=== PATIENT | female | born 1980 | race Caucasian/White ===

== ENCOUNTER → 2017-10-03 15:06 | Outpatient (CLI) | payer MEDICAID, SELFPAY ==
[2017-10-03 15:45] LABS: Urine Pregnancy, HCG Qual. Negative (Negative)
[2017-10-03 17:01] LABS: Alanine Aminotransferase 21 U/L (12-78); Albumin Level 4.1 gm/dL (3.4-5.0); Albumin/Globulin Ratio 1.3 (1.1-1.8); Alkaline Phosphatase 59 U/L (46-116); Aspartate Amino Transferase 15 U/L (15-37); Bilirubin,Total 0.7 mg/dL (0.2-1.0); Blood Urea Nitrogen 16 mg/dL (7-18); Calcium 9.1 mg/dL (8.5-10.1); Carbon Dioxide 28 mmol/L (21.0-32.0); Chloride 105 mmol/L (98-107); Creatinine,Serum 0.77 mg/dL (0.55-1.02); Estimated Glomerular Filt Rate 84 ml/min (>60); GFR (African American) 102 ML/MIN (>60); Globulin 3.2 gm/dl (1.3-3.2); Glucose 98 mg/dL (74-106); Sodium 141 mmol/L (136-145); Total Protein,Serum 7.3 gm/dL (6.4-8.2)
== END ==
PROVIDERS: Visit Provider Surgery
DX: Z01.818 Encounter for other preprocedural examination (principal); K80.10 Calculus of gallbladder with chronic cholecystitis without obstruction
CPT/HCPCS: 36415; 80053; 81025

== ENCOUNTER → 2018-01-24 10:39 | Outpatient (CLI) | payer MEDICAID, SELFPAY ==
[2018-01-24 12:53] LABS: HCG,Quantitative 6240 mIU/mL
== END ==
PROVIDERS: PCP Family Medicine; Visit Provider Physician Assistant
DX: N92.6 Irregular menstruation, unspecified (principal)
CPT/HCPCS: 36415; 84702

== ENCOUNTER → 2018-01-26 11:18 | Outpatient (CLI) | payer MEDICAID, SELFPAY ==
[2018-01-26 12:14] LABS: HCG,Quantitative 9681 mIU/mL
== END ==
PROVIDERS: PCP Family Medicine; Visit Provider Physician Assistant
DX: N92.6 Irregular menstruation, unspecified (principal)
CPT/HCPCS: 36415; 84702

== ENCOUNTER 2020-12-01 13:09 | Emergency (ER) | payer OTHER, SELFPAY ==
[2020-12-01 13:10] VITALS: BP 151/94; PULSE 86; RESP 20; TEMP 37; O2SAT 98; BMI 30.9
--- NOTE | 2020-12-01 13:47 | HMH.EDUTC ---
[facility] Clinical Impression: Viral syndrome Right otitis media Qualifiers: Otitis media type: suppurative Chronicity: acute Recurrence: non-recurrent Spontaneous tympanic membrane rupture: without spontaneous rupture Qualified Code(s): H66.001 - Acute suppurative otitis media without spontaneous rupture of ear drum, right ear Disposition: Home, Self-Care Condition on Discharge: Good Instructions: Middle Ear Infection, DI for Viral Syndrome Additional Instructions: Drink plenty of fluids. Take tylenol or ibuprofen for pain or fever. Take the medications as directed. Follow up with your regular doctor. GO TO THE ER FOR ANY WORSENING SYMPTOMS Prescriptions: Amoxicillin [Amoxicillin 500mg Tab] 500 mg PO TID 10 Days #30 tab Transmission Status: Received by [facility] #[id number] Benzonatate [Tessalon Perle 100mg Cap] 100 mg PO TIDP PRN #30 cap PRN Reason: Cough Transmission Status: Received by [facility] #[id number] Referrals: Yas Soares MD [Primary Care Provider] - Time of Disposition: 13:52 Medical Decision Making - Medical Records Medical records reviewed: No: I reviewed the patient's medical records. - Cj Inquiry Pt receiving controlled substance: No Vital Signs: 12/01/20 13:10 12/01/20 13:55 Temperature 98.6 F 98.6 F Temperature Source Oral Pulse Rate 86 Pulse Rate [Left Radial] 86 Respiratory Rate 20 20 Blood Pressure 151/94 H Blood Pressure [Right Arm] 151/94 H Blood Pressure Mean [Right Arm] 113 Blood Pressure Source [Right Arm] Automatic Cuff Blood Pressure Position [Right Arm] Sitting 02 Sat by Pulse Oximetry 98 Oxygen Delivery Method Room Air Room Air [facility] [place] - General Stated complaint: cough,runny nose,headache Time Seen by Provider: 12/01/20 13:47 Mode of Arrival: Ambulatory Source of Information: Patient Limitations: No Limitations Description of Symptoms (Recalled from Triage Doc. by RN): c/o sore throat, ear ache, mild fever, coughing and no taste since Sunday HEENT Symptoms (Recalled from RN notes): Yes Resp Symptoms (Recalled from RN notes): Yes (cough) Skin Symptoms (Recalled from RN notes): No MS Symptoms (Recalled from RN notes): No Functional Status (Recalled from RN notes): wnl - History of Present Illness Provider Complaint: She c/o runny nose, right ear pain, low grade fever, very poor appetite, and loss of her sense of smell and taste for the past 3 days. - Related Data Home Medications Medication Instructions Recorded Confirmed Melatonin/Pyridoxine HCl (B6) 1 each PO HS 09/28/17 10/12/17 [Melatonin 5 mg Tablet] Pantoprazole Sodium [Protonix 40mg 40 mg PO DAILY 10/11/17 10/12/17 tablet] Calcium Carbonate/Vitamin D3 1 each PO DAILY 10/12/17 10/12/17 [Calcium 500+D Tablet Chew] Previous Rx's Medication Instructions Recorded Amoxicillin [Amoxicillin 500mg Tab] 500 mg PO TID 10 Days #30 tab 12/01/20 Benzonatate [Tessalon Perle 100mg 100 mg PO TIDP PRN #30 cap 12/01/20 Cap] Allergies Allergy/AdvReac Type Severity Reaction Status Date / Time VANILLA ICE CREAM Allergy Unknown S-DIFF. Uncoded 10/23/17 10:13 BREATHING - Worker's Comp Is this a Worker's Comp case?: No [facility] History - Hepatitis A Screen Drug use history?: No High risk sexual behaviors?: No History of sexually transmitted infection?: No Currently employed?: No Childcare worker?: No Do you have indoor plumbing?: Yes Do you have electricity?: Yes Attestation statement:: This patient has been screened for Hepatitis A risk factors. I have reviewed the patient's past medical history: Yes Medical History: Reports:: Gastroesophageal Reflux Disease(GERD), Hypertension Denies:: Cancer, Diabetes Mellitus Type 1, Diabetes Mellitus Type 2, Internal Pacemaker, MRSA, Seizures Other Medical History: Denies: Blood Transfusion Reaction Laterality Cases: Bilateral: Other Other Surgeries: Yes: Colonoscopy, EGD, Tub
[2020-12-01 13:55] VITALS: BP 151/94; PULSE 86; RESP 20; TEMP 37; O2SAT 98
== END 2020-12-01 13:56 | disposition home or self-care (01) ==
PROVIDERS: Emergency Provider Nurse Practitioner Family; PCP Family Medicine
DX: H66.001 Acute suppurative otitis media without spontaneous rupture of ear drum, right ear (principal); B34.9 Viral infection, unspecified; I10 Essential (primary) hypertension; K21.9 Gastro-esophageal reflux disease without esophagitis
CPT/HCPCS: 99202; G0463; U0003

== ENCOUNTER → 2020-12-02 13:16 | Outpatient (CLI) | payer OTHER, SELFPAY ==
[2020-12-02 13:35] LABS: Adenovirus,PCR Not Detected (NotDetected); Bordetella Pertussis Not Detected (NotDetected); Chlamydophila Pneumoniae, PCR Not Detected (NotDetected); Coronavirus 19, PCR Not Detected (NotDetected); Coronavirus 229E Not Detected (NotDetected); Coronavirus NL63 Not Detected (NotDetected); Coronavirus OC43 Not Detected (NotDetected); Coronovirus HKU1,PCR Not Detected (NotDetected); Human Metapneumovirus Not Detected (NotDetected); Influenza A, PCR Not Detected (NotDetected); Influenza AH1, 2009 Not Detected (NotDetected); Influenza AH1, PCR Not Detected (NotDetected); Influenza AH3,PCR Not Detected (NotDetected); Influenza B, PCR Not Detected (NotDetected); Mycoplasma Pneumoniae, PCR Not Detected (NotDetected); Parainfluenza 1, PCR Not Detected (NotDetected); Parainfluenza 2, PCR Not Detected (NotDetected); Parainfluenza 3, PCR Not Detected (NotDetected); Parainfluenza 4, PCR Not Detected (NotDetected); Rhinovirus/Enterovirus Not Detected (NotDetected)
[2020-12-02 13:41] LABS: Basophils # 0.1 K/mm3 (0-0.2); Eosinophils # 0.1 K/mm3 (0.0-0.4); Eosinophils % 1.1 % (0.1-12.0); Hematocrit 41.6 % (37.0-47.0); Hemoglobin 14.5 g/dL (12.2-16.2); Lymphocytes # 2.1 K/mm3 (0.7-4.5); Lymphocytes % 23.3 % (10-50); Mean Corpuscular HGB Conc 34.8 g/dL (31.8-35.4); Mean Corpuscular Hemoglobin 29.1 pg (27.0-31.2); Mean Corpuscular Volume 83.7 fl (81-99); Mean Platelet Volume 9.1 fl (7.4-10.4); Monocytes # 0.4 K/mm3 (0.1-1.0); Monocytes % 4.5 % (1.7-9.3); Neutrophils # 6.2 K/mm3 (1.8-7.8); Platelet Count 195 K/mm3 (142-424); Red Blood Count 4.96 M/mm3 (4.20-5.40); Red Cell Distribution Width 13.3 % (11.5-17.5); White Blood Count 8.9 K/mm3 (4.8-10.8)
[2020-12-02 15:22] LABS: Respiratory Syncytial Virus Detected (NotDetected)
== END ==
PROVIDERS: PCP Family Medicine; Visit Provider Physician Assistant
DX: Z20.822 Contact with and (suspected) exposure to COVID-19 (principal); B97.4 Respiratory syncytial virus as the cause of diseases classified elsewhere
CPT/HCPCS: 36415; 85025; 87486; 87581; 87633; 87798; U0003

== ENCOUNTER 2021-08-05 13:44 | Emergency (ER) | payer OTHER, SELFPAY ==
[2021-08-05 14:36] VITALS: BP 141/94; PULSE 69; RESP 19; TEMP 36.7; O2SAT 97; BMI 31.8
--- NOTE | 2021-08-05 14:40 | HMH.EDUTC ---
[facility] – [place] Disposition Clinical Impression: Ear problem Qualifiers: Laterality: right Qualified Code(s): H93.91 - Unspecified disorder of right ear Disposition: Home, Self-Care Condition on Discharge: Good Instructions: DI for Ear Pain-Adult Additional Instructions: Follow up with Family Doctor if no improvement or any worsening of symptoms Return if needed Straight to ER if any life threatening symptoms Referrals: Yas Soares MD [Primary Care Provider] - As needed Time of Disposition: 14:45 Medical Decision Making - Cj Inquiry Pt receiving controlled substance: No Cj was queried for this patient: No Vital Signs: 08/05/21 14:36 Temperature 98.1 F Temperature Source Oral Pulse Rate [Left] 69 Respiratory Rate 19 Blood Pressure [Right Arm] 141/94 H Blood Pressure Mean [Right Arm] 109 02 Sat by Pulse Oximetry 97 [facility] [place] HPI - General Stated complaint: cotton stuck inside ear Time Seen by Provider: 08/05/21 14:40 Mode of Arrival: Ambulatory Source of Information: Patient Limitations: No Limitations Description of Symptoms (Recalled from Triage Doc. by RN): pt states the end of a q-tip has been stuck inside her R ear since last night. HEENT Symptoms (Recalled from RN notes): Yes Resp Symptoms (Recalled from RN notes): No Skin Symptoms (Recalled from RN notes): No MS Symptoms (Recalled from RN notes): No Functional Status (Recalled from RN notes): wnl - History of Present Illness Provider Complaint: Patient states that she was cleaning her ear last night with a qtip and the tip of the qtip came off in her right ear State that she tried to flush her ear and get family to help clean it out State that she feels like it may still be in there so she came in to see if she could get it out - Related Data Home Medications Medication Instructions Recorded Confirmed atenolol 50 mg tablet 50 mg PO tab 12/16/20 02/03/21 fluticasone propionate 50 ml INTRANASAL 12/16/20 02/03/21 mcg/actuation nasal spray,suspension solifenacin 5 mg tablet ea PO 02/03/21 02/03/21 Previous Rx's Medication Instructions Recorded fexofenadine-pseudoephedrine ER 1 tab PO DAILY #30 tab 12/16/20 180 mg-240 mg tablet,ext.release 24 hr Allergies Allergy/AdvReac Type Severity Reaction Status Date / Time VANILLA ICE CREAM Allergy Unknown S-DIFF. Uncoded 10/23/17 10:13 BREATHING - Worker's Comp Is this a Worker's Comp case?: No [facility] History - Hepatitis A Screen Drug use history?: No High risk sexual behaviors?: No History of sexually transmitted infection?: No Currently employed?: No Childcare worker?: No Do you have indoor plumbing?: Yes Do you have electricity?: Yes Attestation statement:: This patient has been screened for Hepatitis A risk factors. I have reviewed the patient's past medical history: Yes Medical History: Reports:: Gastroesophageal Reflux Disease(GERD), Hypertension Denies:: Cancer, Diabetes Mellitus Type 1, Diabetes Mellitus Type 2, Internal Pacemaker, MRSA, Seizures Other Medical History: Denies: Blood Transfusion Reaction Laterality Cases: Bilateral: Other Other Surgeries: Yes: Colonoscopy, EGD, Tubal Ligation, Other. No: Pacemaker Amputation: No - Social History Smoking Status: Never smoker Alcohol Intake: never Occupational Status: employed Household Members: spouse Family Hx:: No significant family history ROS Obtained: Yes All systems reviewed & no additional complaints, Yes Systems reviewed as appropriate & no additional complaints - Constitutional Constitutional: Reports system reviewed and no additional complaints, except as docu, Denies body ache, Denies chills, Denies fever(s) - ENT Ears, Nose, Mouth, and Throat: Reports system reviewed and no additional complaints, except as docu, Reports other (cotton tip on qtip came off in ear feels like piece is still in there) Physical Exam - General General appearance: alert, in no apparent distress -
[2021-08-05 14:54] VITALS: BP 141/94; PULSE 69; RESP 19; TEMP 36.7
== END 2021-08-05 14:55 | disposition home or self-care (01) ==
PROVIDERS: Emergency Provider Nurse Practitioner; PCP Family Medicine
DX: H93.91 Unspecified disorder of right ear (principal); K21.9 Gastro-esophageal reflux disease without esophagitis; I10 Essential (primary) hypertension
CPT/HCPCS: 99211; G0463

== ENCOUNTER → 2021-08-30 10:06 | Outpatient (CLI) | payer OTHER, SELFPAY ==
--- NOTE | 2021-08-30 10:09 | MM_ITS ---
PROCEDURE INFORMATION: Exam: MG Bilateral Screening 3D Mammography Exam date and time: 08/30/2021 10:13 AM Age: 41 years old Clinical indication: Baseline. No family history of breast cancer TECHNIQUE: Imaging protocol: Bilateral Screening tomosynthesis and 2D mammography including computer-aided detection (CAD) when performed. COMPARISON: No relevant prior studies available. FINDINGS: MAMMOGRAPHY: Breast composition: There are scattered areas of fibroglandular density. Mass: In the left breast, outer lower quadrant, middle 3rd, possibly 2 adjacent masses, larger measures 0.3 cm, image 1373, frame 24 and image 1720 frame 30; and in the outer breast, middle 3rd, oval slightly lobulated 1.0 cm mass which may be a lymph node, best seen in the CC view, image 1373, frame 61. Architectural distortion: None. Calcifications: No suspicious calcifications. Asymmetric density: None. Skin thickening: None. Axillary adenopathy: None. IMPRESSION: Patient to be recalled for left diagnostic spot compression in the CC and MLO projections for further evaluation in the lower outer quadrant as well as spot compression in the CC for further evaluation in the outer breast with full field true lateral, as well as left breast ultrasound for further evaluation of possible left breast masses. ASSESSMENT: BI-RADS Category 0: Incomplete- Need Additional Imaging Evaluation and/or Prior Mammograms for Comparison
== END ==
PROVIDERS: PCP Family Medicine; Visit Provider Physician Assistant
DX: Z12.31 Encounter for screening mammogram for malignant neoplasm of breast (principal)
CPT/HCPCS: 77063; 77067

== ENCOUNTER → 2021-09-12 13:57 | Outpatient (CLI) | payer OTHER, SELFPAY ==
--- NOTE | 2021-09-12 14:04 | MM_ITS ---
PROCEDURE INFORMATION: Exam: US Left Breast, Complete MG Left Diagnostic Breast Tomosynthesis Exam date and time: 09/12/2021 3:08 PM Age: 41 years old Clinical indication: Patient recalled for further evaluation of 2 questionable left breast masses TECHNIQUE: Imaging protocol: Complete ultrasound of all four quadrants of the Left breast and the retroareolar regions, including ultrasound of the axilla when performed. Left Diagnostic tomosynthesis and 2D mammography including computer-aided detection (CAD) when performed. Unilateral or bilateral exam. COMPARISON: MG MM DIG MAMM BI DX W/CAD 09/12/2021 2:19 PM FINDINGS: MAMMOGRAPHY: Digital diagnostic spot compression views of the middle third of the left lateral breast only seen in the craniocaudal projection in the a persistent ovoid approximately 0.7 cm mass. This is not confirmed in the second projection. Additional spot compression views of the left inferior breast and 90 degree lateral view of the left breast demonstrates a questionable persistent 0.3 cm mass only appreciated in the MLO projection. ULTRASOUND: Sonographic images of the left breast including the retroareolar region, all 4 quadrants and the axilla do not demonstrate any solid or cystic masses. No architectural distortion or acoustical shadowing. No skin thickening or axillary adenopathy. IMPRESSION: Probably benign nonspecific subcentimeter nodularity in the middle third of the left lateral breast on the craniocaudal view as well as in the posterior third of the left inferior breast on the MLO view. A six-month follow-up diagnostic left mammogram is recommended to ensure stability of the pattern identified unless otherwise clinically indicated. ASSESSMENT: BI-RADS Category 3: Probably benign
== END ==
PROVIDERS: PCP Family Medicine; Visit Provider Physician Assistant
DX: R92.8 Other abnormal and inconclusive findings on diagnostic imaging of breast (principal)
CPT/HCPCS: 76641; 77061; 77065; G0279

== ENCOUNTER → 2021-11-09 16:45 | Outpatient (CLI) | payer OTHER, SELFPAY ==
--- NOTE | 2021-11-09 | XR_ITS ---
PROCEDURE INFORMATION: Exam: XR Chest Exam date and time: 11/09/2021 4:53 PM Age: 41 years old Clinical indication: Pain; Angina pectoris and chest pressure; Patient HX: SOA and chest tightness for 2 months TECHNIQUE: Imaging protocol: Radiologic exam of the chest. Views: 2 views. COMPARISON: ABDPELWO CT abdomen pelvis wo con 09/28/2017 1:40 AM FINDINGS: Lungs: Unremarkable. No consolidation. Pleural spaces: Unremarkable. No pleural effusion. No pneumothorax. Heart/Mediastinum: Unremarkable. No cardiomegaly. Bones/joints: Unremarkable. IMPRESSION: No acute findings.
== END ==
PROVIDERS: PCP Family Medicine; Visit Provider Family Medicine
DX: R06.02 Shortness of breath (principal)
CPT/HCPCS: 71046

== ENCOUNTER → 2021-11-14 14:30 | Outpatient (CLI) | payer OTHER, SELFPAY | PROVIDERS: PCP Family Medicine; Visit Provider Family Medicine | DX: R06.02 Shortness of breath (principal) | CPT/HCPCS: 93225; 93226 ==

== ENCOUNTER → 2021-11-16 14:13 | Outpatient (CLI) | payer OTHER, SELFPAY ==
--- NOTE | 2021-11-16 14:16 | US_ITS ---
FINAL REPORT CLINICAL HISTORY: THYROMEGALY FINDINGS: Sonographic images of the thyroid were obtained. The right lobe of the thyroid measures 4.5 x1.0 x 1.0 cm. The left lobe of the thyroid measures 4.4 x 0.54 x 1.1 cm . The isthmus measures 0.34 cm. In the right lobe of the thyroid is a 6 x 5 x 3 mm solid, hypoechoic nodule consistent with TI-RADS category 4. In the left upper lobe of the thyroid is a solid, hypoechoic nodule measuring 3 mm in transverse dimension consistent with TI-RADS category 4. There is a 2nd nodule in the mid left thyroid lobe measuring 3 x 2 x 2 mm which is solid and isoechoic consistent with TI-RADS category 3. There is a 3rd nodule in the left lobe of the thyroid measuring 5 x 4 x 3 mm which is solid and hypoechoic consistent with TI-RADS category 4. IMPRESSION: Bilateral thyroid nodules as detailed above. No follow-up is required. Reviewed, Interpreted and Dictated by Kilo Ward III, MD Transcribed by Mckayla Contreras Authenticated and [facility]
== END ==
PROVIDERS: PCP Family Medicine; Visit Provider Family Medicine
DX: E01.0 Iodine-deficiency related diffuse (endemic) goiter (principal)
CPT/HCPCS: 76536

== ENCOUNTER → 2022-01-11 15:29 | Outpatient (CLI) | payer OTHER, SELFPAY ==
[2022-01-19 13:10] LABS: D001-IgE D pteronyssinus 0.62 kU/L (Class II); E001-IgE Cat Dander <0.10 kU/L (Class 0); E005-IgE Dog Dander <0.10 kU/L (Class 0); E072-IgE Mouse Urine <0.10 kU/L (Class 0); G002-IgE Bermuda Grass <0.10 kU/L (Class 0); G006-IgE Timothy Grass <0.10 kU/L (Class 0); I006-IgE Cockroach, German <0.10 kU/L (Class 0); Immunoglobulin E, Total 34 IU/mL (6-495); M001-IgE Penicillium chrysogen 0.38 kU/L (Class I); M002-IgE Cladosporium herbarum <0.10 kU/L (Class 0); M003-IgE Aspergillus fumigatus <0.10 kU/L (Class 0); M006-IgE Alternaria alternata <0.10 kU/L (Class 0); T001-IgE Maple/Box Elder <0.10 kU/L (Class 0); T003-IgE Common Silver Birch <0.10 kU/L (Class 0); T006-IgE Cedar, Mountain <0.10 kU/L (Class 0); T007-IgE Oak, White <0.10 kU/L (Class 0); T008-IgE Elm, American <0.10 kU/L (Class 0); T010-IgE Walnut <0.10 kU/L (Class 0); T011-IgE Maple Leaf Sycamore <0.10 kU/L (Class 0); T014-IgE Cottonwood <0.10 kU/L (Class 0); T015-IgE Ash, White <0.10 kU/L (Class 0); T022-IgE Pecan, Hickory <0.10 kU/L (Class 0); T070-IgE White Mulberry <0.10 kU/L (Class 0); W001-IgE Ragweed, Short <0.10 kU/L (Class 0); W011-IgE Thistle, Russian <0.10 kU/L (Class 0); W014-IgE Pigweed, Common <0.10 kU/L (Class 0); W018-IgE Sheep Sorrel <0.10 kU/L (Class 0)
== END ==
PROVIDERS: PCP Family Medicine; Visit Provider Otolaryngology
DX: J32.9 Chronic sinusitis, unspecified (principal); J34.2 Deviated nasal septum; K21.9 Gastro-esophageal reflux disease without esophagitis
CPT/HCPCS: 36415; 82785; 86003

== ENCOUNTER → 2022-01-30 13:20 | Outpatient (CLI) | payer OTHER, SELFPAY ==
--- NOTE | 2022-01-30 13:21 | CT_ITS ---
FINAL REPORT TECHNIQUE: Thin section axial CT images of the facial bones and sinuses were obtained without contrast. Coronal reformatted images were also obtained. This study was performed with techniques to keep radiation doses as low as reasonably achievable, (ALARA). Individualized dose reduction techniques using automated exposure control or adjustment of mA and/or kV according to the patient's size were employed. CLINICAL HISTORY: sinusitis FINDINGS: CT SINUSES There is no evidence of mucosal thickening. No fluid levels are identified. The ostiomeatal units have an unremarkable appearance. There is mild rightward nasal septal deviation. No fracture or acute bony abnormality is identified. There is chronic irregularity of the articular surface of the right mandibular condyle. IMPRESSION: No focal abnormality identified of the sinuses. Reviewed, Interpreted and Dictated by Kilo Ward III, MD Transcribed by Dariana Meraz Authenticated and [facility]
== END ==
PROVIDERS: PCP Family Medicine; Visit Provider Otolaryngology
DX: J32.9 Chronic sinusitis, unspecified (principal); J34.2 Deviated nasal septum; K21.9 Gastro-esophageal reflux disease without esophagitis
CPT/HCPCS: 70486

== ENCOUNTER → 2022-03-16 12:45 | Outpatient (CLI) | payer OTHER, SELFPAY ==
--- NOTE | 2022-03-16 12:52 | MM_ITS ---
PROCEDURE INFORMATION: Exam: US Left Breast, Complete MG Bilateral Diagnostic Breast Tomosynthesis Exam date and time: 03/16/2022 12:57 PM Age: 42 years old Clinical indication: Short-term radiographic followup; Left breast; masses. continued pain in right TECHNIQUE: Imaging protocol: Complete ultrasound of all four quadrants of the Left breast and the retroareolar regions, including ultrasound of the axilla when performed. Bilateral Diagnostic tomosynthesis and 2D mammography including computer-aided detection (CAD) when performed. Unilateral or bilateral exam. COMPARISON: 1. MG MM DIG MAMM BI DX W/CAD 09/12/2021 2:19 PM 2. MG MM DIG SCREENING MAMM BI W/CAD 08/30/2021 10:13 AM FINDINGS: MAMMOGRAPHY: The breast tissue is composed of scattered areas of fibroglandular density. There is no stellate mass, architectural distortion or suspicious microcalcifications in either breast to suggest malignancy. Previously noted left breast masses are not well seen on the current examination No skin thickening or axillary adenopathy. ULTRASOUND: Sonographic images of the left breast including the retroareolar region, all 4 quadrants and the axilla do not demonstrate any solid or cystic masses. No architectural distortion or acoustical shadowing. No skin thickening or axillary adenopathy. IMPRESSION: 1. No mammographic or sonographic evidence of malignancy. Annual bilateral mammographic screening is recommended unless otherwise clinically indicated. 2. Clinical correlation is needed for the patient's complaint of right breast pain. If the pain is focal, patient should return for right breast ultrasound. ASSESSMENT: BI-RADS Category 1: Negative
== END ==
PROVIDERS: PCP Family Medicine; Visit Provider Obstetrics & Gynecology
DX: R92.8 Other abnormal and inconclusive findings on diagnostic imaging of breast (principal)
CPT/HCPCS: 76641; 77062; 77066; G0279

== ENCOUNTER 2022-06-13 16:13 | Emergency (ER) | payer OTHER, SELFPAY ==
[2022-06-13 16:14] VITALS: BP 157/88; PULSE 63; RESP 18; TEMP 36.5; O2SAT 99; BMI 33.3
[2022-06-13 16:21] VITALS: BP 157/88; PULSE 58; O2SAT 99
--- NOTE | 2022-06-13 16:26 | HMH.EDGENADL ---
Discharge Plan Disposition Patient Disposition: Home, Self-Care Condition: Good Prescriptions Prescriptions: No Action atenolol 50 mg tablet 50 mg PO Label Comments: TAKE 1 TABLET BY MOUTH EVERY DAY fexofenadine [Yarelis Allergy] 180 mg tablet 180 mg PO DAILY Qty: 30 6RF montelukast [Singulair] 10 mg tablet 10 mg PO DAILY Qty: 30 6RF fluticasone propionate 50 mcg/actuation spray,suspension 2 spray INTRANASAL DAILY Qty: 16 6RF solifenacin 5 mg tablet PO Label Comments: TAKE 1 TABLET BY MOUTH EVERY DAY ergocalciferol (vitamin D2) 1,250 mcg (50,000 unit) capsule 1,250 mcg PO WEEKLY Label Comments: TAKE 1 CAPSULE BY MOUTH EVERY WEEK ON SAME DAY EACH WEEK albuterol sulfate [ProAir HFA] 90 mcg/actuation HFA aerosol inhaler 2 puff inhalation QID PRN Label Comments: INHALE 2 PUFFS BY MOUTH FOUR TIMES DAILY NEEDED norethindrone-e.estradiol-iron [Blisovi Fe 05/19 (28)] 1 mg-20 mcg (21)/75 mg (7) tablet 1 tab PO DAILY omeprazole 40 mg capsule,delayed release(DR/EC) 40 mg PO DAILY Qty: 60 4RF azelastine 137 mcg (0.1 %) aerosol,spray 2 spray intranasal BID Qty: 30 3RF Rx Instructions: administer into each nostril azelastine 205.5 mcg (0.15 %) spray,non-aerosol 1 spray intranasal HS Qty: 30 2RF Rx Instructions: administer into each nostril at bedtime Referrals Follow up/Referrals: Yas Soares MD [Primary Care Provider] - See instructions Activity Restrictions/Add. Instructions Additional Instructions/Restrictions: Follow-up with your urologist as scheduled in the meantime keep the Baum catheter in place. Clinical Impressions Clinical Impression: Acute urinary retention Discharge ED Provider: Kenn Turner General Adult HPI General Chief complaint: PAIN Stated complaint: unable to pee,procedure 06-12-22 Time Seen by Provider: 06/13/22 16:24 History of Present Illness HPI narrative: Patient presents with urinary retention. She underwent bladder sling surgery yesterday and states she has been unable to void since her catheter was removed earlier this morning. She denies fever or vomiting. She does note some lower abdominal discomfort apparently from the retention. Symptoms are described as severe. Related Data Home Medications Medication Instructions Recorded Confirmed atenolol 50 mg tablet 50 mg PO 12/16/20 05/10/22 solifenacin 5 mg tablet ea PO 02/03/21 05/10/22 albuterol sulfate 90 mcg/actuation 2 puff inhalation QID PRN 01/11/22 05/10/22 aerosol inhaler (ProAir HFA) ergocalciferol (vitamin D2) 1,250 1,250 mcg PO WEEKLY 01/11/22 05/10/22 mcg (50,000 unit) capsule norethindrone 1 mg-ethinyl 1 tab PO DAILY 01/11/22 05/10/22 estradiol 20 mcg (21)-iron 75 mg (7) tablet (Blisovi Fe 05/19 (28)) Previous Rx's Medication Instructions Recorded omeprazole 40 mg capsule,delayed 40 mg PO DAILY #60 caps 01/11/22 release fexofenadine 180 mg tablet 180 mg PO DAILY #30 tabs 02/22/22 (Yarelis Allergy) fluticasone propionate 50 2 spray intranasal DAILY #16 grams 02/22/22 mcg/actuation nasal spray,suspension montelukast 10 mg tablet 10 mg PO DAILY #30 tabs 02/22/22 (Singulair) azelastine 137 mcg (0.1 %) nasal 2 spray intranasal BID #30 mL 05/31/22 spray aerosol azelastine 205.5 mcg (0.15 %) 1 spray intranasal HS #30 mL 06/06/22 nasal spray Allergies Allergy/AdvReac Type Severity Reaction Status Date / Time VANILLA ICE CREAM Allergy Unknown S-DIFF. Uncoded 05/10/22 15:21 [facility] Disclaimer: The information contained in this section may have been updated after the patient was seen, as this information can be updated by other users. Medical History Chronic sinusitis Deviated nasal septum GERD (gastroesophageal reflux disease) HTN (hypertension), benign Social History (Reviewed 06/13/22 @ 16:27 by Ele
--- NOTE | 2022-06-13 16:35 | PC.NURSE ---
Bladder scanner scanned 749. chaudhry catheter inserted and 750 of urine collected, pt states that she feels better after insertion of catheter.
[2022-06-13 16:52] LABS: Microscopic, Urine URINE MICROSCOPIC (MICROSCOPIC)
[2022-06-13 17:22] LABS: Appearance,Urine CLEAR (Clear); Bilirubin,Urine Negative (Negative); Blood, Urine 3+ (Negative); Color,Urine YELLOW (Yellow); Glucose,Urine (UA) Negative (Negative); Ketones,Urine Negative (Negative); Leukocyte Esterase,Urine Negative (Negative); Nitrate,Urine Negative (Negative); Protein,Urine Negative (Negative); Specific Gravity, Urine 1.015 (1.005-1.030); Urobilinogen,Urine 0.2 EU/dl (0.2)
[2022-06-13 17:27] VITALS: BP 146/82; PULSE 49; O2SAT 100
[2022-06-13 17:40] LABS: Squamous Epithelial Cell,Urine Occasional #/hpf (0-5); WBC,Urine Occasional #/hpf (0-3)
--- NOTE | 2022-06-13 17:45 | PC.NURSE ---
PT IS RESTING NO COMPLAINTS AT THIS TIME,DAUGHTER AT BEDSIDE
[2022-06-13 18:00] VITALS: BP 128/77; PULSE 52; RESP 13; TEMP 36.5; O2SAT 99
== END 2022-06-13 18:04 | disposition home or self-care (01) ==
PROVIDERS: Emergency Provider Emergency Medicine; PCP Family Medicine
DX: R33.9 Retention of urine, unspecified (principal); K21.9 Gastro-esophageal reflux disease without esophagitis; I10 Essential (primary) hypertension
CPT/HCPCS: 51702; 81001; 99283; 99284

== ENCOUNTER 2022-06-16 23:56 | Emergency (ER) | payer OTHER, SELFPAY ==
[2022-06-16 23:57] VITALS: BP 152/101; PULSE 83; RESP 18; TEMP 36.8; O2SAT 98; BMI 35.4
[2022-06-17 00:22] LABS: Microscopic, Urine URINE MICROSCOPIC (MICROSCOPIC)
[2022-06-17 00:25] LABS: Appearance,Urine CLEAR (Clear); Bilirubin,Urine Negative (Negative); Blood, Urine TRACE-L (Negative); Color,Urine ORANGE (Yellow); Glucose,Urine (UA) TRACE (Negative); Ketones,Urine Negative (Negative); Leukocyte Esterase,Urine Negative (Negative); Nitrate,Urine POSITIVE (Negative); Protein,Urine 1+ (Negative)
--- NOTE | 2022-06-17 00:29 | HMH.EDUROGF ---
Discharge Plan Disposition Patient Disposition: Home, Self-Care Chief Complaint: Urogenital-Female Prescriptions Prescriptions: No Action atenolol 50 mg tablet 50 mg PO Label Comments: TAKE 1 TABLET BY MOUTH EVERY DAY fexofenadine [Yarelis Allergy] 180 mg tablet 180 mg PO DAILY Qty: 30 6RF montelukast [Singulair] 10 mg tablet 10 mg PO DAILY Qty: 30 6RF fluticasone propionate 50 mcg/actuation spray,suspension 2 spray INTRANASAL DAILY Qty: 16 6RF solifenacin 5 mg tablet PO Label Comments: TAKE 1 TABLET BY MOUTH EVERY DAY ergocalciferol (vitamin D2) 1,250 mcg (50,000 unit) capsule 1,250 mcg PO WEEKLY Label Comments: TAKE 1 CAPSULE BY MOUTH EVERY WEEK ON SAME DAY EACH WEEK albuterol sulfate [ProAir HFA] 90 mcg/actuation HFA aerosol inhaler 2 puff inhalation QID PRN Label Comments: INHALE 2 PUFFS BY MOUTH FOUR TIMES DAILY NEEDED norethindrone-e.estradiol-iron [Blisovi Fe / (28)] 1 mg-20 mcg (21)/75 mg (7) tablet 1 tab PO DAILY omeprazole 40 mg capsule,delayed release(DR/EC) 40 mg PO DAILY Qty: 60 4RF azelastine 137 mcg (0.1 %) aerosol,spray 2 spray intranasal BID Qty: 30 3RF Rx Instructions: administer into each nostril azelastine 205.5 mcg (0.15 %) spray,non-aerosol 1 spray intranasal HS Qty: 30 2RF Rx Instructions: administer into each nostril at bedtime Referrals Follow up/Referrals: Yas Soares MD [Primary Care Provider] - See instructions Clinical Impressions Clinical Impression: Acute urinary retention Instructions Patient Instructions: How to Care for Your Chaudhry Catheter -- Female Discharge ED Provider: Chap[facility] (ED)[facility] Female Urogenital HPI General Chief complaint: Urogenital-Female Stated complaint: unable to urinate Time Seen by Provider: 06/17/22 00:29 Mode of Arrival: Ambulatory Source of Information: Patient and Medical Record Limitations: No Limitations Description of Symptoms (Recalled from ER Triage Doc. by RN): Patient arrives private vehicle. States that she had a bladder sling on Sunday and had a chaudhry catheter overnight that was removed Sunday. Pt was unable to urinate so she came to [facility] ED and received a chaudhry catheter. Followed up with with [facility] Sunday at 10:00 and her catheter was removed. States that she sat at the office for 3 hours trying to void but was unable to. She was in and out cathed and then discharged home with instructions to return to the ED if she was unable to voice. Pt states that other than dribbles she has not been able to void since this the chaudhry removal. History of Present Illness HPI Narrative: after surg has dec ability to urinate - requiring chaudhry Complaint: other (retention) Onset (ago): hour(s) Severity: moderate Related Data Home Medications Medication Instructions Recorded Confirmed atenolol 50 mg tablet 50 mg PO 12/16/20 05/10/22 solifenacin 5 mg tablet ea PO 02/03/21 05/10/22 albuterol sulfate 90 mcg/actuation 2 puff inhalation QID PRN 01/11/22 05/10/22 aerosol inhaler (ProAir HFA) ergocalciferol (vitamin D2) 1,250 1,250 mcg PO WEEKLY 01/11/22 05/10/22 mcg (50,000 unit) capsule norethindrone 1 mg-ethinyl 1 tab PO DAILY 01/11/22 05/10/22 estradiol 20 mcg (21)-iron 75 mg (7) tablet (Blisovi Fe 05/19 (28)) Previous Rx's Medication Instructions Recorded omeprazole 40 mg capsule,delayed 40 mg PO DAILY #60 caps 01/11/22 release fexofenadine 180 mg tablet 180 mg PO DAILY #30 tabs 02/22/22 (Yarelis Allergy) fluticasone propionate 50 2 spray intranasal DAILY #16 grams 02/22/22 mcg/actuation nasal spray,suspension montelukast 10 mg tablet 10 mg PO DAILY #30 tabs 02/22/22 (Singulair) azelastine 137 mcg (0.1 %) nasal 2 spray intranasal BID #30 mL 05/31/22 spray aerosol azelastine 205.5 mcg (0.15 %) 1 spray intranasal HS #30 mL 06/06/22 nasal spray Allergies Allergy/AdvReac
[2022-06-17 00:34] LABS: Bacteria,Urine Trace /lpf; WBC,Urine Occasional #/hpf (0-3)
[2022-06-17 00:39] VITALS: BP 141/67; PULSE 79; RESP 18; TEMP 36.8; O2SAT 98
[2022-06-17 00:43] VITALS: BP 137/75; PULSE 62; RESP 18; TEMP 36.6; O2SAT 95
== END 2022-06-17 00:47 | disposition home or self-care (01) ==
PROVIDERS: Emergency Provider Emergency Medicine; PCP Family Medicine
DX: R33.9 Retention of urine, unspecified (principal); K21.9 Gastro-esophageal reflux disease without esophagitis; I10 Essential (primary) hypertension; F17.210 Nicotine dependence, cigarettes, uncomplicated
CPT/HCPCS: 51702; 81001; 99283

== ENCOUNTER → 2022-09-19 15:59 | Outpatient (CLI) | payer OTHER, SELFPAY | PROVIDERS: PCP Family Medicine; Visit Provider Physician Assistant | DX: Z12.31 Encounter for screening mammogram for malignant neoplasm of breast (principal) ==

== ENCOUNTER → 2022-11-06 16:48 | Outpatient (CLI) | payer OTHER, SELFPAY | PROVIDERS: PCP Family Medicine; Visit Provider Family Medicine | DX: R00.2 Palpitations (principal) | CPT/HCPCS: 93225; 93226 ==

== ENCOUNTER → 2023-01-16 16:18 | Outpatient (CLI) | payer OTHER, SELFPAY | PROVIDERS: PCP Family Medicine; Visit Provider Nurse Practitioner | DX: R06.83 Snoring (principal) | CPT/HCPCS: G0399 ==

== ENCOUNTER → 2023-03-15 20:30 | Outpatient (CLI) | payer OTHER, SELFPAY | LOC: SL 20:31 | PROVIDERS: PCP Family Medicine; Visit Provider Nurse Practitioner Family | DX: R06.83 Snoring (principal); R53.83 Other fatigue; G47.00 Insomnia, unspecified; G47.8 Other sleep disorders; R51.9 Headache, unspecified; R00.2 Palpitations; R63.5 Abnormal weight gain; Z68.27 Body mass index [BMI] 27.0-27.9, adult; G47.30 Sleep apnea, unspecified | CPT/HCPCS: 95810 ==

== ENCOUNTER 2023-07-04 18:11 | Emergency (ER) | payer OTHER, SELFPAY ==
[2023-07-04 18:50] VITALS: BP 160/73; PULSE 88; RESP 20; TEMP 36.8; O2SAT 98; BMI 29.9
--- NOTE | 2023-07-04 19:30 | EXP.UTC ---
Discharge Plan Disposition Patient Disposition: Home, Self-Care Condition: Good Prescriptions Prescriptions: No Action atenolol 50 mg tablet 50 mg PO DAILY Patient Comments: TAKE 1 TABLET BY MOUTH EVERY DAY fexofenadine [Yarelis Allergy] 180 mg tablet 180 mg PO DAILY Qty: 30 6RF montelukast [Singulair] 10 mg tablet 10 mg PO DAILY Qty: 30 6RF fluticasone propionate 50 mcg/actuation spray,suspension 2 spray INTRANASAL DAILY Qty: 16 6RF albuterol sulfate [ProAir HFA] 90 mcg/actuation HFA aerosol inhaler 2 puff inhalation QID PRN Patient Comments: INHALE 2 PUFFS BY MOUTH FOUR TIMES DAILY NEEDED omeprazole 40 mg capsule,delayed release(DR/EC) 40 mg PO DAILY Qty: 60 4RF Orilissa 150 mg tablet 150 mg PO DAILY Patient Comments: TAKE 1 TABLET BY MOUTH EVERY DAY ibuprofen 800 mg tablet 800 mg PO TID PRN Patient Comments: TAKE 1 TABLET BY MOUTH THREE TIMES DAILY FOR 10 DAYS NEEDED Referrals Follow up/Referrals: Yas Soares MD [Primary Care Provider] - See instructions Activity Restrictions/Add. Instructions Additional Instructions/Restrictions: Suture instructions: ?You have required stitches today. Please read the following instructions so you know how to care for them: ?1. Keep wound area dry for the first 24 hours. 2?? May clean gently with mild soap and water, after 48 hours to prevent crusting over suture knots. 3. You may shower if your provider gives permission but do not take a bath until the skin is healed.. 4. Never leave a wet dressing or Band-Aid on your stitches as this allows bacteria to reach the area and may cause infection. Band-aids can cause the wound to sweat and not recommended to wear for long periods of time Watch for signs of infection: ? Increasing redness, tenderness or warmth around the suture site ? Unusual swelling around the site ? Appearance of pus around each suture or any red streaks ? Fever If you develop any of the above signs or symptoms of infection, Follow up with Family Physician immediately 5. Suture removal in _12-14___days 6. Return to [facility] or follow up with family doctor for removal. This can be done by any medical provider dur?ing regular hours on Sunday through Sunday, by appointment. Clinical Impressions Clinical Impression: Laceration Instructions Patient Instructions: DI for Laceration Repair, DI for Laceration Repair -- Finger Discharge ED Provider[place] Y[place] [facility] [place] General Stated complaint: [id number] lac to LT hand Mode of Arrival: Ambulatory Source of Information: Patient Limitations: No Limitations Time Seen by Provider: 07/04/23 19:00 Description of Symptoms (Recalled from Triage Doc. by RN): PATIENT C/O LACERATION TO LEFT HAND BETWEEN FINGERS AFTER CUTTING IT WITH A BUTTER KNIFE TODAY HEENT Symptoms (Recalled from RN notes): No Resp Symptoms (Recalled from RN notes): No Skin Symptoms (Recalled from RN notes): Yes MS Symptoms (Recalled from RN notes): No Functional Status (Recalled from RN notes): WNL History of Present Illness Provider Complaint: Patient states that she was using a butter knife earlier when it slipped and cut her between her index and middle finger and she was unable to get it to stop bleeding and when she looked at it she noticed it needed stitches Related Data Home Medications Medication Instructions Recorded Confirmed albuterol sulfate 90 mcg/actuation 2 puff inhalation QID PRN 01/11/22 03/28/23 aerosol inhaler (ProAir HFA) atenolol 50 mg tablet 50 mg PO DAILY 01/31/23 03/28/23 elagolix 150 mg tablet (Orilissa) 150 mg PO DAILY 03/28/23 03/28/23 ibuprofen 800 mg tablet 800 mg PO TID PRN 03/28/23 03/28/23 Previous Rx's Medication Instructions Recorded omeprazole 40 mg capsule,delayed 40 mg PO DAILY #60 caps 01/11/22 release fexofenadine 180 mg tablet 180 mg PO DAILY #30 tabs 02/22/22 (Yarelis Allergy) montelukast 10 mg tablet 10 mg PO DAILY #30 tabs 02/22/22 (Singulair) fluticasone propionate 50 2 spray intranasal DAILY #16 grams 12/19/22 mcg/actuation nasal spray,suspension Allergies Allergy/AdvReac Type Severity Reaction Status Date / Time VANILLA ICE CREAM Allergy Unknown S-DIFF. Uncoded 12/19/22 09:51 BREATHING Worker's Comp Is this a Worker's Comp case?: No [facility] Disclaimer: The information contained in this section may have been updated after the patient was seen, as this information can be updated by other users. Medical History Chronic sinusitis Deviated nasal septum GERD (gastroesophageal reflux disease) HTN (hypertension), benign Snoring Family History Other Cancer Coronary artery disease Diabetes Hypertension Social History (Updated 03/28/23 @ 08:28 by Rena Leroy) Smoking Status: Former smoker second hand exposure: No alcohol intake: never substance use type: denies use current occupational status: unemployed Travel in the last 8 weeks: None household members: spouse housing: house marital status: ROS Obtained: Yes All systems reviewed & no additional complaints except as documented and Yes Systems reviewed as appropriate & no additional complaints except as documented Constitutional Constitutional: Reports system reviewed and no additional complaints, except as documented and Reports as per HPI ENT Ears, Nose, Mouth, and Throat: Reports system reviewed and no additional complaints, except as documented and Reports as per HPI Cardiovascular Cardiovascular: Reports system reviewed and no additional complaints, except as documented and Reports as per HPI Respiratory Respiratory: Reports system reviewed and no additional complaints, except as documented and Reports as per HPI Integumentary/Breasts Skin/Breast: Reports system reviewed and no additional complaints, except as documented and Reports as per HPI Comments: laceration left hand between index and middle finger Physical Exam General General appearance: alert and in no apparent distress Respiratory Respiratory exam: Present normal lung sounds bilaterally; Absent respiratory distress or wheezes Cardiovascular Cardiovascular exam: Present regular rate, normal rhythm and normal heart sounds Expanded Upper Extremity Exam Left: Hand L/R front image: 1. laceration Neurological Exam Neurological exam: Present alert, oriented X3 and normal gait Medical Decision Making Cj Inquiry Pt receiving controlled substance: No Cj was queried for this patient: No Vital Signs: 07/04/23 18:50 Temperature 98.3 F Temperature Source Oral Pulse Rate [Right Brachial] 88 Respiratory Rate 20 Blood Pressure [Right Arm] 160/73 H Blood Pressure Mean [Right Arm] 102 Blood Pressure Source [Right Arm] Automatic Cuff Blood Pressure Position [Right Arm] Sitting 02 Sat by Pulse Oximetry 98 Oxygen Delivery Method Room Air Orders (Tests/Meds): ED MEDICATIONS Generic Name Dose Route Start Last Admin Trade Name Freq PRN Reason Stop Dose Admin Tetanus/Reduced Diphtheria/Acell Pertussis 0.5 ml 07/04/23 19:08 Tet/Diphth/Pert-Adult 0.5ml Syringe IM 07/04/23 19:09 .ONCE ONE Procedures Laceration Laceration 1: Site: finger Side (If applicable): left Size (cm): 2 Description: linear Depth: simple, single layer Local Anesthetic: lidocaine 1% Amount of anesthesia used (mL): 2 Pre-repair: wound explored and irrigated extensively Skin layer closed with: nylon Size (cm): 4-0 Number of sutures: 8 Technique: simple, interrupted and other (wound edges approximated well)
[2023-07-04] MEDS: TET/DIPHTH/PERT-ADULT 0.5ML SYRINGE 0.5 ML IM (19:35)
[2023-07-04 19:45] VITALS: BP 160/73; PULSE 88; RESP 20; TEMP 36.8; O2SAT 98
== END 2023-07-04 19:52 | disposition home or self-care (01) ==
PROVIDERS: Emergency Provider Nurse Practitioner; PCP Family Medicine
DX: S61.412A Laceration without foreign body of left hand, initial encounter (principal); W26.0XXA Contact with knife, initial encounter; Z23 Encounter for immunization
CPT/HCPCS: 12001; 90471; 90715; 99213; 99214; G0463

== ENCOUNTER 2023-07-17 15:21 | Outpatient (CLI) | payer OTHER, SELFPAY ==
--- NOTE | 2023-07-17 15:26 | XR_ITS ---
FINAL REPORT CLINICAL HISTORY: RT SHOULDER PAIN, PATIENT SAID SHE FELT A POP ON SC JOINT AREA WHILE CARRYING HEAVY BUCKET OF FEED SEVERAL WEEKS AGO , NOT GETTING BETTER FINDINGS: Right clavicle Two views were obtained. There is no acute fracture or dislocation. The joint spaces appear normal. There is mild AC joint degenerative change. IMPRESSION: Mild AC joint degenerative change. Reviewed, Interpreted and Dictated by Kilo Ward III, MD Transcribed by Mckayla Contreras Authenticated and [facility]
== END 2023-07-17 23:59 ==
LOC: RAD 15:22
PROVIDERS: PCP Family Medicine; Visit Provider Family Medicine
DX: S43.60XA Sprain of unspecified sternoclavicular joint, initial encounter; M25.511 Pain in right shoulder
CPT/HCPCS: 73000

== ENCOUNTER 2023-10-08 14:16 | Outpatient (CLI) | payer OTHER, SELFPAY ==
--- NOTE | 2023-10-08 | CA_ITS ---
APPROVED REPORT EXAM: Comprehensive 2D, Doppler, and color-flow Echocardiogram Watch Adjuster: Elaine Burgos CRT Ht: 5 ft 9 in Wt: 185lbs BSA: 2.00 BP: 160/73 mmHg Indications: Shortness of Breath Shortness of Breath, Hypertension/HDD 2D Dimensions Left Atrium 2.99 cm F: 2.7 - 3.8 LVEF (Acosta's) 52.10 % F: 54 - 74 LVOT 1.74 cm (M/F) 1.5-2.5 LV Volume 80.20 mL F: 46 - 106 LV Volume Index 40.1 mL/m2 F: 29 - 61 LA Volume 20.30 mL LA Volume Index 10.15 mL/m2 (M/F) 16-34 EF AP4 64.80 % EF AP2 36.5 % EF BP 52.1 % GL Strain -15.8 % M-Mode Dimensions RVDd 2.68 cm (0.9-2.6) LVDd 4.71 cm (3.5-5.7) Ao Diam 3.07 cm (2.0-3.7) LVDs 2.85 cm (3.5-5.7) IVSd 1.05 cm (0.6-1.1) PWd 0.64 cm (0.6-1.1) EF (Teich) 70.00% FS 39.50% EDV (Teich) 102.90 mL TAPSE 1.38 (<1.7) ESV (Teich) 30.90 mL LV Diastology E Decel Time 178 (160-240 msec) E/A Ratio 1.6 MED E' 4.2 (>= 7 cm/sec) MED A' 8.10 cm/s E'/MED E' Ratio 21.38 (<= 14) LAT E' 18.1 (>= 10 cm/sec) LAT A' 8.60 cm/s E/LAT E' Ratio 4.96 (<= 14) Aortic Valve AoV Peak Bucky. 146.0 (50-130 cm/s) AO Peak GR. 8.50 mmHg Mitral Valve MV E Max Bucky. 90.0 (40-130 cm/s) MV A Velocity 55.0 (40-130 cm/s) E/A Ratio 1.63 MV Decel. Time 178 (160-240 ms) Tricuspid Valve TR P. Velocity 220.00 cm/s RAP Estimate 10.00 mmHg RVSP 29.40 mmHg Left Ventricle The left ventricle is normal size. The left ventricular systolic function is normal. The left ventricular ejection fraction is within the normal range. There is normal left ventricular wall thickness at the bases. There is suspected increase in apical LV wall thickness noted (vs. foreshortened LV during image acquisition). There is normal LV segmental wall motion. The left ventricular diastolic function is normal. LVEF is 55%. Right Ventricle The right ventricle is normal size. The right ventricular systolic function is normal. Atria The left atrium size is normal. The right atrium size is normal. There is no Doppler evidence of interatrial shunt. Aortic Valve The aortic valve opens well. There is no aortic valvular stenosis. No aortic regurgitation is present. Mitral Valve The mitral valve is normal in structure. No evidence of mitral valve stenosis. There is no mitral valve regurgitation noted. Tricuspid Valve The tricuspid valve leaflets are thin and pliable. Trace tricuspid regurgitation. There is insufficient TR jet to estimate RVSP. Pulmonic Valve The pulmonary valve is normal in structure. Trace pulmonic regurgitation. Great Vessels The aortic root is normal in size. The ascending aorta is normal in size. IVC is normal in size and collapses >50% with inspiration. Pericardium There is no pericardial effusion. Other Information Study Quality: Fair Conclusion Normal biventricular systolic function. Normal left ventricular wall thickness at the bases. Increased apical LV wall thickness is suspected, as it was noted in multiple views. No significant valvular stenosis or regurgitation. In the setting of reported symptoms of chest and suspected increase in apical LV wall thickness, further evaluation with cardiac MRI (HCM protocol) to rule out apical HCM is recommended. Electronically signed by : Suzanne Keys MD 10/10/2023 11:11:37
== END 2023-10-08 23:59 | disposition home or self-care (01) ==
LOC: RT 14:17
PROVIDERS: PCP Family Medicine; Visit Provider Family Medicine
DX: R06.02 Shortness of breath (principal)
CPT/HCPCS: 93306

== ENCOUNTER 2023-11-12 15:44 | Outpatient (CLI) | payer OTHER, SELFPAY ==
[2023-11-12 17:52] LABS: Anion Gap 8.8 mEq/L (5-15); Blood Urea Nitrogen 12 mg/dl (7-17); Calcium 9.1 mg/dl (8.4-10.2); Carbon Dioxide 29 mmol/L (22.0-30.0); Chloride 105 mmol/L (98-107); Estimated Glomerular Filt Rate 91 ml/min (>60); GFR (African American) 111 ML/MIN (>60); Glucose 87 mg/dl (74-100); Potassium 3.8 mmoL/L (3.5-5.1); Sodium 139 mmol/L (136-145)
[2023-11-13] MEDS: IOPAMIDOL-370 (76%);100ML BOTTLE 85 ML IV (10:05)
[2023-11-13] MEDS: SODIUM CHLORIDE 0.9% 10ML SYR (RAD ONLY) 10 ML IV (10:05)
[2023-11-13] MEDS: 0.9 % SODIUM CHLORIDE 50 ML VIAL IV (10:05)
== END 2023-11-12 23:59 | disposition home or self-care (01) ==
PROVIDERS: PCP Family Medicine; Visit Provider Nurse Practitioner Family
DX: R06.09 Other forms of dyspnea (principal); R93.1 Abnormal findings on diagnostic imaging of heart and coronary circulation; R07.89 Other chest pain; E66.09 Other obesity due to excess calories; Z68.31 Body mass index [BMI] 31.0-31.9, adult; R06.00 Dyspnea, unspecified
CPT/HCPCS: 36415; 75574; 80048; Q9967

== ENCOUNTER 2023-11-13 09:03 | Outpatient (CLI) | payer OTHER, SELFPAY ==
[2023-11-13 07:36] VITALS: BMI 31.4
[2023-11-13 09:38] VITALS: BP 138/75; PULSE 50; RESP 18; TEMP 36.7; O2SAT 100
[2023-11-13 09:38] LABS: Urine Pregnancy, HCG Qual. Negative (Negative)
[2023-11-13 09:56] VITALS: BP 187/104; PULSE 54; O2SAT 98
[2023-11-13] MEDS: NITROGLYCERIN 0.4MG SL TABLET SL (09:56)
--- NOTE | 2023-11-13 09:56 | PC.NURSE ---
187/104, Nitor 0.8mg SL given per CTA protocol.
[2023-11-13 10:10] VITALS: BP 154/76; PULSE 61; O2SAT 98
--- NOTE | 2023-11-13 10:10 | PC.NURSE ---
Pt to post op, vss. No c/o at this time, drinking oj.
[2023-11-13 10:14] VITALS: BP 131/77; PULSE 61
== END 2023-11-13 10:19 | disposition home or self-care (01) ==
PROVIDERS: PCP Family Medicine; Visit Provider Nurse Practitioner Family
DX: R07.9 Chest pain, unspecified (principal); R06.02 Shortness of breath; R93.1 Abnormal findings on diagnostic imaging of heart and coronary circulation; Z79.899 Other long term (current) drug therapy
CPT/HCPCS: 81025

== ENCOUNTER 2023-11-13 10:18 | Emergency (ER) | payer OTHER, SELFPAY ==
[2023-11-13 10:40] VITALS: BP 152/77; PULSE 54; RESP 20; TEMP 36.3; O2SAT 100; BMI 32.3
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
[2023-11-13] MEDS: METHYLPREDNISOLONE SOD SUCC 125MG VIAL 125 MG IM (11:17)
[2023-11-13] MEDS: KETOROLAC 60MG/2ML VIAL 60 MG IM (11:17)
[2023-11-13 11:18] VITALS: BP 152/77; PULSE 54; RESP 20; TEMP 36.3; O2SAT 100
== END 2023-11-13 11:41 | disposition home or self-care (01) ==
PROVIDERS: Emergency Provider Nurse Practitioner; PCP Family Medicine
DX: M54.59 Other low back pain (principal); M62.830 Muscle spasm of back; X50.1XXA Overexertion from prolonged static or awkward postures, initial encounter
CPT/HCPCS: 96372; 99212; 99214; G0463; J1885; J2919

== ENCOUNTER 2023-11-16 09:59 | Outpatient (CLI) | payer OTHER, SELFPAY ==
--- NOTE | 2023-11-16 10:00 | MR_ITS ---
APPROVED REPORT Online Advertising Manager: CLINICAL INDICATION Suspected increase in apical LV wall thickness on TTE, evaluate for apical HCM. TECHNIQUE Image Acquisition: Cardiac magnetic resonance (CMR) was performed on Siemens Espree MRI 1.5T scanner. Software platform sequences were performed using the Siemens Language Cloudo MR B19 platform. A set of three-plane, low-resolution, large [id number] localizers were initially acquired. Then axial, coronal, sagittal TrueFISP, as well as axial HASTE images, were obtained. These were followed by gated TrueFISP breathold cinematic sequences obtained in the short axis with 8 mm slices and 2 mm gaps, 2-chamber (vertical long axis), 3-chamber, 4-chamber (horizontal long axis). A bolus of contrast was injected intravenously with first-pass sequences obtained in the short axis and four-chamber planes. After approximately 10 minutes, a TI front office spec sequence was performed to determine the optimal TI time. Using the optimized TI time, delayed contrast enhancement segmented inversion???recovery TurboFLASH sequences were obtained in the short axis, 2-chamber, 3-chamber, and 4-chamber projections. 2D-velocity phase mapping was performed. Functional parameters were calculated by offline analysis on an independent workstation ([employer] Platform, CVICortex). Contrast: ProHance??? (Gadoteridol) FINDINGS MORPHOLOGY AND FUNCTION Left ventricle: The left ventricle is normal in size. The indexed left ventricular end-diastolic volume (LVEDVi) is 69 ml/m2 (reference range 57-105 ml/m2 in males, 56-96 ml/m2 in females). Normal left ventricular systolic function is present. There is normal left ventricular wall thickness. There is no evidence of increased apical LV wall thickness. There are no regional wall motion abnormalities noted. LVEF is calculated at 62.5% (reference range 57-77%). Right ventricle: The right ventricle is normal in size. The indexed right ventricular end-diastolic volume (RVEDVi) is 64 ml/m2 (reference range 61-121 ml/m2 in males, 48-112 ml/m2 in females). Normal right ventricular systolic function is present. RVEF is calculated at 53.0% (reference range 52-72% in males, 51-71% in females). Atria: The left atrium is normal in size. The maximum indexed left atrial volume is 39 ml/m2 (reference range 26-52 ml/m2 in males, 27-53 ml/m2 in females). The right atrium is normal in size. The maximum indexed right atrial volume is 25 ml/m2 (reference range 18-90 ml/m2). Aorta: The diameter of the aortic annulus is normal, measuring 24 mm (coronal view reference range 21-30 mm in males, 19-27 mm in females). The diameter of the aortic sinus is normal, measuring 29 mm (coronal view reference range 25-42 mm in males, 24-36 mm in females). The diameter of the sinotubular junction is normal, measuring 24 mm (coronal view reference range 18-32 mm in males, 18-28 mm in females). The diameters of the ascending and descending thoracic aorta are normal. Main pulmonary artery: The main pulmonary artery diameter is normal. Pericardium: The pericardial thickness is normal. The pericardial thickness measures 1.8 mm (normal < 4.0 mm). There is no pericardial effusion. VALVES The valvular morphologies in the visualized sequences appear normal. There is no significant valvular stenosis or regurgitation of the mitral, aortic, tricuspid, or pulmonic valve noted visually. Systolic anterior motion of the mitral valve is not visualized. Ratio of pulmonary to systemic flow, Qp:Qs ratio = 1.1 (normal < or = 1.2, hemodynamically significant shunt > 1.5), demonstrating no evidence of hemodynamically significant shunt. TISSUE CHARACTERIZATION Resting Perfusion: Normal myocardial blood flow at rest. No evidence of resting hypoperfusion. Myocardial Fibrosis and/or edema: Normal gadolinium kinetics are present. No evidence of late gadolinium enhancement is noted, consistent with absence of myocardial scarring, infarction, or necrosis. T2-weighted imaging demonstrates no evidence of myocardial edema or inflammation. OTHER No other significant findings are noted. However, this exam is focused on the cardiac structure and function. IMPRESSION Normal LV size with normal LV systolic function. LVEDVi= 69 ml/m2 and LVEF= 62.5%. Normal LV wall thickness. No evidence of increased apical LV wall thickness. Normal RV size with normal RV systolic function. RVEDVi= 64 ml/m2 and RVEF= 53.0%. No atrial enlargement. No CMR evidence of myocardial scarring, infarction, or necrosis. No evidence of myocardial edema or inflammation. Perfusion analysis demonstrates normal blood flow at rest with no evidence of resting hypoperfusion. Ratio of pulmonary to systemic flow, Qp:Qs ratio = 1.1 (normal < or = 1.2, hemodynamically significant shunt > 1.5), demonstrating no evidence of hemodynamically significant shunt. Overall, this CMR demonstrates normal biventricular size and systolic function. No evidence of apical HCM. COMPARISON None CRITICAL RESULT None COMMUNICATION Per this written report The findings of this cardiac MR were reviewed, reported, and signed by Damian Keys MD (Client Leader). Conclusion Electronically signed by : Suzanne Keys MD 11/26/2023 00:52:10
[2023-11-16] MEDS: SODIUM CHLORIDE 0.9% 10ML SYR (RAD ONLY) 10 ML IV (11:11)
[2023-11-16] MEDS: GADOTERIDOL INJ 20ML SYRINGE 19 ML IV (11:11)
[2023-11-16] MEDS: 0.9 % SODIUM CHLORIDE 50 ML VIAL 25 ML IV (11:11)
== END 2023-11-16 23:59 | disposition home or self-care (01) ==
LOC: RAD 10:00
PROVIDERS: PCP Family Medicine; Visit Provider Nurse Practitioner Family
DX: R07.89 Other chest pain (principal); R93.1 Abnormal findings on diagnostic imaging of heart and coronary circulation; R06.00 Dyspnea, unspecified
CPT/HCPCS: 75561; A9576

== ENCOUNTER 2023-12-27 16:27 | Outpatient (CLI) | payer OTHER, SELFPAY | END 2023-12-27 23:59 | disposition home or self-care (01) | LOC: RT 16:28 | PROVIDERS: PCP Family Medicine; Visit Provider Family Medicine | DX: R00.2 Palpitations (principal) | CPT/HCPCS: 93225; 93226; 93227 ==

== ENCOUNTER 2024-01-04 10:20 | Emergency (ER) | payer OTHER, SELFPAY ==
[2024-01-04 10:48] VITALS: BP 156/87; PULSE 55; RESP 16; TEMP 37; O2SAT 97; BMI 31.3
[2024-01-04 10:52] LABS: UTC Strep Screen (Rapid) Negative (Negative)
--- NOTE | 2024-01-04 11:26 | ED_ITS ---
Discharge Plan Disposition Patient Disposition: Home, Self-Care Condition: Good Prescriptions Prescriptions: New azithromycin [Zithromax] 250 mg tablet 250 mg PO UD DOSE PK Qty: 6 0RF Rx Instructions: Take two (2) tablets today, then one (1) tablet days #2 thru #5 benzonatate 100 mg capsule 100 mg PO TIDP PRN (Reason: Cough) Qty: 30 0RF methylprednisolone 4 mg Tablets,Dose Pack 4 mg PO DIRECTED 6 Days Qty: 21 0RF Rx Instructions: Take 1 pack as directed for 6 days No Action atenolol 50 mg tablet 50 mg PO DAILY Patient Comments: TAKE 1 TABLET BY MOUTH EVERY DAY fexofenadine [Yarelis Allergy] 180 mg tablet 180 mg PO DAILY Qty: 30 6RF montelukast [Singulair] 10 mg tablet 10 mg PO DAILY Qty: 30 6RF omeprazole 40 mg capsule,delayed release(DR/EC) 40 mg PO DAILY Qty: 60 4RF hydrochlorothiazide 12.5 mg tablet 12.5 mg PO DAILY Patient Comments: TAKE 1 TABLET BY MOUTH DAILY IN THE MORNING fluticasone propionate 50 mcg/actuation spray,suspension See Rx Instructions .ROUTE .COMPLEX Qty: 16 3RF Dose Instruction: SHAKE LIQUID AND USE 2 SPRAYS IN EACH NOSTRIL DAILY Rx Instructions: SHAKE LIQUID AND USE 2 SPRAYS IN EACH NOSTRIL DAILY albuterol sulfate 90 mcg/actuation Hfa Aerosol Inhaler 2 puff INHALATION BID ergocalciferol (vitamin D2) 1,250 mcg (50,000 unit) capsule 1,250 mcg PO WEEKLY Patient Comments: TAKE 1 CAPSULE BY MOUTH ONCE WEEKLY ON SAME DAY EACH WEEK methocarbamol 500 mg tablet 500 mg PO TID PRN (Reason: muscle spasm) Qty: 20 0RF Referrals Follow up/Referrals: Yas Soares MD [Primary Care Provider] - See instructions Activity Restrictions/Add. Instructions Additional Instructions/Restrictions: Drink plenty of fluids. Take tylenol or ibuprofen for pain or fever. Take the medications as directed. Follow up with your regular doctor. GO TO THE ER FOR ANY WORSENING SYMPTOMS Clinical Impressions Clinical Impression: Pharyngitis, Acute viral syndrome Instructions Patient Instructions: DI for Pharyngitis/Tonsillopharyngitis -- Adult, DI for Viral Syndrome Print Language Print Language: Citizen [place] Discharge ED Provider: Filipe Mata [facility] [place], [place] HPI General Stated complaint: sore throat, cough, headache, fever Mode of Arrival: Ambulatory Source of Information: Patient Limitations: No Limitations Time Seen by Provider: 01/04/24 11:26 Description of Symptoms (Recalled from Triage Doc. by RN): Reports sore throat, cough and loss of voice. HEENT Symptoms (Recalled from RN notes): Yes Resp Symptoms (Recalled from RN notes): No Skin Symptoms (Recalled from RN notes): No MS Symptoms (Recalled from RN notes): No Functional Status (Recalled from RN notes): wnl Related Data Home Medications ?Medication ?Instructions ?Recorded ?Confirmed atenolol 50 mg tablet 50 mg PO DAILY 01/31/23 11/27/23 hydrochlorothiazide 12.5 mg tablet 12.5 mg PO DAILY 10/30/23 11/27/23 albuterol sulfate 90 mcg/actuation 2 puff inhalation BID 11/13/23 11/27/23 aerosol inhaler ergocalciferol (vitamin D2) 1,250 1,250 mcg PO WEEKLY 11/13/23 11/27/23 mcg (50,000 unit) capsule Previous Rx's ?Medication ?Instructions ?Recorded omeprazole 40 mg capsule,delayed 40 mg PO DAILY #60 caps 01/11/22 release fexofenadine 180 mg tablet 180 mg PO DAILY #30 tabs 02/22/22 (Yarelis Allergy) montelukast 10 mg tablet 10 mg PO DAILY #30 tabs 02/22/22 (Singulair) methocarbamol 500 mg tablet 500 mg PO TID PRN muscle spasm #20 11/13/23 tabs fluticasone propionate 50 See Rx Instructions .Route 11/15/23 mcg/actuation nasal .COMPLEX #16 grams spray,suspension azithromycin 250 mg tablet 250 mg PO UD DOSE PK #6 tabs 01/04/24 (Zithromax) benzonatate 100 mg capsule 100 mg PO TIDP PRN Cough #30 caps 01/04/24 methylprednisolone 4 mg tablets in 4 mg PO DIRECTED 6 days #21 tabs 01/04/24 a dose pack Allergies Allergy/AdvReac Type Severity Reaction Status Date / Time VANILLA ICE CREAM Allergy Unknown S-DIFF. Uncoded 11/27/23 14:21 BREATHING Worker's Comp Is this a Worker's Comp case?: No [facility] Disclaimer: The information contained in this section may have been updated after the patient was seen, as this information can be updated by other users. Medical History (Updated 01/04/24 @ 11:47 by Filipe Mata APRN) History of gastroesophageal reflux (GERD) Migraine Asthma Snoring Deviated nasal septum Chronic sinusitis HTN (hypertension), benign GERD (gastroesophageal reflux disease) Surgical History History of cholecystectomy History of endoscopy History of bladder surgery History of tubal ligation History of colonoscopy Family History Other Cancer Coronary artery disease Diabetes Hypertension Social History Smoking Status: Former smoker second hand exposure: No alcohol intake: never substance use type: denies use current occupational status: unemployed Travel in the last 8 weeks: None household members: spouse housing: house marital status: ROS Obtained: Yes All systems reviewed & no additional complaints except as documented Constitutional Constitutional: Reports chills and Reports fever(s) Eyes Eyes: Denies eye discharge ENT Ears, Nose, Mouth, and Throat: Reports as per HPI Cardiovascular Cardiovascular: Denies chest pain Respiratory Respiratory: Denies chest congestion and Reports cough Gastrointestinal Gastrointestingal: Reports nausea; Denies abdominal pain, constipation, cramping, diarrhea or vomiting Musculoskeletal Musculoskeletal: Denies arthralgias Integumentary/Breasts Skin/Breast: Denies rash Neurologic Neurologic: Denies paresthesias Physical Exam General General appearance: alert and in no apparent distress Head Head exam: atraumatic, normocephalic and normal inspection Eye Eye exam: Present normal appearance, PERRL and EOMI ENT ENT exam: Present mucous membranes moist and normal external ear exam Expanded ENT Exam TM/Canal exam: Bilateral TM: erythema and bulging Nose exam: Absent sinus tenderness Mouth exam: Present normal external inspection; Absent drooling Teeth exam: Present normal inspection Throat exam: Present tonsillar erythema, tonsillomegaly and tonsillar exudate Neck Neck exam: Present normal inspection, full ROM and trachea midline; Absent tenderness, meningismus or lymphadenopathy Chest Chest inspection: Present normal inspection and symmetric chest wall rise; Absent tenderness Respiratory Respiratory exam: Present normal lung sounds bilaterally; Absent respiratory distress, wheezes, stridor or accessory muscle use Cardiovascular Cardiovascular exam: Present regular rate and normal rhythm; Absent systolic murmur or diastolic murmur Abdominal Exam Abdominal exam: Present soft and normal bowel sounds; Absent distention, tenderness, guarding, rebound or rigidity Extremities Exam Extremities exam: Present normal inspection and normal capillary refill; Absent calf tenderness Back Exam Back exam: Present normal inspection and full ROM; Absent tenderness, CVA tenderness (R) or CVA tenderness (L) Neurological Exam Neurological exam: Present alert, oriented X3 and CN II-XII intact Psychiatric Psychiatric exam: Present normal affect and normal mood Skin Skin exam: Present warm, dry, intact and normal color Medical Decision Making Medical Records Medical records reviewed: No I reviewed the patient's medical records. Cj Inquiry Pt receiving controlled substance: No Vital Signs: 01/04/24 10:48 Temperature 98.6 F Temperature Source Oral Pulse Rate [Radial] 55 L Respiratory Rate 16 Blood Pressure [Right Arm] 156/87 H Blood Pressure Mean [Right Arm] 110 Blood Pressure Source [Right Arm] Automatic Cuff Blood Pressure Position [Right Arm] Sitting 02 Sat by Pulse Oximetry 97 Oxygen Delivery Method Room Air Lab Data Lab results reviewed: Yes I reviewed the patient's lab results. Lab Results 01/04/24 10:45: Strep Scn Rapid Clinic Negative Orders (Tests/Meds): ORDERS Category Date Time Status Strep Screen Confirmation Stat Micro 01/04/24 10:45 Received
[2024-01-04 12:07] VITALS: BP 156/87; PULSE 55; RESP 16; TEMP 37; O2SAT 97
== END 2024-01-04 12:08 | disposition home or self-care (01) ==
PROVIDERS: Emergency Provider Nurse Practitioner Family; PCP Family Medicine
DX: J02.9 Acute pharyngitis, unspecified (principal); R05.9 Cough, unspecified; R51.9 Headache, unspecified
CPT/HCPCS: 87635; 87880; 99212; 99214; G0463

== ENCOUNTER 2024-03-19 11:04 | Outpatient (CLI) | payer OTHER, SELFPAY ==
[2024-03-19 12:02] LABS: Basophils # 0.1 K/mm3 (0-0.2); Basophils % 0.7 % (0.1-2.0); Eosinophils # 0.1 K/mm3 (0.0-0.4); Eosinophils % 1.2 % (0.1-12.0); Hematocrit 41.4 % (37.0-47.0); Hemoglobin 14.5 g/dL (12.2-16.2); Lymphocytes # 1.6 K/mm3 (0.7-4.5); Lymphocytes % 23.4 % (10-50); Mean Corpuscular HGB Conc 35.1 g/dL (31.8-35.4); Mean Corpuscular Hemoglobin 30.3 pg (27.0-31.2); Mean Corpuscular Volume 86.5 fl (81-99); Mean Platelet Volume 9.9 fl (7.4-10.4); Monocytes # 0.4 K/mm3 (0.1-1.0); Monocytes % 5.3 % (1.7-9.3); Neutrophils # 4.8 K/mm3 (1.8-7.8); Neutrophils % 69.5 % (37.0-80.0); Platelet Count 182 K/mm3 (142-424); Red Blood Count 4.78 M/mm3 (4.20-5.40); Red Cell Distribution Width 13.3 % (11.5-17.5); White Blood Count 6.9 K/mm3 (4.8-10.8)
[2024-03-20 05:11] LABS: Alpha-1-Antitrypsin 146 mg/dL (101-187)
[2024-03-23 13:15] LABS: Alpha-1-Antitrypsin 144 mg/dL (101-187)
[2024-03-26 16:19] LABS: D001-IgE D pteronyssinus 0.36 kU/L (Class I); D002-IgE D farinae 0.28 kU/L (Class 0/I); E001-IgE Cat Dander <0.10 kU/L (Class 0); E005-IgE Dog Dander <0.10 kU/L (Class 0); E072-IgE Mouse Urine <0.10 kU/L (Class 0); G002-IgE Bermuda Grass 0.62 kU/L (Class II); G006-IgE Timothy Grass 0.41 kU/L (Class I); I006-IgE Cockroach, German 0.34 kU/L (Class I); Immunoglobulin E, Total 29 IU/mL (6-495); M002-IgE Cladosporium herbarum <0.10 kU/L (Class 0); M003-IgE Aspergillus fumigatus <0.10 kU/L (Class 0); M006-IgE Alternaria alternata <0.10 kU/L (Class 0); T001-IgE Maple/Box Elder 0.32 kU/L (Class I); T003-IgE Common Silver Birch 0.27 kU/L (Class 0/I); T006-IgE Cedar, Mountain 0.31 kU/L (Class 0/I); T007-IgE Oak, White 0.32 kU/L (Class I); T008-IgE Elm, American 0.35 kU/L (Class I); T010-IgE Walnut 0.35 kU/L (Class I); T011-IgE Maple Leaf Sycamore 0.35 kU/L (Class I); T014-IgE Cottonwood 0.29 kU/L (Class 0/I); T015-IgE Ash, White 0.38 kU/L (Class I); T022-IgE Pecan, Hickory 0.31 kU/L (Class 0/I); T070-IgE White Mulberry 0.26 kU/L (Class 0/I); W001-IgE Ragweed, Short 0.44 kU/L (Class I); W011-IgE Thistle, Russian 0.52 kU/L (Class I); W014-IgE Pigweed, Common 0.31 kU/L (Class 0/I); W018-IgE Sheep Sorrel 0.57 kU/L (Class II)
== END 2024-03-19 23:59 | disposition home or self-care (01) ==
LOC: LAB 11:05
PROVIDERS: PCP Family Medicine; Visit Provider Internal Medicine Pulmonary Disease
DX: J43.9 Emphysema, unspecified (principal); J30.9 Allergic rhinitis, unspecified; J44.9 Chronic obstructive pulmonary disease, unspecified
CPT/HCPCS: 36415; 82103; 82104; 82785; 85025; 86003

== ENCOUNTER 2024-03-25 15:42 | Outpatient (CLI) | payer OTHER, SELFPAY ==
--- NOTE | 2024-03-25 15:46 | MM_ITS ---
PROCEDURE INFORMATION: Exam: MG Bilateral Screening 3D Mammography Exam date and time: 03/25/2024 3:34 PM Age: 44 years old Clinical indication: Screening examination TECHNIQUE: Imaging protocol: Bilateral Screening tomosynthesis and 2D mammography including computer-aided detection (CAD) when performed. COMPARISON: 1. MG MM DIG MAMM BI DX W/CAD 03/16/2022 12:57 PM 2. MG MM DIG MAMM BI DX W/CAD 09/12/2021 2:19 PM FINDINGS: MAMMOGRAPHY: Breast composition: There are scattered areas of fibroglandular density. Mass: Rounded 0.8 cm mass in the left upper outer quadrant, 6-7 cm from the nipple. Architectural distortion: None. Calcifications: No suspicious calcifications. Asymmetric density: None. Skin thickening: None. Axillary adenopathy: None. IMPRESSION: Patient to be recalled for spot compression views of the left breast in the CC and MLO projections, a full 90 degree lateral view, and left breast ultrasound for further evaluation of a left breast mass. ASSESSMENT: BI-RADS Category 0: Incomplete- Need Additional Imaging Evaluation.
== END 2024-03-25 23:59 | disposition home or self-care (01) ==
LOC: RAD 15:43
PROVIDERS: PCP Family Medicine; Visit Provider Physician Assistant
DX: Z12.31 Encounter for screening mammogram for malignant neoplasm of breast (principal)
CPT/HCPCS: 77063; 77067

== ENCOUNTER 2024-04-29 10:20 | Outpatient (CLI) | payer OTHER, SELFPAY ==
--- NOTE | 2024-04-29 10:25 | MM_ITS ---
PROCEDURE INFORMATION: Exam: US Left Breast, Complete MG Left Diagnostic Breast Tomosynthesis Exam date and time: 04/29/2024 10:48 AM Age: 44 years old Clinical indication: Patient recalled on the basis of a screening mammogram for further evaluation; Left breast; mass TECHNIQUE: Imaging protocol: Complete ultrasound of all four quadrants of the left breast and the retroareolar regions, including ultrasound of the axilla when performed. Left Diagnostic tomosynthesis and 2D mammography including computer-aided detection (CAD) when performed. Unilateral or bilateral exam. COMPARISON: US BREAST LT COMPLETE 03/16/2022 2:16 PM FINDINGS: MAMMOGRAPHY: Breast composition: There are scattered areas of fibroglandular density (based on the most recent screening mammogram report). Breast mammogram findings: Digital diagnostic spot compression views of the left breast and 90 degree lateral view of the left breast demonstrate a persistent 0.8 cm mass in the upper-outer quadrant ULTRASOUND: Breast ultrasound findings: Sonographic images of the left 2 o'clock axis 6 cm from the nipple demonstrates a well-circumscribed ovoid hypoechoic solid mass corresponding to the mass on mammography. It measures 0.8 x 0.5 x 0.7 cm in dimension and is probably benign in etiology, representing a benign fibroadenoma. No other solid or cystic masses are noted in the remainder of the left breast. No architectural distortion or acoustic shadowing. No skin thickening or axillary adenopathy. IMPRESSION: Probably benign subcentimeter mass in the left upper outer quadrant. A six-month follow-up diagnostic left mammogram and targeted left breast ultrasound are recommended to ensure stability over time. ASSESSMENT: BI-RADS Category 3: Probably benign.
== END 2024-04-29 23:59 | disposition home or self-care (01) ==
LOC: RAD 10:21
PROVIDERS: PCP Family Medicine; Visit Provider Physician Assistant
DX: R92.8 Other abnormal and inconclusive findings on diagnostic imaging of breast (principal)
CPT/HCPCS: 76641; 77061; 77065; G0279

== ENCOUNTER 2024-05-28 12:50 | Outpatient (CLI) | payer OTHER, SELFPAY ==
[2024-05-28 13:45] VITALS: PULSE 65; PULSE 68
[2024-05-28] MEDS: ALBUTEROL 0.083% 2.5 MG/3 ML NEB IH (13:45)
== END 2024-05-28 23:59 | disposition home or self-care (01) ==
LOC: RT 12:51
PROVIDERS: PCP Family Medicine; Visit Provider Internal Medicine Pulmonary Disease
DX: R06.09 Other forms of dyspnea (principal)
CPT/HCPCS: 94060; 94618; 94640; 94726; 94729; J7613

== ENCOUNTER 2024-10-20 09:56 | Outpatient (CLI) | payer OTHER, SELFPAY ==
--- OUTSIDE RECORDS SUMMARY | 2024-03-17 06:30 | XMS_ITS ---
Author Organization [facility] Address [address] [facility] [address] [place] [phone] Care Team Providers Care Infant Room Teacher Name Role Phone Coleman Soares Primary Care Provider [phone] Allergies No Known Allergies Results Component Value Reference Range Notes Urinalysis - Inhouse Reviewed date:03/17/2024 12:05:19 PM Interpretation: Performing Lab: Notes/Report: Color/Clarity yellow/clearnEG Leuk Neg Nitrite Neg Urobili 3.2 Protein Neg pH 7.0 Blood Trace-Intact Sp. Gr. 1.020 Ketone Neg Bili Neg Gluc Neg P-Culture, Urine Reviewed date:03/20/2024 12:47:46 PM Interpretation:No Significant Growth Performing Lab: Notes/Report: Test performed by [employer] [employer] [address] [place] [address] , [address], [place] [address] Gerardo Deal MD, Composition Weatherboard Installer CLIA: [id number] Specimen Source Urine - Void Culture, Urine See Below Final Report : No Significant Growth REASON FOR VISIT 6 week F/U Medications Medication SIG (Take, Route, Frequency, Duration) Notes Start Date End Date Status Montelukast Sodium 10 MG 1 tablet Orally Once a day for 30 day(s) Active Omeprazole 40 MG 1 capsule 30 minutes before morning meal Orally Once a day for 30 day(s) Active Lac-Hydrin Five 5 % 1 application Externally Twice a day 03/17/2024 Active Atenolol 50 MG TAKE 1 TABLET BY JEANETTE TH DAILY for 90 Active hydroCHLOROthiazide 12.5 MG TAKE 1 TABLE T BY MOUTH DAILY IN THE MORNING for 30 Active Ventolin HFA 108 (90 Base) MCG/ACT 1 puff as needed Inhalation every 4 hrs Active Flonase Allergy Relief 50 MCG/ACT 1 spray(s) in each nostril once a day for 30 day(s) 12/10/2020 Active Fexofenadine HCl 180 MG 1 tablet Swallow whole with water; do not take with fruit juices. Orally Once a day for 30 day(s) Active Temazepam 15 MG 1 capsule at bedtime as needed Orally Once a day 12/27/2023 Active Vital Signs Blood pressure systolic 152 mm Hg 03/17/20 24 Blood pressure diastolic 90 mm Hg 024 Heart Rate 54 /min 03/17/2024 Height 64.50 in 03/17/2024 Weight 188.8 lbs 03/17/2024 BMI 31.90 kg/m2 03/17/2024 Encounters Encounter Location Date Provider Diagnosis [facility] [address] [facility] 36 [facility] [address] [place], [place] [id number] 03/17/2024 Coleman Soares Mild intermittent asthmatic bronchitis [...] 3 Months, Reason: Provider Name:[place] er, 03/09/2025 09:45:00 AM, [address] [facility], [address], [place], [phone], Progress Notes * Niranjan MALDONADO: [birth year]80 (44 yo F)Acc No.[id number]:03/17/2024 Progress Notes Patient: Shyla DONAHUE Provider: Coleman Soares M.D. :1980 A ge:44 Y S ex:Female Date:03/17/2024 Address:[address] [place] [address], [id number] Subjective: * Chief Complaints: * 1 . [...] Juarez 2018. * Hospitalization/Major Diagno stic Procedure: [facility] bed [facility]- child Jul- August 2009, [facility] ear pain 12/01/2020. * Family History: F [...] G eneral Examination: General Appearance: N AD. HEENT: u nremarkable. Oral cavity: n o lesions, mucosa moist and WNL, no erythema. Neck: s upple, no lymphadenopathy. Chest: n ormal shape and expansion. Heart: s inus bradycardia. Lungs: c lear to auscultation, no wheezes or rales. Abdomen: obese, soft and nontender. Neurologic Exam: I ntact, gait normal. Skin: n ormal, no rash. Peripheral pulses: n ormal . Extremities: n o leg edema. Hyperkeratosis of the [...] * Procedure Codes: 9 [address] [place], [address] Urinalysis, no micro * Follow Up: 3 Months * Billing Information: * Visit Code: 42620 Office Visit, Est Pt., Level 3. * Procedure Codes: [address] [place]. [address] Urinalysis, no micro. * Electronic signature of Coleman Soares MD on 10/20/2024 at 10:24 AM EDT Sign off status: Pending * Provider: Coleman Soares M.D. Date: 05/17/2023 Generated for Printi ng/Faxing/eTransmitting on: 0 10/20/2024 10:24 AM EDT History and Physical Notes * HPI (History [...]
--- OUTSIDE RECORDS SUMMARY | 2024-06-16 12:15 | XMS_ITS ---
Author Organization [facility] Address [address] [facility] [address] [place] [phone] Care Team Providers Care Messenger Office Name Role Phone Coleman Soares Primary Care Provider [phone] Allergies No Known Allergies Results Component Value Reference Range Notes P-Comprehensive Metabolic Pa nate (CMP) Reviewed date:06/18/2024 03:13:01 PM Interpretation:gluc 57 Performing Lab: Notes/Report: Test performed by [facility] [address] [place] [address] , [address], [place] [address] Gerardo Deal MD, Call Center Operations Manager CLIA: [id number] Sodium 142 135-145 mmol/L Potassium 4.7 3.5-5.3 [...] DAILY IN THE MORNING for 30 Active Temazepam 15 MG 1 capsule at bedtime as needed Orally Once a day 12/27/2023 Active Atenolol 50 MG TAKE 1 TABLET BY JEANETTE TH DAILY for 90 days Active Ventolin HFA 108 (90 Base) MCG/ACT INHALE 1 PUFF BY MOUTH EVERY 4 HOURS NEEDED for 33 Active Flonase Allergy Relief 50 MCG/ACT 1 spray(s) in each nostril once a day for 30 day(s) 12/10/2020 Active Fexofenadine HCl 180 MG 1 tablet Swallow whole with water; do not take with fruit juices. Orally Once a day for 30 day(s) Active Montelukast Sodium 10 MG 1 tablet Orally Once a day for 30 day(s) Active Omeprazole 40 MG 1 capsule 30 minutes before morning meal Orally Once a day for 30 day(s) Active Symbicort 160-4.5 MCG/ACT as directed Inhalation Active Meloxicam 15 MG 1 tablet Orally Once a day for 30 day(s) 06/16/2024 Active Airsupra 90-80 MCG/ACT 2 puffs as needed Inhalation Six times a day Active Lac-Hydrin Five 5 % 1 application Externally Twice a day 06/16/2024 Active Problems Problem Type SNOMED Code ICD Code Onset Dates Problem Status W/U Status Risk Notes Problem 079722071 Moderate persistent asthma without complication (J45.40) Active confirmed Problem 352859144 Keratosis of plantar aspect of foot (Q82.8) Active confirmed Vital Signs Blood pressure systolic 124 mm Hg 06/16/19 25 Blood pressure diastolic 86 mm Hg 025 Heart Rate 54 /min 06/16/2024 Height 64.50 in 06/16/2024 Weight 186.8 lbs 06/16/2024 BMI 31.57 kg/m2 06/16/2024 Encounters Encounter Location Date Provider Diagnosis [facility] [address], [place] [phone] 06/16/2024 Coleman Soares Moderate persistent asthma without [...] 15 MG 1 tablet Orally Once a day for 30 day(s) 06/16/2024 Lac-Hydrin Five 5 % 1 application Externally Twice a day 0 06/16/2024 Next Appt Details Follow Up: 4 Months, Reason: Provider Name:Coleman Park , 03/09/2025 09:45:00 AM, [address] [facility] 36 [facility], [address] , [place], [place], [phone], Progress Notes * Shyla MALDONADODOB: [birth year] (44 yo F)Acc No.[id number]:06/16/2024 Progress Notes Patient: Judy MCKEON Shyla Provider: Coleman Soares M.D. :1980 A ge:44 Y S ex:Female Date:06/16/2024 Address:[address] [place] [address] [id number] Subjective: * Chief Complaints: * 1 . [...] Juarez 2018. * Hospitalization/Major Diagno stic Procedure: [facility] bed rest- child Jul- August 2009, [facility] ear pain 12/01/2020. * Family History: F [...] Chest: n ormal shape and expansion. Heart: R SR. Lungs: c lear to auscultation, no wheezes or rales. Abdomen: obese, soft and nontender. Neurologic Exam: I ntact, gait normal. Skin: n ormal, no rash. Peripheral pulses: n ormal . Extremities: n o leg edema. Assessment: * Assessment: [...] * Procedure Codes: 9 4760 [place], [address] VENIPUNCT, ROUTINE*, 37498 SPECIMEN HANDLING, 3074F SYST BP LT 130 MM HG, 3079F DIAST BP 80-89 MM HG * Follow Up: 4 Months * Billing Information: * Visit Code: 86808 Office Visit, Est Pt., Level 3. * Procedure Codes: [address] [place]. [address] VENIPUNCT, ROUTINE*. 38713 SPECIMEN HANDLING. 3074F SYST BP LT 130 MM HG. 3079F DIAST BP 80-89 MM HG. * Electronic signature of Coleman Soares MD on 10/20/2024 at 10:24 AM EDT Sign off status: Pending * Provider: Coleman Soares M.D. Date: 0 06/16/2024 Generated for Roseanne chisholm/Cindy/eTransmitting on: 0 10/20/2024 10:24 AM EDT History [...]
--- OUTSIDE RECORDS SUMMARY | 2024-10-10 06:15 | XMS_ITS ---
Author [facility] Address [address] [facility] [address] [place] [phone] Care Team Providers Care Lap Cutter Name Role Phone Coleman Soares Primary Care Provider [phone] Allergies No Known Allergies Results Component Value Reference Range Notes P-Basic Metabolic Panel (BMP ) (Not yet reviewed by provider) Interpretation: Performing Lab: Notes/Report: Test performed by [facility] [address] , [address], [place] [address] Gerardo Deal MD, Performance Specialist CLIA: [id number] Sodium 141 135-145 mmol/L Potassium 3.8 3.5-5.3 [...] in the morning Orally Once a day for 30 days Active Meloxicam 15 MG 1 tablet Orally Once a day for 30 day(s) 06/16/2024 Active Lac-Hydrin Five 5 % 1 application Externally Twice a day 06/16/2024 Active Atenolol 50 MG TAKE 1 TABLET BY DAILY for 90 Active Fexofenadine HCl 180 MG 1 tablet Swallow whole with water; do not take with fruit juices. Orally Once a day for 30 day(s) Active Ventolin HFA 108 (90 Base) MCG/ACT INHALE 1 PUFF BY MOUTH EVERY 4 HOURS NEEDED for 33 Active Lac-Hydrin Five 5 % 1 application Externally Twice a day 03/17/2024 Active Temazepam 15 MG 1 capsule at bedtime as needed Orally Once a day 12/27/2023 Active Flonase Allergy Relief 50 MCG/ACT 1 spray(s) in each nostril once a day for 30 day(s) 12/10/2020 Active Montelukast Sodium 10 [...] 10/10/2024 Encounters Encounter Location Date Provider Diagnosis [facility] [facility] [address] [facility] [address] [facility] [address] [place] [phone] 10/10/2024 Coleman Soares Paroxysmal tachycard ia I47.9 [...] as needed Inhalation Six times a day Pending Test Test Name Order Date P-Basic Metabolic Panel (BMP) 10/10/2024 Next Appt Details Follow Up: 4 Months, Reason: Provider Name:Coleman Park er, 03/09/2025 09:45:00 AM, [address], [address], [place], [phone], Progress Notes * Niranjan MALDONADO: [birth year] (44 yo F)Acc No.[id number]:10/10/2024 Progress Notes Patient: Shyla DONAHUE Provider: Coleman Soares M.D. :1980 A ge:44 Y S ex:Female Date:10/10/2024 Address:[address] [place] [address] [id number] Subjective: * Chief Complaints: * 1 . 4 month ckup. * HPI: C ardiology: The pt is here for a check up on Hypertension and Hyperlipidemia. Pt states she went to the [facility] for strep in June and the night [...] Juarez 2018. * Hospitalization/Major Diagno stic Procedure: [facility] bed rest- child Jul- August 2009, [facility] ear pain 12/01/2020. * Family History: F [...] n ormal shape and expansion. Heart: R SR, no ectopics. Lungs: c lear to auscultation, no wheezes [...] GFR by Creatinine 87 >59 - mL/min/1.73m2 2.?Moderate persistent asthma without complication? Stop Airsupra Aerosol, 90-80 MCG/ACT, 2 puffs as needed, Inhalation, Six times a day.?? * Procedure Codes: 1 036F TOBACCO NON-USER, G8783 BP SCR PRFRM RCMDD DEFIND SCR INTVL, G8752 MOST RECENT SYSTOLIC BP < 140MM HG, G8754 MOST RECENT DIASTOLIC BP < 90MM HG * Follow Up: 4 Months * Billing Information: * Visit Code: 84825 Office Visit, Est Pt., Level 3. * Procedure Codes: 1036F TOBACCO NON-USER. G8783 BP SCR PRFRM RCMDD DEFIND SCR INTVL. G8752 MOST RECENT SYSTOLIC BP < 140MM HG. G8754 MOST RECENT DIASTOLIC BP < 90MM HG. * Electronic signature of Coleman Soares MD on 10/20/2024 at 10:23 AM EDT Sign off status: Pending * Provider: Coleman Soares M.D. Date: 10/10/2024 Generated for Roseanne chisholm/Cindy/eTransmitting on: 10/20/2024 10:23 AM EDT History and Physical Notes * [...]
--- NOTE | 2024-10-20 10:01 | MM_ITS ---
PROCEDURE INFORMATION: Exam: US Left Breast, Complete MG Left Diagnostic Breast Tomosynthesis MG Left Diagnostic Mammography Exam date and time: 10/20/2024 10:55 AM Age: 44 years old Clinical indication: Follow-up for a finding in the left breast. TECHNIQUE: Imaging protocol: Complete ultrasound of all four quadrants of the left breast and the retroareolar regions, including ultrasound of the axilla when performed. Left Diagnostic tomosynthesis and 2D mammography including computer-aided detection (CAD) when performed. Unilateral or bilateral exam. Left Diagnostic mammography including computer-aided detection (CAD) when performed. Unilateral exam. COMPARISON: US BREAST LT COMPLETE 04/29/2024 10:48 AM FINDINGS: MAMMOGRAPHY: Breast composition: There are scattered areas of fibroglandular density. Breast mammogram findings: There is a stable circumscribed rounded mass measuring 0.7 cm in the left upper outer quadrant. No distortion or suspicious calcifications. ULTRASOUND: Breast ultrasound findings: Ultrasound of the left breast demonstrates a stable hypoechoic circumscribed mass measuring 0.9 x 0.6 x 0.7 cm at 2 o'clock, 6 cm from the nipple. This is unchanged since ultrasound dated 04/29/2024. No new or suspicious mass. No shadowing or distortion. IMPRESSION: Mass in the left breast 2 o'clock axis, 6 cm from the nipple is stable since 04/29/2024. Six-month follow-up mammogram and ultrasound are recommended for continued close surveillance. A bilateral mammogram will be due at that time. ASSESSMENT: BI-RADS Category 3: Probably benign.
--- OUTSIDE RECORDS SUMMARY | 2024-10-20 10:24 | XMS_ITS | Encounter Summary ---
Author Organization [facility] [facility] Address [address] [place] [address] Care Team Providers Care Patient Ambassador Name Role Phone Victor Hugo Soares MD Primary Care Provider [phone] Encounter Details Date Type Department Care Team (Late st Contact Info) Description 09/14/2018 Transcribed Document [facility] [address] [place] [address] ProviderPolly MD [address], [place] [phone] Social History Tobacco Use Types Packs/Day Years Used Date Smoking Tobacco: Never Assessed Comments Unknown Sex and Gender Information Value Date Recorded Sex Assigned at Not on file Legal Sex Female 6:24 PM CDT Gender Identity Not on file Sexual Orientation Not on file documented as of this encounter Miscellaneous Notes * Cerner Conversion Note - Polly Cavazos MD - 09/14/2018 3:42 PM CDT UM Authorization Entered On: 09/14/2018 15:43 EDT Performed On: 09/14/2018 15:42 EDT by JI PETERSON Rn-Utilization Review Primary Insurance Authorization Authorization and Policy Numbers : Insurance 1 Health Plan: [employer] Policy Number: [id number] Authorization Number: AUTO 2 Insurance Primary Name : Passport Authorization Status-Primary : Awaiting callback Authorization Number-Primary : auto 2 Number of Days Authorized-Primary : 2 Authorized Service Begin Date-Primary : 09/09/2018 EDT Authorized Service End Date-Primary : 09/10/2018 EDT Authorization Comments-Primary : Clinicals for continued stay faxed to [facility] Historical Authorization Comments-Primary : No Authorization Comments Found PETERSON, JI, Rn-Utilization Review - 09/14/2018 15:42 EDT Electronically signed by Deana, [facility] Conversion Wholesale Manager Cerner at 08/20/2022 4:46 PM CDT documented in this encounter Plan of Treatment Not on file documented as of this encounter Visit Diagnoses Not on filedocumented in this encounter Care Teams Patient Ambassador Relationship Specialty Start Date End Date Victor Hugo Soares MD [address] [place] [address] PCP - General Family Medicine 06/09/22 documented as of this encounter
--- OUTSIDE RECORDS SUMMARY | 2024-10-20 10:24 | XMS_ITS | Encounter Summary ---
Author Organization [employer] Address [address] [place] [address] Care Team Providers Care Print Washer Name Role Phone Jodi Jones MD Primary Care Provider [phone] Encounter Details Date Type Department Care Team (Late st Contact Info) Description 09/14/2018 Transcribed Document [facility] Family Medicine [facility] [place] [address] ProviderPolly MD [address] [place] [address] [id number] Social History Tobacco Use Types Packs/Day Years Used Date Smoking Tobacco: Never Assessed Comments Unknown Sex and Gender Information Value Date Recorded Sex Assigned at Not on file Legal Sex Female 6:24 PM CDT Gender Identity Not on file Sexual Orientation Not on file documented as of this encounter Miscellaneous Notes * Cerner Conversion Note - Polly Cavazos MD - 09/14/2018 11:32 [place] [address] HARSH AMLDONADO :1980 Visit Time:09/09/2018 Your Visit Summary Your Care Team Admitting Physician - TERRY MITCHELL DO-OBG Attending Physician - TERRY MITCHELL DO-OBG Primary Care Physician - JODI JONES MD-[facility] Referring Physician - TERRY MITCHELL DO-OBG Your Diagnosis Cervical laceration Delivery normal Encounter for supervision of normal first , unspecified trimester, Encounter for supervision of normal first , unspecified trimester Severe pre-eclampsia with complication Discharge Vitals Heart Rate 75 Blood Pressure 158/70 What to do next Instructions From Your Care Team Diet after Discharge: Resume usual diet as tolerated Drink at least 8-10 glasses of water a day Do not drink any alcoholic beverages Add 500 extra calories daily if Eat a 1-2 carbohydrate snack before or during Fluid Restriction after Discharge:_ Activity After Discharge:As tolerated,Rest and relax today,No strenuous activities,Nothing in the vagina for 6 weeks Lifting Restrictions:No lifting over 10 pounds for 2 weeks Weight Bearing Restrictions:Full weight bearing Minimize Stair Climbing Discuss Exercise with your physician Driving after Discharge:No driving for 2 weeks May Return to Work: After 6 week follow up Showering Bathing:May Shower,No tub bathing, soaking or swimming,_ Breast Care: Wear supportive bras as much as possible Place ice packs on breasts to help decrease swelling Avoid applying heat to breasts If nipple soreness occurs, rub colostrum (breastmilk) or a pea-sized amount of lanolin on nipples after feeding Practice self-breast exam monthly , Notify Provider of: Foul smelling vaginal discharge Temperature over 101 degrees Fahrenheit Signs of depression or anxiety that makes it hard for you to care for yourself or your baby Weight up more than 2 pounds a day or more than 5 pounds in a week Pass blood clots larger than a golf ball Sharp pain or redness in your legs Painful urination or feeling like you have to go to the bathroom all the time Have breast pain with fever and chills Excessive vomiting or diarrhea Vaginal bleeding greater than 1 pad per hour Pain is worsening and current pain medication is not adequate When to go to the Emergency Room or call 911: Shortness of breath or chest pain Unable to reach provider Discharge Follow Up Instructions: Activity: Discharge Activity: Activity as tolerated Diet: Discharge Diet: Heart healthy diet Follow-Up Appointments Follow Up with TERRY MITCHELL When Within 2 to 4 days Comments Call for follow up appointment Where: [address] [address]- [facility] (1) Medications What How Much When Instructions Next Dose aspirin 100 Milligram(s) Oral calcium-vitamin D (Calcium 600+D oral tablet) 1 Tablet(s) Oral Every Day ferrous sulfate (ferrous sulfate 325 mg (65 mg elemental iron) oral delayed release tablet) Oral Every Day labetalol (labetalol 200 mg oral tablet) 1 Tablet(s) Oral Three Times A Day multivitamin, ( 1 oral capsule) 1 Capsule(s) Oral Every Day Take your medications faithfully. Do NOT skip medication. Do NOT stop taking medications without the direction of a physician. Carry a list of your medications with you at all times, and take this medication list with you to your first follow up visit. Report any side effects. Avoid herbal remedies unless discussed with your physician. As part of your treatment plan, your physician may have prescribed a limited course of a controlled substance. This medication may be given to help people with moderate or severe pain or for other medical conditions, but there are risks involved with treatment. Common side effects may include nausea, constipation, drowsiness, sweating, itching, dry mouth, and rash. More serious side effects may include cognitive and motor impairment, like problems with thinking, concentrating, alertness, and movement (e.g. slowed reflexes), and driving and operating heavy machinery can be dangerous. It is important for you to talk to your physician if you have these side effects or questions. These controlled substances can produce physical dependence and be habit-forming if taken for an extended period of time, which means that the body has gotten used to them and may experience withdrawal symptoms if they are abruptly stopped. Withdrawal symptoms can include runny nose, sweating, goose bumps, diarrhea, abdominal cramping, rapid heartbeat, difficulty sleeping, and nervousness. Please dispose of unused and medications per your retail pharmacy guidance. Education Materials Care After Vaginal Delivery The period of time right after you deliver your is called the period. What kind of medical care will I receive? You may continue to receive fluids and medicines through an IV tube inserted into one of your veins. ??? If an incision was made near your vagina (episiotomy) or if you had some vaginal tearing during delivery, cold compresses may be placed on your episiotomy or your tear. This helps to reduce pain and swelling. ??? You may be given a squirt bottle to use when you go to the bathroom. You may use this until you are comfortable wiping as usual. To use the squirt bottle, follow these steps: ? Before you urinate, fill the squirt bottle with warm water. Do not use hot water. ? After you urinate, while you are sitting on the toilet, use the squirt bottle to rinse the area around your urethra and vaginal opening. This rinses away any urine and blood. ? You may do this instead of wiping. As you start healing, you may use the squirt bottle before wiping yourself. Make sure to wipe gently. ? Fill the squirt bottle with clean water every time you use the bathroom. ??? You will be given sanitary pads to wear. How can I expect to feel? You may not feel the need to urinate for several hours after delivery. ??? You will have some soreness and pain in your abdomen and vagina. ??? If you are , you may have uterine contractions every time you breastfeed for up to several weeks . Uterine contractions help your uterus return to its normal size. ??? It is normal to have vaginal bleeding (lochia) after delivery. The amount and appearance of lochia is often similar to a menstrual period in the first week after delivery. It will gradually decrease over the next few weeks to a dry, yellow-brown discharge. For most women, lochia stops completely by 6???8 weeks after delivery. Vaginal bleeding can vary from woman to woman. ??? Within the first few days after delivery, you may have breast engorgement. This is when your breasts feel heavy, full, and uncomfortable. Your breasts may also throb and feel hard, tightly stretched, warm, and tender. After this occurs, you may have milk leaking from your breasts. Your health care provider can help you relieve discomfort due to breast engorgement. Breast engorgement should go away within a few days. ??? You may feel more sad or worried than normal due to hormonal changes after delivery. These feelings should not last more than a few days. If these feelings do not go away after several days, speak with your health care provider. How should I care for myself? Tell your health care provider if you have pain or discomfort. ??? Drink enough water to keep your urine clear or pale yellow. ??? Wash your hands thoroughly with soap and water for at least 20 seconds after changing your sanitary pads, after using the toilet, and before holding or feeding your baby. ??? If you are not , avoid touching your breasts a lot. Doing this can make your breasts produce more milk. ??? If you become weak or lightheaded, or you feel like you might faint, ask for help before: ? Getting out of bed. ? Showering. ??? Change your sanitary pads frequently. Watch for any changes in your flow, such as a sudden increase in volume, a change in color, the passing of large blood clots. If you pass a blood clot from your vagina, save it to show to your health care provider. Do not flush blood clots down the toilet without having your health care provider look at them. ??? Make sure that all your vaccinations are up to date. This can help protect you and your baby from getting certain diseases. You may need to have immunizations done before you leave the hospital. ??? If desired, talk with your health care provider about methods of family planning or control (contraception). How can I start bonding with my baby? Spending as much time as possible with your baby is very important. During this time, you and your baby can get to know each other and develop a webber. Having your baby stay with you in your room (rooming in) can give you time to get to know your baby. Rooming in can also help you become comfortable caring for your baby. can also help you webber with your baby. How can I plan for returning home with my baby? Make sure that you have a car seat installed in your vehicle. ? Your car seat should be checked by a certified car machine heel seat laster to make sure that it is installed safely. ? Make sure that your baby fits into the car seat safely. ??? Ask your health care provider any questions you have about caring for yourself or your baby. Make sure that you are able to contact your health care provider with any questions after leaving the hospital. This information is not intended to replace advice given to you by your health care provider. Make sure you discuss any questions you have with your health care provider. Document Released: 02/11/2008 Document Revised: 09/18/2016 Document Reviewed: 03/20/2016 Elsevier Interactive Patient Education ?? 2018 [employer] Choosing to breastfeed is one of the best decisions you can make for yourself and your baby. A change in hormones during causes your breasts to make breast milk in your milk-producing glands. Hormones prevent breast milk from being released before your baby is born. They also prompt milk flow after . Once has begun, thoughts of your baby, as well as his or her sucking or crying, can stimulate the release of milk from your milk-producing glands. Benefits of Research shows that offers many health benefits for infants and mothers. It also offers a cost-free and convenient way to feed your baby. For your baby ??? Your first milk (colostrum) helps your baby's digestive system to function better. ??? Special cells in your milk (antibodies) help your baby to fight off infections. ??? Breastfed babies are less likely to develop asthma, allergies, obesity, or type 2 diabetes. They are also at lower risk for sudden infant syndrome (SIDS). ??? Nutrients in breast milk are better able to meet your baby???s needs compared to infant formula. ??? Breast milk improves your baby's brain development. For you ??? helps to create a very special webber between you and your baby. ??? is convenient. Breast milk costs nothing and is always available at the correct temperature. ??? helps to burn calories. It helps you to lose the weight that you gained during . ??? makes your uterus return faster to its size before . It also slows bleeding (lochia) after you give . ??? helps to lower your risk of developing type 2 diabetes, osteoporosis, rheumatoid arthritis, cardiovascular disease, and breast, ovarian, uterine, and endometrial cancer later in life. basics Starting ??? Find a comfortable place to sit or lie down, with your neck and back well-supported. ??? Place a pillow or a rolled-up blanket under your baby to bring him or her to the level of your breast (if you are seated). Nursing pillows are specially designed to help support your arms and your baby while you breastfeed. ??? Make sure that your baby's tummy (abdomen) is facing your abdomen. ??? Gently massage your breast. With your fingertips, massage from the outer edges of your breast inward toward the nipple. This encourages milk flow. If your milk flows slowly, you may need to continue this action during the feeding. ??? Support your breast with 4 fingers underneath and your thumb above your nipple (make the letter C with your hand). Make sure your fingers are well away from your nipple and your baby???s mouth. ??? Stroke your baby's lips gently with your finger or nipple. ??? When your baby's mouth is open wide enough, quickly bring your baby to your breast, placing your entire nipple and as much of the areola as possible into your baby's mouth. The areola is the colored area around your nipple. ? More areola should be visible above your baby's upper lip than below the lower lip. ? Your baby's lips should be opened and extended outward (flanged) to ensure an adequate, comfortable latch. ? Your baby's tongue should be between his or her lower gum and your breast. ??? Make sure that your baby's mouth is correctly positioned around your nipple (latched). Your baby's lips should create a seal on your breast and be turned out (everted). ??? It is common for your baby to suck about 2???3 minutes in order to start the flow of breast milk. Latching Teaching your baby how to latch onto your breast properly is very important. An improper latch can cause nipple pain, decreased milk supply, and poor weight gain in your baby. Also, if your baby is not latched onto your nipple properly, he or she may swallow some air during feeding. This can make your baby fussy. Burping your baby when you switch breasts during the feeding can help to get rid of the air. However, teaching your baby to latch on properly is still the best way to prevent fussiness from swallowing air while . Signs that your baby has successfully latched onto your nipple ??? Silent tugging or silent sucking, without causing you pain. Infant's lips should be extended outward (flanged). ??? Swallowing heard between every 3???4 sucks once your milk has started to flow (after your let-down milk reflex occurs). ??? Muscle movement above and in front of his or her ears while sucking. Signs that your baby has not successfully latched onto your nipple ??? Sucking sounds or smacking sounds from your baby while . ??? Nipple pain. If you think your baby has not latched on correctly, slip your finger into the corner of your baby???s mouth to break the suction and place it between your baby's gums. Attempt to start again. Signs of successful Signs from your baby ??? Your baby will gradually decrease the number of sucks or will completely stop sucking. ??? Your baby will fall asleep. ??? Your baby's body will relax. ??? Your baby will retain a small amount of milk in his or her mouth. ??? Your baby will let go of your breast by himself or herself. Signs from you ??? Breasts that have increased in firmness, weight, and size 1???3 hours after feeding. ??? Breasts that are softer immediately after . ??? Increased milk volume, as well as a change in milk consistency and color by the fifth day of . ??? Nipples that are not sore, cracked, or bleeding. Signs that your baby is getting enough milk ??? Wetting at least 1???2 diapers during the first 24 hours after . ??? Wetting at least 5???6 diapers every 24 hours for the first week after . The urine should be clear or pale yellow by the age of 5 days. ??? Wetting 6???8 diapers every 24 hours as your baby continues to grow and develop. ??? At least 3 stools in a 24-hour period by the age of 5 days. The stool should be soft and yellow. ??? At least 3 stools in a 24-hour period by the age of 7 days. The stool should be seedy and yellow. ??? No loss of weight greater than 10% of weight during the first 3 days of life. ??? Average weight gain of 4???7 oz (113???198 g) per week after the age of 4 days. ??? Consistent daily weight gain by the age of 5 days, without weight loss after the age of 2 weeks. After a feeding, your baby may spit up a small amount of milk. This is normal. frequency and duration Frequent feeding will help you make more milk and can prevent sore nipples and extremely full breasts (breast engorgement). Breastfeed when you feel the need to reduce the fullness of your breasts or when your baby shows signs of hunger. This is called on demand. Signs that your baby is hungry include: ??? Increased alertness, activity, or restlessness. ??? Movement of the head from side to side. ??? Opening of the mouth when the corner of the mouth or cheek is stroked (rooting). ??? Increased sucking sounds, smacking lips, cooing, sighing, or squeaking. ??? Uhrj-pe-kagzs movements and sucking on fingers or hands. ??? Fussing or crying. Avoid introducing a pacifier to your baby in the first 4-6 weeks after your baby is born. After this time, you may choose to use a pacifier. Research has shown that pacifier use during the first year of a baby's life decreases the risk of sudden syndrome (SIDS). Allow your baby to feed on each breast as long as he or she wants. When your baby unlatches or falls asleep while feeding from the first breast, offer the second breast. Because newborns are often sleepy in the first few weeks of life, you may need to awaken your baby to get him or her to feed. times will vary from baby to baby. However, the following rules can serve as a guide to help you make sure that your baby is properly fed: ??? Newborns (babies 4 weeks of age or younger) may breastfeed every 1???3 hours. ??? Newborns should not go without for longer than 3 hours during the day or 5 hours during the night. ??? You should breastfeed your baby a minimum of 8 times in a 24-hour period. Breast milk pumping Pumping and storing breast milk allows you to make sure that your baby is exclusively fed your breast milk, even at times when you are unable to breastfeed. This is especially important if you go back to work while you are still , or if you are not able to be present during feedings. Your hospice care consultant can help you find a method of pumping that works best for you and give you guidelines about how long it is safe to store breast milk. Caring for your breasts while you breastfeed Nipples can become dry, cracked, and sore while . The following recommendations can help keep your breasts moisturized and healthy: ??? Avoid using soap on your nipples. ??? Wear a supportive bra designed especially for nursing. Avoid wearing underwire-style bras or extremely tight bras (sports bras). ??? Air-dry your nipples for 3???4 minutes after each feeding. ??? Use only cotton bra pads to absorb leaked breast milk. Leaking of breast milk between feedings is normal. ??? Use lanolin on your nipples after . Lanolin helps to maintain your skin's normal moisture barrier. Pure lanolin is not harmful (not toxic) to your baby. You may also hand express a few drops of breast milk and gently massage that milk into your nipples and allow the milk to air-dry. In the first few weeks after giving , some women experience breast engorgement. Engorgement can make your breasts feel heavy, warm, and tender to the touch. Engorgement peaks within 3???5 days after you give . The following recommendations can help to ease engorgement: ??? Completely empty your breasts while or pumping. You may want to start by applying warm, moist heat (in the shower or with warm, water-soaked hand towels) just before feeding or pumping. This increases circulation and helps the milk flow. If your baby does not completely empty your breasts while , pump any extra milk after he or she is finished. ??? Apply ice packs to your breasts immediately after or pumping, unless this is too uncomfortable for you. To do this: ? Put ice in a plastic bag. ? Place a towel between your skin and the bag. ? Leave the ice on for 20 minutes, 2???3 times a day. ??? Make sure that your baby is latched on and positioned properly while . If engorgement persists after 48 hours of following these recommendations, contact your health care provider or a hospice care consultant. Overall health care recommendations while ??? Eat 3 healthy meals and 3 snacks every day. Well-nourished mothers who are need an additional 450???500 calories a day. You can meet this requirement by increasing the amount of a balanced diet that you eat. ??? Drink enough water to keep your urine pale yellow or clear. ??? Rest often, relax, and continue to take your vitamins to prevent fatigue, stress, and low vitamin and mineral levels in your body (nutrient deficiencies). ??? Do not use any products that contain nicotine or tobacco, such as cigarettes and e-cigarettes. Your baby may be harmed by chemicals from cigarettes that pass into breast milk and exposure to secondhand smoke. If you need help quitting, ask your health care provider. ??? Avoid alcohol. ??? Do not use illegal drugs or marijuana. ??? Talk with your health care provider before taking any medicines. These include [id number]-[id number] and prescription medicines as well as vitamins and herbal supplements. Some medicines that may be harmful to your baby can pass through breast milk. ??? It is possible to become while . If control is desired, ask your health care provider about options that will be safe while your baby. Where to find more information: [employer]: www.llli.org Contact a health care provider if: ??? You feel like you want to stop or have become frustrated with . ??? Your nipples are cracked or bleeding. ??? Your breasts are red, tender, or warm. ??? You have: ? Painful breasts or nipples. ? A swollen area on either breast. ? A fever or chills. ? Nausea or vomiting. ? Drainage other than breast milk from your nipples. ??? Your breasts do not become full before feedings by the fifth day after you give . ??? You feel sad and depressed. ??? Your baby is: ? Too sleepy to eat well. ? Having trouble sleeping. ? More than 1 week old and wetting fewer than 6 diapers in a 24-hour period. ? Not gaining weight by 5 days of age. ??? Your baby has fewer than 3 stools in a 24-hour period. ??? Your baby's skin or the white parts of his or her eyes become yellow. Get help right away if: ??? Your baby is overly tired (lethargic) and does not want to wake up and feed. ??? Your baby develops an unexplained fever. Summary ??? offers many health benefits for infant and mothers. ??? Try to breastfeed your when he or she shows early signs of hunger. ??? Gently tickle or stroke your baby's lips with your finger or nipple to allow the baby to open his or her mouth. Bring the baby to your breast. Make sure that much of the areola is in your baby's mouth. Offer one side and burp the baby before you offer the other side. ??? Talk with your health care provider or hospice care consultant if you have questions or you face problems as you breastfeed. This information is not intended to replace advice given to you by your health care provider. Make sure you discuss any questions you have with your health care provider. Document Released: 04/16/2006 Document Revised: 05/18/2017 Document Reviewed: 05/18/2017 [employer] Interactive Patient Education ?? 2019 [employer]. Emergency Awareness and Preventative Care STROKE is an EMERGENCY Every Minute Counts Act FAST and Check for these signs: FACE Does the face look uneven? ARM Does one arm drift down? SPEECH Does their speech sound strange? TIME Call at any sign of stroke Stroke Risk Factors Atrial Fibrillation (irregular heartbeat) Diabetes Family history of stroke Heart Disease Heavy alcohol use High Blood Pressure High Cholesterol Physical inactivity and obesity Smoking Cigarette Smoking The facts are clear, cigarette smoking will shorten your life. Smoking can cause many illnesses along the way. As a healthcare provider, we recommend that you stop smoking. Assistance with quitting is available by contacting 1-144-OWKW-NOW. This is a free resource providing counseling, support, and referral. Or you may contact your personal physician. National Suicide Prevention Lifeline: The National Suicide Prevention Lifeline is a national network of local crisis centers that provides free and confidential emotional support to people in suicidal crisis or emotional distress 24 hours a day, 7 days a week. Don't Wait! Stop a Heart Attack Before it Starts What is a heart attack? A heart attack is damage or to a part of the heart from severely decreased or lack of blood flow to the heart. Over time, arteries can become narrow from the buildup of fat and cholesterol, which is called plaque. The plaque can rupture causing a blood clot to form. When the blood clot forms, the artery can become severely narrowed or completely blocked, causing a heart attack. Heart attack is the leading cause of in the [place]. 85% of muscle damage occurs within the first 2 hours. Delay in the recognition of heart attack symptoms increases the chances of . Know the early symptoms of a heart attack: Nausea Feeling of fullness in chest Jaw Pain Pain that travels down one or both arms Fatigue/being tired Anxiety Back Pain Chest pressure, squeezing, or discomfort Shortness of breath Sweating, or a cold sweat Feeling of impending doom There are unusual signs of a heart attack, too! Women, the elderly, and diabetics may present with atypical symptoms: Fainting/dizziness Weakness Confusion Risk Factors for a Heart Attack Some heart disease risk factors, such as age and family history, cannot be changed. Others, like smoking and lack of exercise, can be changed. Smoking High Cholesterol High Blood Pressure Family History Obesity Age Gender (Males are at higher risk) Lack of Exercise Diabetes Diet Stress Excessive Alcohol Intake If you or someone you know is experiencing the signs and symptoms of a heart attack, DON???T DELAY. Call immediately and seek help. If someone collapses, perform CPR! Do not attempt to drive if you are having symptoms of heart attack. Hands-Only CPR Why Hands-Only CPR? Hands-Only CPR has been shown to be as effective as conventional CPR for cardiac arrests that occur outside of a hospital. Survival depends on immediately receiving CPR from someone nearby. How do you perform Hands-Only CPR? There are two easy steps: Call if you see a teen or adult collapse Push hard and fast in the center of the chest at a beat of 100 beats per minute. Save a life! 4 WAYS TO GET AHEAD OF SEPSIS SEPSIS is a MEDICAL EMERGENCY. Time matters! Infections put you and your family at risk for a life-threatening condition called sepsis. Sepsis is the body's extreme response to an infection. It is life-threatening, and without timely treatment, sepsis can rapidly lead to tissue damage, organ failure, and . Sepsis happens when an infection you already have-in your skin, lungs, urinary tract or somewhere else-triggers a chain reaction throughout your body. 1 PREVENT INFECTIONS Take good care of chronic conditions. Talk to your doctor about getting the recommended vaccines. 2 PRACTICE GOOD HYGIENE Wash your hands frequently. Keep cuts or open sores clean and covered until they are healed. 3 KNOW THE SYMPTOMS Confusion or disorientation Shortness of breath High heart rate Fever, shivering, or feeling very cold Extreme pain or discomfort Clammy or sweaty skin 4 ACT FAST Get medical care IMMEDIATELY if you suspect sepsis or if you have an infection that is not getting better or is getting worse. To learn more about sepsis and how to prevent infections, visit www.cdc.gov/sepsis. Patient Portal Reminder: Be sure to sign up for the My [facility] [place] patient portal, which gives you 20/11 access to your medical information ??? including these discharge instructions ??? using your computer, smartphone, or tablet. Just go to [employer] to get started. Questions? Call . Test Results Laboratory or Other Results This Visit (last charted value for your 09/09/2018 visit) Blood Gases 09/09/18 15:34:00 BE Art Umb: -1 mmol/L HCO3 Art Umb: 26 mmol/L pCO2 Art Umb: 48 mmHg sO2 Art Umb: 37 % pO2 Art Umb: 18 mmHg pH Art Umb: 7.33 Hematology 09/14/18 04:00:00 WBC: 7.9 K/uL -- Normal range between ( 3.9 and 10.0 ) RBC: 2.75 Million/uL -- Normal range between ( 3.93 and 5.22 ) Hct: 25.3 % -- Normal range between ( 34.1 and 44.9 ) Hgb: 8.3 Gram/dL -- Normal range between ( 11.2 and 15.7 ) Platelet Count: 106 K/uL -- Normal range between ( 163 and 369 ) MCH: 30.2 pg -- Normal range between ( 25.6 and 32.2 ) MCHC: 32.8 Gram/dL -- Normal range between ( 32.3 and 36.5 ) MCV: 92.0 fL -- Normal range between ( 79.0 and 94.8 ) Slide Review: No Eos %: 4.4 % -- Normal range between ( 1.0 and 7.0 ) Will #: 0.75 K/uL -- Normal range between ( 0.24 and 0.82 ) Eos #: 0.35 K/uL -- Normal range between ( 0.04 and 0.54 ) Will %: 9.5 % -- Normal range between ( 4.7 and 12.5 ) Baso %: 0.4 % -- Normal range between ( 0.0 and 1.0 ) Baso #: 0.03 K/uL -- Normal range between ( 0.01 and 0.08 ) RDW: 16.3 % -- Normal range between ( 11.6 and 14.4 ) Neut %: 54.9 % -- Normal range between ( 34.0 and 71.0 ) Neut #: 4.36 K/uL -- Normal range between ( 1.56 and 6.13 ) Lymph %: 27.4 % -- Normal range between ( 19.3 and 53.0 ) Lymph #: 2.17 K/uL -- Normal range between ( 1.18 and 3.74 ) MPV: 12.8 fL -- Normal range between ( 9.4 and 12.4 ) IG#: 0 x10(3)/uL IG%: 3 % -- Normal range between ( 0 and 1 ) 09/13/18 04:28:00 nRBC: 0 -- Normal range between ( 1 and 5 ) 09/12/18 05:11:00 Immature Plt Fraction: 13.3 % -- Normal range between ( 1.0 and 7.0 ) Blood Bank 09/09/18 22:19:36 TRANSFUSED: TRANSFUSED 09/09/18 20:53:00 RBC Product Ready: RBC Ready # of Units: 2 09/09/18 05:26:00 ABO/Rh Repeat: O POS 09/09/18 01:06:00 ABO/Rh: O POS Antibody Screen (Tube): Negative ABSC Crossmatch: Computer XM OK General Chemistry 09/14/18 04:00:00 Creatinine Level: 0.77 mg/dL -- Normal range between ( 0.55 and 1.02 ) ALT: 80 Units/Liter -- Normal range between ( 12 and 78 ) AST: 86 Units/Liter -- Normal range between ( 5 and 37 ) Amylase Level: 62 Units/Liter -- Normal range between ( 25 and 115 ) eGFR : >60 mL/min/1.73m2 eGFR NonAfrican: >60 mL/min/1.73m2 GGT: 8 Units/Liter -- Normal range between ( 5 and 85 ) Blood Urea Nitrogen: 10 mg/dL -- Normal range between ( 7 and 22 ) Lactate Dehydrogenase: 295 Units/Liter -- Normal range between ( 84 and 246 ) Uric Acid: 6.4 mg/dL -- Normal range between ( 2.6 and 6.0 ) Lipase Level: 165 Units/Liter -- Normal range between ( 73 and 393 ) 09/10/18 10:19:00 Sodium Level: 141 mmol/L -- Normal range between ( 136 and 146 ) Potassium Level: 4.4 mmol/L -- Normal range between ( 3.5 and 5.1 ) Chloride Level: 110 mmol/L -- Normal range between ( 102 and 112 ) Carbon Dioxide Level: 26 mmol/L -- Normal range between ( 21 and 32 ) Anion Gap: 9 -- Normal range between ( 9 and 20 ) Bun/Creatinine: 18.1 -- Normal range between ( 8.0 and 20.0 ) Calcium Level: 7.4 mg/dL -- Normal range between ( 8.5 and 10.1 ) Glucose Level: 114 mg/dL -- Normal range between ( 74 and 106 ) Cardiac Specific Markers 09/12/18 05:11:00 ProBNP: 42 pg/mL -- Normal range between ( 0 and 125 ) Toxicology 09/09/18 01:04:00 UDS Amp: Negative UDS Yuki: Negative UDS Benzo: Negative UDS Isaias: Negative UDS Meth: Negative UDS Opi: Negative UDS Oxy: Negative UDS PCP: Negative UDS TCA: Negative UDS THC: Negative Buprenorphine Screen, Urine: Negative Heroin Metab (6AM) by LC-MS/MS, Urine: Negative SpGravity, Urine: 1.020 Propoxyphene, Urine: Negative UDS pH: 6.5 UDS Creatinine, Toxicology: 133.4 mg/dL Patient Name:HARSH MALDONADO I have received and understand this information and was given the opportunity to ask questions. Patient/Security Installation Technician Name: Patient/Security Installation Technician Signature: Relationship to Patient: Clinician/Hospital Security Installation Technician Signature: Date: Electronically signed by Deana, [facility] Conversion Systems Auditor Cerner at 08/20/2022 4:54 PM CDT documented in this encounter Plan of Treatment Not on file documented as of this encounter Visit Diagnoses Not on filedocumented in this encounter Care Teams Print Washer Relationship Specialty Start Date End Date Jodi Jones MD [address] [place] [address] PCP - General Family Medicine 06/09/22 documented as of this encounter
--- OUTSIDE RECORDS SUMMARY | 2024-10-20 10:24 | XMS_ITS | Encounter Summary ---
Author Organization [employer] Address [address] [place] [address] Care Team Providers Care Precision Lens Generator Name Role Phone Victor Hugo Soares MD Primary Care Provider [phone] Encounter Details Date Type Department Care Team (Late st Contact Info) Description 09/14/2018 Transcribed Document [facility] [place] [facility] [place] [address] ProviderPolly MD [facility] [place], [place] [id number] Social History Tobacco Use Types Packs/Day Years Used Date Smoking Tobacco: Never Assessed Comments Unknown Sex and Gender Information Value Date Recorded Sex Assigned at Not on file Legal Sex Female 6:24 PM CDT Gender Identity Not on file Sexual Orientation Not on file documented as of this encounter Miscellaneous Notes * Cerner Conversion Note - Polly Cavazos MD - 09/14/2018 3:34 PM CDT product support specialist Form Entered On: 09/14/2018 15:35 EDT Performed On: 09/14/2018 15:34 EDT by JI PETERSON Rn-Utilization Review UM Additional Information UM Additional Comment : PT STAYED PAST ALLOTTED 2 DAYS BECAUSE OF HEMORRHAGE. DISCHARGE ORDERS TODAY. JI PETERSON Rn-Utilization Review - 09/14/2018 15:34 EDT documented in this encounter Plan of Treatment Not on file documented as of this encounter Visit Diagnoses Not on filedocumented in this encounter Care Teams Precision Lens Generator Relationship Specialty Start Date End Date Victor Hugo Soares MD [address] [place] [address] PCP - General Family Medicine 06/09/22 documented as of this encounter
--- OUTSIDE RECORDS SUMMARY | 2024-10-20 10:24 | XMS_ITS | Encounter Summary ---
Author Organization [employer] Address [address] [place] [address] Care Team Providers Care Career Services Manager Name Role Phone Jodi Jones MD Primary Care Provider [phone] Encounter Details Date Type Department Care Team (Late st Contact Info) Description 09/14/2018 Transcribed Document [facility] Family Medicine [facility] [place] [address] ProviderPolly [place] [facility] [place] [address] Social History Tobacco Use Types Packs/Day Years Used Date Smoking Tobacco: Never Assessed Comments Unknown Sex and Gender Information Value Date Recorded Sex Assigned at Not on file Legal Sex Female 6:24 PM CDT Gender Identity Not on file Sexual Orientation Not on file documented as of this encounter Miscellaneous Notes * Cerner Conversion Note - Polly Cavazos MD - 09/14/2018 9:22 AM CDT Patient: HARSH MALDONADO Age: 38 Years Sex: Female : 1980 Admit Date 09/09/2018 00:01 Discharge Date No Discharge Date on Record Primary Care Provider JODI JONES MD-[facility] Discharge Diagnosis No Diagnosis on Record s/p vag delivery cervical laceration post hellp syndrome Procedures vag del repair cerv laceration circumcision Studies Uric acid improved Reason for Hospitalization delivery Hospital Course required 2 units brbc Vital Signs HR: 63 Oxygen Settings (Last) No qualifying data available. Discharge Disposition No Disposition on Record Discharge Follow Up No Follow Up Appointments on Record Discharge Medications (5) Active aspirin 100 mg, Oral Calcium 600+D oral tablet 1 Tab, Oral, Daily ferrous sulfate 325 mg (65 mg elemental iron) oral delayed release tablet , Oral, Daily labetalol 200 mg oral tablet 200 mg = 1 Tab, Oral, TID 1 oral capsule 1 Cap, Oral, Daily Code Status Start: 09/09/18 15:58:00 EDT, Full Code, Continuous Order Condition on Discharge Stable Consulting Physicians No Consulting Physician on Record. Current Diet Order Diet, Adult - Ordered -- Start: 09/09/18 15:58:00 EDT, Regular Diet, Isolation: Standard Precautions Follow Up Labs/Studies 1 week f/u labs Pending Labs No Labs on Record Time Spent on Discharge 25 min Electronically signed by Deana, [facility] Conversion Stave Block Splitter Cerner at 08/20/2022 4:39 PM CDT documented in this encounter Plan of Treatment Not on file documented as of this encounter Visit Diagnoses Not on filedocumented in this encounter Care Teams Career Services Manager Relationship Specialty Start Date End Date Jodi Jones MD [address] [place] [address] PCP - General Family Medicine 06/09/22 documented as of this encounter
--- OUTSIDE RECORDS SUMMARY | 2024-10-20 10:24 | XMS_ITS | Encounter Summary ---
Author Organization [employer] Address [address] [place] [address] Care Team Providers Care Medical Insurance Verifier Name Role Phone Victor Hugo Soares MD Primary Care Provider [phone] Encounter Details Date Type Department Care Team (Late st Contact Info) Description 09/14/2018 Transcribed Document [facility] [place] [facility] [place] [address] ProviderPolly MD [address] [place] [id number] Social History Tobacco Use Types Packs/Day Years Used Date Smoking Tobacco: Never Assessed Comments Unknown Sex and Gender Information Value Date Recorded Sex Assigned at Not on file Legal Sex Female 6:24 PM CDT Gender Identity Not on file Sexual Orientation Not on file documented as of this encounter Miscellaneous Notes * Cerner Conversion Note - Polly Cavazos MD - 09/14/2018 9:28 AM CDT DATE OF ADMISSION: 09/09/2018 DATE OF DISCHARGE: 09/14/2018 HOSPITAL COURSE: She underwent induction of labor and delivered a rosales viable . On her postoperative course, she did have delayed hemorrhage. She did require blood transfusion x2. She was taken to the back and had an evaluation of her cervix, evaluation under anesthesia later that evening and had a cervical laceration repair and had a vaginal packing placed. It was removed and her bleeding had subsided. However, her blood pressure continued to go up. She gained edema. Blood pressure was elevated. Blood work showed that her uric acid was elevated. We put her on magnesium. She diuresed. Her uric acid did rise to over 8. After the magnesium and bed rest, it went down to the 6 level. She diuresed. Her weight went down. Her blood pressure remained in the 130s/140s. She felt tremendously better on 09/14, requesting to go home, very anxious, did not want to stay any longer, so we discharged her home. Continue her blood pressure medicine, see and repeat her blood work in a couple of days. She will be on iron, pain medication. If she has any problems, she is to call. We are available for care 24 hours a day. Liver function tests have been elevated the day before and they have improved on the repeat blood work. DISCHARGE DIAGNOSES: 1. Status post vaginal delivery, rosales viable infant. 2. Cervical laceration with repair. 3. Status post blood transfusion. 4. hemolysis, elevated liver enzymes, and low platelets syndrome. Gerald Juarez D.O. Dict: 09/14/2018 09:28:39 Trans: 09/14/2018 10:04:40 Processed: 09/16/2018 14:31:51 [employer] CC1: Gerald Juarez D.O. documented in this encounter Plan of Treatment Not on file documented as of this encounter Visit Diagnoses Not on filedocumented in this encounter Care Teams Medical Insurance Verifier Relationship Specialty Start Date End Date Victor Hugo Soares MD [address] [place] [address] PCP - General Family Medicine 06/09/22 documented as of this encounter
--- OUTSIDE RECORDS SUMMARY | 2024-10-20 10:24 | XMS_ITS | Encounter Summary ---
Author Organization [employer] Address [address] [place] [address] Care Team Providers Care Captain/Airline Pilot Name Role Phone Victor Hugo Soares MD Primary Care Provider [phone] Encounter Details Date Type Department Care Team (Late st Contact Info) Description 09/13/2018 Transcribed Document [facility] [place] [address] [place] [address] ProviderPolly MD [facility] [place], [place] [id number] Social History Tobacco Use Types Packs/Day Years Used Date Smoking Tobacco: Never Assessed Comments Unknown Sex and Gender Information Value Date Recorded Sex Assigned at Not on file Legal Sex Female 6:24 PM CDT Gender Identity Not on file Sexual Orientation Not on file documented as of this encounter Miscellaneous Notes * Cerner Conversion Note - Polly ProviderMD - 09/13/2018 5:00 AM CDT Chart Check - Review Order Profile Entered On: 09/13/2018 3:45 EDT Performed On: 09/13/2018 5:00 EDT by HARSH MAHAN, RN Chart Check Powerplans Initiated/Discontinued as Appropriate : Yes All Active Orders Reviewed : Yes HARSH MAHAN, RN - 09/13/2018 3:45 EDT documented in this encounter Plan of Treatment Not on file documented as of this encounter Visit Diagnoses Not on filedocumented in this encounter Care Teams Captain/Airline Pilot Relationship Specialty Start Date End Date Victor Hugo Soares MD [address] [place] [address] PCP - General Family Medicine 06/09/22 documented as of this encounter
--- OUTSIDE RECORDS SUMMARY | 2024-10-20 10:24 | XMS_ITS | Encounter Summary ---
Author Organization [employer] Address [address] [place] [address] Care Team Providers Care Silk Examiner Name Role Phone Victor Hugo Soares MD Primary Care Provider [phone] Encounter Details Date Type Department Care Team (Late st Contact Info) Description 09/14/2018 Transcribed Document [facility] [place] [facility] [place] [address] ProviderPolly MD [facility] [place], [place] [address] Social History Tobacco Use Types Packs/Day Years Used Date Smoking Tobacco: Never Assessed Comments Unknown Sex and Gender Information Value Date Recorded Sex Assigned at Not on file Legal Sex Female 6:24 PM CDT Gender Identity Not on file Sexual Orientation Not on file documented as of this encounter Miscellaneous Notes * Cerner Conversion Note - Polly Cavazos MD - 09/14/2018 10:52 AM CDT Nursing Discharge Summary Entered On: 09/14/2018 10:54 EDT Performed On: 09/14/2018 10:52 EDT by SESAR ARREGUIN RN Discharge Documentation Patient Disposition, General : Discharge Discharge To : Home with ambulatory/outpatient follow-up Mode Of Departure, General Discharge : Private vehicle Accompanied By, Discharge : Spouse IV Discontinued : Yes Medications Given to Patient : No Personal Belongings With Patient : Yes Pt's Own Supply of Medications Returned : No Prescriptions Given to Patient : Yes Discharge Instructions Reviewed With, Opportunity For Questions Given : Patient Patient Education Completed : Yes Number of Prescriptions Given : 3 Teaching Method : Explanation Teaching Evaluation : Verbalizes understanding SESAR ARREGUIN RN - 09/14/2018 10:52 EDT documented in this encounter Plan of Treatment Not on file documented as of this encounter Visit Diagnoses Not on filedocumented in this encounter Care Teams Silk Examiner Relationship Specialty Start Date End Date Victor Hugo Soares MD [address] [place] [address] PCP - General Family Medicine 06/09/22 documented as of this encounter
--- OUTSIDE RECORDS SUMMARY | 2024-10-20 10:24 | XMS_ITS | Encounter Summary ---
Author Organization [employer] Address [address] [place] [address] Care Team Providers Care National Secretary Name Role Phone Victor Hugo Soares MD Primary Care Provider [phone] Encounter Details Date Type Department Care Team (Late st Contact Info) Description 09/14/2018 Transcribed Document [facility] [place] Family [place] [address] [place] [address] ProviderPolly MD [address] [place], [place] [address] Social History Tobacco Use Types Packs/Day Years [...] Cavazos MD - 09/14/2018 10:52 AM CDT Stroke/Warfarin Instructions Entered On: 09/14/2018 10:52 EDT Performed On: 09/14/2018 10:52 EDT by SESAR ARREGUIN RN Stroke/Warfarin Instructions Stroke/TIA Discharge Ins : N/A Warfarin Discharge Ins : N/A SESAR ARREGUIN RN - 09/14/2018 10:52 EDT documented in this encounter Plan of Treatment Not on file documented as of this encounter Visit Diagnoses Not on filedocumented in this encounter Care Teams National Secretary Relationship Specialty Start Date End Date Victor Hugo Soares MD [address] [place] [address] PCP - General Family Medicine 06/09/22 documented as of this encounter
--- OUTSIDE RECORDS SUMMARY | 2024-10-20 10:24 | XMS_ITS | Encounter Summary ---
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 Name Role Phone Victor Hugo Soares MD Primary Care Provider [phone] Encounter Details Date Type Department Care Team (Late st Contact Info) Description 09/14/2018 Transcribed Document [facility] [place] Family Medicine Counts include 234 beds at the [facility] [place] [address] ProviderPolly MD [address] [place] [address] [phone] Social History Tobacco Use Types Packs/Day Years Used Date Smoking Tobacco: Never Assessed Comments Unknown Sex and Gender Information Value Date Recorded Sex Assigned at Not on file Legal Sex Female 6:24 PM CDT Gender Identity Not on file Sexual Orientation Not on file documented as of this encounter Miscellaneous Notes * Cerner Conversion Note - Polly Cavazos MD - 09/14/2018 10:50 AM CDT Patient Education Materials Follows:and Gynecology Care After Vaginal Delivery The period of [...] For most women, lochia stops completely by 6?8 weeks after delivery. Vaginal bleeding can vary from woman to woman. ??? Within the first few days after delivery, you may have breast engorgement. This is when your breasts feel heavy, full, and uncomfortable. Your breasts may also throb and feel hard, tightly stretched, warm, and tender. After this occurs, you may have milk leaking from your breasts.?Your health care provider can help you relieve [...] should be checked by a certified car slip seat coverer to make sure that it is installed [...] 02/11/2008 Document Revised: 09/18/2016 Document Reviewed: 03/20/2016 [employer] Interactive Patient Education ? 2018 [employer] Choosing to breastfeed is one of [...] are also at lower risk for sudden syndrome (SIDS). ??? Nutrients in breast milk are better able to meet your baby?s needs compared to infant formula. ??? Breast [...] well away from your nipple and your baby?s mouth. ??? Stroke your baby's lips gently [...] common for your baby to suck about 2?3 minutes in order to start the flow [...] outward (flanged). ??? Swallowing heard between every 3?4 sucks once your milk has started to [...] your finger into the corner of your baby?s mouth to break the suction and place [...] have increased in firmness, weight, and size 1?3 hours after feeding. ??? Breasts that are softer immediately after . ??? Increased milk volume, as well as a change in milk consistency and color by the fifth day of . ??? Nipples that are not sore, cracked, or bleeding. Signs that your baby is getting enough milk ??? Wetting at least 1?2 diapers during the first 24 hours after . ??? Wetting at least 5?6 diapers every 24 hours for the first week after . The urine should be clear or pale yellow by the age of 5 days. ??? Wetting 6?8 diapers every 24 hours as your baby [...] of life. ??? Average weight gain of 4?7 oz (113?198 g) per week after the age of [...] smacking lips, cooing, sighing, or squeaking. ??? Efob-ow-caxik movements and sucking on fingers or hands. ??? Fussing or crying. Avoid introducing a pacifier to your baby in the first 4-6 weeks after your baby is born. After this time, you may choose to use a pacifier. Research has shown that pacifier use during the first year of a baby's life decreases the risk of sudden infant syndrome (SIDS). Allow your baby to feed [...] of age or younger) may breastfeed every 1?3 hours. ??? Newborns should not go without [...] able to be present during feedings. Your insurance consultant can help you find a method [...] (sports bras). ??? Air-dry your nipples for 3?4 minutes after each feeding. ??? Use only [...] tender to the touch. Engorgement peaks within 3?5 days after you give . The following [...] Leave the ice on for 20 minutes, 2?3 times a day. ??? Make sure that your baby is latched on and positioned properly while . If engorgement persists after 48 hours of following these recommendations, contact your health care provider or a insurance consultant. Overall health care recommendations while ??? Eat 3 healthy meals and 3 snacks every day. Well-nourished mothers who are need an additional 450?500 calories a day. You can meet this [...] provider before taking any medicines. These include maqd-sgw-lortexi and prescription medicines as well as vitamins and herbal supplements. Some medicines that may be harmful to your baby can pass through breast milk. ??? It is possible to become while . If control is desired, ask your health care provider about options that will be safe while your baby. Where to find more information: [employer]: www.llli.org Contact a health care [...] Summary ??? offers many health benefits for and mothers. ??? Try to breastfeed your [...] Talk with your health care provider or insurance consultant if you have questions or you face problems as you breastfeed. This information is not intended to replace advice given to you by your health care provider. Make sure you discuss any questions you have with your health care provider. Document Released: 04/16/2006 Document Revised: 05/18/2017 Document Reviewed: 05/18/2017 [employer] Interactive Patient Education ? 2019 [employer] documented in this encounter Plan of Treatment Not on file documented as of this encounter Visit Diagnoses Not on filedocumented in this encounter Care Teams Short Filler Bunch Machine Operator Relationship Specialty Start Date End Date Victor Hugo Soares MD [address] [place] [address] PCP - General Family Medicine 06/09/22 documented as of this encounter
--- OUTSIDE RECORDS SUMMARY | 2024-10-20 10:25 | XMS_ITS | Continuity of Care Document ---
Author Organization [facility],, Main Office Address [address] [place] [address] Assessment No assessment recorded. Plan of Treatment Reminders Order Date Submit Date Provider Last Modified By Organization Details Last Modified Time Details Appointments TELEHEALT H 2024 09:30A LINDSEY Butcher Not available Not available Not available Ultrasoun d AREA MECHANIC 2024 09:00A Omayra Juarez, Not available Not available Not available Lab urinalysi s, dipstick 2024 025 [email or web address] Main Office, [address], [place], [address], 08/31/2024 16:03:58 Referral None recorded. Procedures None recorded. Surgeries None recorded. Imaging None recorded. Medication Orders None recorded. Patient TargetsNo targets recorded. Patient Instructions Encounter Date Encounter Id Patient Instructions Last Modified By Organization Details Last Modified Time 08/28/2024 [id number] Discussed result s from ultrasound, questions answered and addressed. All areas reviewed. [email or web address] Not available 08/31/2024 16:02:41 Reason for Referral None Reported. Results Created Date Observation Date Name Description Value Unit Range Abnormal Flag Note LastModifiedBy Organization Detail LastModifiedTime 08/29/1908/28/2024 urina lysis , dipst ick Leukocytes - Not Available Main Of fice [address], [place], [address], 08/28/2024 09:31:52 08/29/1908/28/2024 urina lysis , dipst ick Nitrite negati ve Not Available Main Office [address], [place], [address], 08/28/2024 09:31:52 08/29/19 25 08/28/2024 urina lysis , dipst ick Urobilinogen - Not Available Main Office [address], [place], [address], 08/28/2024 09:31:52 08/29/19 25 08/28/2024 urina lysis , dipst ick Protein - Not Available Main Offic e [address], [place], [address], 08/28/2024 09:31:52 08/29/19 25 08/28/2024 urina lysis , dipst ick pH 6.0 Not Available Main Offic e [address], [place], [address], 08/28/2024 09:31:52 08/29/19 25 08/28/2024 urina lysis , dipst ick Specific [place] 1.010 Not Available Main O ffice [address], [place], [address], 08/28/2024 09:31:52 08/29/1908/28/2024 urina lysis , dipst ick Ketone - Not Available Main Offic e [address], [place], [address], 08/28/2024 09:31:52 08/29/19 25 08/28/2024 urina lysis , dipst ick Bilirubin - Not Available Main Off ice [address], [place], [address], 08/28/2024 09:31:52 08/29/19 25 08/28/2024 imagi ng/di agnos tic resul t No observ ation record ed. [id number], [place], [address], 08/28/2024 10:21:38 08/29/1908/28/2024 US, pelvi s, compl ete No observ ation record ed. [email or web address] [address], [place], [address], 08/31/2024 16:00:28 Result Notes None recorded. Problems Name Problem SNOMED Code Status Onset Date Resolution Date Notes Provider Name and Address Organization Details Recorded Time 96900352 Completed 201710/03/2018 Olamide Cortez [facility], 9 09:27:40 Abnormal finding on screening of mother 227440929 Completed 201701/13/[address], [place], [address] , [facility], 2 09:33:15 Abnormal finding on screening of mother 867555374 Completed 2017 Olamide Cortez [facility], 9 09:27:37 Iron deficiency anemia of 789902097 Completed 2018 Olamide Cortez [facility], 9 09:27:37 Iron deficiency anemia of 059654949 Completed 201801/13/[address], [place], [address], [facility], 2 09:33:07 Uterine leiomyoma 05330852 Active [address], [place], [address], [facility], 2 09:33:29 Menorrhagia 727600938 Active [address], [place], [address], [facility], 09:33:25 Problem Notes None recorded. Procedures Surgical History Date Name Laterality Status Provider Name and Address Organization Details Recorded Time 10/21/19 25 Date of Last Mammogram completed [facility], 10/02/2024 10:49:37 10/03/19 25 Date of Last Pap Smear completed [facility], 10/02/2024 09:38:28 03/25/20 24 Most Recent Mammogram completed [address], [place], [address], [facility], 06/02/2024 15:40:19 12/19/19 23 Pelvic Transvaginal Non-OB completed DO [address], [place], [address], [facility], 01/29/2023 21:09:38 06/19/19 23 Bladder Ultrasound completed DO [address], [place], [address], [facility], 06/20/2022 21:13:18 06/16/19 23 In and Out Catheterization completed DO [address], [place], [address], [facility], 06/17/2022 21:18:13 06/12/19 23 robotic assisted surgery completed [address], [place], [address], [facility], 06/28/2022 09:36:57 01/06/20 22 Colposcopy completed DO [address], [place], [address], [facility], 01/07/2022 15:15:47 09/07/19 22 Pelvic Transvaginal Non-OB completed DO Silvia [address], [place], [address], [facility], 10/29/2021 16:31:34 04/04/20 19 laparoscopic laser destruction of endometriosis completed LINDSEY Perez [address], [place], [address], [facility], 04/19/2019 08:06:17 07/17/19 19 microscopic urinalysis pos rbc completed Gerald Juarez DO [address], [place], [address], [facility], 07/19/2018 13:59:02 11/13/19 18 Laparoscopy completed [facility], 11/23/2017 10:05:17 02/27/20 17 Colonoscopy completed [facility], 09/26/2017 11:03:51 10/28/19 10 Tubal Ligation completed [facility], 09/26/2017 11:02:57 LEEP completed [facility], 09/26/2017 11:05:14 Imaging Results None recorded. Procedure Notes None recorded. Medical Equipment None Reported. Allergies Allergen ID Allergen Name Allergen Category Reaction Reaction Severity Criticality Documentation Date Start Date Code Code System Note Provider Name and Address Organization Details Recorded Time 1357 adhesive tape environme nt,medica tion rash Not available Not available 11/23/2017 [address] UNK naeem ing, [place] [facility], 8 10:02:52 Medications Name Sig Start Date Stop Date Status Note LastModified by Organization Details LastModified Time tolterodine ER 2 mg capsule,ext ended release 24 hr Take 1 capsule every day by oral route. 08/23 completed Not Available Not Available Not Available amoxicillin 500 mg capsule TAKE 1 CAPSULE BY MOUTH TWICE DAILY FOR 10 DAYS 10/02 completed Not Available Not Available Not Available methocarbam ol 500 mg tablet TAKE 1 TABLET BY MOUTH THREE TIMES DAILY NEEDED FOR MUSCLE SPASM active Not Available Not Available No t Available doxycycline hyclate 100 mg capsule TAKE 1 CAPSULE BY MOUTH TWICE DAILY FOR 7 DAYS 08/17 completed Not Available Not Available Not Available labetalol 200 mg tablet Take 1 tablet 3 times a day by oral route for 30 days. 01/30 completed Not Available Not Available Not Available cetirizine 10 mg tablet Take 1 tablet every day by oral route. 01/22 completed Not Available Not Available Not Available azithromyci n 250 mg tablet TAKE 2 TABLETS (500 MG) BY ORAL ROUTE ONCE DAILY FOR 1 DAY THEN 1 TABLET (250 MG) BY ORAL ROUTE ONCE DAILY FOR 4 DAYS 10/02 completed Not Available Not Available Not Available ibuprofen 800 mg tablet TAKE 1 TABLET BY MOUTH THREE TIMES DAILY FOR 10 DAYS NEEDED 09/23 completed Not Available Not Available Not Available benzonatate 200 mg capsule 10/19 completed Not Available Not Available Not Available hydrocodone 5 mg-acetamin ophen 325 mg tablet TAKE 1 TABLET BY MOUTH EVERY 4 TO 6 HOURS FOR 3 DAYS 08/17 completed Not Available Not Available Not Available ondansetron HCl 8 mg tablet TAKE 1 TABLET BY MOUTH TWICE DAILY FOR 3 DAYS NEEDED 08/17 completed Not Available Not Available Not Available meloxicam 15 mg tablet TAKE 1 TABLET BY MOUTH DAILY active Not Available Not Available No t Available metronidazo le 0.75 % (37.5 mg/5 gram) vaginal gel Insert 1 applicato rful every day by vaginal route for 5 days. 03/12 completed Not Available Not Available Not Available clobetasol 0.05 % topical cream APPLY A THIN LAYER TO THE AFFECTED AREA(S) BY TOPICAL ROUTE 2 TIMES PER DAY 10/03 completed Not Available Not Available Not Available metronidazo le 500 mg tablet Take 1 tablet every 12 hours by oral route for 7 days. 05/22 completed Not Available Not Available Not Available acetaminoph en 300 mg-codeine 30 mg tablet 01/30 completed Not Available Not Available Not Available ciprofloxac in 500 mg tablet TAKE 1 TABLET BY MOUTH EVERY 12 HOURS FOR 7 DAYS 08/17 completed Not Available Not Available Not Available omeprazole 40 mg capsule,del ayed release TAKE 1 CAPSULE BY MOUTH DAILY active Not Available Not Available No t Available Reglan 10 mg tablet Take 1 tablet 4 times a day by oral route. 10/03 completed Not Available Not Available Not Available amoxicillin 500 mg tablet TAKE 1 TABLET BY MOUTH THREE TIMES DAILY FOR 10 DAYS 08/23 completed Not Available Not Available Not Available prednisone 10 mg tablets in a dose pack Take 1 dose pk as needed by oral route. 12/07 completed Not Available Not Available Not Available Macrobid 100 mg capsule Take 1 capsule every 12 hours by oral route for 7 days. 01/22 completed Not Available Not Available Not Available ceftriaxone 1 gram solution for injection Take 1 g every day by injection route for 1 day. 05/22 completed Not Available Not Available Not Available temazepam 15 mg capsule TAKE 1 CAPSULE BY MOUTH DAILY AT BEDTIME NEEDED active Not Available Not Available No t Available tamsulosin 0.4 mg capsule Take 1 capsule every day by oral route. 08/17 completed Not Available Not Available Not Available phenazopyri dine 100 mg tablet TAKE 2 TABLETS BY MOUTH THREE TIMES DAILY FOR 7 DAYS 08/17 completed Not Available Not Available Not Available benzonatate 100 mg capsule TAKE ONE CAPSULE BY MOUTH THREE TIMES DAILY NEEDED FOR COUGH 10/02 completed Not Available Not Available Not Available doxycycline monohydrate 100 mg capsule 11/23 completed Not Available Not Available Not Available ferrous sulfate 325 mg (65 mg iron) tablet Take 1 tablet every day by oral route. 01/30 completed Not Available Not Available Not Available progesteron e micronized 200 mg capsule Take 1 capsule every day by oral route for 30 days. 03/12 completed Not Available Not Available Not Available nystatin-tr iamcinolone 100,000 unit/g-0.1 % topical cream APPLY TO THE AFFECTED AREA(S) BY TOPICAL ROUTE 2 TIMES PER DAY IN THEMORNIN G AND EVENING 09/17 completed Not Available Not Available Not Available docusate sodium 100 mg capsule TAKE 1 CAPSULE BY MOUTH TWICE DAILY FOR 20 DAYS 09/23 completed Not Available Not Available Not Available oxybutynin chloride ER 5 mg tablet,exte nded release 24 hr TAKE 1 TABLET BY MOUTH EVERY DAY 08/23 completed Not Available Not Available Not Available hydrocortis one 2.5 % topical cream APPLY A THIN LAYER TO THE AFFECTED AREA(S) BY TOPICAL ROUTE 2 TIMES PER DAY 01/22 completed Not Available Not Available Not Available montelukast 10 mg tablet TAKE 1 TABLET BY MOUTH DAILY active Not Available Not Available No t Available ergocalcife rol (vitamin D2) 1,250 mcg (50,000 unit) capsule TAKE 1 CAPSULE BY MOUTH ONCE WEEKLY ON SAME DAY EACH WEEK 09/23 completed Not Available Not Available Not Available azelastine 137 mcg (0.1 %) nasal spray USE 2 SPRAYS IN EACH NOSTRIL TWICE DAILY 09/17 completed Not Available Not Available Not Available ibuprofen 600 mg tablet 01/30 completed Not Available Not Available Not Available estradiol 0.01% (0.1 mg/gram) vaginal cream INSERT 1 GRAM VAGINALLY 2 TIMES A WEEK 09/23 completed Not Available Not Available Not Available methylpredn isolone 4 mg tablets in a dose pack FOLLOW PACKAGE DIRECTION S 10/02 completed Not Available Not Available Not Available fluticasone propionate 50 mcg/actuati on nasal spray,suspe nsion SHAKE LIQUID AND USE 2 SPRAYS IN EACH NOSTRIL DAILY active Not Available Not Available No t Available atenolol 50 mg tablet TAKE 1 TABLET BY MOUTH DAILY active Not Available Not Available No t Available progesteron e micronized 100 mg capsule Take 1 capsule every day by oral route for 30 days. 03/12 completed Not Available Not Available Not Available Ventolin HFA 90 mcg/actuati on aerosol inhaler INHALE 1 PUFF BY MOUTH EVERY 4 HOURS NEEDED active Not Available Not Available No t Available neomycin-po lymyxin-hyd rocort 3.5 mg-10,000 unit/mL-1 % ear drops,susp USE 2 DROPS INTO THE AFFECTED EAR FOUR TIMES DAILY FOR 7 DAYS 08/23 completed Not Available Not Available Not Available Premarin 0.625 mg/gram vaginal cream INSERT 1/2 APPLICATO RFUL VAGINALLY EVERY OTHER DAY active Not Available Not Available No t Available solifenacin 5 mg tablet TAKE 1 TABLET BY MOUTH EVERY DAY 08/23 completed Not Available Not Available Not Available melatonin 01/22 completed Not Available Not Available Not Available aspirin 100 mg 1.5tablet s qd 10/03 completed Not Available Not Available Not Available 10/03 completed Not Available Not Available Not Available hydrochloro thiazide 12.5 mg tablet TAKE 1 TABLET BY MOUTH DAILY IN THE MORNING active Not Available Not Available No t Available Symbicort 160 mcg-4.5 mcg/actuati on HFA aerosol inhaler INHALE 2 PUFFS BY MOUTH TWICE DAILY active Not Available Not Available No t Available Tri-Lo-Spri ntec 0.18 mg/0.215 mg/0.25 mg-0.025 mg tablet Take 1 tablet every day by oral route for 28 days. 03/24 completed Not Available Not Available Not Available estradiol 10 mcg vaginal tablet Insert 1 tablet every day by vaginal route for 14 days. 2024 active Not Available Not Available Not Avai lable Wal-Fex Allergy 180 mg tablet TAKE 1 TABLET BY MOUTH DAILY active Not Available Not Available No t Available Myrbetriq 25 mg tablet,exte nded release Take 1 tablet every day by oral route for 30 days. 08/23 completed Not Available Not Available Not Available Blisovi Fe 1/20 (28) 1 mg-20 mcg (21)/75 mg (7) tablet TAKE 1 TABLET BY MOUTH EVERY DAY 09/11 completed Not Available Not Available Not Available Blisovi Fe 1.5/30 (28) 1.5 mg-30 mcg (21)/75 mg (7) tablet Take 1 tablet every day by oral route. 10/19 completed Not Available Not Available Not Available Intrarosa 6.5 mg vaginal insert Insert 1 vaginal insert every day by vaginal route for 28 days. 09/17 completed Not Available Not Available Not Available Orilissa 150 mg tablet TAKE 1 TABLET BY MOUTH EVERY DAY 09/23 completed Not Available Not Available Not Available BinaxNOW COVID-19 Ag Self Test kit TEST DIRECTED TODAY 09/17 completed Not Available Not Available Not Available Airsupra 90 mcg-80 mcg/actuati on HFA aerosol inhaler INHALE 2 PUFFS BY MOUTH EVERY 6 HOURS NEEDED FOR SHORTNESS OF BREATH OR WHEEZING active Not Available Not Available No t Available Vitals Date Recorded Body height Body mass index (BMI) Body weight Heart rate Body temperature Systolic blood pressure Diastolic blood pressure Provider Name and Address Organization Details Last Updated DateTime 5 161.29 cm 32.8 kg/m2 59708.3 7 g 52 /min 96.9 [degF] 125 mm[Hg] 75 mm[Hg] Radha Gordon [facility], 5 09:31:16 Social History Question Answer Notes LastModified by Organizat ion Details LastModified Time Tobacco Smoking Status [facility]oker [facility]/24/2020 03:20:42 Able To Swim? Yes Information not available 04/13/2022 Accident Related Injury No Information not available 04/13/2022 Do You Have An Advance Directive? No [id number] Information not available 02/24/2020 How Many Years Have You Consumed Alcohol? 16 [id number] Information not available 02/24/2020 Animal Exposure? Yes Informat ion not available 04/13/2022 Are You Currently Sexually Active With Anyone Who Has Traveled (within The Last 12 Weeks) To A Zika-affected Area? No [id number] Information not available 02/24/2020 Do You Wear A Helmet When Biking? No [id number] Information not available 02/24/2020 Are You Blind Or Do You Have Difficulty Seeing? No [id number] Information not available 02/24/2020 What Is Your Level Of Caffeine Consumption? Occasional [id number] Information not available 02/24/2020 How Much Tobacco Do You Chew? None [id number] Information not available 02/24/2020 Concerns About Meeting Basic Needs (food, Housing, Heat, Etc)? No Information not available 04/13/2022 Are You Deaf Or Do You Have Serious Difficulty Hearing? No [id number] Information not available 02/24/2020 What Type Of Diet Are You Following? REGULAR [id number] Information not available 02/24/2020 Which Illicit Or Recreational Drugs Have You Used? None [id number] Information not available 02/24/2020 Education 12 Information no t available 04/13/2022 What Is The Highest Grade Or Level Of School You Have Completed Or The Highest Degree You Have Received? UI53777-2 [id number] Information not available 02/24/2020 How Many Days Of Moderate To Strenuous Exercise, Like A Brisk Walk, Did You Do In The Last 7 Days? 7 [id number] Information not available 02/24/2020 On Those Days That You Engage In Moderate To Strenuous Exercise, How Many Minutes, On Average, Do You Exercise? 2 [id number] Information not available 02/24/2020 Family History Of Heart Disease? No Information not available 04/13/2022 Have There Been Any Changes To Your Family Or Social Situation? No [id number] Information no t available 02/24/2020 How Hard Is It For You To Pay For The Very Basics Like Food, Housing, Medical Care, And Heating? [id number] Information not available 04/13/2022 When Did You Quit Smoking? 16+yearssincel alejandrocichilango [id number] Information not available 02/24/2020 Are There Any Guns Present In Your Home? Yes [id number] Information not available 02/24/2020 Hard Of Hearing Or Deaf In One Or Both Ears? No Information not available 04/13/2022 Legally Blind In One Or Both Eyes? No Information no t available 04/13/2022 Live Alone Or With Others? With Others Information not available 04/13/2022 Do You Have A Medical Power Of Rolling [employer] Plugger? No [id number] Information not available 02/24/2020 What Was The Date Of Your Most Recent Tobacco Screening? 10/30/2018 Information not available 04/13/2022 How Many Children Do You Have? 3 [id number] Information not available 02/24/2020 What Is Your Current Pack Years? 10packyears [id number] Information not available 02/24/2020 Performs Monthly Self-breast Exam? Yes Information no t available 04/13/2022 Do You Have Any Pets? Yes [id number] Information not available 02/24/2020 Difficulty Reading? No Information not available 04/13/2022 Seat Belts Used Routinely Yes Information not available 04/13/2022 Smoke Alarm In Home Yes Information not available 04/13/2022 Do You Have Smoke And Carbon Monoxide Detectors In Your Home? Yes [id number] Information not available 02/24/2020 At What Age Did You Start Smoking Tobacco? 12 [id number] Information not available 02/24/2020 Are You Passively Exposed To Smoke? No Information no t available 09/26/2017 Are There Any Smokers In Your House? No Information not available 09/26/2017 How Much Tobacco Do You Smoke? No [id number] Information not available 02/24/2020 General Stress Level Low Information not available 04/13/2022 Sun Exposure Frequent Information not available 04/13/2022 Do You Use Sunscreen Routinely? Yes [id number] Information not available 02/24/2020 TB Risk Low Information no t available 04/13/2022 Has Tobacco Cessation Counseling Been Provided? No [id number] Information not available 02/24/2020 How Many Years Have You Smoked Tobacco? 5 [id number] Information not available 02/24/2020 Difficulty Watching TV? No Information not available 04/13/2022 Do You Have Difficulty Walking Or Climbing Stairs? No [id number] Information not available 02/24/2020 Sex: Female Functional Status Question Answer Note LastModified by Organizat ion Details LastModified Time What is your level of alcohol consumption? None [id number] Information not available 02/24/2020 Are you currently employed? Yes [id number] Information not available 02/24/2020 Do you have transportation difficulties? No [id number] Information not available 02/24/2020 Are you able to walk? YESWOREST [id number] Information not available 02/24/2020 Do you have difficulty doing errands alone? No [id number] Information not available 02/24/2020 Are you able to care for yourself? 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 No [id number] Information not available 02/24/2020 What is your exercise level? Heavy [id number] Information not available 02/24/2020 Mental Status Question Answer Note LastModified by Organizat ion Details LastModified Time Do you feel stressed (tense, restless, nervous, or anxious, or unable to sleep at night)? [id number] Information not available 02/24/2020 Do you have difficulty concentrating, remembering or making decisions? No [id number] Information no t available 02/24/2020 Family History Relationship Description Onset Age of this Age Resolved Age Notes LastModified by Organization Details LastModified Time Maternal Grandmother Family history of malignant neoplasm lung,s pine,b rain [email or web address] Not available 04/13/2022 09:11:59 Maternal Grandmother Diabetes mellitus [email or web address] Not available 09/26 10:56:27 Paternal Grandmother Family history of malignant neoplasm uterus ,cervi x [email or web address] Not available 04/13/2022 09:11:59 Paternal Grandmother Arthritis d[place] Not available 0 09/26/2017 10:57:08 Paternal Grandmother Cerebrovascu lar accident d[place] Not available 10:57:38 Paternal Grandfather Family history of malignant neoplasm prosta te, kidney [email or web address] Not available 04/13/2022 09:11:59 Paternal Grandfather Cerebrovascu lar accident d[place] Not available 10:57:38 Maternal Grandfather Diabetes mellitus [email or web address] Not available 09/26 10:56:27 Maternal Grandfather Alcoholism [email or web address] Not available 09:11:59 Father Arthritis [email or web address] Not availa ble 09/26/2017 10:57:08 Medical History Condition Response Coronary Artery Disease N Other Y Gout N Blood Diseases N Kidney Stones N Hyperthyroidism N Enlarged Prostate N Blood Transfusion N Dermatologic Disorders N Depression N COPD N Gestational Diabetes N Anxiety Disorder N Autoimmune disease N Muscle, Joint, or Bone Problems N Obesity N Vision or Eye Problems N Arthritis N Infertility N Polyps N Mental Disorder N Cancer N Varicosities N Stroke N Neurologic/Epilepsy N Headaches N Fibromyalgia N Kidney Disease N Heart Problems N Ear or Hearing Problems N Hospitalizations N Acne N Eating Disorder N Skin Problems N MRSA exposure N Constipation N Heartburn N Art (IVF or FET) N Bladder Problems N Bleeding Disorder N Tuberculosis N AIDS/HIV N G.E.R.D N Asthma N Trauma/Violence N Hepatitis N Pulmonary Embolism N Chronic Ear Infections N Chicken Pox N Autism Spectrum Disorder (ASD) N Thrombophilias N Allergies (Food, seasonal, environmental ) N Colon Cancer N Drug/Latex Allergies/Reactions N Breast Cancer N Lung Disease N Hypothyroidism N Defects or Inherited Disease N Developmental or Behavioral Disorders N Breast Problem N Difficulty Swallowing N Hematologic disorders N Anesthesia Complications N History of STI N Deep Vein Thrombosis N Polycystic ovary syndrome N Meniere's disease N History of abnormal pap Y Endometriosis N High Cholesterol N Liver Disease N Allergies/Hayfever N Kidney Problems N Thyroid Problems N GI Problems Y ADD/ADHD N Anemia N Mental Illness N Psychiatric Illness N Diabetes N Ovarian Cancer N Pulmonary (TB, Asthma) N Seizures/Epilepsy N Congestive Heart Failure (CHF) N Hyperlipidemia N Eczema N Diverticulitis N Abuse/Domestic Violence N Depression/ depression N Heart Disease N Hypertension N Pre-Eclampsia N Osteoporosis N Gynecological History Statement/Question Response Abnormal Pap Y Date of Last Mammogram 10/20/2024 Date of LMP 09/23/2024 On BCP's at Conception? N STIs/STDs N HPV Vaccine N Age at Menarche 9 Current Control Method Tubal Ligat ion Most Recent Mammogram 03/25/2024 Age at First Child 17 Date of Last Colonoscopy Sexually Active? Y Menses Monthly N Date of Last Pap Smear 10/02/2024 Sexual Problems? N LMP Obstetrics History GPAL:G 5 P 3 1 1 4 Type Value Full Term 3 Spontaneous 1 Premature 1 Living 4 Total 5 Past Encounters Encounter ID Performer Location Encounter Start Date Encounter Closed Date Diagnosis/Indication Diagnosis SNOMED-CT Code Diagnosis ICD10 Code Diagnosis Note [id number] Gerald Juarez DO Main Office [address] [place] [address] 08/13/2024 12:52:51 08/13/2024 13:20:08 Abnormal uterine bleeding [id number] 9100 N93.9 has spotting each month after ablation, but irregular heavy bleeding today. will order TV U/S, monitor her lining and ov. cysts if present. Pain in pelvis 74009397 R10.2 left sided pelvic pain this morning, now cramping generalize d. TV U/S ordered [id number] Gerald Juarez DO Main Office [address] [place] [address] 08/28/2024 09:26:41 08/28/2024 10:23:01 Pain in pelvis 34086007 R10.2 Large ovary 00504181 N83 .8 Uterine adenomyosis 7843 78850 N80.03 Health Concerns Section Related Observation LastModified by Organization Detai ls LastModified Time None Recorded Concern Status LastModified by Organization Details LastModified Time None Recorded Payers Encounter Date Sequence Insurance Name Policy Number Policy Lira Covered Member ID Lira Member ID Guarantor Name 08/28/[address] [facility] (MEDICAID HMO) Shyla Maldonado [id number] Shyla Maldonado OBGyn Episode No OBEpisode recorded.
--- OUTSIDE RECORDS SUMMARY | 2024-10-20 10:25 | XMS_ITS | Referral Summary ---
Author Organization [employer] Address [address] [place] [address] Care Team Providers Care Youth Accommodation Support Worker Name Role Phone Victor Hugo Soares MD Primary Care Provider [phone] [phone] Allergies Active Allergy Reactions Criticality Noted Date Comments Vanilla Extract Flavor 06/09/2022 VANILLA ICE CREAM.. weakness, near syncope after a diabetic ice cream Medications atenoloL (TENORMIN) 50 MG tablet Take 50 mg by mouth daily. 05/17/2022 Active omeprazole (PriLOSEC) 40 MG capsule Take 40 mg by mouth daily. 05/17/2022 Active montelukast (SINGULAIR) 10 mg tablet Take 10 mg by mouth daily. 06/02/2022 Active fluticasone propionate (FLONASE) 50 mcg/actuation nasal spray 2 sprays daily. 03/24/2022 Active Wal-Fex Allergy 180 mg tablet Take 180 mg by mouth daily. 06/07/2022 Active azelastine (ASTELIN) 137 mcg (0.1 %) nasal spray 2 sprays 2 (two) times daily. 05/31/2022 Active albuterol HFA (ProAir HFA) 90 mcg/actuation inhaler ProAir HFA 90 mcg/actuatio n aerosol inhaler INHALE 2 PUFFS BY MOUTH FOUR TIMES DAILY NEEDED Active Active Problems Problem Noted Date Diagnosed Date Snores 06/12/2022 GERD (gastroesophageal reflux disease) 3 Uterine leiomyoma 04/19/2019 Asthma Hypertension Kidney stone Elevated LFTs Social History Tobacco Use Types Packs/Day Years Used Date Smoking Tobacco: Never Smokeless Tobacco: Never Alcohol Use Standard Drinks/Week Comments Never 0 (1 standard drink = 0.6 oz pur e alcohol) Interpersonal Safety Answer Date Record ed Family or friends hurt you Not on file 05/13 Family or friends insult you Not on file Family or friends threaten you Not on file 0 05/13/2023 Family or friends scream or curse at you Not on file 05/13/2023 Housing Stability Answer Date Recorded Living situation today Not on file Living situation problems Not on file 2023 Food Insecurity Answer Date Recorded Food run out past 12 months Not on file 04/30 Food did not last past 12 months Not on file 05/13/2023 Employment Answer Date Recorded Help finding and keeping a job Not on file 0 05/13/2023 Family and Community Support Answer César e Recorded Help with Day to Day Activities Not on file 05/13/2023 Feeling Lonely or Isolated Not on file 05/13 Educational Attainment Answer Date Hao rded Speak language other than Tunisian at home Not on file 05/13/2023 Want help with school or training Not on file 05/13/2023 Depression Answer Date Recorded PHQ-2 Risk Not on file 05/13/2023 Disabilities Answer Date Recorded Difficulty concentrating Not on file 024 Difficulty doing errands alone Not on file 0 05/13/2023 Substance Use Answer Date Recorded Used prescription meds for non-medical reasons N ot on file 05/13/2023 Used illegal drugs past 12 months Not on file 05/13/2023 Comments No Sex and Gender Information Value Date Recorded Sex Assigned at Not on file Legal Sex Female 6:24 PM CDT Gender Identity Not on file Sexual Orientation Not on file Last Filed Vital Signs Vital Sign Reading Time Taken Comments Blood Pressure 99/57 06/12/2022 2:58 PM EST Pulse 61 06/12/2022 2:58 PM EST Temperature 36.1 C (97 F) 06/12/2022 2:43 PM EST Respiratory Rate 14 06/12/2022 2:58 PM EST Oxygen Saturation 98% 06/12/2022 2:58 PM EST Inhaled Oxygen Concentration - - Weight 85.3 kg (188 lb) 06/12/2022 9:46 AM EST Height 162.6 cm (5' 4 ) 06/09/2022 11:27 AM EST Body Mass Index 32.27 06/09/2022 11:27 AM EST Plan of Treatment Not on file Medical Devices Implanted Type Area Wind Turbine Service Technician Device Identifier Shelf Expiration Date Model / Serial / Lot Sling Laurie Meier [id number] - [id number] [17]2023-09-08 Implanted:Qty: 1 on 06/12/2022 by Gerald Juarez MD at [facility] IMPLANTS N/A: Vagina KEVIN MED 09/08/2023 [id number] / [id number] [17]09-07 / [id number] Insurance [facility] Care Teams Youth Accommodation Support Worker Relationship Specialty Start Date End Date Victor Hugo Soares MD [address] [place] [address] PCP - General Family Medicine 06/09/22
--- OUTSIDE RECORDS SUMMARY | 2024-10-20 10:25 | XMS_ITS | Clinical Summary ---
Author Organization [facility] Address [address] [place] [address] Care Team Providers Care Factory Representative Name Role Phone Pcp, No Primary Care Provider Unavailabl e Social History Tobacco Use Types Packs/Day Years Used Date Smoking Tobacco: Never Assessed Comments Unknown Sex and Gender Information Value Date Recorded Sex Assigned at Not on file Legal Sex Female 11:24 AM EDT Gender Identity Not on file Sexual Orientation Not on file Plan of Treatment Health Maintenance Due Date Last Done Comments [facility]-Depression Screening 1980 [facility]-HIV Screening 1980 [facility]-Hepatitis C Screening 1980 [facility]-Infant/Child/Adol SDOH Screenings 1980 [facility]-Varicella Vaccines (1 of 2 - 13+ 2-dose series) 02/03/1993 HPV Vaccines (1 - 3-dose series) 02/03/1995 [facility]- SDOH Screenings 02/03/1998 [facility]-Adult SDOH Screenings 02/03/1998 [facility]-Hepatitis B Vaccines (1 of 3 - 19+ 3-dose series) 02/03/1999 [facility]-Pap Smear 02/03/2001 [facility]-Cervical Cancer Screening 02/03/2010 [facility]-HPV/Cotest 02/03/2010 [id number] Vaccine (1 - 2023-25 season) 2023 [facility]-Influenza Vaccine (Season Ended) 2024 [facility]-Zoster Vaccines (1 of 2) 02/03/2030 [facility]-DTaP,Tdap,and Td Vaccines (5 - Td or Tdap) 07/03/2033 07/04/2023, 09/13/2018, 02/05/2007, Additional history exists [facility]-HIB Vaccines Aged Out No longer e ligible based on patient's age to complete this topic [facility]-Hepatitis A Vaccines Aged Out No longer eligible based on patient's age to complete this topic [facility]-IPV Vaccines Aged Out No longer e ligible based on patient's age to complete this topic [facility]Y-Pneumococcal Vaccine: Pediatrics (0 to 5 Years) and At-Risk Patients (6 to 49 Years) Aged Out No longer eligible based on patient's age to complete this topic [facility]-Rotavirus Vaccines Aged Out No lo nger eligible based on patient's age to complete this topic Insurance [employer]ICA[employer] Care Teams Factory Representative Relationship Specialty Start Date End Date Pcp, Angela [address] [place] [address] PCP - General Family Medicine 11/12/23
--- OUTSIDE RECORDS SUMMARY | 2024-10-20 10:25 | XMS_ITS | Encounter Summary ---
Author Organization [employer] Address [address] [place] [address] Care Team Providers Care Restaurant Management Internship Name Role Phone Victor Hugo Soares MD Primary Care Provider [phone] Encounter Details Date Type Department Care Team (Late st Contact Info) Description 09/10/2018 Transcribed Document [facility] [place] [address] [place] [address] ProviderPolly MD [address] [place], [place] [address] Social History Tobacco Use Types Packs/Day Years Used Date Smoking Tobacco: Never Assessed Comments Unknown Sex and Gender Information Value Date Recorded Sex Assigned at Not on file Legal Sex Female 6:24 PM CDT Gender Identity Not on file Sexual Orientation Not on file documented as of this encounter Miscellaneous Notes * Cerner Conversion Note - Polly Cavazos MD - 09/10/2018 4:07 PM CDT UM Authorization Entered On: 09/10/2018 16:08 EDT Performed On: 09/10/2018 16:07 EDT by JI PETERSON Rn-Utilization Review Primary Insurance Authorization Authorization and Policy Numbers : Insurance 1 Health Plan: [employer] Policy Number: [id number] Authorization Number: Insurance Primary Name : Passport Authorized Service Begin Date-Primary : 09/09/2018 EDT Authorized Service End Date-Primary : 09/10/2018 EDT Historical Authorization Comments-Primary : No Authorization Comments Found JI PETERSON Rn-Utilization Review - 09/10/2018 16:07 EDT documented in this encounter Plan of Treatment Not on file documented as of this encounter Visit Diagnoses Not on filedocumented in this encounter Care Teams Restaurant Management Internship Relationship Specialty Start Date End Date Victor Hugo Soares MD [address] [place] [address] PCP - General Family Medicine 06/09/22 documented as of this encounter
--- OUTSIDE RECORDS SUMMARY | 2024-10-20 10:25 | XMS_ITS | Patient Health Record ---
Author Organization [facility] Address [address] [place] [phone] Care Team Providers Care Stars Analytical Lead Name Role Phone Coleman Soares Primary Care [...] Growth Performing Lab: Notes/Report: Test performed by [facility] [address] [place], [place] [address] [place] , [address], [place] [address] Gerardo Deal MD, Waste Machine Offbearer CLIA: [id number] Specimen Source Urine - Void Culture, Urine See Below Final Report : No Significant Growth P-Basic Metabolic Panel (BMP ) (Not yet reviewed by provider) Interpretation: Performing Lab: Notes/Report: Test performed by [facility] [address] [place], [place] [address] [place] , [facility] [place] [address] Gerardo Deal MD, Waste Machine Offbearer CLIA: [id number] Sodium 141 135-145 mmol/L Potassium 3.8 3.5-5.3 mmol/L Chloride 106 97-108 mmol/L CO2 24 22-32 mmol/L Glucose 101 65-99 mg/dL BUN 13 6-20 mg/dL Creatinine 0.84 0.50-1.00 mg/dL Calcium 9.2 8.6-10.4 mg/dL eGFR by Creatinine 87 >59 mL/min/1.73m2 Holter Monitor- 48 hour Reviewed date:01/09/2024 02:09:40 PM Interpretation:Normal Performing Lab: Notes/Report: Normal P-Comprehensive Metabolic Pa nate (CMP) Reviewed date:06/18/2024 03:13:01 PM Interpretation:gluc 57 Performing Lab: Notes/Report: Test performed by [facility] [address] [place] [address] , [address], [place] [address] Gerardo Dael MD, Waste Machine Offbearer CLIA: [id number] Sodium 142 135-145 mmol/L Potassium 4.7 3.5-5.3 [...] 0.4 <0.2-1.2 mg/dL A/G Ratio 2.0 1.1-2.5 Reason For Referral Reason episodic SOA, asthma tic bronchitis, tachycardia Diagnosis 1 Mild intermittent as thmatic bronchitis without complication (J45.20) Referral Organization [facility] Referring Provider First Name Coleman Asif Referring Provider Last Name Rodger Referring Provider Speciality [facility] Referred Provider Nicholas Vásquez Referred Provider Specialty Pulmonary Di seases General Notes Katiuska Wilder 02/05/20 24 9:10:13 AM > faxed office notes and referral to [facility] Pulmonology Referral Priority Routine Medications Medication SIG (Take, Route, Frequency, Duration) Notes Start Date End Date Status Fexofenadine HCl 180 MG 1 tablet Swallow whole with water; do not take with fruit juices. Orally Once a day for 30 day(s) Active Montelukast Sodium 10 MG 1 tablet Orally Once a day for 30 day(s) Active Omeprazole 40 MG 1 capsule 30 minutes before morning meal Orally Once a day for 30 day(s) Active Symbicort 160-4.5 MCG/ACT as directed Inhalation Active hydroCHLOROthiazide 12.5 MG 1 tablet in the morning Orally Once a day for 30 days Active Ventolin HFA 108 (90 Base) [...] a day for 30 day(s) 12/10/2020 Active Meloxicam 15 MG 1 tablet Orally Once a day for 30 days Active Lac-Hydrin Five 5 % 1 application Externally Twice a day 06/16/2024 Active Atenolol 50 MG TAKE 1 TABLET BY JEANETTE TH DAILY for 90 Active Immunizations Vaccine Route Administration Date Status Comme nts Tetanus Tdap-Adacel (over 7yrs) Unknown 02/05/2007 Admi nistered Tetanus Tdap-Adacel (over 7yrs) Unknown 09/13/2018 Admi nistered Tetanus Tdap-Adacel (over 7yrs) Unknown 07/04/2023 Admi nistered DT, 7 YEARS OR OLDER Unknown 07/05/1996 Administered Problems Problem Type SNOMED Code ICD Code Onset Dates Problem Status W/U Status Risk Notes Problem Goiter (5151488) Goiter NOS (240.9) Active conf irmed Problem Insomnia (780.52) Active confirmed Problem Mixed anxiety and depressive disorder (149256735) Depression with anxiety (300.4) Active confirmed Problem 17028868 Left foot pain (M79.672) Active confirmed Problem 5181240 Primary insomnia (F51.01) Active confirmed Problem 91624838 Other chronic pa in (G89.29) Active confirmed Problem 539781459 Lumbago with sciatica, left side (M54.42) Active confirmed Problem 293357605819615 Lateral epicondylitis of left elbow (M77.12) Active confirmed Problem 006549337 Moderate persist ent asthma without complication (J45.40) Active confirmed Problem 54054588 Hyperlipidemia, unspecified hyperlipidemia type (E78.5) Active confirmed Problem 21252864 Pharyngoesophage al dysphagia (R13.14) Active confirmed Problem 8610581 Thyromegaly (E01.0) Active confirmed Problem 677768991 Mild intermitten t asthmatic bronchitis without complication (J45.20) Active confirmed Problem 12561004 Hypertension, unspecified type (I10) Active confirmed Problem 54585508 Paroxysmal tachycardia (I47.9) Active confirmed Problem 485671182 Keratosis of primo ntar aspect of foot (Q82.8) Active confirmed Vital Signs Heart Rate 50 /min 10/10/2024 Blood pressure diastolic 80 mm Hg 10/10/2024 Height 64.50 in 10/10/2024 Blood pressure systolic 112 mm Hg 10/10/2024 Weight 185.2 lbs 10/10/2024 BMI 31.3 kg/m2 10/10/2024 Encounters Encounter Location Date Provider Diagnosis [facility] [address] [facility] [address] [place], [place] [id number] 10/25/2023 Coleman Soares Hypertension, unspecified type I10 and Abnormal echocardiogram R93.1 [facility] [address] [facility] [address] [place], [place] [id number]24 Coleman Soares Mild intermittent asthmatic bronchitis without complication J45.20 and Paroxysmal tachycardia I47.9 [facility] [address] [place], [place] [id number] 03/17/2024 Coleman Soares Mild intermittent asthmatic bronchitis without complication J45.20 ; Pinworm infection B80 ; Contact dermatitis of foot L25.9 and Urinary pain R30.9 [facility] [address] [place], [place] [id number] 06/16/2024 Coleman Soares Moderate persistent asthma without complication J45.40 ; Right lateral epicondylitis M77.11 ; Keratosis of plantar aspect of foot Q82.8 and Hypertension, unspecified type I10 [facility] [address] [place], [place] [id number] 10/10/2024 Coleman Soares Paroxysmal tachycard ia I47.9 and Moderate persistent asthma without complication J45.40 [facility] [address] [facility] 36 [facility] [address] [place] [id number] 12/27/2023 Coleman Soares Intermittent palpitations R00.2 ; Mild intermittent asthmatic bronchitis without complication J45.20 and Primary insomnia F51.01 [place] [address] [facility] [address] [place] [id number] 06/18/2024 Coleman Soares Assessments Encounter Date Diagnosis (ICD Code) Assessment Notes Treatment Notes Treatment Clinical Notes Section Notes 10/25/2023 Hypertension, unspecified type (ICD-10 - I10) 10/25/2023 Abnormal echocardiogram (ICD-10 - R93.1) 12/27/2023 Intermittent palpitations (ICD-10 - R00.2) 12/27/2023 Mild intermittent asthmatic bronchitis without complication (ICD-10 - J45.20) 2024 Mild intermittent asthmatic bronchitis without complication (ICD-10 - J45.20) 2024 Paroxysmal tachycardia (ICD-10 - I47.9) 03/17/2024 Pinworm infection (ICD-10 - B80) I recommended retreatment at this point. 03/17/2024 Mild intermittent asthmatic bronchitis without complication (ICD-10 - J45.20) 06/16/2024 Moderate persistent asthma without complication (ICD-10 - J45.40) 06/16/2024 Right lateral epicondylitis (ICD-10 - M77.11) 10/10/2024 Paroxysmal tachycardia (ICD-10 - I47.9) 06/16/2024 Keratosis of plantar aspect of foot (ICD-10 - Q82.8) 10/10/2024 Moderate persistent asthma without complication (ICD-10 - J45.40) 03/17/2024 Contact dermatitis of foot (ICD-10 - L25.9) 12/27/2023 Primary insomnia (ICD-10 - F51.01) 03/17/2024 Urinary pain (ICD-10 - R30.9) 06/16/2024 Hypertension, unspecified type (ICD-10 - I10) Plan Of Treatment Pending Test Test Name Order Date Cardiac Stress Test Exercise Routine P-Basic Metabolic Panel (BMP) 10/10/2024 Next Appt Details Provider Name:Coleman Park er, 03/09/2025 09:45:00 AM, [address], [place], [id number], Insurance Providers Payer Name Payer Address Payer Phone Subscriber Number Group Number Insured Name Patient Relationship to Insured Coverage Start Date Coverage End Date AETNA [facility] [address] [place], [place] [id number] Shyla Maldonado Self - patient is the insured Medical (General) History Surgical History Surgery Date(Month/Year) Laproscopic 2005 Tubal Ligation 2009 Leep Procedure - cancerous cells in cerv ix 2007 Cholecystectomy 09/2017 Tubal Plasty 2018 Ablastion, Tubal Ligation 2019 Tubal w/ Dr Juarez 2018 Hospitalization History Reason Date(Month/Year) [facility] [place] ear pain 12/01/2020 - [facility] bed rest- child Jul- August 2009
--- OUTSIDE RECORDS SUMMARY | 2024-10-20 10:25 | XMS_ITS | Clinical Summary ---
Author Organization [employer] Address [address] [place] [address] Care Team Providers Care Service Attendant Name Role Phone Victor Hugo Soares MD Primary Care Provider [phone] [phone] Allergies Active Allergy Reactions Criticality Noted Date [...] Date Hao rded Speak language other than Citizen [place] at home Not on file 05/13/2023 Want [...] 06/09/2022 11:27 AM EST Plan of Treatment Health Maintenance Due Date Last Done Comments Depression Screening (12+) 1992 HIV Screening 02/03/1995 Hepatitis C Screening 02/03/1998 Pneumococcal Vaccine: 0-49 Y ears (1 of 2 - PCV) 02/03/1999 Lipid Panel 2000 Pap Smear 02/03/2001 Breast Cancer Screening 2020 Tobacco Cessation Counseling and Screening (12+) 06/12/2023 06/12/2022 COVID-19 VACCINE ( - season) 2023 Influenza Vaccine (Season Ended) 2024 DTAP/TDAP/TD VACCINES (4 - T d or Tdap) 09/13/2028 09/13/2018, 02/05/2007, 07/05/1996 Medical Devices Implanted Type Area Floor Supervisor Device Identifier Shelf Expiration Date Model / Serial / Lot Sling Desara One [id number] - [id number] [17]2023-09-08 Implanted:Qty: 1 on 06/12/2022 by Gerald Juarez MD at [facility] IMPLANTS N/A: Vagina KEVIN MED 09/08/2023 [id number] / [id number] [17]09-07 / [id number] Insurance [facility] Care Teams Service Attendant Relationship Specialty Start Date End Date Victor Hugo Soares MD [address] [place] [address] PCP - General Family Medicine 06/09/22
--- OUTSIDE RECORDS SUMMARY | 2024-10-20 10:25 | XMS_ITS | Encounter Summary ---
Author Organization [employer] Address [address] [place] [address] Care Team Providers Care Test Lead Application Testing Name Role Phone Victor Hugo Soares MD Primary Care Provider +1 [phone] Encounter Details Date Type Department Care Team (Late st Contact Info) Description 09/16/2018 Transcribed Document [facility] [place] [address] [place] [address] ProviderPolly MD [address], [place] [address] Social History Tobacco Use Types Packs/Day Years Used Date Smoking Tobacco: Never Assessed Comments Unknown Sex and Gender Information Value Date Recorded Sex Assigned at Not on file Legal Sex Female 6:24 PM CDT Gender Identity Not on file Sexual Orientation Not on file documented as of this encounter Miscellaneous Notes * Cerner Conversion Note - Polly Cavazos MD - 09/16/2018 12:52 PM CDT UM Authorization Entered On: 09/16/2018 12:53 EDT Performed On: 09/16/2018 12:52 EDT by RACH VILLANUEVA RN-Utilization Review Primary Insurance Authorization Authorization and Policy Numbers : Insurance 1 Health Plan: [employer] Policy Number: [id number] Authorization Number: AUTO 2 Insurance Primary Name : [facility] Authorization Status-Primary : Admit approved Authorization Number-Primary : [id number] Number of Days Authorized-Primary : 5 Authorized Service Begin Date-Primary : 09/09/2018 EDT Authorized Service End Date-Primary : 09/13/2018 EDT Historical Authorization Comments-Primary : Comment 1: Clinicals for continued stay faxed to [facility] (JI PETERSON Rn-Utilization Review 09/14/2018 15:42) RACH VILLANUEVA RN-Utilization Review - 09/16/2018 12:52 EDT Electronically signed by Deana [facility] Conversion Optical Designer Cerner at 08/20/2022 4:42 PM CDT documented in this encounter Plan of Treatment Not on file documented as of this encounter Visit Diagnoses Not on filedocumented in this encounter Care Teams Test Lead Application Testing Relationship Specialty Start Date End Date Victor Hugo Soares MD [address] [place] [address] PCP - General Family Medicine 06/09/22 documented as of this encounter
--- OUTSIDE RECORDS SUMMARY | 2024-10-20 10:25 | XMS_ITS | Encounter Summary ---
Author Organization [employer] Address [address] [place] [address] Care Team Providers Care Problem Manager Name Role Phone Victor Hugo Soares MD Primary Care Provider [phone] Encounter Details Date Type Department Care Team (Late st Contact Info) Description 09/20/2018 Transcribed Document [facility] [place] [facility] [place] [address] ProviderPolly MD [facility] [place], [place] [address] Social History Tobacco Use Types Packs/Day Years Used Date Smoking Tobacco: Never Assessed Comments Unknown Sex and Gender Information Value Date Recorded Sex Assigned at Not on file Legal Sex Female 6:24 PM CDT Gender Identity Not on file Sexual Orientation Not on file documented as of this encounter Miscellaneous Notes * Cerner Conversion Note - Polly ProviderMD - 09/20/2018 2:14 PM CDT HISTORY AND PHYSICAL UPDATE Update Required: The appropriate section below MUST be completed prior to authentication. UPDATE: The History and Physical performed by on has been reviewed, patient was examined, and no change has occurred since the History and Physical was completed. OR UPDATE: The History and Physical performed by on has been reviewed and patient examined. The only significant change(s) in the patient's history or condition since the History and Physical was completed are indicated below: Significant Changes: documented in this encounter Plan of Treatment Not on file documented as of this encounter Visit Diagnoses Not on filedocumented in this encounter Care Teams Problem Manager Relationship Specialty Start Date End Date Victor Hugo Soares MD [address] [place] [address] PCP - General Family Medicine 06/09/22 documented as of this encounter
--- OUTSIDE RECORDS SUMMARY | 2024-10-20 10:26 | XMS_ITS | Encounter Summary ---
Author Organization [employer] Address [address] [place] [id number] Care Team Providers Care Indian Trader Name Role Phone Victor Hugo Soares MD Primary Care Provider [phone] Encounter Details Date Type Department Care Team (Late st Contact Info) Description 09/12/2018 Transcribed Document [facility] [place] [address] [place] [address] ProviderPolly MD [facility] [place] [id number] Social History Tobacco Use Types Packs/Day Years Used Date Smoking Tobacco: Never Assessed Comments Unknown Sex and Gender Information Value Date Recorded Sex Assigned at Not on file Legal Sex Female 6:24 PM CDT Gender Identity Not on file Sexual Orientation Not on file documented as of this encounter Miscellaneous Notes * Cerner Conversion Note - Polly ProviderMD - 09/12/2018 12:00 AM CDT Pain Assessment Entered On: 09/12/2018 0:47 EDT Performed On: 09/12/2018 1:00 EDT by JARRETT OBRIEN RN Intervention Information: ibuprofen Performed by JARRETT OBRIEN, RN on 09/12/2018 00:00:00 EDT ibuprofen,600mg Oral Pain Assessment Pain Assessment : Follow-up assessment Pain Scale Goal : 0 Pain Scale Used : 0-10 Scale JARRETT OBRIEN RN - 09/12/2018 0:47 EDT Pain Scale Intensity : 0 JARRETT OBRIEN RN - 09/12/2018 0:47 EDT Image 4 - Images currently included in the form version of this document have not been included in the text rendition version of the form. documented in this encounter Plan of Treatment Not on file documented as of this encounter Visit Diagnoses Not on filedocumented in this encounter Care Teams Indian Trader Relationship Specialty Start Date End Date Victor Hugo Soares MD [address] [place] [address] PCP - General Family Medicine 06/09/22 documented as of this encounter
--- OUTSIDE RECORDS SUMMARY | 2024-10-20 10:26 | XMS_ITS | Encounter Summary ---
Author Organization [employer] Address [address] [place] [address] Care Team Providers Care Forestry Aide Name Role Phone Victor Hugo Soares MD Primary Care Provider [phone] Encounter Details Date Type Department Care Team (Late st Contact Info) Description 09/11/2018 Transcribed Document [facility] [place] [address] [place] [address] ProviderPolly MD [address] [place] [address] Social History Tobacco Use Types Packs/Day Years Used Date Smoking Tobacco: Never Assessed Comments Unknown Sex and Gender Information Value Date Recorded Sex Assigned at Not on file Legal Sex Female 6:24 PM CDT Gender Identity Not on file Sexual Orientation Not on file documented as of this encounter Miscellaneous Notes * Cerner Conversion Note - Polly Cavazos MD - 09/11/2018 9:47 AM CDT UM Authorization Entered On: 09/11/2018 9:48 EDT Performed On: 09/11/2018 9:47 EDT by RACH VILLANUEVA RN-Utilization Review Primary Insurance Authorization Authorization and Policy Numbers : Insurance 1 Health Plan: [employer] Policy Number: [id number] Authorization Number: Insurance Primary Name : Passport Authorization Status-Primary : No precert required Authorization Number-Primary : 2 Authorized Service Begin Date-Primary : 09/09/2018 EDT Authorized Service End Date-Primary : 09/10/2018 EDT Historical Authorization Comments-Primary : No Authorization Comments Found RACH VILLANUEVA RN-Utilization Review - 09/11/2018 9:47 EDT documented in this encounter Plan of Treatment Not on file documented as of this encounter Visit Diagnoses Not on filedocumented in this encounter Care Teams Forestry Aide Relationship Specialty Start Date End Date Victor Hugo Soares MD [address] [place] [address] PCP - General Family Medicine 06/09/22 documented as of this encounter
--- OUTSIDE RECORDS SUMMARY | 2024-10-20 10:26 | XMS_ITS | Data Portability ---
Author Organization [facility],, Main Office Address [address] [place] [address] Assessment Encounter Date Assessment Date Assessment LastModified by Organization Details LastModified Time 10/02/2024 10/02/2024 Annual gynecological exam performed. Patient will come back in a year unless there are new symptoms. 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 Procedures None recorded. Surgeries None recorded. Imaging None recorded. Medication Orders estradiol 10 mcg vaginal tablet 2024 025 [id number], [address] [address] [address], [place], [id number], 10/06/2024 20:13:33 Patient TargetsNo targets recorded. Patient Instructions Encounter Date Encounter Id Patient Instructions Last Modified By Organization Details Last Modified Time 08/28/2024 [id number] Discussed result s from ultrasound, questions answered and addressed. All areas reviewed. [email or web address] Not available 08/31/2024 16:02:41 10/02/2024 [id number] Risks of not following up discussed. Questions answered. Potential problems explained with risks [email or web address] Not available 10/19/2024 12:58:26 Reason for Referral None Reported. Results Created Date Observation Date Name Description Value Unit Range Abnormal Flag Note LastModifiedBy Organization Detail LastModifiedTime 05/27/1905/27/2024 urina lysis , dipst ick Leukocytes - Not Available Main Of fice [address], [place], [address], 05/27/2024 09:36:20 05/27/1905/27/2024 urina lysis , dipst ick Nitrite negati ve Not Available Main Office [address], [place], [address], 05/27/2024 09:36:20 05/27/1905/27/2024 urina lysis , dipst ick Urobilinogen - Not Available Main Office [address], [place], [address], 05/27/2024 09:36:20 05/27/1905/27/2024 urina lysis , dipst ick Protein - Not Available Main Offic e [address], [place], [address], 05/27/2024 09:36:20 05/27/19 25 05/27/2024 urina lysis , dipst ick pH 6.0 Not Available Main Offic e [address], [place], [address], 05/27/2024 09:36:20 05/27/19 25 05/27/2024 urina lysis , dipst ick Blood uric acid- 100 Not Available Main Office [address], [place], [address], 05/27/2024 09:36:20 05/27/19 25 05/27/2024 urina lysis , dipst ick Specific [place] 1.010 Not Available Main O ffice [address], [place], [address], 05/27/2024 09:36:20 05/27/19 25 05/27/2024 urina lysis , dipst ick Ketone - Not Available Main Offic e [address], [place], [address], 05/27/2024 09:36:20 05/27/19 25 05/27/2024 urina lysis , dipst ick Bilirubin - Not Available Main Off ice [address], [place], [address], 05/27/2024 09:36:20 08/29/19 25 08/28/2024 urina lysis , dipst ick Leukocytes - Not Available Main Of fice [address], [place], [address], 08/28/2024 09:31:52 08/29/19 25 08/28/2024 urina lysis , dipst ick Nitrite negati ve Not Available Main Office [address], [place], [address], 08/28/2024 09:31:52 08/29/1908/28/2024 urina lysis , dipst ick Urobilinogen - Not Available Main Office [address], [place], [address], 08/28/2024 09:31:52 08/29/1908/28/2024 urina lysis , dipst ick Protein - Not Available Main Offic e [address], [place], [address], 08/28/2024 09:31:52 08/29/1908/28/2024 urina lysis , dipst ick pH 6.0 Not Available Main Offic e [address], [place], [address], 08/28/2024 09:31:52 08/29/1908/28/2024 urina lysis , dipst ick Specific [place] 1.010 Not Available Main O ffice [address], [place], [address], 08/28/2024 09:31:52 08/29/1908/28/2024 urina lysis , dipst ick Ketone - Not Available Main Offic e [address], [place], [address], 08/28/2024 09:31:52 08/29/1908/28/2024 urina lysis , dipst ick Bilirubin - Not Available Main Off ice [address], [place], [address], 08/28/2024 09:31:52 10/03/19 25 10/07/2024 PAP TEST THIN PREP Pap test thin prep Negati ve for Intrae pithel ial Lesion or Malign j carlos normal ACCES PAULINE #: 25-PS [id number] Sourc e: Cervi alexander/E ndoce rvica l LMP: [id number] Date Taken : 10/02 Speci men Type: ThinP rep Vial Date Repor leo: 2024 Clini alexander Data: Last Pap: WNL (520 2023) Cytot ech: Karrie Davis, [place]( CP) Date Repor leo: 2024 Speci men Adequ acy: Satis facto ry for evalu ation Endoc ervic al/tr ansfo rmati on zone compo nent prese nt Gener al Categ oriza tion: NEGAT ARIADNE FOR INTRA EPITH ELIAL LESIO N OR MALIG KARRIE This speci men has been tom zed by the ThinP rep Imagi ng Syste m, an inter activ e compu ter syste m which radha ts the lab in the scree dayami of ThinP rep Pap Test slide s. Follo wing imagi ng, the slide was revie wed by a Cytot echno logis t and/o r Patho logis t. Cervi alexander cytol ogy is a scree dayami test prima rily for squam ous cance rs and precu rsors and has assoc iated false -nega tive and false -posi tive resul ts. New techn ologi es such as liqui d-bas ed prepa ratio ns may decre ase but will not elimi raffy all false -nega tive resul ts. Regul ar sampl ing and follo w-up of unexp dax d clini alexander signs and sympt oms are recom jeannette d to minim ize false negat ariadne resul ts. End of Repor t Techn ical servi alok provi ded by [facility], [facility], [facility], [address] [place] [address] Ruby azevedo MD, Labor atory Dire tor. Case revie wed and diagn osis rende red at [facility], [facility], [facility], [address] [place] [address] Ruby azevedo MD, Labor atory Dire tor. CONFI DENTI AL Not Available [facility] ([facility]) [address], [place], [address], 10/07/2024 13:38:08 10/03/19 25 10/02/2024 pregn j carlos test, urine HCG negati ve Not Available Main Office [address], [place], [address], 10/02/2024 09:38:48 10/03/19 25 10/02/2024 urina lysis , dipst ick Leukocytes - Not Available Main Of fice [address], [place], [address], 10/02/2024 09:38:45 10/03/19 25 10/02/2024 urina lysis , dipst ick Nitrite negati ve Not Available Main Office [address], [place], [address], 10/02/2024 09:38:45 10/03/19 25 10/02/2024 urina lysis , dipst ick Urobilinogen - Not Available Main Office [address], [place], [address], 10/02/2024 09:38:45 10/03/19 25 10/02/2024 urina lysis , dipst ick Protein - Not Available Main Offic e [address], [place], [address], 10/02/2024 09:38:45 10/03/19 25 10/02/2024 urina lysis , dipst ick pH 6.0 Not Available Main Offic e [address], [place], [address], 10/02/2024 09:38:45 10/03/19 25 10/02/2024 urina lysis , dipst ick Specific [place] 1.030 Not Available Main O ffice [address], [place], [address], 10/02/2024 09:38:45 10/03/19 25 10/02/2024 urina lysis , dipst ick Ketone - Not Available Main Offic e [address], [place], [address], 10/02/2024 09:38:45 10/03/19 25 10/02/2024 urina lysis , dipst ick Bilirubin - Not Available Main Off ice [address], [place], [address], 10/02/2024 09:38:45 05/05/19 25 04/29/2024 imagi ng/di agnos tic resul t No observ ation record ed. [facility] [address], [place], [address], 06/19/2024 13:53:06 05/05/19 25 04/29/2024 imagi ng/di agnos tic resul t No observ ation record ed. [facility] [address] [facility], [place], [address], 06/19/2024 13:53:57 05/27/19 25 05/27/2024 imagi ng/di agnos tic resul t No observ ation record ed. [id number] [address], [place], [address], 05/27/2024 10:32:27 05/27/19 25 05/27/2024 US, pelvi s, compl ete No observ ation record ed. [email or web address] [address], [place], [address], 08/27/2024 21:31:47 08/29/19 25 08/28/2024 imagi ng/di agnos tic resul t No observ ation record ed. [id number], [place], [address], 08/28/2024 10:21:38 08/29/1908/28/2024 US, pelvi s, compl ete No observ ation record ed. mary Fu[address], [place], [address], 08/31/2024 16:00:28 Result Notes None recorded. Problems Name Problem SNOMED Code Status Onset Date Resolution Date Notes Provider Name and Address Organization Details Recorded Time 66071273 Completed 201710/03/2018 [facility] 9 09:27:40 Abnormal finding on screening of mother 267235710 Completed 201701/13/[address], [place], [address], [facility], 2 09:33:15 Abnormal finding on screening of mother 420818785 Completed 2017 [facility] 9 09:27:37 Iron deficiency anemia of 591087049 Completed 2018 [facility], 9 09:27:37 Iron deficiency anemia of 648120349 Completed 201801/13/[address], [place], [address], [facility], 2 09:33:07 Uterine leiomyoma 20869713 Active [address], [place], [address], [facility], 2 09:33:29 Menorrhagia 095703042 Active [address], [place], [address], [facility], 09:33:25 Problem Notes None recorded. Procedures Surgical History Date Name Laterality Status Provider Name and Address Organization Details Recorded Time 10/21/19 25 Date of Last Mammogram completed [facility], 10/02/2024 10:49:37 10/03/19 25 Date of Last Pap Smear completed [facility], 10/02/2024 09:38:28 03/25/20 24 Most Recent Mammogram completed [address], [place], [address], [facility], 06/02/2024 15:40:19 12/19/19 23 Pelvic Transvaginal Non-OB completed DO [address], [place], [address], [facility], 01/29/2023 21:09:38 06/19/19 23 Bladder Ultrasound completed DO [address], [place], [address], [facility], 06/20/2022 21:13:18 06/16/19 23 In and Out Catheterization completed DO [address], [place], [address], [facility], 06/17/2022 21:18:13 06/12/19 23 robotic assisted surgery completed [address], [place], [address], [facility], 06/28/2022 09:36:57 01/06/20 22 Colposcopy completed DO [address], [place], [address], [facility], 01/07/2022 15:15:47 09/07/19 22 Pelvic Transvaginal Non-OB completed DO [address], [place], [address], [facility], 10/29/2021 16:31:34 04/04/20 19 laparoscopic laser destruction of endometriosis completed LINDSEY Perez [address], [place], [address], [facility], 04/19/2019 08:06:17 07/17/19 19 microscopic urinalysis pos rbc completed Gerald Juarez DO [address], [place], [address], [facility], 07/19/2018 13:59:02 11/13/19 18 Laparoscopy completed [facility], 11/23/2017 10:05:17 02/27/20 17 Colonoscopy completed [facility], 09/26/2017 11:03:51 10/28/19 10 Tubal Ligation completed [facility], 09/26/2017 11:02:57 LEEP completed [facility], 09/26/2017 11:05:14 Imaging Results None recorded. Procedure Notes None recorded. Medical Equipment None Reported. Allergies Allergen ID Allergen Name Allergen Category Reaction Reaction Severity Criticality Documentation Date Start Date Code Code System Note Provider Name and Address Organization Details Recorded Time 1357 adhesive tape environme nt,medica tion rash Not available Not available 11/23/2017 50015 UNK naeem ing, will ss [facility], 8 10:02:52 Medications Name [...] Details Last Updated DateTime 5 161.29 cm 32.7 kg/m2 84340.9 3 g 57 /min 96.7 [degF] 156 mm[Hg] 95 mm[Hg] [facility], 5 09:35:44 Date Recorded Body height Body mass index (BMI) Body weight Heart rate Body temperature Systolic blood pressure Diastolic blood pressure Provider Name and Address Organization Details Last Updated DateTime 5 161.29 cm 32.8 kg/m2 70976.3 7 g 52 /min 96.9 [degF] 125 mm[Hg] 75 mm[Hg] Radha Gordon [facility], 5 09:31:16 Date Recorded Body height Body mass index (BMI) Body weight Heart rate Body temperature Systolic blood pressure Diastolic blood pressure Provider Name and Address Organization Details Last Updated DateTime 5 161.29 cm 32.7 kg/m2 78122.9 3 g 51 /min 97 [degF] 133 mm[Hg] 90 mm[Hg] [facility], 5 09:38:03 Social History Question Answer Notes LastModified by Organizat ion Details LastModified Time Tobacco Smoking Status Former Smoker Not Available [facility] 02/24/2020 03:20:42 Able To Swim? Yes Information not available 04/13/2022 Accident Related Injury No Information not available 04/13/2022 Do You Have An Advance Directive? No [id number] Information not available 02/24/2020 How Many Years Have You Consumed Alcohol? 16 [id number] Information not available 02/24/2020 Animal Exposure? Yes Informat ion not available 04/13/2022 Are You Currently Sexually Active With Anyone Who Has Traveled (within The Last 12 Weeks) To A Zika-affected Area? No [id number] Information not available 02/24/2020 Do You Wear A Helmet When Biking? No [id number] Information not available 02/24/2020 Are You Blind Or Do You Have Difficulty Seeing? No [id number] Information not available 02/24/2020 What Is Your Level Of Caffeine Consumption? Occasional [id number] Information not available 02/24/2020 How Much Tobacco Do You Chew? None [id number] Information not available 02/24/2020 Concerns About Meeting Basic Needs (food, Housing, Heat, Etc)? No Information not available 04/13/2022 Are You Deaf Or Do You Have Serious Difficulty Hearing? No [id number] Information not available 02/24/2020 What Type Of Diet Are You Following? REGULAR [id number] Information not available 02/24/2020 Which Illicit Or Recreational Drugs Have You Used? None [id number] Information not available 02/24/2020 Education 12 Information no t available 04/13/2022 What Is The Highest Grade Or Level Of School You Have Completed Or The Highest Degree You Have Received? [id number] [id number] Information not available 02/24/2020 How Many Days Of Moderate To Strenuous Exercise, Like A Brisk Walk, Did You Do In The Last 7 Days? 7 [id number] Information not available 02/24/2020 On Those Days That You Engage In Moderate To Strenuous Exercise, How Many Minutes, On Average, Do You Exercise? 2 [id number] Information not available 02/24/2020 Family History Of Heart Disease? No Information not available 04/13/2022 Have There Been Any Changes To Your Family Or Social Situation? No [id number] Information no t available 02/24/2020 How Hard Is It For You To Pay For The Very Basics Like Food, Housing, Medical Care, And Heating? SF81686-2 Information not available 04/13/2022 When Did You Quit Smoking? 16+yearssincel astcichilango [id number] Information not available 02/24/2020 Are There Any Guns Present In Your Home? Yes [id number] Information not available 02/24/2020 Hard Of Hearing Or Deaf In One Or Both Ears? No Information not available 04/13/2022 Legally Blind In One Or Both Eyes? No Information no t available 04/13/2022 Live Alone Or With Others? With Others Information not available 04/13/2022 Do You Have A Medical Power Of Beverage Steward? No [id number] Information not available 02/24/2020 What Was The Date Of Your Most Recent Tobacco Screening? 10/30/2018 Information not available 04/13/2022 How Many Children Do You Have? 3 [id number] Information not available 02/24/2020 What Is Your Current Pack Years? 10packyears [id number] Information not available 02/24/2020 Performs Monthly Self-breast Exam? Yes Information no t available 04/13/2022 Do You Have Any Pets? Yes [id number] Information not available 02/24/2020 Difficulty Reading? No Information not available 04/13/2022 Seat Belts Used Routinely Yes Information not available 04/13/2022 Smoke Alarm In Home Yes Information not available 04/13/2022 Do You Have Smoke And Carbon Monoxide Detectors In Your Home? Yes [id number] Information not available 02/24/2020 At What Age Did You Start Smoking Tobacco? 12 [id number] Information not available 02/24/2020 Are You Passively Exposed To Smoke? No Information no t available 09/26/2017 Are There Any Smokers In Your House? No Information not available 09/26/2017 How Much Tobacco Do You Smoke? No [id number] Information not available 02/24/2020 General Stress Level Low Information not available 04/13/2022 Sun Exposure Frequent Information not available 04/13/2022 Do You Use Sunscreen Routinely? Yes [id number] Information not available 02/24/2020 TB Risk Low Information no t available 04/13/2022 Has Tobacco Cessation Counseling Been Provided? No [id number] Information not available 02/24/2020 How Many Years Have You Smoked Tobacco? 5 [id number] Information not available 02/24/2020 Difficulty Watching TV? No Information not available 04/13/2022 Do You Have Difficulty Walking Or Climbing Stairs? No [id number] Information not available 02/24/2020 Sex: Female Functional Status Question Answer Note LastModified by Organizat ion Details LastModified Time What is your level of alcohol consumption? None [id number] Information not available 02/24/2020 Are you currently employed? Yes [id number] Information not available 02/24/2020 Do you have transportation difficulties? No [id number] Information not available 02/24/2020 Are you able to walk? YESWOREST [id number] Information not available 02/24/2020 Do you have difficulty doing errands alone? No [id number] Information not available 02/24/2020 Are you able to care for yourself? 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 No [id number] Information not available 02/24/2020 What is your exercise level? Heavy [id number] Information not available 02/24/2020 Mental Status Question Answer Note LastModified by Organizat ion Details LastModified Time Do you feel stressed (tense, restless, nervous, or anxious, or unable to sleep at night)? [id number] Information not available 02/24/2020 Do you have difficulty concentrating, remembering or making decisions? No [id number] Information no t available 02/24/2020 Family History [...] Not available 09/26 10:56:27 Maternal Grandfather Alcoholism fozia Not available 09:11:59 Father Arthritis dcongleton Not availa ble 09/26/2017 10:57:08 Medical History Condition Response Coronary Artery Disease N Other Y Gout N Kidney Stones N Blood Diseases N Hyperthyroidism N Enlarged Prostate N Blood Transfusion N COPD N Depression N Dermatologic Disorders N Gestational Diabetes N Anxiety Disorder N Muscle, Joint, or Bone Problems N Autoimmune disease N Obesity N Vision or Eye Problems N Arthritis N Polyps N Infertility N Mental Disorder N Cancer N Varicosities N Stroke N Neurologic/Epilepsy N Headaches N Fibromyalgia N Kidney Disease N Heart Problems N Ear or Hearing Problems N Hospitalizations N Acne N Skin Problems N Eating Disorder N MRSA exposure N Heartburn N Constipation N Art (IVF or FET) N Bladder Problems N Bleeding Disorder N Tuberculosis N AIDS/HIV N G.E.R.D N Asthma N Trauma/Violence N Hepatitis N Pulmonary Embolism N Chronic Ear Infections N Chicken Pox N Autism Spectrum Disorder (ASD) N Thrombophilias N Allergies (Food, seasonal, environmental ) N Colon Cancer N Drug/Latex Allergies/Reactions N Breast Cancer N Hypothyroidism N Lung Disease N Developmental or Behavioral Disorders N Defects or Inherited Disease N Breast Problem N Difficulty Swallowing N [...] Failure (CHF) N Hyperlipidemia N Eczema N Abuse/Domestic Violence N Diverticulitis N Depression/ depression N Heart Disease N [...] SNOMED-CT Code Diagnosis ICD10 Code Diagnosis Note [id number] Gerald Juarez DO Main Office [address] [place] [place] [address] 09/26/2017 09:58:05 09/26/2017 12:10:27 Female infertility 1407473 N97.9 7673 Gerald Juarez DO Main Office [address] [place] [place] [address] 10/30/2017 10:07:36 10/30/2017 12:27:36 Pain in pelvis 51124534 R10.2 Dysmenorrhea 758166163 N 94.6 Abnormal v aginal bleeding 558460640 N93.9 7923 Gerald Juarez DO [facility] - [place] [address] [place] [address] 11/12/2017 12:13:17 11/13/2017 08:45:25 Excessive and frequent menstruation 913985519 N92.0 Secondary dysmenorrhea 44418799 N94.5 Pain in pelvis 36403876 R10.2 8190 Gerald Juarez DO Main Office [address] [place] [address] 11/23/2017 09:53:15 11/23/2017 10:40:51 Postoperative visit 088889880 Z09 Allergic r eaction to adhesive 486817630 T65.894A keep area warm and dry 8469 Gerald Juarez DO Main Office [address] [place] [address] 12/07/2017 10:59:57 12/24/2017 08:49:10 Acute urinary tract infection 709818211 N39.0 Postoperative visit 1836 49721 Z09 rash resolved 9302 Gerald Juarez DO Main Office [address] [place] [address] [place] [address] 01/22/2018 14:37:37 01/22/2018 15:38:26 Irregular periods 70310969 N92.6 test positive 358033625 Z32.01 ob labs, pap, cx. also, serial quants due to recent tubal reversal. quant today, and repeat x 2 at [facility] Gynecologi c examination 88181376 Z01.411 Ex-smoker 3057126 Z87.89 1 9441 Gerald Juarez DO Main Office [address] [place] [address] [place] [address] 01/29/2018 15:15:12 01/29/2018 16:31:11 Irregular periods 36538230 N92.6 test positive 640207666 Z32.01 ob labs, pap, cx. also, serial quants due to recent tubal reversal. quant today, and repeat x 2 at [facility] 9828 Gerald Juarez DO Main Office [address] [place] [address] [address] 02/19/2018 09:49:48 02/19/2018 11:18:24 Gestation period, 8 weeks 06734189 Z3A.08 Spotting p er vagina in 555596652 O26.859 check progestero ne levels today. cx/vag panel ran today. vaginal rest. Threatened miscarriage in first trimester 32830021 O20.0 Acute vaginitis 17766581 N76.0 paul, [place] [address] Gerald Juarez DO Main Office [address] [place] [address] [place] [address] 03/12/2018 09:36:21 03/12/2018 10:35:11 Gestation period, 11 weeks 05561055 Z3A.11 Multigravi da of advanced maternal age 566327447 O09.521 screening 2437 09405 Z36.0 counsyl test 21375 Gerald Juarez DO Main Office [address] [place] [address] 04/02/2018 09:00:07 04/02/2018 09:45:25 Gestation period, 14 weeks 58926420 Z3A.14 screening 2437 11796 Z36.0 AFP 76418 Gerald Juarez DO Main Office [address] [place] [place] [address] 04/05/2018 09:42:29 04/05/2018 10:08:33 Gestation period, 15 weeks 2402732 Z3A.15 Alpha-feto protein level - finding 611369042 R77.2 Abnormal f inding on screening of mother 447283449 O28.9 Hypothyroidism 28502512 E03.9 40772 Gerald Juarez DO Main Office [address] [place] [address] 04/09/2018 14:12:57 04/09/2018 15:30:43 Gestation period, 15 weeks 2400691 Z3A.15 abn afp Abnormal f inding on screening of mother 843987833 O28.9 Alpha-feto protein level - finding 562073296 R77.2 77807 Gerald Juarez DO Main Office [address] [place] [address] 04/24/2018 09:09:11 04/24/2018 09:59:22 Gestation period, 17 weeks 01735758 Z3A.17 Abnormal f inding on screening of mother 190038146 O28.9 Alpha-feto protein level - finding 477883796 R77.2 60667 Gerald Juarez DO Main Office [address] [place] [address] 05/21/2018 10:32:25 05/21/2018 11:01:52 Gestation period, 21 weeks 54264946 Z3A.21 Abnormal f inding on screening of mother 451347233 O28.1 Alpha-feto protein level - finding 084407926 R77.2 Ex-cigarette smoker 2810 93683 Z87.891 79307 Gerald Juarez DO Main Office [address] [place] [place] [address] 06/11/2018 09:15:43 06/11/2018 10:03:36 Gestation period, 24 weeks 083901134 Z3A.24 Candidiasis of skin 4988 3006 B37.2 vulvar, perianal Lesion of vulva 94342580 6 N90.69 red top swab; 2 lesions right labia 68248 Gerald Juarez DO Main Office [address] [place] [address] 07/02/2018 08:49:08 07/02/2018 09:35:19 Gestation period, 27 weeks 91240010 Z3A.27 1 hr gtt Diabetes m ellitus screening 353412937 Z13.1 97304 Gerald Juarez DO Main Office [address] [place] [address] 07/16/2018 09:03:43 07/16/2018 09:54:00 Gestation period, 29 weeks 08430927 Z3A.29 Secondary restless legs syndrome 913686644 G25.81 labs today Paresthesi a of lower extremity 669012693 R20.2 labs today, if persists neuro evaluation Vitamin deficiency 34124 002 E56.8 55650 Gerald Juarez DO Main Office [address] [place] [address] 07/30/2018 11:01:06 07/30/2018 11:52:51 Gestation period, 31 weeks 47773866 Z3A.31 Iron defic iency anemia of 053500433 O99.[address] udies abnormal 121848146 R94.39 42770 Gerald Juarez DO Main Office [address] [place] [address] 08/02/2018 10:44:39 08/02/2018 11:37:21 Gestation period, 32 weeks 6352822 Z3A.32 Secondary restless legs syndrome 948751570 G25.81 labs today Vitamin deficiency 26274 002 E56.8 Past pregn j carlos history of pre-eclampsia 3691271021 56609 Z87.59 Iron defic iency anemia of 152150624 O99.019 Abnormal f inding on screening of mother 491291558 O28.1 Gestational edema 321794 000 O12.03 patient was seen by Dr Juarez 70441 Gerald Juarez DO Main Office [address] [place] [address] 08/08/2018 09:03:56 08/08/2018 10:44:37 Gestation period, 33 weeks 72271861 Z3A.33 Iron defic iency anemia of 993333991 O99.019 Abnormal f inding on screening of mother 915939244 O28.9 Threatened premature labor - not delivered 744254511 O47.03 92144 Gerald Juarez DO Main Office [address] [place] [address] 08/15/2018 10:58:07 08/15/2018 12:01:14 Gestation period, 34 weeks 05344773 Z3A.34 Past pregn j carlos history of pre-eclampsia 6713725480 09846 Z87.59 Iron defic iency anemia of 492487636 O99.019 Abnormal f inding on screening of mother 204188690 O28.1 Gestational edema 814483 000 O12.03 patient was seen by Dr Juarez 86887 Gerald Juarez DO Main Office [address] [place] [address] 08/19/2018 11:44:29 08/19/2018 13:00:08 Gestation period, 34 weeks 48535782 Z3A.34 - induced hypertension 27861383 O13.9 bed rest Past pregn j carlos history of pre-eclampsia 4006624926 92931 Z87.59 Iron defic iency anemia of 408957394 O99.013 Gestational edema 097047 000 O12.03 33420 Gerald Juarez DO Main Office [address] [place] [address] 08/23/2018 09:29:20 08/23/2018 10:32:50 Gestation period, 35 weeks 62770304 Z3A.35 Iron defic iency anemia of 436752213 O99.019 Gestational edema 853369 000 O12.03 19805 Gerald Juarez DO Main Office [address] [place] [address] 08/28/2018 11:09:13 08/28/2018 11:45:46 Gestation period, 35 weeks 31466909 Z3A.35 - induced hypertension 48041034 O13.9 bed rest Past pregn j carlos history of pre-eclampsia 8598769518 38823 Z87.59 Iron defic iency anemia of 488811685 O99.013 Gestational edema 823955 000 O12.03 37016 Gerald Juarez DO Main Office [address] [place] [address] 09/04/2018 11:05:46 09/04/2018 11:39:53 Iron deficiency anemia of 301714206 O99.013 - induced hypertension 79828331 O13.3 bed rest Past pregn j carlos history of pre-eclampsia 3495251585 54628 Z87.59 Gestational edema 749588 000 O12.03 Gestation period, 36 weeks 81355605 Z3A.36 29655 Gerald Juarez DO Main Office [address] [place] [address] 09/06/2018 09:50:13 09/06/2018 10:48:58 Gestation period, 37 weeks 03181062 Z3A.37 Iron defic iency anemia of 938548583 O99.013 - induced hypertension 33755262 O13.3 bed rest. nst today Past pregn j carlos history of pre-eclampsia 1868138417 54142 Z87.59 Gestational edema 548089 000 O12.03 80686 Gerald Juarez DO Main Office [address] [place] [address] 09/19/2018 14:07:45 09/19/2018 15:20:25 Iron deficiency anemia of 922553717 O99.013 Hypertensi on complicating , childbirth and the puerperium 116084317 O10.13 25501 Gerald Juarez DO Main Office [address] [place] [address] 10/03/2018 09:15:23 10/03/2018 10:33:11 care 179049130 Z39.2 Iron defic iency anemia of 589698357 O99.013 HELLP syndrome 69082502 O14.25 recheck labs. continue labetalol 200 (once daily) Delayed AN D/OR secondary hemorrhage 61482009 O72.2 labs Contracept ion care management 641000492 Z30.011 90706 Gerald Juarez DO Main Office [address] [place] [address] 10/17/2018 09:43:33 10/17/2018 10:51:22 care 171611606 Z39.2 Iron defic iency anemia of 188633877 O99.013 u/a neg Contracept ion care management 192795556 Z30.011 Hypertensi on complicating , childbirth and the puerperium 600690637 O10.13 stop labetalol, check bp 2-3 times daily, report if high. f/u 2 wk 89764 Gerald Juarez DO Main Office [address] [place] [address] 10/30/2018 10:15:20 10/30/2018 11:21:32 care 700883367 Z39.2 35603 Gerald Juarez DO Main Office [address] [place] [address] 01/30/2019 10:38:17 01/30/2019 11:32:59 Gynecologic examination 96607478 Z01.411 pap Menorrhagia 730398951 N9 2.0 u/s ordered, considerin g ablation or partial hysterecto my Uterine leiomyoma 162570 05 D25.9 Anemia 911010473 D64.9 u/a neg 49855 Gerald Juarez DO Main Office [address] [place] [address] 02/14/2019 10:25:47 02/14/2019 11:13:09 Pain in pelvis 97036073 R10.2 Intramural leiomyoma of uterus 11719335 D25.1 Dyspareunia 97344213 N94 .19 Secondary dysmenorrhea 88936377 N94.5 74873 Gerald Juarez DO Main Office [address] [facility] [place] [address] 03/24/2019 09:46:38 03/24/2019 10:50:51 Iron deficiency anemia of 405597157 O99.013 u/a neg Chronic pe lvic pain of female 870864334 R10.2 Menorrhagia 322974848 N9 2.0 04485 Gerald Juarez DO Main Office [address] [place] [address] 04/18/2019 09:59:32 04/18/2019 11:24:02 Postoperative visit 706145556 Z09 Uterine leiomyoma 191938 05 D25.2 discussed failure of novasure. will f/u next year. if menorrhagi a continues, then consider partial hysterecto my. 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 u/s ordered. Bacterial vaginosis 4197 33537 N76.0 Microscopic hematuria 19 0460101 R31.21 88292 Gerald Juarez DO Main Office [address] [place] [address] 05/22/2019 10:09:01 05/22/2019 11:36:11 Pain in pelvis 82541346 R10.2 Abnormal u terine bleeding 3446366395 9100 N92.0 History of endometriosis 4873975033 3632286 Z87.42 Cyst of left ovary 15408 50787 6848826 N83.292 78377 Gerald Juarez DO Main Office [address] [place] [address] 10/20/2019 09:52:04 10/20/2019 10:34:18 Female stress incontinence 69253499 N39.3 uroflow Chronic constipation 236 457676 K59.09 Essential hypertension 62114905 I10 92082 Gerald Juarez DO Main Office [address] [place] [address] 11/03/2019 10:21:48 11/03/2019 12:14:27 Pain in pelvis 72307064 R10.2 Urinary incontinence 165 059378 N39.3 Essential hypertension 33261876 I10 Microscopic hematuria 19 8440390 R31.21 82436 Gerald Juarez DO Main Office [address] [place] [address] 06/08/2020 10:18:09 06/08/2020 11:46:58 Gynecologic examination 28089407 Z01.411 pap Urge incon tinence of urine 28980520 N39.41 Female str ess incontinence 64923680 N39.3 Increased frequency of urination 323308125 R35.0 Urgent bruno dl to urinate 81313401 R39.15 Screening for mental disorders 418291832 Z13.89 32299 Gerald Juarez DO Main Office [address] [place] [address] 07/06/2020 10:06:51 07/06/2020 12:08:46 Increased frequency of urination 321553449 R35.0 Urgent bruno dl to urinate 35116873 R39.15 27890 eGrald Juarez DO Main Office [address] [place] [address] 08/03/2020 10:12:03 08/03/2020 11:11:27 Renewal of prescription 922799978 Z76.0 has tried oxybutynin and solifenaci n. patient may consider bladder tack in the future. will discuss at next appointmen t Increased frequency of urination 202211100 R35.0 Urgent bruno dl to urinate 16877675 R39.15 Urge incon tinence of urine 19310468 N39.41 52319 Gerald Juarez DO Main Office [address] [place] [address] 08/31/2020 09:13:15 08/31/2020 10:00:01 Renewal of prescription 075896550 Z76.0 has tried oxybutynin and solifenaci n. and myrbetriq patient may consider bladder tack in the future. will discuss at next appointmen t Increased frequency of urination 916837551 R35.0 Urgent bruno dl to urinate 58589816 R39.15 Urge incon tinence of urine 13795803 N39.41 Microscopic hematuria 19 0231371 R31.21 19461 Gerald Juarez DO Main Office [address] [place] [address] 08/23/2021 09:27:08 08/23/2021 11:25:53 Acute urinary tract infection 901927927 N39.0 Difficulty maintaining weight loss 012630670 E66.09 Pain in pelvis 80513023 R10.2 cx/vag panel. u/s ordered. Deep pain on intercourse 986918706 N94.12 Abnormal u terine bleeding 9532292390 9100 N92.4 Fatigue 56060570 R53.83 labs Lesion of vulva 79451813 6 N90.69 red top swab; left upper labia Pain of breast 63004522 N64.4 dx mammogram ordered Gynecologi c examination 00180590 Z01.411 pap Screening for mental disorders 421455681 Z13.89 18093 Gerald Juarez, DO Main Office [address] [place] [address] 09/06/2021 10:26:37 09/06/2021 11:47:10 Pain in pelvis 72371753 R10.[address] ress incontinence 42994605 N39.3 Abnormal u terine bleeding 4516773542 9100 N92.0 Microscopic hematuria 19 8417287 R31.21 97517 Gerald Juarez DO Main Office [address] [place] [address] 11/07/2021 09:58:11 11/07/2021 10:48:40 Lesion of vulva 118444636 N90.69 vulvoscopy scheduled Female str ess incontinence 00487198 N39.3 Pain in pelvis 43551708 R10.2 left-sided , u/s Microscopic hematuria 19 0428770 R31.21 58894 Gerald Juarez DO Main Office [address] [place] [address] 11/15/2021 08:59:36 11/15/2021 09:19:10 Pain in pelvis 18479174 R10.2 Cyst of right ovary 1223 120732 7194107 N83.291 History of endometriosis 1771947789 1937900 Z87.42 Leukocytes in urine 2757 92580 R82.79 44589 Gerald Juarez DO Main Office [address] [place] [address] 01/05/2022 10:47:42 01/05/2022 12:10:04 Genuine stress incontinence 95983092 N39.3 Lesion of vulva 84585372 6 N90.89 65343 Gerald Juarez DO Main Office [address] [place] [address] 01/10/2022 09:07:09 01/10/2022 10:17:00 Cyst of left ovary 0085739724 7883789 N83.292 Pain in pelvis 50456273 R10.2 History of endometriosis 0876611787 4792199 Z87.[address] ress incontinence 84168952 N39.3 78306 Gerald Juarez DO Main Office [address] [place] [address] 01/13/2022 09:06:07 01/13/2022 09:59:58 Lesion of vulva 125777672 N90.69 Pruritus of vagina 62671 003 L29.3 11073 Gerald Juarez DO Main Office [address] [place] [address] 04/13/2022 09:11:51 04/13/2022 09:38:52 Cyst of right ovary 1296543801 1325404 N83.291 Pain in pelvis 62204947 R10.2 Midline cystocele 845360 [address] ress incontinence 32304400 N39.3 59562 Gerald Juarez DO Main Office [address] [place] [address] 06/09/2022 09:13:07 06/09/2022 10:07:29 Cyst of right ovary 7986681180 9638543 N83.291 Pain in pelvis 19399520 R10.2 Midline cystocele 826791 [address] ress incontinence 84422227 N39.3 Relaxation of pelvic floor 023177347 N81.89 08535 Gerald Juarez DO Main Office [address] [place] [address] 06/16/2022 10:29:26 06/16/2022 12:45:48 Retention of urine 333515128 R33.9 Urinary tr act infectious disease 17704035 N30.81 ua with reflex to cx Indwelling catheter removed 343440218 Z46.6 patient was able to urinate a little bit after a time, but not completely . in and out cath removed urine. patient instructed to take flomax and pyridium, return to ED if unable to urinate againn after 4-6 hrs Microscopic hematuria 19 9234672 R31.21 24069 Gerald Juarez DO Main Office [address] [place] [address] 06/19/2022 09:58:09 06/19/2022 10:54:04 Postoperative retention of urine 678627054 R33.8 Taught self-catheterization 913428295 Z76.89 Hormone re placement therapy 731988978 Z79.890 Estrogen vaginal cream started Indwelling catheter removed 836020266 Z46.6 30888 Gerald Juarez DO Main Office [address] [place] [address] 06/19/2022 13:37:03 06/19/2022 14:36:52 Postoperative retention of urine 014807334 R33.8 36338 Gerald Juarez DO Main Office [address] [place] [address] 06/28/2022 09:14:11 06/28/2022 10:08:18 Postoperative visit 184020513 Z09 cont. vag premarin every other day Screening for mental disorders 587122614 Z13.89 Retention of urine 80044 4002 R33.9 resolved. continue flomax and azo for one week. one week bladder u/s, post-void. Microscopic hematuria 19 5134047 R31.21 22392 Gerald Juarez DO Main Office [address] [place] [address] 07/06/2022 10:11:35 07/06/2022 11:32:39 Postoperative retention of urine 415392544 R33.8 85808 Gerald Juarez DO Main Office [address] [place] [address] 07/10/2022 14:46:09 07/10/2022 15:17:05 Postoperative visit 904719991 Z09 cont. vag premarin every other day 87145 Gerald Juarez DO Main Office [address] [place] [address] 08/17/2022 10:15:53 08/17/2022 11:20:37 Disorder of nail 90574578 L60.8 labwork. Postoperat ariadne retention of urine 572266073 R33.8 completely resolved. 91579 Gerald Juarez DO Main Office [address] [place] [address] 09/11/2022 09:30:21 09/11/2022 10:18:09 Dyspareunia 12856067 N94.12 or compounded DHEA Gynecologi c examination 29896707 Z01.411 pap. patient to schedule mammogram Screening for mental disorders 676348477 Z13.89 Atrophic vaginitis 34777 000 N95.2 Microscopic hematuria 19 7978526 R31.21 62669 Gerald Juarez DO Main Office [address] [place] [address] 12/11/2022 09:21:11 12/11/2022 10:12:27 Renewal of prescription 770673446 Z76.0 Vitamin D deficiency 347 45131 E55.9 recheck Thin nails 47512323 L60. 8 labs Atrophic vaginitis 19533 000 N95.2 resolved Superficia l pain on intercourse 574718876 N94.11 resolved Leukocytes in urine 2757 83067 R82.79 46546 Gerald Juarez DO Main Office [address] [place] [address] 12/18/2022 13:46:15 12/18/2022 14:46:26 Cyst of right ovary 4522273187 7126574 N83.291 Large ovary 84652911 N83 .8 Pain in pelvis 76621656 R10.2 65665 Gerald Juarez DO Main Office [address] [place] [address] 02/19/2023 13:47:07 02/19/2023 15:02:13 Pain in pelvis 77022365 R10.2 Large ovary 59092869 N83 .8 Endometrio sis of pelvis 27242937 N80.03 30405 Gerald Juarez DO Main Office [address] [place] [address] 05/29/2023 09:44:21 05/29/2023 10:33:15 Cyst of right ovary 9308147344 7350744 N83.291 Large ovary 82630668 N83 .8 Pain in pelvis 98255950 R10.2 70939 Gerald Juarez DO Main Office [address] [facility] [place] [address] 09/18/2023 09:39:45 09/18/2023 10:45:01 Vaginal pain 84121799 R10.2 try estradiol vag cream Superficia l pain on intercourse 742456568 N94.11 resolved Female str ess incontinence 47072265 N39.3 try kegels, may need to try pelvic floor PT Increased frequency of urination 765307695 R35.0 try kegels, may need to try pelvic floor PT Incontinence of feces 72 290053 R15.9 try kegels, may need to try pelvic floor PT Screening for mental disorders 210173661 Z13.89 Family his tory of malignant neoplasm of pancreas 639197166 Z80.0 brac/my risk testing Family his tory of malignant neoplasm of ovary 104944741 Z80.41 brac/my risk testing Gynecologi c examination 94535211 Z01.411 pap. patient reminded to schedule mammogram Vitamin D deficiency 347 91458 E55.9 recheck 63891 Gerald Juarez DO Main Office [address] [place] [address] 10/10/2023 14:57:34 10/10/2023 16:15:58 Pain in pelvis 70376126 R10.2 Large ovary 59919572 N83 .8 Leukocytes in urine 2757 53531 R82.79 14228 Gerald Juarez DO Main Office [address] [place] [address] 01/17/2024 10:00:41 01/17/2024 10:23:49 Pain in pelvis 53543289 R10.2 repeat TV u/s, possible cyst Uterine adenomyosis 7843 23918 N80.03 Vaginal dryness 76191810 N89.8 resume vaginal estradiol Abnormal u terine bleeding 4892167473 9100 N92.4 66220 Gerald Juarez DO Main Office [address] [place] [address] 02/12/2024 09:42:31 02/12/2024 10:49:28 Pain in pelvis 71155436 R10.2 Large ovary 67287429 N83 .8 History of endometrial ablation 3359893981 26862 N99.85 Increased frequency of urination 965308463 R35.[address] mckeon on intercourse 323608142 N89.8 64332 Gerald Juarez DO Main Office [address] [place] [address] 05/27/2024 09:31:21 05/27/2024 10:33:47 Pain in pelvis 99389002 R10.2 Large ovary 35785377 N83 .8 64312 Gerald Juarez DO Main Office [address] [place] [address] 08/13/2024 12:52:51 08/13/2024 13:20:08 Abnormal uterine bleeding 8673755983 9100 N93.9 has spotting each month after ablation, but irregular heavy bleeding today. will order TV U/S, monitor her lining and ov. cysts if present. Pain in pelvis 46961153 R10.2 left sided pelvic pain this morning, now cramping generalize d. TV U/S ordered 02892 Gerald Juarez DO Main Office [address] [place] [address] 08/28/2024 09:26:41 08/28/2024 10:23:01 Pain in pelvis 31949707 R10.2 Large ovary 18249979 N83 .8 Uterine adenomyosis 7843 92123 N80.03 41046 Gerald Juarez DO Main Office [address] [place] [address] 10/02/2024 09:35:15 10/02/2024 11:05:31 Vaginal dryness 79688401 N89.8 resume vaginal estradiol Gynecologi c examination 37540941 Z01.411 pap. patient reminded to schedule mammogram Menopausal symptom 32341 002 N95.1 Health Concerns Section Related Observation LastModified by Organization Detai ls LastModified Time None Recorded Concern Status LastModified by Organization Details LastModified Time None Recorded Advance Directives Directive N: Payers Insurance Date Sequence Insurance Name Policy Number Policy Lira Covered Member ID Lira Member ID Guarantor Name 05/02/2024 1 [employer] (MEDICAID REPLACEMENT - HMO) [id number] Shyla Maldonado [id number] Shyla Maldonado 10/26/2017 1 *SELF PAY* Santino Maldonado 10/18/2024 1 [employer] [facility] (MEDICAID HMO) Shyla Wrayrj [id number] Shyla Wrayrj Notes Date Note Type Note Provider Name and Address Organization Details Recorded Time 08/13/2024 text/html TELEHEALTH: Patient has vaginal spotting monthly (ablation 2018, ), but this am woke up with severe left-sided pelvic pain that has since subsided. Now having midline cramping, mild. Also having dark pink/orange bleeding now, coming out with urination and wiping. Has had heat/cold intolerance. No vaginal discharge, itching, or irritation. Has not had bleeding like this since before ablation. No fever. Has history of left sided ovarian cyst, which we were monitoring. DO [address], [place], [address], [facility], 08/29/2024 20:19:13 10/02/2024 text/html Annual GYNReport ed bypatient.Menstrua l cycle:Unexplained vaginal bleeding Urinary symptoms:No hematuria; No incontinence Vulva:No genital lesion Vagina:Normal vaginal discharge Breast:No breast pain; No breast lump; No nipple discharge Current Contraception:Tuba l ligation Sexual complaints:No sexual complaints; Normal libido;Pain during intercourse Menopausal Symptoms:Hot flashes;Inadequacy of lubrication of vaginal mucosa;Insomnia due to night sweats Psychological symptoms:No depression; No anxiety; No PMDD Preventive measures:Followed with yearly pap smears; History of abnormal pap smear/cervical dysplasia; Mammogram performed within the past year; Up to date on colonoscopy screening spotting each month (hx of ablation). BM pressure causes pulling sensation/tearing sensation behind cervix then has some bleeding. DO [address], [place], [address], [facility], 10/19/2024 12:59:13 OBGyn Episode Ob Episode Information Episode Created Date Number of Fetuses Patient Bloodtype Patient rh Status Prepregnancy Weight lbs Domestic Partner Domestic Partner Phone Father Name Staff Home Therapy Rn Status 09/27/19 18 1 CLOSED Fetus Data First Name Last Name Admitted to NICU Weight (g) Sex Living Outcome Pediatric Complications Fetus ID Race Codes Race Delivery Type 3259.96 5704 F Full Term 1781 vaginal Ervin Calculation Initial Ervin Date Initial Exam Date Initial Exam Provider Initial Ultrasound Date Last Menstrual Period Date Ultra Sound Weeks Gestation 0 Eighteen To Twenty Week Ervin Update Ultra Sound Date Fundal Height At Umbil Quickening Date Ultra Sound Latest Weeks Gestation Final Ervin Confirmed By Final Ervin Confirmed Date Final Ervin Date Ultra Sound Latest Days Gestation 0 0 Menstrual History Last Menstrual Date Menses Monthly On Bcp Conception Prior Menses Frequency Hcg Plus Date Menarche Onset Age Delivery Information Delivery Date Delivery Type Labor Anesthesia Weeks Gestation Incision Type Labor Labor Length Hrs Delivered By Post Complications Tubal Sterilization Discharge Date Comments 1 None 41 false 13 Discharge Information Feeding Method Contraceptive Method Maternal HG B and HCT Levels Ob Episode Information Episode Created Date Number of Fetuses Patient Bloodtype Patient rh Status Prepregnancy Weight lbs Domestic Partner Domestic Partner Phone Father Name Staff Home Therapy Rn Status 09/27/19 18 1 CLOSED Fetus Data First Name Last Name Admitted to NICU Weight (g) Sex Living Outcome Pediatric Complications Fetus ID Race Codes Race Delivery Type 3146.56 7704 M Full Term 1780 vaginal Ervni Calculation Initial Ervin Date Initial Exam Date Initial Exam Provider Initial Ultrasound Date Last Menstrual Period Date Ultra Sound Weeks Gestation 0 Eighteen To Twenty Week Ervin Update Ultra Sound Date Fundal Height At Umbil Quickening Date Ultra Sound Latest Weeks Gestation Final Ervin Confirmed By Final Ervin Confirmed Date Final Ervin Date Ultra Sound Latest Days Gestation 0 0 Menstrual History Last Menstrual Date Menses Monthly On Bcp Conception Prior Menses Frequency Hcg Plus Date Menarche Onset Age Delivery Information Delivery Date Delivery Type Labor Anesthesia Weeks Gestation Incision Type Labor Labor Length Hrs Delivered By Post Complications Tubal Sterilization Discharge Date Comments 7 Regional-Ep idural 39.3 false 10.5 Discharge Information Feeding Method Contraceptive Method Maternal HG B and HCT Levels Ob Episode Information Episode Created Date Number of Fetuses Patient Bloodtype Patient rh Status Prepregnancy Weight lbs Domestic Partner Domestic Partner Phone Father Name Staff Home Therapy Rn Status 09/27/19 18 1 CLOSED Fetus Data First Name Last Name Admitted to NICU Weight (g) Sex Living Outcome Pediatric Complications Fetus ID Race Codes Race Delivery Type 1502.29 [id number] F Prematur e 1782 vaginal Ervin Calculation Initial Ervin Date Initial Exam Date Initial Exam Provider Initial Ultrasound Date Last Menstrual Period Date Ultra Sound Weeks Gestation 0 Eighteen To Twenty Week Ervin Update Ultra Sound Date Fundal Height At Umbil Quickening Date Ultra Sound Latest Weeks Gestation Final Ervin Confirmed By Final Ervin Confirmed Date Final Ervin Date Ultra Sound Latest Days Gestation 0 0 Menstrual History Last Menstrual Date Menses Monthly On Bcp Conception Prior Menses Frequency Hcg Plus Date Menarche Onset Age Delivery Information Delivery Date Delivery Type Labor Anesthesia Weeks Gestation Incision Type Labor Labor Length Hrs Delivered By Post Complications Tubal Sterilization Discharge Date Comments 0 None 31.6 true 36 HTN/PIH/ s evere pre-eclam psia, induced early. Discharge Information Feeding Method Contraceptive Method Maternal HG B and HCT Levels Ob Episode Information Episode Created Date Number of Fetuses Patient Bloodtype Patient rh Status Prepregnancy Weight lbs Domestic Partner Domestic Partner Phone Father Name Staff Home Therapy Rn Status 01/23/20 18 1 O Positive 157 Mauricio Maldonado Mauricio Maldonado CLOSED Fetus Data First Name Last Name Admitted to NICU Weight (g) Sex Living Outcome Pediatric Complications Fetus ID Race Codes Race Delivery Type Michelle Atkins ns false 3175.14 4 F Full Term 2143 declin ed Patie nt Decli kenny vaginal Problems Problem Notes Problem Name Start Date End Date Resolution Snomed Code Not e Abnormal finding on antenata l screening of mother 04/24/[id number] Iron deficiency anemia of 07/04/20181991225523009 Ervin Calculation Initial Ervin Date Initial Exam Date Initial Exam Provider Initial Ultrasound Date Last Menstrual Period Date Ultra Sound Weeks Gestation 09/26/2018 01/22/2018 aclaxon 01/29/2018 12/20/2017 6 Eighteen To Twenty Week Ervin Update Ultra Sound Date Fundal Height At Umbil Quickening Date Ultra Sound Latest Weeks Gestation Final Ervin Confirmed By Final Ervin Confirmed Date Final Ervin Date Ultra Sound Latest Days Gestation 05/21/19 19 21 [place] 02/19/2018 019 1 Pre-marco antonio Flowsheet Flowsheet Date 01/22/2018 Chow Score Blood Edema Fundus Height Fundus Units Glucose Ketones Leukocytes Nitrite Labor Signs Protein Cervic Dilation Cervic Effacement Cervic Station neg none negative none Negative neg Type Weight in lbs Pre/Post Dialysis Refused Weight 157.149774353182 BP Diastolic BP Location Tested BP Systolic BP Type 71 114 sitting Fetus Heart Rate Present Fetus Movement Comments Flowsheet Date 01/29/2018 Chow Score Blood Edema Fundus Height Fundus Units Glucose Ketones Leukocytes Nitrite Labor Signs Protein Cervic Dilation Cervic Effacement Cervic Station Type Weight in lbs Pre/Post Dialysis Refused Weight 156.142860300754 BP Diastolic BP Location Tested BP Systolic BP Type 70 110 sitting Fetus Heart Rate Present Fetus Movement Comments Flowsheet Date 02/19/2018 Chow Score Blood Edema Fundus Height Fundus Units Glucose Ketones Leukocytes Nitrite Labor Signs Protein Cervic Dilation Cervic Effacement Cervic Station neg none none negative none Negative Bleeding trace Type Weight in lbs Pre/Post Dialysis Refused Weight 157.160978755757 BP Diastolic BP Location Tested BP Systolic BP Type 74 113 sitting Fetus Heart Rate Present A 180 Present Fetus Movement Comments still spotting daily. prog s upp seemed to make it worse. had left sided cramp last night radiating to vagina. no pain today, no spotting yet. FHT heard by doppler. vag exam: no blood present, cx vag panel ran. progesterone levels ran. vaginal rest. Flowsheet Date 03/12/2018 Chow Score Blood Edema Fundus Height Fundus Units Glucose Ketones Leukocytes Nitrite Labor Signs Protein Cervic Dilation Cervic Effacement Cervic Station neg none none negative none Negative none trace Type Weight in lbs Pre/Post Dialysis Refused Weight 158.722051430739 BP Diastolic BP Location Tested BP Systolic BP Type 71 119 sitting Fetus Heart Rate Present A 165 Present Fetus Movement A No Comments counsyl test today. Flowsheet Date 04/02/2018 Chow Score Blood Edema Fundus Height Fundus Units Glucose Ketones Leukocytes Nitrite Labor Signs Protein Cervic Dilation Cervic Effacement Cervic Station neg none none negative none Negative none neg Type Weight in lbs Pre/Post Dialysis Refused Weight 159.804712162540 BP Diastolic BP Location Tested BP Systolic BP Type 74 122 sitting Fetus Heart Rate Present A 150 Present Fetus Movement A Yes Comments AFP today Flowsheet Date 04/05/2018 Chow Score Blood Edema Fundus Height Fundus Units Glucose Ketones Leukocytes Nitrite Labor Signs Protein Cervic Dilation Cervic Effacement Cervic Station neg none negative none Negative neg Type Weight in lbs Pre/Post Dialysis Refused Weight 158.519586270822 BP Diastolic BP Location Tested BP Systolic BP Type 69 113 sitting Fetus Heart Rate Present Fetus Movement Comments Flowsheet Date 04/09/2018 Chow Score Blood Edema Fundus Height Fundus Units Glucose Ketones Leukocytes Nitrite Labor Signs Protein Cervic Dilation Cervic Effacement Cervic Station neg none trace none Negative trace Type Weight in lbs Pre/Post Dialysis Refused Weight 160.899886224083 BP Diastolic BP Location Tested BP Systolic BP Type 70 122 sitting Fetus Heart Rate Present Fetus Movement Comments Flowsheet Date 04/24/2018 Chow Score Blood Edema Fundus Height Fundus Units Glucose Ketones Leukocytes Nitrite Labor Signs Protein Cervic Dilation Cervic Effacement Cervic Station neg none none negative none Negative none neg Type Weight in lbs Pre/Post Dialysis Refused With clothes 161.239563501465 BP Diastolic BP Location Tested BP Systolic BP Type 69 112 sitting Fetus Heart Rate Present A 155 Present Fetus Movement A Yes Comments Flowsheet Date 05/21/2018 Chow Score Blood Edema Fundus Height Fundus Units Glucose Ketones Leukocytes Nitrite Labor Signs Protein Cervic Dilation Cervic Effacement Cervic Station neg none negative none Negative trace Type Weight in lbs Pre/Post Dialysis Refused With clothes 167.013472767474 BP Diastolic BP Location Tested BP Systolic BP Type 68 110 sitting Fetus Heart Rate Present Fetus Movement Comments Flowsheet Date 06/11/2018 Chow Score Blood Edema Fundus Height Fundus Units Glucose Ketones Leukocytes Nitrite Labor Signs Protein Cervic Dilation Cervic Effacement Cervic Station neg none 24 cm none negative none Negative none neg Type Weight in lbs Pre/Post Dialysis Refused Weight 174.56687772224 BP Diastolic BP Location Tested BP Systolic BP Type 71 119 sitting Fetus Heart Rate Present A 150 Present Fetus Movement A Yes Comments vulvar/labial/perinanal itch ing; cx vag panel sent; 2 small red sores right labia, viral culture. clobetasol for external itching/irritation. Flowsheet Date 07/02/2018 Chow Score Blood Edema Fundus Height Fundus Units Glucose Ketones Leukocytes Nitrite Labor Signs Protein Cervic Dilation Cervic Effacement Cervic Station neg none 29 cm none trace none Negative none trace Type Weight in lbs Pre/Post Dialysis Refused Weight 177.862732043828 BP Diastolic BP Location Tested BP Systolic BP Type 71 114 sitting Fetus Heart Rate Present A 145 Present Fetus Movement A Yes Comments 1 hr gtt. reminded of kick [place]. Flowsheet Date 07/16/2018 Chow Score Blood Edema Fundus Height Fundus Units Glucose Ketones Leukocytes Nitrite Labor Signs Protein Cervic Dilation Cervic Effacement Cervic Station trace none 30 cm none negative none Negative none neg Type Weight in lbs Pre/Post Dialysis Refused Weight 182.475910128217 BP Diastolic BP Location Tested BP Systolic BP Type 70 117 sitting Fetus Heart Rate Present A 145 Present Fetus Movement A Yes Comments increased BH, but resolve qu ickly. restless legs at night, with tingling, making it difficult to sleep. labs today to check. Flowsheet Date 07/30/2018 Chow Score Blood Edema Fundus Height Fundus Units Glucose Ketones Leukocytes Nitrite Labor Signs Protein Cervic Dilation Cervic Effacement Cervic Station neg trace negative none Negative neg Type Weight in lbs Pre/Post Dialysis Refused Weight 186.730983090176 BP Diastolic BP Location Tested BP Systolic BP Type 81 125 sitting Fetus Heart Rate Present Fetus Movement Comments Flowsheet Date 08/02/2018 Chow Score Blood Edema Fundus Height Fundus Units Glucose Ketones Leukocytes Nitrite Labor Signs Protein Cervic Dilation Cervic Effacement Cervic Station neg none negative none Negative neg Type Weight in lbs Pre/Post Dialysis Refused Weight 190.316901683072 BP Diastolic BP Location Tested BP Systolic BP Type 73 124 sitting Fetus Heart Rate Present Fetus Movement Comments Flowsheet Date 08/08/2018 Chow Score Blood Edema Fundus Height Fundus Units Glucose Ketones Leukocytes Nitrite Labor Signs Protein Cervic Dilation Cervic Effacement Cervic Station neg 36 cm none negative none Negative Robert Wright neg Type Weight in lbs Pre/Post Dialysis Refused Weight 188.979217956474 BP Diastolic BP Location Tested BP Systolic BP Type 73 123 sitting Fetus Heart Rate Present A 155 Present Fetus Movement A Yes Comments nst reactive Flowsheet Date 08/15/2018 Chow Score Blood Edema Fundus Height Fundus Units Glucose Ketones Leukocytes Nitrite Labor Signs Protein Cervic Dilation Cervic Effacement Cervic Station neg 34 cm none negative none Negative none neg 0cm Type Weight in lbs Pre/Post Dialysis Refused With clothes 192.097435707056 BP Diastolic BP Location Tested BP Systolic BP Type 77 119 sitting Fetus Heart Rate Present A 145 Present Fetus Movement A Yes Comments gestational edema Flowsheet Date 08/19/2018 Chow Score Blood Edema Fundus Height Fundus Units Glucose Ketones Leukocytes Nitrite Labor Signs Protein Cervic Dilation Cervic Effacement Cervic Station neg 34 cm 1+ trace none Negative none 0cm Type Weight in lbs Pre/Post Dialysis Refused With clothes 194.143612403056 BP Diastolic BP Location Tested BP Systolic BP Type 77 143 sitting Fetus Heart Rate Present A 155 Present Fetus Movement A Yes Comments repeat b/p improved Flowsheet Date 08/23/2018 Chow Score Blood Edema Fundus Height Fundus Units Glucose Ketones Leukocytes Nitrite Labor Signs Protein Cervic Dilation Cervic Effacement Cervic Station neg 3+ 35 wks none negative none Negative none neg 0cm Type Weight in lbs Pre/Post Dialysis Refused With clothes 197.361405368077 BP Diastolic BP Location Tested BP Systolic BP Type 73 122 sitting Fetus Heart Rate Present A 155 Present Fetus Movement A Yes Comments pih, hx pre eclampsia, gesta tional edema Flowsheet Date 08/28/2018 Chow Score Blood Edema Fundus Height Fundus Units Glucose Ketones Leukocytes Nitrite Labor Signs Protein Cervic Dilation Cervic Effacement Cervic Station neg 2+ 35 cm none negative none Negative Other (see comments ) trace Type Weight in lbs Pre/Post Dialysis Refused With clothes 197.543910370716 BP Diastolic BP Location Tested BP Systolic BP Type 79 140 sitting Fetus Heart Rate Present A 145 Present Fetus Movement A Yes Comments bpp, sd, 24 hr protein Flowsheet Date 09/04/2018 Chow Score Blood Edema Fundus Height Fundus Units Glucose Ketones Leukocytes Nitrite Labor Signs Protein Cervic Dilation Cervic Effacement Cervic Station trace 2+ 37 cm 1+ negative none Negative none 3+ 0cm Type Weight in lbs Pre/Post Dialysis Refused With clothes 200.641748072588 BP Diastolic BP Location Tested BP Systolic BP Type 82 131 sitting Fetus Heart Rate Present A 155 Present Fetus Movement A Yes Comments pih, gest edema, 24 hr urine , labs drawn today, bed rest, fri nst and b/p evaldiscussed delivery recommendations Flowsheet Date 09/06/2018 Chow Score Blood Edema Fundus Height Fundus Units Glucose Ketones Leukocytes Nitrite Labor Signs Protein Cervic Dilation Cervic Effacement Cervic Station neg 1+ 37 cm none negative none Negative none neg Type Weight in lbs Pre/Post Dialysis Refused Weight 202.393109478153 BP Diastolic BP Location Tested BP Systolic BP Type 71 112 sitting Fetus Heart Rate Present A 135 Present Fetus Movement A Yes Comments nst: reactive, no contractio ns. +1 pitting edema. BP wnl today and at home. rest, increase fluids, continue bed rest. induction sunday night. reminded of kick count. cont. meds. repeat cbc due to low platelet count. Flowsheet Date 09/19/2018 Chow Score Blood Edema Fundus Height Fundus Units Glucose Ketones Leukocytes Nitrite Labor Signs Protein Cervic Dilation Cervic Effacement Cervic Station Type Weight in lbs Pre/Post Dialysis Refused Weight 180.497757647657 BP Diastolic BP Location Tested BP Systolic BP Type 83 135 sitting Fetus Heart Rate Present Fetus Movement Comments Flowsheet Date 10/03/2018 Chow Score Blood Edema Fundus Height Fundus Units Glucose Ketones Leukocytes Nitrite Labor Signs Protein Cervic Dilation Cervic Effacement Cervic Station Type Weight in lbs Pre/Post Dialysis Refused With clothes 179.197844298175 BP Diastolic BP Location Tested BP Systolic BP Type 89 150 sitting 81 L wrist 127 sitting Fetus Heart Rate Present Fetus Movement Comments Menstrual History Last Menstrual Date Menses Monthly On Bcp Conception Prior Menses Frequency Hcg Plus Date Menarche Onset Age 0812/20/2017 true false 12/20/2017 28 01/23/20 1 8 9 Genetic Screening And Infection History Question Response Note Patient's Age Will Be 35 Yea rs Or Older At Estimated Date of Delivery true Thalassemia (Belarusian, Central African, Mediterranean, Or Background): MCV < 80 false Neural Tube Defect (Meningom yelocele, Spina Bifida, Or Anencephaly) false Congenital Heart Defect false Down Syndrome false Kain-Sachs (eg, [place]din, Cajun , Kazakh-Harney) false Geno Disease false Sickle Cell Disease Or Trait () false Hemophilia Or Other Blood Disorders false Muscular Dystrophy false Cystic Fibrosis false [place]'s Chorea false Intellectual Disability/Autism false If Yes, Was Person Tested For Fragile X? false Other Inherited Genetic Or C hromosomal Disorder false Maternal Metabolic Disorder (eg, Type 1 Diabetes, PKU) true maternal grandmother and mat ernal grandfather Patient Or Baby's Father Had A Child With Defects Not Listed Above false Recurrent Loss, Or A Stillbirth false Medications (including Suppl ements, Vitamins, Herbs, OTC Drugs), Illicit/Recreational Drugs, Alcohol true progesterone, pnv If Yes, Agent(s) And Strength/Dosage false Any Other Genetic History false Live With Someone With TB Or Exposed To TB false Patient Or Partner Has Histo ry Of Genital Herpes false Rash Or Viral Illness Since Last Menstrual Period false History Of STD, Gonorrhea, C hlamydia, HPV, Syphilis false Other Infection History false Prior GBS-infected child false History of HIV false History of Hepatitis false Hemoglobinopathy Or Carrier false Other Structural Defect false Recent Travel History Outside of Country false Mental Retardation/Autism false Plans and Education First Trimester Discussed Date Discussion Item Discussion Note Discuss ed By 07/19/2018 Use of any medicatio ns (including supplements, vitamins, herbs, or OTC drugs) [facility] 07/19/2018 [facility]ticipated course of care [facility]2018 Toxoplasmosis precautions (cats/raw meat) [facility] 07/19/2018 [facility]oxoplasmosis [facility] (cats/raw meat) [facility]2018 [facility]/2018 Screening for aneuploidy [facility] 07/19/2018 Weight gain counseling [facility] 07/19/2018 [facility] 07/[facility]/2018 [facility]2018 Childbirth classes/hospital facilities [facility] 07/19/2018 Nutrition counseling ; special diet; dietary precautions (mercury, listeriosis) [facility] 07/19/2018 [facility] Teratogens [facility] 07/19/2018 Travel [facility] 07/19/2018 Indications [facility] 07/[facility]2018 HIV and other routine tests [facility] 07/19/2018 Risk factors identif ied by history [facility] 07/19/2018 Dental care [facility] 07/19/2018 Avoidance of saunas or hot tubs [facility] 07/[facility]/2018 Tobacco/smoking cess ation counseling (ask, advise, assess, assist, and arrange) [facility] 07/19/2018 Alcohol [facility] 07/[facility]/2018 Illicit/recreational drugs [facility] 07/19/2018 [facility] Second Trimester Discussed Date Discussion Item Discussion Note Discuss ed By 07/19/2018 Depression screening (when indicated) [facility] 07/19/2018 Abnormal lab values [facility] 07/19/2018 Selecting a care provider [facility] 07/19/2018 Tobacco/smoking cess ation counseling (ask, advise, assess, assist, and arrange) [facility] 07/19/[address]/tubal sterilization [facility] 07/19/2018 Signs and symptoms of labor [facility] 07/19/2018 Intimate partner violence [facility] Third Trimester Discussed Date Discussion Item Discussion Note Discuss ed By 07/19/2018 Circumcision [facility] 07/19/2018 Intimate partner violence [facility] 07/19/2018 education (n ewborn screening, jaundice, SIDS/safe sleeping position, car seat) [facility] 07/19/2018 [facility]esthesia [facility] 07/[facility]/2018 Trial of labor after (TOLAC) counseling [facility] 07/19/2018 Tobacco/smoking cess ation counseling (ask, advise, assess, assist, and arrange) [facility] 07/19/2018 Family medical leave or disability forms [facility] 07/19/2018 [facility] 07/19/2018 movement monitoring [facility] 07/19/2018 Postterm counseling [facility] 07/19/2018 depression [facility] 07/19/2018 [facility] Signs and symptoms of preeclampsia [facility] Delivery Information Delivery Date Delivery Type Labor Anesthesia Weeks Gestation Incision Type Labor Labor Length Hrs Delivered By Post Complications Tubal Sterilization Discharge Date Comments 9 Induce d [facility]-Ep idural 37.4 false 8.5 Gerald [facility] Hemorrhage false 09/14/2018 Cervical Hemorrhag e Discharge Information Feeding Method Contraceptive Method Maternal HG B and HCT Levels
--- OUTSIDE RECORDS SUMMARY | 2024-10-20 10:26 | XMS_ITS | Encounter Summary ---
Author Organization [employer] Address [address] [place] [id number] Care Team Providers Care Magnetic Prospector Name Role Phone Victor Hugo Soares MD Primary Care Provider [phone] Encounter Details Date Type Department Care Team (Late st Contact Info) Description 09/11/2018 Transcribed Document [facility] [place] Family Medicine [address] [place] [address] ProviderPolly MD [address], [place] [id number] Social History Tobacco Use Types Packs/Day Years Used Date Smoking Tobacco: Never Assessed Comments Unknown Sex and Gender Information Value Date Recorded Sex Assigned at Not on file Legal Sex Female 6:24 PM CDT Gender Identity Not on file Sexual Orientation Not on file documented as of this encounter Miscellaneous Notes * Cerner Conversion Note - Polly Cavazos MD - 09/11/2018 12:00 AM CDT Pain Assessment Entered On: 09/11/2018 6:18 EDT Performed On: 09/11/2018 1:00 EDT by ESTHER GOMEZ RN Intervention Information: ibuprofen Performed by ESTHER GOMEZ RN on 09/11/2018 00:00:00 EDT ibuprofen,600mg Oral Pain Assessment Pain Assessment : Follow-up assessment Pain Scale Goal : 0 ESTHER GOMEZ RN - 09/11/2018 6:17 EDT documented in this encounter Plan of Treatment Not on file documented as of this encounter Visit Diagnoses Not on filedocumented in this encounter Care Teams Magnetic Prospector Relationship Specialty Start Date End Date Victor Hugo Soares MD [address] [place] [address] PCP - General Family Medicine 06/09/22 documented as of this encounter
--- OUTSIDE RECORDS SUMMARY | 2024-10-20 10:26 | XMS_ITS | Encounter Summary ---
Author Organization [employer] Address [address] [place] [address] Care Team Providers Care Vp Of Technology Name Role Phone Victor Hugo Soares MD Primary Care Provider +1 [phone] Encounter Details Date Type Department Care Team (Late st Contact Info) Description 09/09/2018 Transcribed Document [facility] [place] [address] [place] [address] ProviderPolly MD [facility] [place] [address] Social History Tobacco Use Types Packs/Day Years Used Date Smoking Tobacco: Never Assessed Comments Unknown Sex and Gender Information Value Date Recorded Sex Assigned at Not on file Legal Sex Female 6:24 PM CDT Gender Identity Not on file Sexual Orientation Not on file documented as of this encounter Miscellaneous Notes * Cerner Conversion Note - Polly Cavazos MD - 09/09/2018 12:29 AM CDT Admission Data, OB Entered On: 09/09/2018 0:31 EDT Performed On: 09/09/2018 0:29 EDT by Tiera Bright Rn Advance Directive Patient has Advance Directive *Q : No, patient refuses Advance Directive information Tiera Bright Rn - 09/09/2018 0:29 EDT Height and Weight Height Source : Stated Height Entry Format : [place] Height, Feet : 5 ft(Converted to: 152 cm, 60 Inch) Clinical Height : 162.56 cm Height, Inches : 4 Inch(Converted to: 0 ft 4 Inch, 10.16 cm) Weight Source : Standing scale Weight Entry Format : [place] Weight, Pounds : 200 lb Clinical Dosing Weight : 90.91 kg Body Surface Area (BSA) : 1.96 m2 Body Mass Index : 34.4 kg/m2 ([place]) [place] Body Weight (IBW) : 54.3 kg Tiera Bright Rn - 09/09/2018 0:29 EDT Health Histories Smoking Status : Former smoker, quit more than 30 days ago Smokeless Tobacco Status : Never Tiera Bright Rn - 09/09/2018 0:29 EDT Social History (As Of: 09/09/2018 00:31:57 EDT) Tobacco: Smoking Status Former smoker. Use in Last 12 Months: Cigarettes. Last Used: quit 17 years ago. (Last Updated: 11/01/2017 14:39:41 EDT by Eileen Hodgson Rn) Former smoker, quit more than 30 days ago Smoking Status. Never Smokeless Tobacco Status. (Last Updated: 09/09/2018 00:30:30 EDT by Tiera Bright, David) Alcohol: Alcohol Use History No. (Last Updated: 09/09/2018 00:30:30 EDT by Tiera Bright, David) Substance Abuse: Drug Use Hx: No. Use in Last 12 Months: No. (Last Updated: 09/09/2018 00:30:30 EDT by Tiera Bright, Rn) Nutrition/Health: Regular, Caffeine intake amount: 1 serving daily. (Last Updated: 09/09/2018 00:30:30 EDT by Tiera Bright, Rn) Exercise: Exercise duration: 0. (Last Updated: 09/09/2018 00:30:30 EDT by Tiera Bright, Rn) Home/Environment: Lives with Children, Spouse. Living situation: Home/Independent. (Last Updated: 09/09/2018 00:30:30 EDT by Tiera Bright, Rn) Tetanus Immunization Status Previous Tetanus Immunizations : No qualifying data available. Tetanus Immunization : Unknown Tiera Bright Rn - 09/09/2018 0:29 EDT Influenza Vaccine Asmt, Adult Previous Vaccines from Immunization Schedule : No qualifying data available. Influenza Immunization, Current Season : Outside of influenza season Tiera Bright Rn - 09/09/2018 0:29 EDT Pneumococcal Vaccine Previous Vaccines from Immunization Schedule : No qualifying data available. Pneumonia Immunization Received : No Pneumococcal Risk Assessment < Age 65 : None Tiera Bright Rn - 09/09/2018 0:29 EDT Order Details Transport Mode Order Detail : Ambulatory Isolation Precautions Order Detail : Standard Precautions Order Detail : 1 IV Order Detail : 0 Oxygen Order Detail : 0 Nurse Collect Order Detail : 1 Lift/Transfer : Independent Central Line Order Detail : No Room Service : Appropriate Arterial Line : No Tiera Bright Rn - 09/09/2018 0:29 EDT Vital Measurements Temperature Source : Oral Temperature Mode : Fahrenheit Temperature, Fahrenheit : 97.7 Deg F Clinical Temperature, C : 36.5 Deg C Pulse Method : Non-Invasive BP Device Peripheral Pulse Rate : 60 bpm Pulse Rhythm : Regular Respiratory Rate : 14 Breaths/Min Blood Pressure Location : Arm, left upper Blood Pressure Source : Non-Invasive BP Device Blood Pressure Position : Sitting Systolic Blood Pressure : 144 mmHg (HI) Diastolic Blood Pressure : 83 mmHg Tiera Bright Rn - 09/09/2018 0:29 EDT Infectious Disease History Infectious Disease History : Chicken pox/Shingles, Mononucleosis Fever/Chills Last 48 Hours : No Travel To Regions with Travel Advisories : No Travel Outside [place] Within Last 30 Days : No Contact With Traveler to Advisory Region : No Tuberculosis Symptoms : None Tiera Bright Rn - 09/09/2018 0:29 EDT documented in this encounter Plan of Treatment Not on file documented as of this encounter Visit Diagnoses Not on filedocumented in this encounter Care Teams Vp Of Technology Relationship Specialty Start Date End Date Victor Hugo Soares MD [address] [place] [address] PCP - General Family Medicine 06/09/22 documented as of this encounter
--- OUTSIDE RECORDS SUMMARY | 2024-10-20 10:26 | XMS_ITS | Encounter Summary ---
Author Organization [employer] Address [address] [place] [address] Care Team Providers Care Clearing Supervisor Name Role Phone Victor Hugo Soares MD Primary Care Provider [phone] [phone] Encounter Details Date Type Department Care Team (Late st Contact Info) Description 09/11/2018 Transcribed Document [facility] [place] Family Medicine [address] [place] [address] ProviderPolly MD [address] [place], [place] [id number] Social History Tobacco Use Types Packs/Day Years Used Date Smoking Tobacco: Never Assessed Comments Unknown Sex and Gender Information Value Date Recorded Sex Assigned at Not on file Legal Sex Female 6:24 PM CDT Gender Identity Not on file Sexual Orientation Not on file documented as of this encounter Miscellaneous Notes * Cerner Conversion Note - Polly Cavazos MD - 09/11/2018 9:48 AM CDT UM Authorization Entered On: 09/11/2018 9:48 EDT Performed On: 09/11/2018 9:48 EDT by RACH VILLANUEVA RN-Utilization Review Primary Insurance Authorization Authorization and Policy Numbers : Insurance 1 Health Plan: [employer] Policy Number: [id number] Authorization Number: Insurance Primary Name : Passport Authorization Status-Primary : No precert required Authorization Number-Primary : auto 2 Number of Days Authorized-Primary : 2 Authorized Service Begin Date-Primary : 09/09/2018 EDT Authorized Service End Date-Primary : 09/10/2018 EDT Historical Authorization Comments-Primary : No Authorization Comments Found RACH VILLANUEVA RN-Utilization Review - 09/11/2018 9:48 EDT documented in this encounter Plan of Treatment Not on file documented as of this encounter Visit Diagnoses Not on filedocumented in this encounter Care Teams Clearing Supervisor Relationship Specialty Start Date End Date Victor Hugo Soares MD [address] [place] [address] PCP - General Family Medicine 06/09/22 documented as of this encounter
--- OUTSIDE RECORDS SUMMARY | 2024-10-20 10:26 | XMS_ITS | Encounter Summary ---
Author Organization [employer] Address [address] [place] [address] Care Team Providers Care Residential Builder Name Role Phone Victor Hugo Soares MD Primary Care Provider [phone] [phone] Encounter Details Date Type Department Care Team (Late st Contact Info) Description 09/09/2018 Transcribed Document [facility] [place] [facility] [place] [address] ProviderPolly MD [address] [place] [phone] Social History Tobacco Use Types Packs/Day Years Used Date Smoking Tobacco: Never Assessed Comments Unknown Sex and Gender Information Value Date Recorded Sex Assigned at Not on file Legal Sex Female 6:24 PM CDT Gender Identity Not on file Sexual Orientation Not on file documented as of this encounter Miscellaneous Notes * Cerner Conversion Note - Polly Cavazos MD - 09/09/2018 9:56 PM CDT DATE OF PROCEDURE: HISTORY: She is a 38-year-old white female who delivered earlier today by vaginal delivery. She had a previous LEEP on her cervix and it was noted earlier that she had an adhesive dense ring around her cervix. She delivered without any complications. Approximately one hour , she was passing clots and the clots were evacuated, and she was given some Cytotec. Couple of hours later, she had another episode. We observed her for about an hour and then she had another episode of clots. So, she had hemorrhage delayed, so she was taken for evaluation. PREOPERATIVE DIAGNOSIS(ES): hemorrhage, delayed. POSTOPERATIVE DIAGNOSIS(ES): PROCEDURE: Repair of right cervical laceration and vaginal packing. SURGEON: Gerald Juarez DO ANESTHESIA: Spinal . ESTIMATED BLOOD LOSS: Patient had passed clots. Procedure itself did not cause any blood loss; however, we did evacuate another probably 300 mL of blood clots from her vagina that was three episodes for her and she was typed and crossed and we started to give her some blood. DESCRIPTION OF PROCEDURE: Patient was given preoperative antibiotics and DVT prophylaxis, taken to the operative suite, placed in dorsal lithotomy position, sterilely prepped and draped in usual fashion. She had received informed consent preoperatively. We used a weighted speculum and grasped the cervix with ring forceps, pulled it towards the surgeon. The cervix was intact throughout; however on the lateral 9 o'clock position where the adhesive disease was there was some oozing. There was no definitive laceration. However, there was oozing and separation of the two layers of the cervix. We placed some chromic sutures on that side and we also placed some sutures at the 6 o'clock position. Cervical packing and vaginal packing were placed. Patient did receive intraoperative antibiotics. She will stay on Labor and Delivery where we will observe her overnight. She will be given 2 units of blood and we will check her hemoglobin in the morning. She is stable. The bleeding appears to be controlled and we will watch her. Gerald Juarez D.O. Dict: 09/09/2018 21:56:50 Trans: 09/10/2018 00:31:35 CC1: Gerald Juarez D.O. Electronically signed by Deana, [facility] Conversion Portfolio Assistant Cerner at 08/20/2022 4:48 PM CDT documented in this encounter Plan of Treatment Not on file documented as of this encounter Visit Diagnoses Not on filedocumented in this encounter Care Teams Residential Builder Relationship Specialty Start Date End Date Victor Hugo Soares MD [address] [place] [address] PCP - General Family Medicine 06/09/22 documented as of this encounter
== END 2024-10-20 23:59 | disposition home or self-care (01) ==
PROVIDERS: PCP Family Medicine; Visit Provider Physician Assistant
DX: N63.21 Unspecified lump in the left breast, upper outer quadrant (principal); R92.322 Mammographic fibroglandular density, left breast
CPT/HCPCS: 76641; 77061; 77065; G0279

== ENCOUNTER 2024-11-26 14:50 | Outpatient (CLI) | payer OTHER, SELFPAY ==
--- OUTSIDE RECORDS SUMMARY | 2024-06-16 12:15 | XMS_ITS ---
Author Organization [facility] Address [address] [facility] [address] [place] [phone] Care Team Providers Care Service Parts Driver Name Role Phone Coleman Soares Primary Care Provider Allergies No Known Allergies Results Component Value Reference Range Notes P-Comprehensive Metabolic Pa nate (CMP) Reviewed date:06/18/2024 03:13:01 PM Interpretation:gluc 57 Performing Lab: Notes/Report: Test performed by [facility] [address] [place] [address] , [address], [place] [address] Gerardo Deal MD, Park Worker Supervisor CLIA: [id number] Sodium 142 135-145 mmol/L Potassium 4.7 3.5-5.3 [...] Risk Notes Problem Uncomplicated moderate persistent asthma (343650029) Moderate persistent asthma without complication (J45.40) Active confirmed Problem Keratosis of plantar aspect of foot (Q82.8) Active confirmed Vital Signs Blood pressure systolic 124 mm Hg 06/16/19 25 Blood pressure diastolic 86 mm Hg 025 Heart Rate 54 /min 06/16/2024 Height 64.50 in 06/16/2024 Weight 186.8 lbs 06/16/2024 BMI 31.57 kg/m2 06/16/2024 Encounters Encounter Location Date Provider Diagnosis [facility] [address] [facility] [address] [place], [place] [id number] 06/16/2024 Coleman Soares Moderate persistent asthma without [...] 4 Months, Reason: Provider Name:Coleman Park , 03/09/2025 09:45:00 AM, [address] [facility] [address] [facility], [address] , [place], [place], [id number], Progress Notes * Shyla MALDONADODOB: [birth year] (44 yo F)Acc No.[id number]:06/16/2024 Progress Notes Patient: Shyla DONAHUE Provider: Coleman Soares M.D. :1980 A ge:44 Y S ex:Female Date:06/16/2024 Address:[address] [place] [address] [id number] Subjective: * Chief Complaints: * 1 . [...] Juarez 2018. * Hospitalization/Major Diagno stic Procedure: [facility] bed rest- child Jul- August 2009, [facility] ear pain 12/01/2020. * Family [...] * Procedure Codes: 9 4760 [place], [address] VENIPUNCT, ROUTINE*, 83153 SPECIMEN HANDLING, 3074F SYST BP LT 130 MM HG, 3079F DIAST BP 80-89 MM HG * Follow Up: 4 Months * Images: Billing Information: * Visit Code: 39122 Office Visit, Est Pt., Level 3. * Procedure Codes: [address] [place]. [address] VENIPUNCT, ROUTINE*. 01906 SPECIMEN HANDLING. 3074F SYST BP LT 130 MM HG. 3079F DIAST BP 80-89 MM HG. * Electronic signature of Coleman Soares MD on 11/26/2024 at 02:54 PM EDT Sign off status: Pending * Provider: Coleman Soares M.D. Date: 0 06/16/2024 Generated for Ivettei kathrine/Cindy/eTransmitting on: 0 11/26/2024 02:54 PM EDT History and Physical Notes * HPI [...]
--- OUTSIDE RECORDS SUMMARY | 2024-11-26 14:53 | XMS_ITS | Encounter Summary ---
Author Organization [employer] ([place], [place], [place], [place]) Address [address] [place] [address] Care Team Providers Care Marine Transport Professionals Name Role Phone Jodi Jones MD Primary Care Provider [phone] [phone] Encounter Details Date Type Department Care Team (Late st Contact Info) Description 09/14/2018 Transcribed Document [facility] [place] [facility] [place] [address] ProviderPolly MD [address] [place] [id number] Social History Tobacco Use Types Packs/Day Years Used Date Smoking Tobacco: Never Assessed Comments Unknown Sex and Gender Information Value Date Recorded Sex Assigned at Not on file Legal Sex Female 6:24 PM CDT Gender Identity Not on file Sexual Orientation Not on file documented as of this encounter Miscellaneous Notes * Cerner Conversion Note - Polly ProviderMD - 09/14/2018 11:32 AM CDT [place] [id number] HARSH MALDONADO :1980 Visit Time:09/09/2018 Your Visit Summary Your Care Team Admitting Physician - TERRY MITCHELL DO-OBG Attending Physician - TERRY MITCHELL DO-OBG Primary Care Physician - JODI JONES MD-[facility] Referring Physician - TERRY MITCHELL DO-OBG Your [...] Call for follow up appointment Where: [address] [phone]- Business (1) Medications What How Much When Instructions [...] should be checked by a certified car windshield installer to make sure that it is installed [...] 02/11/2008 Document Revised: 09/18/2016 Document Reviewed: 03/20/2016 [employer] Interactive Patient Education ?? 2018 [employer] Choosing to breastfeed is one of [...] smacking lips, cooing, sighing, or squeaking. ??? Iwvy-ve-vnjlq movements and sucking on fingers or hands. [...] able to be present during feedings. Your nursing education consultant can help you find a method [...] contact your health care provider or a nursing education consultant. Overall health care recommendations while ??? [...] provider before taking any medicines. These include sbwb-mws-hnendxy and prescription medicines as well as vitamins and herbal supplements. Some medicines that may be harmful to your baby can pass through breast milk. ??? It is possible to become while . If control is desired, ask your health care provider about options that will be safe while your baby. Where to find more information: [employer]: www.llli.org Contact a health care [...] Talk with your health care provider or nursing education consultant if you have questions or you face problems as you breastfeed. This information is not intended to replace advice given to you by your health care provider. Make sure you discuss any questions you have with your health care provider. Document Released: 04/16/2006 Document Revised: 05/18/2017 Document Reviewed: 05/18/2017 [employer] Interactive Patient Education ?? 2019 [employer]. Emergency Awareness and Preventative Care STROKE is [...] Assistance with quitting is available by contacting 1-234-JQDX-NOW. This is a free resource providing counseling, [...] sure to sign up for the [facility] patient portal, which gives you 20/11 access to your medical information ??? including these discharge instructions ??? using your computer, smartphone, or tablet. Just go to [employer] to get started. Questions? Call . Test [...] range between ( 1.0 and 7.0 ) Mills #: 0.75 K/uL -- Normal range between ( 0.24 and 0.82 ) Eos #: 0.35 K/uL -- Normal range between ( 0.04 and 0.54 ) [place] %: 9.5 % -- Normal range between [...] was given the opportunity to ask questions. Patient/Maintenance Groundman Name: Patient/Maintenance Groundman Signature: Relationship to Patient: Clinician/Hospital Maintenance Groundman Signature: Date: documented in this encounter Plan of Treatment Not on file documented as of this encounter Visit Diagnoses Not on filedocumented in this encounter Care Teams Marine Transport Professionals Relationship Specialty Start Date End Date Jodi Jones MD [address] [place] [address] PCP - General Family Medicine 06/09/22 documented as of this encounter
--- OUTSIDE RECORDS SUMMARY | 2024-11-26 14:53 | XMS_ITS | Encounter Summary ---
Author Organization [employer] ([place], [place], [place], [place]) Address [address] [place] [address] Care Team Providers Care Dumpster Operator Name Role Phone Victor Hugo Soares MD Primary Care Provider [phone] [phone] Encounter Details Date Type Department Care Team (Late st Contact Info) Description 09/14/2018 Transcribed Document [facility] [place] Family [place] [address] [place] [address] ProviderPolly MD [address] [place], [place] [address] Social History Tobacco Use Types Packs/Day Years Used Date Smoking Tobacco: Never Assessed Comments Unknown Sex and Gender Information Value Date Recorded Sex Assigned at Not on file Legal Sex Female 6:24 PM CDT Gender Identity Not on file Sexual Orientation Not on file documented as of this encounter Miscellaneous Notes * Cerner Conversion Note - Polly ProviderMD - 09/14/2018 3:42 PM CDT UM Authorization Entered On: 09/14/2018 15:43 EDT Performed On: 09/14/2018 15:42 EDT by JI PETERSON Rn-Utilization Review Primary Insurance Authorization Authorization and Policy Numbers : Insurance 1 Health Plan: [employer] Policy Number: [id number] Authorization Number: AUTO 2 Insurance Primary Name : Passport Authorization Status-Primary : Awaiting callback Authorization Number-Primary : auto 2 Number of Days Authorized-Primary : 2 Authorized Service Begin Date-Primary : 09/09/2018 EDT Authorized Service End Date-Primary : 09/10/2018 EDT Authorization Comments-Primary : Clinicals for continued stay faxed to [facility] Historical Authorization Comments-Primary : No Authorization Comments Found JI PETERSON Rn-Utilization Review - 09/14/2018 15:42 EDT Electronically signed by Deana, [facility] Conversion Motorized Squad Commanding Officer Cerner at 08/20/2022 4:46 PM CDT documented in this encounter Plan of Treatment Not on file documented as of this encounter Visit Diagnoses Not on filedocumented in this encounter Care Teams Dumpster Operator Relationship Specialty Start Date End Date Victor Hugo Soares MD [address] [place] [address] PCP - General Family Medicine 06/09/22 documented as of this encounter
--- OUTSIDE RECORDS SUMMARY | 2024-11-26 14:53 | XMS_ITS | Encounter Summary ---
Author Organization [employer] ([place], [place], [place], [place]) Address [address] [place] [address] Care Team Providers Care Greens Keeper Name Role Phone Victor Hugo Soares MD Primary Care Provider [phone] [phone] Encounter Details Date Type Department Care Team (Late st Contact Info) Description 09/14/2018 Transcribed Document [facility] [place] [facility] [place] [address] ProviderPolly MD [address] [place], [place] [address]141 Social History Tobacco Use Types Packs/Day Years Used Date Smoking Tobacco: Never Assessed Comments Unknown Sex and Gender Information Value Date Recorded Sex Assigned at Not on file Legal Sex Female 6:24 PM CDT Gender Identity Not on file Sexual Orientation Not on file documented as of this encounter Miscellaneous Notes * Cerner Conversion Note - Historical ProviderMD - 09/14/2018 10:52 AM CDT Stroke/Warfarin Instructions [...] on filedocumented in this encounter Care Teams Greens Keeper Relationship Specialty Start Date End Date Victor Hugo Soares MD [address] [place] [address] PCP - General Family Medicine 06/09/22 documented as of this encounter
--- OUTSIDE RECORDS SUMMARY | 2024-11-26 14:53 | XMS_ITS | Encounter Summary ---
Author Organization [employer] ([place], [place], [place], [place]) Address [address] [place] [address] Care Team Providers Care Wraparound Facilitator Name Role Phone Victor Hugo Soares MD Primary Care Provider [phone] [phone] Encounter Details Date Type Department Care Team (Late st Contact Info) Description 09/14/2018 Transcribed Document [facility] [place] [facility] [place] [address] ProviderPolly MD [address] [place] [id number] Social History Tobacco Use Types Packs/Day Years Used Date Smoking Tobacco: Never Assessed Comments Unknown Sex and Gender Information Value Date Recorded Sex Assigned at Not on file Legal Sex Female 6:24 PM CDT Gender Identity Not on file Sexual Orientation Not on file documented as of this encounter Miscellaneous Notes * Cerner Conversion Note - Historical ProviderMD - 09/14/2018 3:34 PM CDT oil tanker captain Form Entered On: 09/14/2018 15:35 EDT Performed On: 09/14/2018 15:34 EDT by JI PETERSON Rn-Utilization Review UM Additional Information UM Additional Comment : PT STAYED PAST ALLOTTED 2 DAYS BECAUSE OF HEMORRHAGE. DISCHARGE ORDERS TODAY. JI PETERSON Rn-Utilization Review - 09/14/2018 15:34 EDT Electronically signed by Deana [facility] Conversion Industrial Automation Engineer Cerner at 08/20/2022 4:42 PM CDT documented in this encounter Plan of Treatment Not on file documented as of this encounter Visit Diagnoses Not on filedocumented in this encounter Care Teams Wraparound Facilitator Relationship Specialty Start Date End Date Victor Hugo Soares MD [address] [place] [address] PCP - General Family Medicine 06/09/22 documented as of this encounter
--- OUTSIDE RECORDS SUMMARY | 2024-11-26 14:53 | XMS_ITS | Encounter Summary ---
Author Organization [employer] ([place], [place], [place], [place]) Address [address] [place] [address] Care Team Providers Care Skiagrapher Name Role Phone Victor Hugo Soaers MD Primary Care Provider [phone] [phone] Encounter Details Date Type Department Care Team (Late st Contact Info) Description 09/14/2018 Transcribed Document [facility] [place] [facility] [place] [address] ProviderPolly MD [address] [place] [id number] Social History Tobacco Use Types Packs/Day Years Used Date Smoking Tobacco: Never Assessed Comments Unknown Sex and Gender Information Value Date Recorded Sex Assigned at Not on file Legal Sex Female 6:24 PM CDT Gender Identity Not on file Sexual Orientation Not on file documented as of this encounter Miscellaneous Notes * Cerner Conversion Note - Historical ProviderMD - 09/14/2018 10:52 AM CDT Nursing Discharge [...] SESAR ARREGUIN RN - 09/14/2018 10:52 EDT Electronically signed by Deana, [facility] Conversion Moveman Cerner at 08/20/2022 4:37 PM CDT documented in this encounter Plan of Treatment Not on file documented as of this encounter Visit Diagnoses Not on filedocumented in this encounter Care Teams Skiagrapher Relationship Specialty Start Date End Date Victor Hugo Soares MD [address] [place] [address] PCP - General Family Medicine 06/09/22 documented as of this encounter
--- OUTSIDE RECORDS SUMMARY | 2024-11-26 14:53 | XMS_ITS | Encounter Summary ---
Author Organization [employer] ([place], [place], [place], [place]) Address [address] [place] [address] Care Team Providers Care Melt House Drag Operator Name Role Phone Jodi Jones MD Primary Care Provider [phone] [phone] Encounter Details Date Type Department Care Team (Late st Contact Info) Description 09/14/2018 Transcribed Document [facility] [place] [facility] [place] [address] ProviderPolly MD [address] [place] [address] Social History Tobacco Use Types Packs/Day Years [...] on Record Primary Care Provider JODI JONES MD-[facility] Discharge Diagnosis No Diagnosis on Record s/p [...] on Discharge 25 min Electronically signed by Balaji Leblanc Conversion Drug Abuse Resistance Education Officer Cerner at 08/20/2022 4:39 PM CDT documented in this encounter Plan of Treatment Not on file documented as of this encounter Visit Diagnoses Not on filedocumented in this encounter Care Teams Melt House Drag Operator Relationship Specialty Start Date End Date Jodi Jones MD [address] [place] [address] PCP - General Family Medicine 06/09/22 documented as of this encounter
--- OUTSIDE RECORDS SUMMARY | 2024-11-26 14:53 | XMS_ITS | Clinical Summary ---
Author Organization [email or web address] ([place], [place], [place], [place]) Address [address] [place] [address] Care Team Providers Care Riveter Name Role Phone Victor Hugo Soares MD Primary Care Provider +1 -[phone] Allergies Active Allergy Reactions Criticality Noted Date [...] drink = 0.6 oz pur e alcohol) Food Insecurity Answer Date Recorded Food run [...] Date Hao rded Speak language other than Bel[place]an at home Not on file 05/13/2023 Want help with school or training Not on file 05/13/2023 Substance Use Answer Date Recorded Used [...] VACCINE ( - season) 2023 Influenza Vaccine (#1) 2024 DTAP/TDAP/TD VACCINES (4 - T d or Tdap) 09/13/2028 09/13/2018, 02/05/2007, 07/05/1996 Medical Devices Implanted Type Area Plain Clothes Police Officer Device Identifier Shelf Expiration Date Model / Serial / Lot Sling Laurie Meier [id number] - [id number] [17]2023-09-08 Implanted:Qty: 1 on 06/12/2022 by Gerald Juarez MD at [facility] IMPLANTS N/A: Vagina KEVIN MED 09/08/2023 [id number] / [id number] [17]09-07 / [id number] Insurance [facility] Care Teams Riveter Relationship Specialty Start Date End Date Victor Hugo Soares MD [address] [place] [address] PCP - General Family Medicine 06/09/22
--- OUTSIDE RECORDS SUMMARY | 2024-11-26 14:53 | XMS_ITS | Encounter Summary ---
Author Organization [employer] ([place], [place], [place], [place]) Address [address] [place] [address] Care Team Providers Care Stockroom Coordinator Name Role Phone Victor Hugo Soares MD Primary Care Provider +1 -[phone] Encounter Details Date Type Department Care Team (Late st Contact Info) Description 09/14/2018 Transcribed Document [facility] [place] [facility] [address] ProviderPolly MD [address] [place] [address] [id number] Social History Tobacco Use Types Packs/Day Years Used Date Smoking Tobacco: Never Assessed Comments Unknown Sex and Gender Information Value Date Recorded Sex Assigned at Not on file Legal Sex Female 6:24 PM CDT Gender Identity Not on file Sexual Orientation Not on file documented as of this encounter Miscellaneous Notes * Cerner Conversion Note - Historical ProviderMD - 09/14/2018 9:28 AM CDT DATE OF ADMISSION: 09/09/2018 DATE OF DISCHARGE: 09/14/2018 HOSPITAL COURSE: She underwent induction of labor and delivered a rosales viable infant. On her postoperative course, she did have [...] 09:28:39 Trans: 09/14/2018 10:04:40 Processed: 09/16/2018 14:31:51 [place] CC1: Gerald Juarez D.O. documented in this encounter Plan of Treatment Not on file documented as of this encounter Visit Diagnoses Not on filedocumented in this encounter Care Teams Stockroom Coordinator Relationship Specialty Start Date End Date Victor Hugo Soares MD [address] [place] [address] PCP - General Family Medicine 06/09/22 documented as of this encounter
--- OUTSIDE RECORDS SUMMARY | 2024-11-26 14:53 | XMS_ITS | Encounter Summary ---
Author Organization [employer] ([place], [place], [place], [place]) Address [address] [place] [address] Care Team Providers Care Information Systems Analyst Name Role Phone Victor Hugo Soares MD Primary Care Provider +1 -[phone] Encounter Details Date Type Department Care Team (Late st Contact Info) Description 09/13/2018 Transcribed Document [facility] [place] [facility] [place] [address] ProviderPolly MD [address] [place] [address] [id number] Social History Tobacco Use Types Packs/Day Years [...] Performed On: 09/13/2018 5:00 EDT by HARSH MAHAN RN Chart Check Powerplans Initiated/Discontinued as Appropriate : Yes All Active Orders Reviewed : Yes HARSH MAHAN RN - 09/13/2018 3:45 EDT documented in this encounter Plan of Treatment Not on file documented as of this encounter Visit Diagnoses Not on filedocumented in this encounter Care Teams Information Systems Analyst Relationship Specialty Start Date End Date Victor Hugo Soares MD [address] [place] [address] PCP - General Family Medicine 06/09/22 documented as of this encounter
--- OUTSIDE RECORDS SUMMARY | 2024-11-26 14:53 | XMS_ITS | Encounter Summary ---
Author Organization [employer] ([place], [place], [place], [place]) Address [address] [place] [address] Care Team Providers Care Business Services Manager Name Role Phone Victor Hugo Soares MD Primary Care Provider +1 -[phone] Encounter Details Date Type Department Care Team (Late st Contact Info) Description 09/14/2018 Transcribed Document [facility] [place] [address] ProviderPolly MD [address] [place] [address] [id number] Social History Tobacco Use Types Packs/Day Years [...] should be checked by a certified car evaporative cooler installer to make sure that it is [...] 02/11/2008 Document Revised: 09/18/2016 Document Reviewed: 03/20/2016 Else[employer] Trace Interactive Patient Education ? 2018 Elsevier Inc. Choosing to breastfeed is one of [...] to meet your baby?s needs compared to formula. ??? Breast milk improves your baby's [...] or silent sucking, without causing you pain. 's lips should be extended outward (flanged). ??? [...] smacking lips, cooing, sighing, or squeaking. ??? Kdrk-us-axkpw movements and sucking on fingers or hands. [...] able to be present during feedings. Your therapeutic consultant can help you find a method [...] contact your health care provider or a therapeutic consultant. Overall health care recommendations while ??? [...] provider before taking any medicines. These include tjno-zzf-otrxmnt and prescription medicines as well as vitamins [...] Talk with your health care provider or therapeutic consultant if you have questions or you face problems as you breastfeed. This information is not intended to replace advice given to you by your health care provider. Make sure you discuss any questions you have with your health care provider. Document Released: 04/16/2006 Document Revised: 05/18/2017 Document Reviewed: 05/18/2017 [employer] Interactive Patient Education ? 2019 [employer]imki. documented in this encounter Plan of Treatment Not on file documented as of this encounter Visit Diagnoses Not on filedocumented in this encounter Care Teams Business Services Manager Relationship Specialty Start Date End Date Victor Hugo Soares MD [address] [place] [address] PCP - General Family Medicine 06/09/22 documented as of this encounter
--- OUTSIDE RECORDS SUMMARY | 2024-11-26 14:54 | XMS_ITS | Encounter Summary ---
Author Organization [employer] ([place], [place], [place], [place]) Address [address] [place] [address] Care Team Providers Care Flame Annealing Machine Setter Name Role Phone Victor Hugo Soares MD Primary Care Provider [phone] [phone] Encounter Details Date Type Department Care Team (Late st Contact Info) Description 09/20/2018 Transcribed Document [facility] [place] Family [place] [facility] [place] [address] ProviderPolly MD [facility] [place], [place] [id number] Social History Tobacco Use Types Packs/Day Years Used Date Smoking Tobacco: Never Assessed Comments Unknown Sex and Gender Information Value Date Recorded Sex Assigned at Not on file Legal Sex Female 6:24 PM CDT Gender Identity Not on file Sexual Orientation Not on file documented as of this encounter Miscellaneous Notes * Cerner Conversion Note - Historical ProviderMD - 09/20/2018 2:14 PM CDT HISTORY [...] on filedocumented in this encounter Care Teams Flame Annealing Machine Setter Relationship Specialty Start Date End Date Victor Hugo Soares MD [address] [place] [address] PCP - General Family Medicine 06/09/22 documented as of this encounter
--- OUTSIDE RECORDS SUMMARY | 2024-11-26 14:54 | XMS_ITS | Encounter Summary ---
Author Organization [email or web address] ([place], [place], [place], [place]) Address [address] [place] [address] Care Team Providers Care Ceramics Teacher Name Role Phone Victor Hugo Soares MD Primary Care Provider +1 [phone] Encounter Details Date Type Department Care Team (Late st Contact Info) Description 09/16/2018 Transcribed Document [facility] [place] Family Medicine [address] [place] [address] ProviderPolly MD [address] [place], [place] [id number] Social History Tobacco Use Types Packs/Day Years Used Date Smoking Tobacco: Never Assessed Comments Unknown Sex and Gender Information Value Date Recorded Sex Assigned at Not on file Legal Sex Female 6:24 PM CDT Gender Identity Not on file Sexual Orientation Not on file documented as of this encounter Miscellaneous Notes * Cerner Conversion Note - Historical ProviderMD - 09/16/2018 12:52 PM CDT UM Authorization Entered On: 09/16/2018 12:53 EDT Performed On: 09/16/2018 12:52 EDT by RACH VILLANUEVA RN-Utilization Review Primary Insurance Authorization Authorization and Policy Numbers : Insurance 1 Health Plan: [employer] Policy Number: [id number] Authorization Number: AUTO 2 Insurance Primary Name : [facility] Authorization Status-Primary : Admit approved Authorization Number-Primary : [id number] Number of Days Authorized-Primary : 5 Authorized Service Begin Date-Primary : 09/09/2018 EDT Authorized Service End Date-Primary : 09/13/2018 EDT Historical Authorization Comments-Primary : Comment 1: Clinicals for continued stay faxed to [facility] (PETERSON, JI, Rn-Utilization Review 09/14/2018 15:42) RACH VILLANUEVA RN-Utilization Review - 09/16/2018 12:52 EDT documented in this encounter Plan of Treatment Not on file documented as of this encounter Visit Diagnoses Not on filedocumented in this encounter Care Teams Ceramics Teacher Relationship Specialty Start Date End Date Victor Hugo Soares MD [address] [place] [address] PCP - General Family Medicine 06/09/22 documented as of this encounter
--- OUTSIDE RECORDS SUMMARY | 2024-11-26 14:54 | XMS_ITS | Clinical Summary ---
Author Organization [facility] Address [address] [place] [address] Care Team Providers Care Systems Test Technician Name Role Phone Pcp, No Primary Care [...] 02/03/2001 [facility]-Cervical Cancer Screening 02/03/2010 [facility]-HPV/Cotest 02/03/2010 [facility]-XSEWZ-30 Vaccine (1 - 2023-25 season) 2023 [facility]-Influenza Vaccine (#1) 2024 [facility]-Zoster Vaccines (1 of 2) 02/03/2030 [...] Insurance [employer] Care Teams Systems Test Technician Relationship Specialty Start Date End Date Pcp, Angela [address] [place] [address] PCP - General Family Medicine 11/12/23
--- OUTSIDE RECORDS SUMMARY | 2024-11-26 14:54 | XMS_ITS | Encounter Summary ---
Author Organization [employer] ([place], [place], [place], [place]) Address [address] [place] [address] Care Team Providers Care Annual Giving Director Name Role Phone Victor Hugo Soares MD Primary Care Provider [phone] [phone] Encounter Details Date Type Department Care Team (Late st Contact Info) Description 09/10/2018 Transcribed Document [facility] [place] [address] [place] [address] ProviderPolly MD [address] [place], [place] 200591 Social History Tobacco Use Types Packs/Day Years Used Date Smoking Tobacco: Never Assessed Comments Unknown Sex and Gender Information Value Date Recorded Sex Assigned at Not on file Legal Sex Female 6:24 PM CDT Gender Identity Not on file Sexual Orientation Not on file documented as of this encounter Miscellaneous Notes * Cerner Conversion Note - Historical ProviderMD - 09/10/2018 4:07 PM CDT UM Authorization Entered On: 09/10/2018 16:08 EDT Performed On: 09/10/2018 16:07 EDT by JI PETERSON Rn-Utilization Review Primary Insurance Authorization Authorization and Policy Numbers : Insurance 1 Health Plan: [employer] Policy Number: [id number] Authorization Number: Insurance Primary Name : Passport Authorized Service Begin Date-Primary : 09/09/2018 EDT Authorized Service End Date-Primary : 09/10/2018 EDT Historical Authorization Comments-Primary : No Authorization Comments Found JI PETERSON Rn-Utilization Review - 09/10/2018 16:07 EDT documented in this encounter Plan of Treatment Not on file documented as of this encounter Visit Diagnoses Not on filedocumented in this encounter Care Teams Annual Giving Director Relationship Specialty Start Date End Date Victor Hugo Soares MD [address] [place] [address] PCP - General Family Medicine 06/09/22 documented as of this encounter
--- OUTSIDE RECORDS SUMMARY | 2024-11-26 14:55 | XMS_ITS | Encounter Summary ---
Author Organization [employer] ([place], [place], [place], [place]) Address [address] [place] [address] Care Team Providers Care Procurement Coordinator Name Role Phone Victor Hugo Soares MD Primary Care Provider +1 [phone] Encounter Details Date Type Department Care Team (Late st Contact Info) Description 09/11/2018 Transcribed Document [facility] [place] [address] [place] [address] ProviderPolly MD [address] [place], [place] 663021 Social History Tobacco Use Types Packs/Day Years Used Date Smoking Tobacco: Never Assessed Comments Unknown Sex and Gender Information Value Date Recorded Sex Assigned at Not on file Legal Sex Female 6:24 PM CDT Gender Identity Not on file Sexual Orientation Not on file documented as of this encounter Miscellaneous Notes * Cerner Conversion Note - Historical ProviderMD - 09/11/2018 9:47 AM CDT UM Authorization Entered On: 09/11/2018 9:48 EDT Performed On: 09/11/2018 9:47 EDT by RACH VILLANUEVA RN-Utilization Review Primary Insurance Authorization Authorization and Policy Numbers : Insurance 1 Health Plan: [employer] Policy Number: [id number] Authorization Number: Insurance Primary Name : Passport [...] on filedocumented in this encounter Care Teams Procurement Coordinator Relationship Specialty Start Date End Date Victor Hugo Soares MD [address] [place] [address] PCP - General Family Medicine 06/09/22 documented as of this encounter
--- OUTSIDE RECORDS SUMMARY | 2024-11-26 14:55 | XMS_ITS | Encounter Summary ---
Author Organization [email or web address] ([place], [place], [place], [place]) Address [address] [place] [address] Care Team Providers Care Functional Mental Disability Teacher Name Role Phone Victor Hugo Soares MD Primary Care Provider [phone] [phone] Encounter Details Date Type Department Care Team (Late st Contact Info) Description 09/11/2018 Transcribed Document [facility] [place] [address] [place] [address] ProviderPolly MD [address] [place], [place] 9723[address] Social History Tobacco Use Types Packs/Day Years Used Date Smoking Tobacco: Never Assessed Comments Unknown Sex and Gender Information Value Date Recorded Sex Assigned at Not on file Legal Sex Female 6:24 PM CDT Gender Identity Not on file Sexual Orientation Not on file documented as of this encounter Miscellaneous Notes * Cerner Conversion Note - Historical ProviderMD - 09/11/2018 9:48 AM CDT UM Authorization Entered On: 09/11/2018 9:48 EDT Performed On: 09/11/2018 9:48 EDT by RACH VILLANUEVA RN-Utilization Review Primary Insurance Authorization Authorization and Policy Numbers : Insurance 1 Health Plan: [employer] Policy Number: [id number] Authorization Number: Insurance Primary Name : Passport [...] on filedocumented in this encounter Care Teams Functional Mental Disability Teacher Relationship Specialty Start Date End Date Victor Hugo Soares MD [address] [place] [address] PCP - General Family Medicine 06/09/22 documented as of this encounter
--- OUTSIDE RECORDS SUMMARY | 2024-11-26 14:55 | XMS_ITS | Encounter Summary ---
Author Organization [employer] ([place], [place], [place], [place]) Address [address] [place] [address] Care Team Providers Care Draw In Hand Name Role Phone Victor Hugo Soares MD Primary Care Provider +1 -[phone] Encounter Details Date Type Department Care Team (Late st Contact Info) Description 09/09/[address] [facility] [place] Family Medicine [facility] [place] [address] ProviderPolly MD [address] [place] [id number] Social History Tobacco Use Types Packs/Day Years Used Date Smoking Tobacco: Never Assessed Comments Unknown Sex and Gender Information Value Date Recorded Sex Assigned at Not on file Legal Sex Female 6:24 PM CDT Gender Identity Not on file Sexual Orientation Not on file documented as of this encounter Miscellaneous Notes * Cerner Conversion Note - Historical ProviderMD - 09/09/2018 9:56 PM CDT DATE OF [...] CC1: Gerald Juarez D.O. Electronically signed by Deana [facility] Conversion Needle Grader Cerner at 08/20/2022 4:48 PM CDT documented in this encounter Plan of Treatment Not on file documented as of this encounter Visit Diagnoses Not on filedocumented in this encounter Care Teams Draw In Hand Relationship Specialty Start Date End Date Victor Hugo Soares MD [address] [place] [address] PCP - General Family Medicine 06/09/22 documented as of this encounter
--- OUTSIDE RECORDS SUMMARY | 2024-11-26 14:55 | XMS_ITS | Encounter Summary ---
Author Organization [email or web address] ([place], [place], [place], [place]) Address [address] [place] [address] Care Team Providers Care Flooring Salesperson Name Role Phone Victor Hugo Soares MD Primary Care Provider +1 -[phone] Encounter Details Date Type Department Care Team (Late st Contact Info) Description 09/11/2018 Transcribed Document [facility] [place] Family Medicine [address] [place] [address] ProviderPolly MD [address] [place] [id number] Social History Tobacco Use Types Packs/Day Years Used Date Smoking Tobacco: Never Assessed Comments Unknown Sex and Gender Information Value Date Recorded Sex Assigned at Not on file Legal Sex Female 6:24 PM CDT Gender Identity Not on file Sexual Orientation Not on file documented as of this encounter Miscellaneous Notes * Cerner Conversion Note - Polly ProviderMD - 09/11/2018 12:00 AM CDT Pain Assessment [...] on filedocumented in this encounter Care Teams Flooring Salesperson Relationship Specialty Start Date End Date Victor Hugo Soares MD [address] [place] [address] PCP - General Family Medicine 06/09/22 documented as of this encounter
--- OUTSIDE RECORDS SUMMARY | 2024-11-26 14:55 | XMS_ITS | Referral Summary ---
Author Organization [employer] ([place], [place], [place], [place]) Address [address] [place] [address] Care Team Providers Care Second Language Tutor Name Role Phone Victor Hugo Soares MD Primary Care Provider +1 -[phone] Allergies Active Allergy Reactions Criticality Noted Date [...] Date Hao rded Speak language other than [place] at home Not on file 05/13/2023 Want [...] on file Medical Devices Implanted Type Area School Standards Coach Device Identifier Shelf Expiration Date Model / Serial / Lot Sling Laurie Meier [id number] - [id number] [17]2023-09-08 Implanted:Qty: 1 on 06/12/2022 by Gerald Juarez MD at [facility] IMPLANTS N/A: Vagina KEVIN MED 09/08/2023 [id number] / [id number] [17]09-07 / [id number] Insurance [employer] [facility] [place] Care Teams Second Language Tutor Relationship Specialty Start Date End Date Victor Hugo Soares MD [address] [place] [address] PCP - General Family Medicine 06/09/22
--- OUTSIDE RECORDS SUMMARY | 2024-11-26 14:55 | XMS_ITS | Encounter Summary ---
Author Organization [employer] ([place], [place], [place], [place]) Address [address] [place] [address] Care Team Providers Care Newspaper Correspondent Name Role Phone Victor Hugo Soares MD Primary Care Provider +1 -[phone] Encounter Details Date Type Department Care Team (Late st Contact Info) Description 09/12/2018 Transcribed Document [facility] [place] Family Medicine [address] [place] [address] ProviderPolly MD [address] [place], [place] [address] Social History Tobacco Use Types Packs/Day Years Used Date Smoking Tobacco: Never Assessed Comments Unknown Sex and Gender Information Value Date Recorded Sex Assigned at Not on file Legal Sex Female 6:24 PM CDT Gender Identity Not on file Sexual Orientation Not on file documented as of this encounter Miscellaneous Notes * Cerner Conversion Note - Historical ProviderMD - 09/12/2018 12:00 AM CDT Pain Assessment Entered On: 09/12/2018 0:47 EDT Performed On: 09/12/2018 1:00 EDT by JARRETT OBRIEN RN Intervention Information: ibuprofen Performed by JARRETT OBRIEN RN on 09/12/2018 00:00:00 EDT ibuprofen,600mg Oral [...] the text rendition version of the form. Electronically signed by Deana [facility] Conversion Straightener Cerner at 08/20/2022 4:52 PM CDT documented in this encounter Plan of Treatment Not on file documented as of this encounter Visit Diagnoses Not on filedocumented in this encounter Care Teams Newspaper Correspondent Relationship Specialty Start Date End Date Victor Hugo Soares MD [address] [place] [address] PCP - General Family Medicine 06/09/22 documented as of this encounter
--- OUTSIDE RECORDS SUMMARY | 2024-11-26 14:55 | XMS_ITS | Encounter Summary ---
Author Organization [employer] ([place], [place], [place], [place]) Address [address] [place] [address] Care Team Providers Care Navy Airspace Officer Name Role Phone Victor Hugo Soares MD Primary Care Provider +1 -[phone] Encounter Details Date Type Department Care Team (Late st Contact Info) Description 09/09/2018 Transcribed Document [facility] [place] Family Medicine [address] [place] [address] ProviderPolly MD [address] [place] [address] Social History Tobacco Use Types Packs/Day Years Used Date Smoking Tobacco: Never Assessed Comments Unknown Sex and Gender Information Value Date Recorded Sex Assigned at Not on file Legal Sex Female 6:24 PM CDT Gender Identity Not on file Sexual Orientation Not on file documented as of this encounter Miscellaneous Notes * Cerner Conversion Note - Historical ProviderMD - 09/09/2018 12:29 AM CDT Admission Data, OB Entered On: 09/09/2018 0:31 EDT Performed On: 09/09/2018 0:29 EDT by Tiera Bright Rn Advance Directive Patient has Advance Directive *Q : No, patient refuses Advance Directive information Tiera Bright Rn - 09/09/2018 0:29 EDT Height and Weight Height Source : Stated Height Entry Format : [place] Height, Feet : 5 ft(Converted to: 152 cm, 60 Inch) Clinical Height : 162.56 cm Height, Inches : 4 Inch(Converted to: 0 ft 4 Inch, 10.16 cm) Weight Source : Standing scale Weight Entry Format : [place] Weight, Pounds : 200 lb Clinical Dosing Weight : 90.91 kg Body Surface Area (BSA) : 1.96 m2 Body Mass Index : 34.4 kg/m2 ([place]) [place] Body Weight (IBW) : 54.3 kg Tiera [...] (Last Updated: 09/09/2018 00:30:30 EDT by Tiera Bright Rn) Substance Abuse: Drug Use Hx: No. Use in Last 12 Months: No. (Last Updated: 09/09/2018 00:30:30 EDT by Tiera Bright, David) Nutrition/Health: Regular, Caffeine intake amount: 1 serving daily. (Last Updated: 09/09/2018 00:30:30 EDT by Tiera Bright, Rn) Exercise: Exercise duration: 0. (Last Updated: 09/09/2018 00:30:30 EDT by Tiera Bright, Rn) Home/Environment: Lives with Children, Spouse. Living situation: Home/Independent. (Last Updated: 09/09/2018 00:30:30 EDT by Tiera Bright, David) Tetanus Immunization Status Previous Tetanus Immunizations : [...] on filedocumented in this encounter Care Teams Navy Airspace Officer Relationship Specialty Start Date End Date Victor Hugo Soares MD [address] [place] [address] PCP - General Family Medicine 06/09/22 documented as of this encounter
[2024-11-26 15:20] LABS: Hematocrit 42.0 % (37.0-47.0); Hemoglobin 14.0 g/dL (12.2-16.2); Immature Granulocytes % 0.4 %; Mean Corpuscular HGB Conc 33.3 g/dL (31.8-35.4); Mean Corpuscular Hemoglobin 29.2 pg (27.0-31.2); Mean Corpuscular Volume 87.5 fl (81-99); Nucleated Red Blood Cells % 0 %; Platelet Count 195 K/mm3 (142-424); Red Blood Count 4.80 M/mm3 (4.20-5.40); Red Cell Distribution Width-SD 40.1 fL; White Blood Count 8.6 K/mm3 (4.8-10.8)
[2024-11-26 16:02] LABS: Alanine Aminotransferase 33 U/L (12-78); Albumin Level 4.4 g/dl (3.5-5.0); Alkaline Phosphatase 59 U/L (38-126); Anion Gap 10.7 mEq/L (5-15); Aspartate Amino Transferase 36 U/L (14-36); Bilirubin,Direct 0.2 mg/dl (0.0-0.4); Bilirubin,Indirect 0.7 mg/dL (0.0-0.9); Bilirubin,Total 0.9 mg/dl (0.2-1.3); Bilirubin,Unconjugated 0.7 mg/dL (0.0-1.1); Blood Urea Nitrogen 14 mg/dl (7-17); Calcium 9.9 mg/dl (8.4-10.2); Carbon Dioxide 30 mmol/L (22.0-30.0); Chloride 102 mmol/L (98-107); Cholesterol 179 mg/dl (140-200); Creatinine,Serum 0.90 mg/dl (0.52-1.04); Estimated Glomerular Filt Rate 68 ml/min (>60); GFR (African American) 82 ML/MIN (>60); Glucose 100 mg/dl (74-100); HDL Cholesterol 50 mg/dl (40-60); Magnesium 1.9 mg/dl (1.6-2.3); Potassium 4.7 mmoL/L (3.5-5.1); Sodium 138 mmol/L (136-145); Total Protein,Serum 7.0 g/dl (6.3-8.2); Triglycerides 199 mg/dl (30-150)
[2024-11-26 16:18] LABS: Free T4 (Free Thyroxine) 0.97 ng/dl (0.78-2.19)
[2024-11-26 16:31] LABS: Thyroid Stimulating Hormone 1.69 uIU/mL (0.465-4.68)
== END 2024-11-26 23:59 | disposition home or self-care (01) ==
LOC: LAB 14:51
PROVIDERS: PCP Family Medicine; Visit Provider Nurse Practitioner Family
DX: R07.89 Other chest pain (principal); I10 Essential (primary) hypertension; R06.09 Other forms of dyspnea
CPT/HCPCS: 36415; 80048; 80061; 80076; 83735; 84439; 84443; 85025

== ENCOUNTER 2025-03-09 10:48 | Outpatient (CLI) | payer OTHER, SELFPAY ==
--- OUTSIDE RECORDS SUMMARY | 2025-03-09 11:14 | XMS_ITS | Clinical Summary ---
Author Organization [facility] Address [address] [place] [address] Care Team Providers Care Network Controller Name Role Phone Pcp, No Primary Care [...] Date Last Done Comments [facility]-Depression Screening 1980 [facility]-/Child/Adol SDOH Screenings 1980 [facility]-Varicella Vaccines (1 of 2 - 13+ 2-dose series) 02/03/1993 [facility]- SDOH Screenings 02/03/1998 [facility]-Adult SDOH Screenings 02/03/1998 [facility]-Hepatitis B Vaccines (1 of 3 - 19+ 3-dose series) 02/03/1999 [facility]-Pap Smear 02/03/2001 HPV Vaccines (1 - 3-dose SCDM series) 02/03/2007 [facility]-Cervical Cancer Screening 02/03/2010 [facility]-HPV/Cotest 02/03/2010 [id number]-[id number]-11 Vaccine ( - 2023- season) 2024 [facility]-Influenza Vaccine (#1) 2024 CT Colonography 02/03/2025 Colonoscopy 02/03/2025 FIT-DNA 02/03/2025 FIT 02/03/2025 FOBT 02/03/2025 Sigmoidoscopy 02/03/2025 [facility]-Colorectal Cancer Screening 02/03/2025 [facility]-Zoster Vaccines (1 of 2) 02/03/2030 [facility]-DTaP,Tdap,and [...] Insurance [employer] Care Teams Network Controller Relationship Specialty Start Date End Date Pcp, [place] [address] PCP - General Family Medicine 11/12/23
--- OUTSIDE RECORDS SUMMARY | 2025-03-09 11:15 | XMS_ITS | Data Portability ---
Author Organization [facility],, Main Office Address [address] [place] [address] Assessment Encounter Date Assessment Date Assessment LastModified by Organization Details LastModified Time 10/02/2024 10/02/2024 Annual gynecological exam performed. Patient will come back in a year unless there are new symptoms. [email or web address] Not available 10/02/2024 09:37:48 12/11/2024 12/11/2024 poor abdominal visualization due to habitus, transvaginal ultrasound done to visualize structures and doppler evaluation retroperitoneal [email or web address] Not available 02/02/2025 22:30:53 Plan of Treatment Reminders Order Date Submit Date Provider Last Modified By Organization Details Last Modified Time Details Appointments Ultrasoun d PET ADOPTION COUNSELOR 2024 09:00A Omayra Juarez, DO Not available Not available Not available Lab urinalysi s, dipstick 2024 025 mary Main Office, [address], [place], [address], 02/02/2025 22:23:40 urinalysi s, dipstick 2024 025 gregoria Main Office, [address], [place], [address], 10/06/2024 20:13:19 test, urine 2024 025 gregoria Main Office, [address], [place], [address], 10/06/2024 20:13:19 urinalysi s, dipstick 2024 025 [email or web address] Main Office, [address], [place], [address], 08/31/2024 16:03:58 Referral None recorded. Procedures None recorded. Surgeries None recorded. Imaging None recorded. Medication Orders estradiol 10 mcg vaginal tablet 2024 025 [id number], [address] [address] [address], [place], [id number], 10/06/2024 20:13:33 Patient TargetsNo targets recorded. Patient Instructions Encounter Date Encounter Id Patient Instructions Last Modified By Organization Details Last Modified Time 08/28/2024 [id number] Discussed result s from ultrasound, questions answered and addressed. All areas reviewed. [email or web address] Not available 08/31/2024 16:02:41 10/02/2024 [id number] Risks of not following up discussed. Questions answered. Potential problems explained with risks [email or web address] Not available 10/19/2024 12:58:26 12/11/2024 [id number] Discussed result s from ultrasound, questions answered and addressed. All areas reviewed. [email or web address] Not available 02/02/2025 22:22:08 Reason for Referral None Reported. Results Created Date Observation Date Name Description Value Unit Range Abnormal Flag Note LastModifiedBy Organization Detail LastModifiedTime 08/29/1908/28/2024 urina lysis , dipst ick Leukocytes - Not Available Main Of fice [address], [place], [address], 08/28/2024 09:31:52 08/29/1908/28/2024 urina lysis , dipst ick Nitrite negati ve Not Available Main Office [address], [place], [address], 08/28/2024 09:31:52 08/29/1908/28/2024 urina lysis , dipst ick Urobilinogen - Not Available Main Office [address], [place], [address], 08/28/2024 09:31:52 08/29/19 25 08/28/2024 urina lysis , dipst ick Protein - Not Available Main Offic e [address], [place], [address], 08/28/2024 09:31:52 08/29/19 25 08/28/2024 urina lysis , dipst ick pH 6.0 Not Available Main Offic e [address], [place], [address], 08/28/2024 09:31:52 08/29/19 25 08/28/2024 urina lysis , dipst ick Specific [place] 1.010 Not Available Main O ffice [address], [place], [address], 08/28/2024 09:31:52 08/29/19 25 08/28/2024 urina lysis , dipst ick Ketone - Not Available Main Offic e [address], [place], [address], 08/28/2024 09:31:52 08/29/19 25 08/28/2024 urina lysis , dipst ick Bilirubin - Not Available Main Off ice [address], [place], [address], 08/28/2024 09:31:52 10/03/19 25 10/07/2024 PAP TEST THIN PREP Pap test thin prep Negati ve for Intrae pithel ial Lesion or Malign j carlos normal ACCES PAULINE #: 25-PS [id number] [facility] e: Cervi alexander/E ndoce rvica l LMP: [id number] Date Taken : 10/02 Speci men Type: ThinP rep Vial Date Repor leo: 2024 Clini alexander Data: Last Pap: WNL (520 2023) Cytot ech: Karrie LuxDeepa Davis, CT( CP) Date Repor leo: 2024 [...] provi ded by [facility], [employer], d/b/a Eusebio huizar, [address] [place] [address] Ruby azevedo MD, Labor atory Dire tor. Case revie wed and diagn osis rende red at [facility] ts, [employer], [employer] Eusebio huizar, [address] [place] [address] Ruby azevedo MD, Labor atory Dire tor. CONFI DENTI AL Not Available [facility]) [address], [place], [address], 10/07/2024 13:38:08 10/03/19 25 10/02/2024 pregn j carlos test, urine HCG negati ve Not Available Main Office [address], [place], [address], 10/02/2024 09:38:48 10/03/19 25 10/02/2024 urina lysis , dipst ick Leukocytes - Not Available Main Of fice [address], [place], [address], 10/02/2024 09:38:45 10/03/19 25 10/02/2024 urina lysis , dipst ick Nitrite negati ve Not Available Main Office [address], [place], [address], 10/02/2024 09:38:45 10/03/19 25 10/02/2024 urina lysis , dipst ick Urobilinogen - Not Available Main Office [address], [place], [address], 10/02/2024 09:38:45 10/03/19 25 10/02/2024 urina lysis , dipst ick Protein - Not Available Main Offic e [address], [place], [address], 10/02/2024 09:38:45 10/03/19 25 10/02/2024 urina lysis , dipst ick pH 6.0 Not Available Main Offic e [address], [place], [address], 10/02/2024 09:38:45 10/03/19 25 10/02/2024 urina lysis , dipst ick Specific [place] 1.030 Not Available Main O ffice [address], [place], [address], 10/02/2024 09:38:45 10/03/19 25 10/02/2024 urina lysis , dipst ick Ketone - Not Available Main Offic e [address], [place], [address], 10/02/2024 09:38:45 10/03/19 25 10/02/2024 urina lysis , dipst ick Bilirubin - Not Available Main Off ice [address], [place], [address], 10/02/2024 09:38:45 12/12/19 25 12/11/2024 urina lysis , dipst ick Leukocytes trace Not Available Main Of fice [address], [place], [address], 12/11/2024 09:13:38 12/12/19 25 12/11/2024 urina lysis , dipst ick Nitrite negati ve Not Available Main Office [address], [place], [address], 12/11/2024 09:13:38 12/12/19 25 12/11/2024 urina lysis , dipst ick Urobilinogen - Not Available Main Office [address], [place], [address], 12/11/2024 09:13:38 12/12/19 25 12/11/2024 urina lysis , dipst ick Protein - Not Available Main Offic e [address], [place], [address], 12/11/2024 09:13:38 12/12/19 25 12/11/2024 urina lysis , dipst ick pH 6.0 Not Available Main Offic e [address], [place], [address], 12/11/2024 09:13:38 12/12/19 25 12/11/2024 urina lysis , dipst ick Specific [place] 1.010 Not Available Main O ffice [address], [place], [address], 12/11/2024 09:13:38 12/12/19 25 12/11/2024 urina lysis , dipst ick Ketone - Not Available Main Offic e [address], [place], [address], 12/11/2024 09:13:38 12/12/19 25 12/11/2024 urina lysis , dipst ick Bilirubin - Not Available Main Off ice [address], [place], [address], 12/11/2024 09:13:38 08/29/19 25 08/28/2024 imagi ng/di agnos tic resul t No observ ation record ed. [id number], [place], [address], 08/28/2024 10:21:38 08/29/19 25 08/28/2024 US, pelvi s, compl ete No observ ation record ed. [email or web address] [address], [place], [address], 08/31/2024 16:00:28 10/24/19 25 10/20/2024 imagi ng/di agnos tic resul t No observ ation record ed. [address], [place], [address], 11/06/2024 04:06:54 10/24/19 25 10/20/2024 imagi ng/di agnos tic resul t No observ ation record ed. [facility] [address], [place], [address], 11/06/2024 04:06:54 12/12/19 25 12/11/2024 imagi ng/di agnos tic resul t No observ ation record ed. [id number], [place], [address], 12/11/2024 10:12:27 12/12/19 25 12/11/2024 US, pelvi s, compl ete No observ ation record ed. [email or web address] [address], [place], [address], 02/02/2025 22:20:20 Result Notes None recorded. Problems Name Problem SNOMED Code Status Onset Date Resolution Date Notes Provider Name and Address Organization Details Recorded Time 97405539 Completed 201710/03/2018 [facility] 09:27:40 Abnormal finding on screening of mother 683974206 Completed 201701/13/[address], [place], [address], [facility], 2 09:33:15 Abnormal finding on screening of mother 660230923 Completed 2017 [facility] 9 09:27:37 Iron deficiency anemia of 447536312 Completed 2018 [facility], 9 09:27:37 Iron deficiency anemia of 997930603 Completed 201801/13/[address], [place], [address], [facility], 2 09:33:07 Uterine leiomyoma 18582080 Active [address], [place], [address], [facility], 2 09:33:29 Menorrhagia 518820675 Active [address], [place], [address], [facility], 2 09:33:25 Menopausal symptom 25608009 Active [address], [place], [address] , [facility], 16:35:38 Pain in pelvis 97339861 Active [address], [place], [address] , [facility], 22:20:57 Postoperati ve complicatio n 078149303 Active [address], [place], [address] , [facility], 22:21:12 Abnormal vaginal bleeding 397877296 Active [address], [place], [address] , [facility], 22:22:01 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 Procedures Surgical History Date Name Laterality Status Provider Name and Address Organization Details Recorded Time 10/21/19 25 Date of Last Mammogram completed [facility], 10/02/2024 10:49:37 10/03/19 25 Date of Last Pap Smear completed [facility], 10/02/2024 09:38:28 03/25/20 24 Most Recent Mammogram completed [address], [place], [address], [facility], 06/02/2024 15:40:19 12/19/19 23 Pelvic Transvaginal Non-OB completed DO [address], [place], [address], [facility], 01/29/2023 21:09:38 06/19/19 23 Bladder Ultrasound completed DO [address], [place], [address], [facility], 06/20/2022 21:13:18 06/16/19 23 In and Out Catheterization completed DO [address], [place], [address], [facility], 06/17/2022 21:18:13 06/12/19 23 robotic assisted surgery completed [address], [place], [address], [facility], 06/28/2022 09:36:57 01/06/20 22 Colposcopy completed DO [address], [place], [address], [facility], 01/07/2022 15:15:47 09/07/19 22 Pelvic Transvaginal Non-OB completed DO [address], [place], [address], [facility], 10/29/2021 16:31:34 04/04/20 19 laparoscopic laser destruction of endometriosis completed [address], [place], [address], [facility], 04/19/2019 08:06:17 07/17/19 19 microscopic urinalysis pos rbc completed DO [address], [place], [address], [facility], 07/19/2018 13:59:02 11/13/19 18 Laparoscopy completed Twyla Oliva [facility], 11/23/2017 10:05:17 02/27/20 17 Colonoscopy completed Twyla Oliva [facility], 09/26/2017 11:03:51 10/28/19 10 [facility]al [facility], 09/26/2017 11:02:57 [facility], 09/26/2017 11:05:14 Imaging Results None recorded. Procedure Notes None recorded. Medical Equipment None Reported. Allergies Allergen ID Allergen Name Allergen Category Reaction Reaction Severity Criticality Documentation Date Start Date Code Code System Note Provider Name and Address Organization Details Recorded Time 1357 adhesive tape environme nt,medica tion rash Not available Not available 11/23/2017 will sellers ss Twylanoman Oliva [facility], 8 10:02:52 Medications Name [...] 1 capsule every day by oral route. 08/173 completed Not Available Not Available Not Available [...] Not Available Not Available No t Available hydrochloro thiazide 25 mg tablet TAKE 1 TABLET BY MOUTH [...] completed Not Available Not Available Not Available albuterol sulfate HFA 90 mcg/actuati on aerosol inhaler INHALE 1 PUFF BY MOUTH EVERY 4 HOURS NEEDED active Not Available Not Available No t Available fluticasone propionate 50 mcg/actuati on nasal [...] completed Not Available Not Available Not Available neomycin-po lymyxin-hyd rocort 3.5 mg-10,000 unit/mL-1 % ear drops,susp USE 2 DROPS INTO THE AFFECTED EAR FOUR TIMES DAILY FOR 7 DAYS 08/23 completed Not Available Not Available Not Available Premarin 0.625 mg/gram vaginal cream Insert 0.5 applicato rsful every other day by vaginal route for 30 days. 09/17 completed Not Available Not Available Not Available solifenacin 5 mg tablet TAKE 1 [...] Not Available estradiol 10 mcg vaginal tablet INSERT 1 TABLET VAGINALLY EVERY DAY FOR 14 DAYS active Not Available Not Available No t Available [facility] Allergy 180 mg tablet TAKE 1 TABLET BY MOUTH DAILY active Not Available Not Available No t Available Myrbetriq 25 mg tablet,exte nded release Take 1 tablet every day by oral route for 30 days. 08/23 completed Not Available Not Available Not Available Blisovi Fe 120 (28) 1 mg-20 mcg (21)/75 mg (7) [...] Body weight Heart rate Body temperature Systolic And Diastolic Provider Name and Address Organization Details Last Updated DateTime 5 161.29 cm 32.8 kg/m2 30723.3 7 g 52 /min 96.9 [degF] 125/75 mm[Hg] Radha Gordon [facility], 5 09:31:16 Date Recorded Body height Body mass index (BMI) Body weight Heart rate Body temperature Systolic And Diastolic Provider Name and Address Organization Details Last Updated DateTime 5 161.29 cm 32.7 kg/m2 35853.9 3 g 51 /min 97 [degF] 133/90 mm[Hg] Tiera [facility], 5 09:38:03 Date Recorded Body height Body mass index (BMI) Body weight Heart rate Systolic And Diastolic Provider Name and Address Organization Details Last Updated DateTime 12/11/2024 161.29 cm 33 kg/m2 60699.96 g 62 /min 150/85 mm[Hg] Radha Gordon [facility], 5 09:13:10 Social History Question Answer Notes LastModified by Organizat ion Details LastModified Time Tobacco Smoking Status Former [facility]oker [facility]/2020 03:20:42 Able To Swim? Yes Information not available 04/13/2022 Accident Related Injury No Information not available 04/13/2022 Do You Have An Advance Directive? No [id number] Information not available 02/24/2020 How Many Years Have You Consumed Alcohol? 16 [id number] Information not available 02/24/2020 Animal Exposure? Yes Informat ion not available 04/13/2022 Are You Currently Sexually Active With Anyone Who Has Traveled (within The Last 12 Weeks) To A Zika-affected Area? No [id number] Information not available 02/24/2020 Do You Wear A Helmet When Biking? No [id number] Information not available 02/24/2020 Are You Blind Or Do You Have Difficulty Seeing? No [id number] Information not available 02/24/2020 What Is Your Level Of Caffeine Consumption? Occasional [id number] Information not available 02/24/2020 How Much Tobacco Do You Chew? None [id number] Information not available 02/24/2020 Concerns About Meeting Basic Needs (food, Housing, Heat, Etc)? No Information not available 04/13/2022 Are You Deaf Or Do You Have Serious Difficulty Hearing? No [id number] Information not available 02/24/2020 What Type Of Diet Are You Following? REGULAR [id number] Information not available 02/24/2020 Which Illicit Or Recreational Drugs Have You Used? None [id number] Information not available 02/24/2020 Education 12 Information no t available 04/13/2022 What Is The Highest Grade Or Level Of School You Have Completed Or The Highest Degree You Have Received? [id number] [id number] Information not available 02/24/2020 How Many Days Of Moderate To Strenuous Exercise, Like A Brisk Walk, Did You Do In The Last 7 Days? 7 [id number] Information not available 02/24/2020 On Those Days That You Engage In Moderate To Strenuous Exercise, How Many Minutes, On Average, Do You Exercise? 2 [id number] Information not available 02/24/2020 Family History Of Heart Disease? No Information not available 04/13/2022 Have There Been Any Changes To Your Family Or Social Situation? No [id number] Information no t available 02/24/2020 How Hard Is It For You To Pay For The Very Basics Like Food, Housing, Medical Care, And Heating? [id number] Information not available 04/13/2022 When Did You Quit Smoking? 16+yearssinarian maximochilango [id number] Information not available 02/24/2020 Are There Any Guns Present In Your Home? Yes [id number] Information not available 02/24/2020 Hard Of Hearing Or Deaf In One Or Both Ears? No Information not available 04/13/2022 Legally Blind In One Or Both Eyes? No Information no t available 04/13/2022 Live Alone Or With Others? With Others Information not available 04/13/2022 Do You Have A Medical Power Of Registry Rn? No [id number] Information not available 02/24/2020 What Was The Date Of Your Most Recent Tobacco Screening? 10/30/2018 Information not available 04/13/2022 How Many Children Do You Have? 3 [id number] Information not available 02/24/2020 What Is Your Current Pack Years? 10packyears [id number] Information not available 02/24/2020 Performs Monthly Self-breast Exam? Yes Information no t available 04/13/2022 Do You Have Any Pets? Yes [id number] Information not available 02/24/2020 Difficulty Reading? No Information not available 04/13/2022 Seat Belts Used Routinely Yes Information not available 04/13/2022 Smoke Alarm In Home Yes Information not available 04/13/2022 Do You Have Smoke And Carbon Monoxide Detectors In Your Home? Yes [id number] Information not available 02/24/2020 At What Age Did You Start Smoking Tobacco? 12 [id number] Information not available 02/24/2020 Are You Passively Exposed To Smoke? No Information no t available 09/26/2017 Are There Any Smokers In Your House? No Information not available 09/26/2017 How Much Tobacco Do You Smoke? No [id number] Information not available 02/24/2020 General Stress Level Low Information not available 04/13/2022 Sun Exposure Frequent Information not available 04/13/2022 Do You Use Sunscreen Routinely? Yes [id number] Information not available 02/24/2020 TB Risk Low Information no t available 04/13/2022 Has Tobacco Cessation Counseling Been Provided? No [id number] Information not available 02/24/2020 How Many Years Have You Smoked Tobacco? 5 [id number] Information not available 02/24/2020 Difficulty Watching TV? No Information not available 04/13/2022 Do You Have Difficulty Walking Or Climbing Stairs? No [id number] Information not available 02/24/2020 Sex: Female Functional Status Question Answer Note LastModified by Organizat ion Details LastModified Time What is your level of alcohol consumption? None [id number] Information not available 02/24/2020 Are you currently employed? Yes [id number] Information not available 02/24/2020 Do you have transportation difficulties? No [id number] Information not available 02/24/2020 Are you able to walk independently without assistance or assistive devices? YESWOREST [id number] Information not available 02/24/2020 Do you have difficulty doing errands alone? No [id number] Information not available 02/24/2020 Are you able to care for yourself independently? 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 No [id number] Information not available 02/24/2020 What is your exercise level? Heavy [id number] Information not available 02/24/2020 Mental Status Question Answer Note LastModified by Organizat ion Details LastModified Time Do you feel stressed (tense, restless, nervous, or anxious, or unable to sleep at night)? [id number] [id number] Information not available 02/24/2020 Do you have difficulty concentrating, remembering or making decisions? No [id number] Information no t available 02/24/2020 Family History [...] Diagnosis SNOMED-CT Code Diagnosis ICD10 Code Diagnosis IMO Codes Diagnosis Note 6948 Gerald Juarez DO Main Office [address] [place] [address] 09/26/2017 09:58:05 09/26/2017 12:10:27 Female infertility 0590126 N97.9 7673 Gerald Juarez DO Main Office [address] [facility] [place] [address] 10/30/2017 10:07:36 10/30/2017 12:27:36 Pain in pelvis 94338607 R10.2 Dysmenorrhea 192669053 N 94.6 Abnormal v aginal bleeding 238533635 N93.9 7923 Gerald Juarez, DO [facility] - [place] [address] [place] [address] 11/12/2017 12:13:17 11/13/2017 08:45:25 Excessive and frequent menstruation 572548962 N92.0 Secondary dysmenorrhea 44031671 N94.5 Pain in pelvis 88277374 R10.2 8190 Gerald Juarez DO Main Office [address] [place] [address] 11/23/2017 09:53:15 11/23/2017 10:40:51 Postoperative visit 686394287 Z09 Allergic r eaction to adhesive 164395638 T65.894A keep area warm and dry 8469 Gerald Juarez DO Main Office [address] [place] [address] [address] 12/07/2017 10:59:57 12/24/2017 08:49:10 Acute urinary tract infection 354213014 N39.0 Postoperative visit 1836 97749 Z09 rash resolved 9302 Gerald Juarez DO Main Office [address] [place] [address] 01/22/2018 14:37:37 01/22/2018 15:38:26 Irregular periods 71348442 N92.6 test positive 242623220 Z32.01 ob labs, pap, cx. also, serial quants due to recent tubal reversal. quant today, and repeat x [facility] Gynecologi c examination 51516239 Z01.411 Ex-smoker 7490445 Z87.89 1 9441 Gerald Juarez DO Main Office [address] [place] [place] [address] 01/29/2018 15:15:12 01/29/2018 16:31:11 Irregular periods 61940280 N92.6 test positive 507821150 Z32.01 ob labs, pap, cx. also, serial quants due to recent tubal reversal. quant today, and repeat x 2 at [facility] 9828 Gerald Juarez DO Main Office [address] [place] [address] 02/19/2018 09:49:48 02/19/2018 11:18:24 Gestation period, 8 weeks 69709494 Z3A.08 Spotting p er vagina in 120529219 O26.859 check progestero ne levels today. cx/vag panel ran today. vaginal rest. Threatened miscarriage in first trimester 84046926 O20.0 Acute vaginitis 27554724 N76.0 paul, [place] [address] Gerald Juarez DO Main Office [address] [place] [address] 03/12/2018 09:36:21 03/12/2018 10:35:11 Gestation period, 11 weeks 96145730 Z3A.11 Multigravi da of advanced maternal age [id number] O09.521 screening 2437 73860 Z36.0 counsyl test 02136 Gerald Juarez DO Main Office [address] [place] [address] 04/02/2018 09:00:07 04/02/2018 09:45:25 Gestation period, 14 weeks 78024803 Z3A.14 screening 2437 64951 Z36.0 AFP 60806 Gerald Juarez DO Main Office [address] [place] [place] [address] 04/05/2018 09:42:29 04/05/2018 10:08:33 Gestation period, 15 weeks 8189149 Z3A.15 Alpha-feto protein level - finding 234920366 R77.2 Abnormal f inding on screening of mother 788441486 O28.9 Hypothyroidism 95554127 E03.9 11609 Gerald Juarez DO Main Office [address] [place] [address] 04/09/2018 14:12:57 04/09/2018 15:30:43 Gestation period, 15 weeks 9623271 Z3A.15 abn afp Abnormal f inding on screening of mother 374028782 O28.9 Alpha-feto protein level - finding 739969926 R77.2 52927 Gerald Juarez DO Main Office [address] [place] [address] 04/24/2018 09:09:11 04/24/2018 09:59:22 Gestation period, 17 weeks 50912171 Z3A.17 Abnormal f inding on screening of mother 171883916 O28.9 Alpha-feto protein level - finding 745222326 R77.2 64688 Gerald Juarez DO Main Office [address] [place] [address] 05/21/2018 10:32:25 05/21/2018 11:01:52 Gestation period, 21 weeks 81946826 Z3A.21 Abnormal f inding on screening of mother 974625117 O28.1 Alpha-feto protein level - finding 389229051 R77.2 Ex-cigarette smoker 2810 84734 Z87.891 43734 Gerald Juarez DO Main Office [address] [place] [address] 06/11/2018 09:15:43 06/11/2018 10:03:36 Gestation period, 24 weeks 905375918 Z3A.24 Candidiasis of skin 4988 3006 B37.2 vulvar, perianal Lesion of vulva 22194799 6 N90.69 red top swab; 2 lesions right labia 26346 Gerald Juarez DO Main Office [address] [place] [place] [address] 07/02/2018 08:49:08 07/02/2018 09:35:19 Gestation period, 27 weeks 62231570 Z3A.27 1 hr gtt Diabetes m ellitus screening 059201016 Z13.1 54645 Gerald Juarez DO Main Office [address] [place] [address] 07/16/2018 09:03:43 07/16/2018 09:54:00 Gestation period, 29 weeks 25275401 Z3A.29 Secondary restless legs syndrome 990669256 G25.81 labs today Paresthesi a of lower extremity 459428722 R20.2 labs today, if persists neuro evaluation Vitamin deficiency 50090 002 E56.8 71086 Gerald Juarez DO Main Office [address] [place] [address] 07/30/2018 11:01:06 07/30/2018 11:52:51 Gestation period, 31 weeks 35024367 Z3A.31 Iron defic iency anemia of 736945723 O99.[address] udies abnormal 065260122 R94.39 85200 Gerald Juarez DO Main Office [address] [place] [address] 08/02/2018 10:44:39 08/02/2018 11:37:21 Gestation period, 32 weeks 0784932 Z3A.32 Secondary restless legs syndrome 279479367 G25.81 labs today Vitamin deficiency 73971 002 E56.8 Past pregn j carlos history of pre-eclampsia 8677590590 97923 Z87.59 Iron defic iency anemia of 960101801 O99.019 Abnormal f inding on screening of mother 811987390 O28.1 Gestational edema 749518 000 O12.03 patient was seen by Dr Juarez 12824 Gerald Juarez DO Main Office [address] [place] [address] 08/08/2018 09:03:56 08/08/2018 10:44:37 Gestation period, 33 weeks 53553009 Z3A.33 Iron defic iency anemia of 468641375 O99.019 Abnormal f inding on screening of mother 729437865 O28.9 Threatened premature labor - not delivered 236476279 O47.03 29597 Gerald Juarez DO Main Office [address] [place] [address] 08/15/2018 10:58:07 08/15/2018 12:01:14 Gestation period, 34 weeks 67258129 Z3A.34 Past pregn j carlos history of pre-eclampsia 5745701897 84622 Z87.59 Iron defic iency anemia of 006881561 O99.019 Abnormal f inding on screening of mother 221227581 O28.1 Gestational edema 299218 000 O12.03 patient was seen by Dr Juarez 44605 Gerald Juarez DO Main Office [address] [place] [address] 08/19/2018 11:44:29 08/19/2018 13:00:08 Gestation period, 34 weeks 32988471 Z3A.34 - induced hypertension 84224338 O13.9 bed rest Past pregn j carlos history of pre-eclampsia 2985726819 79906 Z87.59 Iron defic iency anemia of 996166716 O99.013 Gestational edema 624817 000 O12.03 15038 Gerald Juarez DO Main Office [address] [place] [address] 08/23/2018 09:29:20 08/23/2018 10:32:50 Gestation period, 35 weeks 41381134 Z3A.35 Iron defic iency anemia of 565691825 O99.019 Gestational edema 850286 000 O12.03 04115 Gerald Juarez DO Main Office [address] [place] [address] 08/28/2018 11:09:13 08/28/2018 11:45:46 Gestation period, 35 weeks 05481434 Z3A.35 - induced hypertension 94825663 O13.9 bed rest Past pregn j carlos history of pre-eclampsia 4057098521 07213 Z87.59 Iron defic iency anemia of 809048652 O99.013 Gestational edema 600711 000 O12.03 89076 Gerald Juarez DO Main Office [address] [place] [address] 09/04/2018 11:05:46 09/04/2018 11:39:53 Iron deficiency anemia of 736742194 O99.013 - induced hypertension 10995153 O13.3 bed rest Past pregn j carlos history of pre-eclampsia 5721261635 93935 Z87.59 Gestational edema 452115 000 O12.03 Gestation period, 36 weeks 82868256 Z3A.36 57973 Gerald Juarez DO Main Office [address] [place] [address] 09/06/2018 09:50:13 09/06/2018 10:48:58 Gestation period, 37 weeks 37452980 Z3A.37 Iron defic iency anemia of 271354513 O99.013 - induced hypertension 92173613 O13.3 bed rest. nst today Past pregn j carlos history of pre-eclampsia 6517156561 29217 Z87.59 Gestational edema 942769 000 O12.03 23025 Gerald Juarez DO Main Office [address] [place] [address] 09/19/2018 14:07:45 09/19/2018 15:20:25 Iron deficiency anemia of 037864422 O99.013 Hypertensi on complicating , childbirth and the puerperium 113099703 O10.13 89517 Gerald Juarez DO Main Office [address] [place] [address] 10/03/2018 09:15:23 10/03/2018 10:33:11 care 908099166 Z39.2 Iron defic iency anemia of 223557783 O99.013 HELLP syndrome 02990495 O14.25 recheck labs. continue labetalol 200 (once daily) Delayed AN D/OR secondary hemorrhage 92075436 O72.2 labs Contracept ion care management 784885249 Z30.011 85905 Gerald Juarez DO Main Office [address] [place] [address] 10/17/2018 09:43:33 10/17/2018 10:51:22 care 460560075 Z39.2 Iron defic iency anemia of 375752483 O99.013 u/a neg Contracept ion care management 556752943 Z30.011 Hypertensi on complicating , childbirth and the puerperium 351163162 O10.13 stop labetalol, check bp 2-3 times daily, report if high. f/u 2 wk 10209 Gerald Juarez DO Main Office [address] [place] [address] 10/30/2018 10:15:20 10/30/2018 11:21:32 care 689826329 Z39.2 35988 Gerald Juarez DO Main Office [address] [place] [address] 01/30/2019 10:38:17 01/30/2019 11:32:59 Gynecologic examination 36941418 Z01.411 pap Menorrhagia 655231995 N9 2.0 u/s ordered, considerin g ablation or partial hysterecto my Uterine leiomyoma 189064 05 D25.9 Anemia 167036098 D64.9 u/a neg 05427 Gerald Juarez DO Main Office [address] [place] [address] 02/14/2019 10:25:47 02/14/2019 11:13:09 Pain in pelvis 84992718 R10.2 Intramural leiomyoma of uterus 06406520 D25.1 Dyspareunia 79607278 N94 .19 Secondary dysmenorrhea 59114421 N94.5 13481 Gerald Juarez DO Main Office [address] [place] [address] 03/24/2019 09:46:38 03/24/2019 10:50:51 Iron deficiency anemia of 598689998 O99.013 u/a neg Chronic pe lvic pain of female 204930979 R10.2 Menorrhagia 676442868 N9 2.0 84103 Gerald Juarez DO Main Office [address] [place] [address] 04/18/2019 09:59:32 04/18/2019 11:24:02 Postoperative visit 948710004 Z09 Uterine leiomyoma 954022 05 D25.2 discussed failure of novasure. will f/u next year. if menorrhagi a continues, then consider partial hysterecto my. 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 u/s ordered. Bacterial vaginosis 4197 26404 N76.0 Microscopic hematuria 19 6776696 R31.21 05737 Gerald Juarez DO Main Office [address] [place] [address] 05/22/2019 10:09:05/22/2019 11:36:11 Pain in pelvis 43874688 R10.2 Abnormal u terine bleeding 0829113109 9100 N92.0 History of endometriosis 2279068470 4061426 Z87.42 Cyst of left ovary 25379 13430 1005625 N83.292 40216 Gerald Juarez DO Main Office [address] [place] [address] 10/20/2019 09:52:04 10/20/2019 10:34:18 Female urinary stress incontinence 55520727 N39.3 uroflow Chronic constipation 236 324951 K59.09 Essential hypertension 13425156 I10 40018 Gerald Juarez DO Main Office [address] [place] [address] 11/03/2019 10:21:48 11/03/2019 12:14:27 Pain in pelvis 26202343 R10.2 Urinary incontinence 165 885328 N39.3 Essential hypertension 01872253 I10 Microscopic hematuria 19 7146824 R31.21 16895 Gerald Juarez DO Main Office [address] [place] [address] 06/08/2020 10:18:09 06/08/2020 11:46:58 Gynecologic examination 39185393 Z01.411 pap Urge incon tinence of urine 86221346 N39.41 Female uri nary stress incontinence 24981873 N39.3 Increased frequency of urination 982802803 R35.0 Urgent bruno dl to urinate 80799894 R39.15 Screening for mental disorders 749655496 Z13.89 08836 Gerald Juarez DO Main Office [address] [place] [address] 07/06/2020 10:06:51 07/06/2020 12:08:46 Increased frequency of urination 754283879 R35.0 Urgent bruno dl to urinate 18741060 R39.15 01244 Gerald Juarez DO Main Office [address] [place] [address] 08/03/2020 10:12:03 08/03/2020 11:11:27 Renewal of prescription 447480538 Z76.0 has tried oxybutynin and solifenaci n. patient may consider bladder tack in the future. will discuss at next appointmen t Increased frequency of urination 555623334 R35.0 Urgent bruno dl to urinate 25473390 R39.15 Urge incon tinence of urine 04075077 N39.41 16843 Gerald Juarez DO Main Office [address] [place] [address] 08/31/2020 09:13:15 08/31/2020 10:00:01 Renewal of prescription 783651568 Z76.0 has tried oxybutynin and solifenaci n. and myrbetriq patient may consider bladder tack in the future. will discuss at next appointmen t Increased frequency of urination 796850297 R35.0 Urgent bruno dl to urinate 00886588 R39.15 Urge incon tinence of urine 84681384 N39.41 Microscopic hematuria 19 6086739 R31.21 57672 Gerald Juarez DO Main Office [address] [place] [address] 08/23/2021 09:27:08 08/23/2021 11:25:53 Acute urinary tract infection 856413788 N39.0 Difficulty maintaining weight loss 385703323 E66.09 Pain in pelvis 69970427 R10.2 cx/vag panel. u/s ordered. Deep pain on intercourse 493813925 N94.12 Abnormal u terine bleeding 5747619071 9100 N92.4 Fatigue 61069919 R53.83 labs Lesion of vulva 14203858 6 N90.69 red top swab; left upper labia Pain of breast 96428713 N64.4 dx mammogram ordered Gynecologi c examination 06944787 Z01.411 pap Screening for mental disorders 453533998 Z13.89 95163 Gerald Juarez DO Main Office [address] [place] [address] 09/06/2021 10:26:37 09/06/2021 11:47:10 Pain in pelvis 72884178 R10.[address] ress incontinence 63507738 N39.3 Abnormal u terine bleeding 8608148745 9100 N92.0 Microscopic hematuria 19 9598364 R31.21 89001 Gerald Juarez DO Main Office [address] [place] [place] [address] 11/07/2021 09:58:11 11/07/2021 10:48:40 Lesion of vulva 682878092 N90.69 vulvoscopy scheduled Female uri nary stress incontinence 84965544 N39.3 Pain in pelvis 76179173 R10.2 left-sided , u/s Microscopic hematuria 19 8384138 R31.21 57683 Gerald Juarez DO Main Office [address] [place] [address] 11/15/2021 08:59:36 11/15/2021 09:19:10 Pain in pelvis 73972512 R10.2 Cyst of right ovary 1223 808076 8010881 N83.291 History of endometriosis 5072399469 2624743 Z87.42 Leukocytes in urine 2757 49859 R82.79 37165 Gerald Juarez DO Main Office [address] [place] [address] 01/05/2022 10:47:42 01/05/2022 12:10:04 Genuine stress incontinence 57241588 N39.3 Lesion of vulva 55270748 6 N90.89 39606 Gerald Juarez DO Main Office [address] [place] [address] 01/10/2022 09:07:09 01/10/2022 10:17:00 Cyst of left ovary 8672546855 0483746 N83.292 Pain in pelvis 77666171 R10.2 History of endometriosis 0753190210 1004141 Z87.[address] ress incontinence 31212308 N39.3 93850 Gerald Juarez DO Main Office [address] [place] [address] 01/13/2022 09:06:07 01/13/2022 09:59:58 Lesion of vulva 900403788 N90.69 Pruritus of vagina 95522 003 L29.3 30866 Gerald Juarez DO Main Office [address] [place] [address] 04/13/2022 09:11:51 04/13/2022 09:38:52 Cyst of right ovary 4885603171 6595219 N83.291 Pain in pelvis 32559532 R10.2 Midline cystocele 704532 [address] ress incontinence 24957439 N39.3 90346 Gerald Juarez DO Main Office [address] [place] [address] 06/09/2022 09:13:07 06/09/2022 10:07:29 Cyst of right ovary 1551741825 3220490 N83.291 Pain in pelvis 72293679 R10.2 Midline cystocele 359802 [address] ress incontinence 48157479 N39.3 Relaxation of pelvic floor 292711962 N81.89 25749 Gerald Juarez DO Main Office [address] [place] [address] 06/16/2022 10:29:26 06/16/2022 12:45:48 Retention of urine 463273738 R33.9 Urinary tr act infectious disease 39111658 N30.81 ua with reflex to cx Indwelling catheter removed 752379825 Z46.6 patient was able to urinate a little bit after a time, but not completely . in and out cath removed urine. patient instructed to take flomax and pyridium, return to ED if unable to urinate againn after 4-6 hrs Microscopic hematuria 19 4360118 R31.21 32705 Gerald Juarez DO Main Office [address] [place] [address] 06/19/2022 09:58:09 06/19/2022 10:54:04 Postoperative retention of urine 485280971 R33.8 Taught self-catheterization 300306582 Z76.89 Hormone re placement therapy 512731990 Z79.890 Estrogen vaginal cream started Indwelling catheter removed 452973772 Z46.6 28151 Gerald Juarez DO Main Office [address] [place] [address] 06/19/2022 13:37:03 06/19/2022 14:36:52 Postoperative retention of urine 417442460 R33.8 62276 Gerald Juarez DO Main Office [address] [place] [address] 06/28/2022 09:14:11 06/28/2022 10:08:18 Postoperative visit 067052615 Z09 cont. vag premarin every other day Screening for mental disorders 683885564 Z13.89 Retention of urine 53442 4002 R33.9 resolved. continue flomax and azo for one week. one week bladder u/s, post-void. Microscopic hematuria 19 7855664 R31.21 86073 Gerald Juarez DO Main Office [address] [place] [address] 07/06/2022 10:11:35 07/06/2022 11:32:39 Postoperative retention of urine 013112941 R33.8 08616 Gerald Juarez DO Main Office [address] [place] [place] [address] 07/10/2022 14:46:09 07/10/2022 15:17:05 Postoperative visit 563436889 Z09 cont. vag premarin every other day 93764 Gerald Juarez DO Main Office [address] [place] [address] 08/17/2022 10:15:53 08/17/2022 11:20:37 Disorder of nail 43873370 L60.8 labwork. Postoperat ariadne retention of urine 916068938 R33.8 completely resolved. 57546 Gerald Juarez DO Main Office [address] [place] [place] [address] 09/11/2022 09:30:21 09/11/2022 10:18:09 Dyspareunia 82014685 N94.12 or compounded DHEA Gynecologi c examination 94635392 Z01.411 pap. patient to schedule mammogram Screening for mental disorders 986110472 Z13.89 Atrophic vaginitis 53051 000 N95.2 Microscopic hematuria 19 8873831 R31.21 38097 Gerald Juarez DO Main Office [address] [place] [address] 12/11/2022 09:21:11 12/11/2022 10:12:27 Renewal of prescription 106372615 Z76.0 Vitamin D deficiency 347 50264 E55.9 recheck Thin nails 54959631 L60. 8 labs Atrophic vaginitis 26729 000 N95.2 resolved Superficia l pain on intercourse 626169135 N94.11 resolved Leukocytes in urine 2757 10167 R82.79 39388 Gerald Juarez DO Main Office [address] [place] [address] 12/18/2022 13:46:15 12/18/2022 14:46:26 Cyst of right ovary 4048460917 2809495 N83.291 Large ovary 11877458 N83 .8 Pain in pelvis 89619660 R10.2 79307 Gerald Juarez DO Main Office [address] [place] [place] [address] 02/19/2023 13:47:07 02/19/2023 15:02:13 Pain in pelvis 50641145 R10.2 Large ovary 38675943 N83 .8 Endometrio sis of pelvis 61670063 N80.03 27448 Gerald Juarez DO Main Office [address] [place] [address] 05/29/2023 09:44:21 05/29/2023 10:33:15 Cyst of right ovary 4445806312 5737727 N83.291 Large ovary 91545140 N83 .8 Pain in pelvis 52140416 R10.2 93482 Gerald Juarez DO Main Office [address] [place] [address] 09/18/2023 09:39:45 09/18/2023 10:45:01 Vaginal pain 13638211 R10.2 try estradiol vag cream Superficia l pain on intercourse 896863535 N94.11 resolved Female uri nary stress incontinence 68849183 N39.3 try kegels, may need to try pelvic floor PT Increased frequency of urination 474974695 R35.0 try kegels, may need to try pelvic floor PT Incontinence of feces 72 322601 R15.9 try kegels, may need to try pelvic floor PT Screening for mental disorders 013596438 Z13.89 Family his tory of malignant neoplasm of pancreas 781377731 Z80.0 brac/my risk testing Family his tory of malignant neoplasm of ovary 578564812 Z80.41 brac/my risk testing Gynecologi c examination 68088839 Z01.411 pap. patient reminded to schedule mammogram Vitamin D deficiency 347 51046 E55.9 recheck 21067 Gerald Juarez DO Main Office [address] [place] [address] 10/10/2023 14:57:34 10/10/2023 16:15:58 Pain in pelvis 30680580 R10.2 Large ovary 34066840 N83 .8 Leukocytes in urine 2757 77850 R82.79 13614 Gerald Juarez DO Main Office [address] [place] [address] 01/17/2024 10:00:41 01/17/2024 10:23:49 Pain in pelvis 36708855 R10.2 repeat TV u/s, possible cyst Uterine adenomyosis 7843 90766 N80.03 Vaginal dryness 52942430 N89.8 resume vaginal estradiol Abnormal u terine bleeding 5917558656 9100 N92.4 87464 Gerald Juarez DO Main Office [address] [place] [address] 02/12/2024 09:42:31 02/12/2024 10:49:28 Pain in pelvis 14873982 R10.2 Large ovary 61435794 N83 .8 History of endometrial ablation 4874343203 17268 N99.85 Increased frequency of urination 552572621 R35.[address] mckeon on intercourse 117789575 N89.8 74295 Gerald Juarez DO Main Office [address] [place] [address] 05/27/2024 09:31:21 05/27/2024 10:33:47 Pain in pelvis 85839542 R10.2 Large ovary 99054714 N83 .8 91071 Gerald Juarez DO Main Office [address] [place] [address] 08/13/2024 12:52:51 08/13/2024 13:20:08 Abnormal uterine bleeding 4000814293 9100 N93.9 83470853 has spotting each month after ablation, but irregular heavy bleeding today. will order TV U/S, monitor her lining and ov. cysts if present. Pain in pelvis 83272852 R10.2 92886 left sided pelvic pain this morning, now cramping generalize d. TV U/S ordered 51277 Gerald Juarez DO Main Office [address] [place] [address] 08/28/2024 09:26:41 08/28/2024 10:23:01 Pain in pelvis 30295609 R10.2 Large ovary 52438194 N83 .8 Uterine adenomyosis 7843 91013 N80.03 12435399 39123 Gerald Juarez DO Main Office [address] [place] [address] 10/02/2024 09:35:15 10/02/2024 11:05:31 Vaginal dryness 58936018 N89.8 786650 resume vaginal estradiol Gynecologi c examination 75709343 Z01.526 9281993 pap. patient reminded to schedule mammogram Menopausal symptom 02546 002 N95.1 563485 47877 Gerald Juarez DO Main Office [address] [place] [address] 10/21/2024 09:41:59 10/21/2024 09:56:26 At increased risk of malignancy 895887640 Z91.89 868630 refer to GI, send report also Menopausal symptom 34882 002 N95.1 291329 61949 Gerald Juarez DO Main Office [address] [facility] [place] [address] 12/11/2024 09:09:48 12/11/2024 10:15:07 Pain in pelvis 99440342 R10.2 999968 Postoperat ariadne complication 026649855 N99.85 8947923650 Abnormal v aginal bleeding 673989844 N93.8 8377656 Noninflamm atory disorder of the female genital organs 8394824 N83.8 919474 Health Concerns Section Related Observation LastModified by Organization Detai ls LastModified Time None Recorded Concern Status LastModified by Organization Details LastModified Time None Recorded Advance Directives Directive N: Payers Insurance Date Sequence Insurance Name Policy Number Policy Lira Covered Member ID Lira Member ID Guarantor Name 12/11/2024 1 [employer] (MEDICAID REPLACEMENT - HMO) [id number] Shyla Maldonado [id number] Shyla Wrayrj 10/26/2017 1 *SELF PAY* Santino Maldonado 03/09/2025 1 [employer] [facility] (MEDICAID HMO) Shyla Maldonado [id number] Shyla Maldonado Notes Date Note Type Note Provider Name and Address Organization Details Recorded Time 5 text/html TELEHEALTH: Patient has vaginal spotting monthly [...] sided ovarian cyst, which we were monitoring. Gerald Juarez DO [address], [place], [address], [facility], 08/29/2024 20:19:13 5 text/html ROS as noted in the HPI Gerald Juarez DO [address], [place], [address], [facility], 08/31/2024 16:04:00 5 text/html Annual GYNReported by PatientGenitourinary symptomsFor menstrual cycle, patient reportsunexplained vaginal bleeding. For urinary symptoms, patient reportsno hematuriaandno incontinence. For vulva, patient reportsno genital lesion. For vagina, patient reportsnormal vaginal discharge.Breast symptomsFor breast, patient reportsno breast pain,no breast lump, andno nipple discharge.ContraceptionFo r current contraception, patient reportstubal ligation.Endocrine symptomsFor sexual complaints, patient reportspain during intercoursebut reportsno sexual complaintsandnormal libido. For menopausal symptoms, patient reportshot flashes,inadequacy of lubrication of vaginal mucosa, andinsomnia due to night sweats.Psychological symptomsFor psychological symptoms, patient reportsno depression,no anxiety, andno pmdd.Preventative measuresFor preventive measures, patient reportsfollowed with yearly pap smears,history of abnormal pap smear/cervical dysplasia,mammogram performed within the past year, andup to date on colonoscopy screening. spotting each month (hx of ablation). BM pressure causes pulling sensation/tearing sensation behind cervix then has some bleeding. DO [address], [place], [address], 10/19/2024 12:59:13 5 text/html TELEHEALTH: go over alexi genetic results. genetic result negative; no mutations identified. breast cancer riskscore % lifetime risk. modified medical management for elevated risk of colorectal cancer. DO [address], [place], [address], 10/25/2024 16:36:00 5 text/html ROS as noted in the HPI DO [address], [place], [address], [facility], 02/02/2025 22:30:56 OBGyn Episode Ob Episode Information Episode Created Date Number of Fetuses Patient Bloodtype Patient rh Status Prepregnancy Weight lbs Domestic Partner Domestic Partner Phone Father Name Batch Freezer Status 09/27/19 18 1 CLOSED Fetus Data [...] Domestic Partner Domestic Partner Phone Father Name Batch Freezer Status 09/27/19 18 1 CLOSED Fetus Data First Name Last Name Admitted to NICU Weight (g) Sex Living Outcome Pediatric Complications Fetus ID Race Codes Race Delivery Type 3146.56 7704 M Full Term 1780 vaginal Ervin Calculation Initial Ervin Date Initial [...] Complications Tubal Sterilization Discharge Date Comments 7 Regional- idural 39.3 false 10.5 Discharge Information Feeding Method Contraceptive Method Maternal HG B and HCT Levels Ob Episode Information Episode Created Date Number of Fetuses Patient Bloodtype Patient rh Status Prepregnancy Weight lbs Domestic Partner Domestic Partner Phone Father Name Batch Freezer Status 09/27/19 18 1 CLOSED Fetus Data [...] Domestic Partner Domestic Partner Phone Father Name Batch Freezer Status 01/23/20 18 1 O Positive 157 [...] finding on antenata l screening of mother 04/24/[id number] Iron deficiency anemia of 07/04/[id number] Ervin Calculation Initial Ervin Date Initial Exam [...] Weight in lbs Pre/Post Dialysis Refused Weight 157.188824858907 BP Diastolic BP Location Tested BP Systolic BP Type 71 114 sitting Fetus Heart Rate Present Fetus Movement Comments Flowsheet Date 01/29/2018 Chow Score Blood Edema Fundus Height Fundus Units Glucose Ketones Leukocytes Nitrite Labor Signs Protein Cervic Dilation Cervic Effacement Cervic Station Type Weight in lbs Pre/Post Dialysis Refused Weight 156.386146565761 BP Diastolic BP Location Tested BP Systolic BP Type 70 110 sitting Fetus Heart Rate Present Fetus Movement Comments Flowsheet Date 02/19/2018 Chow Score Blood Edema Fundus Height Fundus Units Glucose Ketones Leukocytes Nitrite Labor Signs Protein Cervic Dilation Cervic Effacement Cervic Station neg none none negative none Negative Bleeding trace Type Weight in lbs Pre/Post Dialysis Refused Weight 157.396376656695 BP Diastolic BP Location Tested BP Systolic [...] Weight in lbs Pre/Post Dialysis Refused Weight 158.637160993003 BP Diastolic BP Location Tested BP Systolic [...] Weight in lbs Pre/Post Dialysis Refused Weight 159.489685481203 BP Diastolic BP Location Tested BP Systolic [...] Weight in lbs Pre/Post Dialysis Refused Weight 158.623874946862 BP Diastolic BP Location Tested BP Systolic BP Type 69 113 sitting Fetus Heart Rate Present Fetus Movement Comments Flowsheet Date 04/09/2018 Chow Score Blood Edema Fundus Height Fundus Units Glucose Ketones Leukocytes Nitrite Labor Signs Protein Cervic Dilation Cervic Effacement Cervic Station neg none trace none Negative trace Type Weight in lbs Pre/Post Dialysis Refused Weight 160.332471994571 BP Diastolic BP Location Tested BP Systolic BP Type 70 122 sitting Fetus Heart Rate Present Fetus Movement Comments Flowsheet Date 04/24/2018 Chow Score Blood Edema Fundus Height Fundus Units Glucose Ketones Leukocytes Nitrite Labor Signs Protein Cervic Dilation Cervic Effacement Cervic Station neg none none negative none Negative none neg Type Weight in lbs Pre/Post Dialysis Refused With clothes 161.333622966590 BP Diastolic BP Location Tested BP Systolic BP Type 69 112 sitting Fetus Heart Rate Present A 155 Present Fetus Movement A Yes Comments Flowsheet Date 05/21/2018 Chow Score Blood Edema Fundus Height Fundus Units Glucose Ketones Leukocytes Nitrite Labor Signs Protein Cervic Dilation Cervic Effacement Cervic Station neg none negative none Negative trace Type Weight in lbs Pre/Post Dialysis Refused With clothes 167.870550732127 BP Diastolic BP Location Tested BP Systolic BP Type 68 110 sitting Fetus Heart Rate Present Fetus Movement Comments Flowsheet Date 06/11/2018 Chow Score Blood Edema Fundus Height Fundus Units Glucose Ketones Leukocytes Nitrite Labor Signs Protein Cervic Dilation Cervic Effacement Cervic Station neg none 24 cm none negative none Negative none neg Type Weight in lbs Pre/Post Dialysis Refused Weight 174.53687873260 BP Diastolic BP Location Tested BP Systolic [...] Weight in lbs Pre/Post Dialysis Refused Weight 177.116338860809 BP Diastolic BP Location Tested BP Systolic [...] Weight in lbs Pre/Post Dialysis Refused Weight 182.631651767710 BP Diastolic BP Location Tested BP Systolic [...] Weight in lbs Pre/Post Dialysis Refused Weight 186.473483891242 BP Diastolic BP Location Tested BP Systolic BP Type 81 125 sitting Fetus Heart Rate Present Fetus Movement Comments Flowsheet Date 08/02/2018 Chow Score Blood Edema Fundus Height Fundus Units Glucose Ketones Leukocytes Nitrite Labor Signs Protein Cervic Dilation Cervic Effacement Cervic Station neg none negative none Negative neg Type Weight in lbs Pre/Post Dialysis Refused Weight 190.860273154595 BP Diastolic BP Location Tested BP Systolic BP Type 73 124 sitting Fetus Heart Rate Present Fetus Movement Comments Flowsheet Date 08/08/2018 Chow Score Blood Edema Fundus Height Fundus Units Glucose Ketones Leukocytes Nitrite Labor Signs Protein Cervic Dilation Cervic Effacement Cervic Station neg 36 cm none negative none Negative Robert Wright neg Type Weight in lbs Pre/Post Dialysis Refused Weight 188.110545742565 BP Diastolic BP Location Tested BP Systolic [...] in lbs Pre/Post Dialysis Refused With clothes 192.318147389113 BP Diastolic BP Location Tested BP Systolic [...] in lbs Pre/Post Dialysis Refused With clothes 194.453313751917 BP Diastolic BP Location Tested BP Systolic [...] in lbs Pre/Post Dialysis Refused With clothes 197.898649859448 BP Diastolic BP Location Tested BP Systolic [...] in lbs Pre/Post Dialysis Refused With clothes 197.517305696837 BP Diastolic BP Location Tested BP Systolic [...] in lbs Pre/Post Dialysis Refused With clothes 200.488228595900 BP Diastolic BP Location Tested BP Systolic [...] Weight in lbs Pre/Post Dialysis Refused Weight 202.336095744242 BP Diastolic BP Location Tested BP Systolic BP Type 71 112 sitting Fetus Heart Rate Present A 135 Present Fetus Movement A Yes Comments nst: reactive, no contractio ns. +1 pitting edema. BP wnl today and at home. rest, increase fluids, continue bed rest. induction sunday. reminded of kick count. cont. meds. repeat cbc due to low platelet count. Flowsheet Date 09/19/2018 Chow Score Blood Edema Fundus Height Fundus Units Glucose Ketones Leukocytes Nitrite Labor Signs Protein Cervic Dilation Cervic Effacement Cervic Station Type Weight in lbs Pre/Post Dialysis Refused Weight 180.137680080067 BP Diastolic BP Location Tested BP Systolic BP Type 83 135 sitting Fetus Heart Rate Present Fetus Movement Comments Flowsheet Date 10/03/2018 Chow Score Blood Edema Fundus Height Fundus Units Glucose Ketones Leukocytes Nitrite Labor Signs Protein Cervic Dilation Cervic Effacement Cervic Station Type Weight in lbs Pre/Post Dialysis Refused With clothes 179.230165200186 BP Diastolic BP Location Tested BP Systolic BP Type 89 150 sitting 81 L wrist 127 sitting Fetus Heart Rate Present Fetus Movement Comments Menstrual History Last Menstrual Date Menses Monthly On Bcp Conception Prior Menses Frequency Hcg Plus Date Menarche Onset Age 0812/20/2017 true false 12/20/201701/23/20 1 8 9 Genetic Screening And Infection History Question Response Note Patient's Age Will Be 35 Yea rs Or Older At Estimated Date of Delivery true Thalassemia (Guinean, Kenyan, Mediterranean, Or Background): MCV < 80 false Neural Tube Defect (Meningom yelocele, Spina Bifida, Or Anencephaly) false Congenital Heart Defect false Down Syndrome false Kain-Sachs (eg, Worship, Cajun , Pashto-Oxbow) false Geno Disease false Sickle Cell Disease Or Trait () false Hemophilia Or Other Blood Disorders false Muscular Dystrophy false Cystic Fibrosis false Keyona's Chorea false Intellectual Disability/Autism false If Yes, [...] (including supplements, vitamins, herbs, or OTC drugs) [facility] 07/19/2018 Seat belt use [facility] 07/19/2018 [facility] Toxoplasmosis precautions (cats/raw meat) [facility] 07/19/2018 Toxoplasmosis precautions (cats/raw meat) [facility] 07/[facility]/2018 Sexual activity [facility] 07/19/2018 Screening for aneuploidy [facility] 07/19/2018 Weight gain counseling [facility] 07/19/2018 Exercise [facility] 07/19/2018 Intimate partner violence [facility] 07/19/2018 Childbirth classes/hospital facilities [facility] 07/[facility]/2018 Nutrition counseling ; special diet; dietary precautions (mercury, listeriosis) [facility] 07/19/2018 Environmental/work hazards [facility] 07/[facility]2018 [facility] 07/19/2018 Indications for ultrason[facility] 07/19/2018 HIV and other routine tests [facility] 07/[facility]/2018 Risk factors identif ied by history [facility] 07/19/2018 Dental care [facility] 07/[facility]/2018 Avoidance of saunas or hot tubs [facility] 07/19/2018 Tobacco/smoking cess ation counseling (ask, advise, assess, assist, and arrange) [facility] 07/19/2018 Alcohol [facility] 07/19/2018 Illicit/recreational drugs [facility] 07[facility]19/2018 [facility] Second Trimester Discussed Date Discussion Item Discussion Note Discuss ed By 07/19/2018 Depression screening (when indicated) [facility] 07/19/2018 Abnormal lab values [facility] 07/19/2018 Selecting a care provider [facility] 07/19/2018 Tobacco/smoking cess ation counseling (ask, advise, assess, assist, and arrange) [facility]/tubal sterilization [facility] 07/19/2018 Signs and symptoms of labor [facility] 07/19/2018 Intimate partner violence [facility] Third Trimester Discussed Date Discussion Item Discussion Note Discuss ed By 07/19/2018 Circumcision [facility] 07/19/2018 Intimate partner violence [facility] 07/19/2018 [place] education (n ewborn screening, jaundice, SIDS/safe sleeping position, car seat) [facility] 07/19/2018 [facility]2018 Trial of labor after (TOLAC) counseling [facility] 07/19/2018 Tobacco/smoking cess ation counseling (ask, advise, assess, assist, and arrange) [facility] 07/[facility]/2018 Family medical leave or disability forms [facility] 07/19/2018 [facility] 07/19/2018 movement monitoring [facility] 07/19/2018 Postterm counseling [facility] 07/19/2018 depression [facility] 07/19/2018 [facility]2018 Signs and symptoms of preeclampsia [facility] Delivery Information Delivery Date Delivery Type Labor Anesthesia Weeks Gestation Incision Type Labor Labor Length Hrs Delivered By Post Complications Tubal Sterilization Discharge Date Comments 9 Induce d Regional-Ep idural 37.4 false 8.5 Gerald Veloudis Hemorrhage false 09/14/2018 Cervical Hemorrhag e Discharge Information Feeding Method Contraceptive Method Maternal HG B and HCT Levels
== END 2025-03-09 23:59 | disposition home or self-care (01) ==
PROVIDERS: PCP Family Medicine; Visit Provider Family Medicine
DX: I49.1 Atrial premature depolarization (principal); I47.19 Other supraventricular tachycardia
CPT/HCPCS: 93270

== ENCOUNTER 2025-04-28 09:13 | Outpatient (CLI) | payer OTHER, SELFPAY ==
--- OUTSIDE RECORDS SUMMARY | 2024-02-04 10:45 | XMS_ITS ---
[facility] [address] [place] [phone] Care Team Providers Care Brush Maker Machine Name Role Phone Coleman Soares Primary Care Provider [phone] Allergies No Known Allergies Reason For Referral Reason episodic SOA, asthma tic bronchitis, tachycardia Diagnosis 1 Mild intermittent as thmatic bronchitis without complication (J45.20) [facility]erring Provider First Name Coleman Asif Referring Provider Last Name Rodger Referring Provider Speciality Family Pra ctice Referred Provider Nicholas Vásquez Referred Provider Specialty Pulmonary Di seases General Notes Katiuska Wilder 02/05/20 24 9:10:13 AM > faxed office notes and referral to [facility] Pulmonology Referral Priority Routine REASON FOR VISIT follow up Medications Medication SIG (Take, Route, Frequency, Duration) Notes Start Date End Date Status Flonase Allergy Relief 50 MCG/ACT 1 spray(s) in each nostril once a day; Duration: 30 day(s) 12/10/2020 Active hydroCHLOROthiazide 12.5 MG TAKE 1 TABLE T BY MOUTH DAILY IN THE MORNING; Duration: 30 Active Temazepam 15 MG 1 capsule at bedtime as needed Orally Once a day 12/27/2023 Active Ventolin HFA 108 (90 Base) MCG/ACT 1 puff as needed Inhalation every 4 hrs Active Atenolol 50 MG 1 tab(s) orally once a day; Duration: 90 days Active Fexofenadine HCl 180 MG 1 tablet Swallow whole with water; do not take with fruit juices. Orally Once a day; Duration: 30 day(s) Active Montelukast Sodium 10 MG 1 tablet Orally Once a day; Duration: 30 day(s) Active Omeprazole 40 MG 1 capsule 30 minutes before morning meal Orally Once a day; Duration: 30 day(s) Active Problems Problem Type SNOMED Code ICD Code Onset Dates Problem Status W/U Status Risk Notes Problem Paroxysmal tachycardia (27107793) Paroxysmal tachycardia (I47.9) Active confirmed Vital Signs Blood pressure systolic 140 mm Hg 02/04/20 24 Blood pressure diastolic 80 mm Hg 024 Heart Rate 56 /min 2024 Height 64.50 in 2024 Weight 181.0 lbs 2024 BMI 30.59 kg/m2 2024 Encounters Encounter Location Date Provider Diagnosis [facility] [address] [facility] [address] [facility] [address] [place] [phone] 2024 Coleman Soares Mild intermittent asthmatic bronchitis without complication J45.20 and Paroxysmal tachycardia I47.9 Assessments Encounter Date Diagnosis (ICD Code) Assessment Notes Treatment Notes Treatment Clinical Notes Section Notes 2024 Mild intermittent asthmatic bronchitis without complication (ICD-10 - J45.20) 2024 Paroxysmal tachycardia (ICD-10 - I47.9) Plan Of Treatment Referrals Referral Date Details 2024 2024, episodic SOA, asthmatic bronchitis, tachycardia, [place] Next Appt Details Follow Up: 6 Weeks, Reason: Provider Name:Coleman Park er, 06/08/2025 10:30:00 AM, [address] [facility] [address] [facility], [address], [place], [phone], Progress Notes * Shyla MALDONADODOB: [birth year] (45 yo F)Acc No.[id number] Progress Notes Patient: Shyla DONAHUE Provider: Coleman Soares M.D. :1980 A ge:44 Y S ex:Female Date:2024 Address:[address] [place] [address] [id number] Subjective: * Chief Complaints: * 1 . Follow up. * HPI: C ardiology: The pt is here for a follow up on heart palpitations and Holter report. see pt docs. Pt states is doing about the same. Pt states she is having some continued shortness of breath. Pt states about a week ago she was sitting on the couch and had an episode of very rapid heart rate that lasted about a minute HOLTER SHOWED NSR CARDIAC MR WAS WNL. 44 year old female presents with c/o Short of Breath. c/o Palpitations. Denies : Chest Pain. D enies : Dizziness. * ROS: D ERMATOLOGY: no R mars. n o H yeny. G ASTROENTEROLOGY: no N ausea. n o V omiting. n o D iarrhea.? U ROLOGY: no D ifficulty urinating. n o B lood in urine. * Medical History: M edical History Verified. 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 * Hospitalization/Major Diagno stic Procedure: [facility] bed rest- child Jul- August 2009, [facility] ear pain 12/01/2020. * Family History: F ather: alive. M other: alive. S iblings: alive. C hildren: alive. 3 brother(s) - healthy. 1 son(s) , 2 daughter(s) - healthy. . * Social History: C URRENT TOBACCO USE S moking Status: Patient does NOT smoke. C affeine: yes, frequency: 1 Mt Dew 20 oz. Home smoke detector use: yes. Alcohol: no. * Medications: T aking Omeprazole 40 MG Capsule Delayed Release 1 capsule 30 minutes before morning meal Orally Once a day , Taking Montelukast Sodium 10 MG Tablet 1 tablet Orally Once a day , Taking Fexofenadine HCl 180 MG Tablet 1 tablet Swallow whole with water; do not take with fruit juices. Orally Once a day , Taking Flonase Allergy Relief 50 MCG/ACT Suspension 1 spray(s) in each nostril once a day , Taking Atenolol 50 MG Tablet 1 tab(s) orally once a day , Taking Ventolin HFA 108 (90 Base) MCG/ACT Aerosol Solution 1 puff as needed Inhalation every 4 hrs , Taking Temazepam 15 MG Capsule 1 capsule at bedtime as needed Orally Once a day , Taking hydroCHLOROthiazide 12.5 MG Tablet TAKE 1 TABLET BY MOUTH DAILY IN THE MORNING , Medication List reviewed and reconciled with the patient * Allergies: N .K.D.A. Objective: * Vitals: W t:181.0, Temp:98.0, BP:140/80, HR:56, O2 Sat:100% on RA, Nurse:OBDULIA, Ht: 64.50, BMI:30.59. * Examination: G eneral Examination: General Appearance: N AD. H EENT: u nremarkable.?Oral cavity: n o lesions, mucosa moist and WNL, no erythema. N steff: s upple, no lymphadenopathy. C hest: n ormal shape and expansion. H eart: s inus bradycardia. L ungs: c lear to auscultation, no wheezes or rales. A bdomen: obese, soft and nontender. N eurologic Exam: I ntact, gait normal. S kin: n ormal, no rash. P eripheral pulses: n ormal . E xtremities: n o leg edema. Assessment: * Assessment: 1. M ild intermittent asthmatic bronchitis without complication - J45.20 (Primary) ?2. P aroxysmal tachycardia - I47.9 Plan: * Treatment: * Procedure Codes: 9 4760 PULSE OX * Follow Up: 6 Weeks * Images: Billing Information: * Visit Code: 63820 Office Visit, Est Pt., Level 3. * Procedure Codes: 31596 PULSE OX. * Electronic signature of Coleman Soares MD on 04/28/2025 at 09:18 AM EST Sign off status: Pending * Provider: Coleman Soares M.D. Date: Generated for Roseanne chisholm/Cindy/Carmen on: 09:18 AM EST History and Physical Notes * HPI (History of Present Illness) Category Sub-Category Detail Notes Category Not es Cardiology Short of Breath Chest Pain Palpitations Dizziness Examination Category Sub-Category Detail Notes Category Not es General Examination HEENT: unremarkable Heart: sinus bradycardia Lungs: clear to auscultatio n, no wheezes or rales Abdomen: obese, soft and nont brianna Extremities: no leg edema General Appearance: NAD Skin: normal, no rash Neurologic Exam: Intact, gait normal Neck: supple, no lymphaden opathy Oral cavity: no lesions, mucosa m oist and WNL, no erythema Peripheral pulses: normal Chest: normal shape and exp ansion Consultation Request Notes Referral Date Referring Provider Referred Provider Not es 2024 Coleman Soares, [facility] episod ic SOA, asthmatic bronchitis, tachycardia
--- OUTSIDE RECORDS SUMMARY | 2024-03-17 05:30 | XMS_ITS ---
Author Organization [facility] Address [address] [facility] [address] [place] [id number] Care Team Providers Care Under Water Assistant Name Role Phone Coleman Soares Primary Care Provider Allergies No Known Allergies Results Component Value Reference Range Notes Urinalysis - Inhouse Reviewed date:03/17/2024 12:05:19 PM Interpretation: Performing Lab: Notes/Report: Color/Clarity yellow/clearnEG Leuk Neg Nitrite Neg Urobili 3.2 Protein Neg pH 7.0 Blood Trace-Intact Sp. Gr. 1.020 Ketone Neg Bili Neg Gluc Neg P-Culture, Urine Reviewed date:03/20/2024 12:47:46 PM Interpretation:No Significant Growth Performing Lab: Notes/Report: CLIA: [id number] Gerardo Deal MD, Publishing Agent [address] [place] [address] , [place] [address] Test performed by [facility], Estrogen Gene Test Specimen Source Urine - Void Culture, Urine See Below Final Report : No Significant Growth REASON FOR VISIT 6 week F/U Medications Medication SIG (Take, Route, Frequency, Duration) Notes Start Date End Date Status Montelukast Sodium 10 MG 1 tablet Orally Once a day; Duration: 30 day(s) Active Omeprazole 40 MG 1 capsule 30 minutes before morning meal Orally Once a day; Duration: 30 day(s) Active Lac-Hydrin Five 5 % 1 application Externally Twice a day 03/17/2024 Active Atenolol 50 MG TAKE 1 TABLET BY DAILY; Duration: 90 Active hydroCHLOROthiazide 12.5 MG TAKE 1 TABLE T BY MOUTH DAILY IN THE MORNING; Duration: 30 Active Ventolin HFA 108 (90 Base) MCG/ACT 1 puff as needed Inhalation every 4 hrs Active Flonase Allergy Relief 50 MCG/ACT 1 spray(s) in each nostril once a day; Duration: 30 day(s) 12/10/2020 Active Fexofenadine HCl 180 MG 1 tablet Swallow whole with water; do not take with fruit juices. Orally Once a day; Duration: 30 day(s) Active Temazepam 15 MG 1 capsule at bedtime as needed Orally Once a day 12/27/2023 Active Vital Signs Blood pressure systolic 152 mm Hg 03/17/20 24 Blood pressure diastolic 90 mm Hg 024 Heart Rate 54 /min 03/17/2024 Height 64.50 in 03/17/2024 Weight 188.8 lbs 03/17/2024 BMI 31.90 kg/m2 03/17/2024 Encounters Encounter Location Date Provider Diagnosis [facility] [address] [facility] 36 [facility] [address] [place] [id number] 03/17/2024 Coleman Soares Mild intermittent asthmatic bronchitis without complication J45.20 ; Pinworm infection B80 ; Contact dermatitis of foot L25.9 and Urinary pain R30.9 Assessments Encounter Date Diagnosis (ICD Code) Assessment Notes Treatment Notes Treatment Clinical Notes Section Notes 03/17/2024 Mild intermittent asthmatic bronchitis without complication (ICD-10 - J45.20) 03/17/2024 Pinworm infection (ICD-10 - B80) I recommended retreatment at this point. 03/17/2024 Contact dermatitis of foot (ICD-10 - L25.9) 03/17/2024 Urinary pain (ICD-10 - R30.9) Plan Of Treatment Medication Medication Name Sig Start Date Stop Date Notes Lac-Hydrin Five 5 % 1 application Externally Twice a day 1 05/17/2023 Treatment Notes Assessment Notes Pinworm infection I recommended retrea tment at this point. Next Appt Details Follow Up: 3 Months, Reason: Provider Name:[place]man Park er, 06/08/2025 10:30:00 AM, [address] [facility], [address], [place], [phone], Progress Notes * Niranjan MALDONADO: [birth year] (45 yo F)Acc No.[id number]:03/17/2024 Progress Notes Patient: Shyla DONAHUE Provider: Coleman Soares M.D. :1980 A ge:44 Y S ex:Female Date:03/17/2024 Address:[address] [place] [address] [id number] Subjective: * Chief Complaints: * 1 . 6 week F/U. * HPI: C ardiology: The pt is here today for a check up on Tachycardia. Pt states she is doing about the same. Pt states she is having some pain when having a bowel movement and feels a sharp pain in her urethra. 44 year old female presents with c/o Chest Pain. c/o Short of Breath. c/o Palpitations. G astroenterology: Passed a pinworm 3 weeks ago. Saw them in daughter's bowel movement. States she got OTC medication (Aniket's Pinworm medication, Pyrantel pamoate) and treated the whole family. * ROS: D ERMATOLOGY: no R mars. [...] Juarez 2018. * Hospitalization/Major Diagno stic Procedure: [facility] Jul- August 2009, [facility] [place] 12/01/2020. * Family History: F [...] each nostril once a day , Taking Ventolin HFA 108 (90 Base) MCG/ACT Aerosol Solution 1 puff as needed Inhalation every 4 hrs , Taking Temazepam 15 MG Capsule 1 capsule at bedtime as needed Orally Once a day , Taking hydroCHLOROthiazide 12.5 MG Tablet TAKE 1 TABLET BY MOUTH DAILY IN THE MORNING , Taking Atenolol 50 MG Tablet TAKE 1 TABLET BY MOUTH DAILY , Medication List reviewed and reconciled with the patient * Allergies: N .K.D.A. Objective: * Vitals: W t:188.8, Temp:98.2, BP:152/90, HR:54, O2 Sat:99% on RA, Nurse:OBDULIA, Ht: 64.50, BMI:31.90. * Examination: G eneral Examination: General Appearance: [...] . E xtremities: n o leg edema. Hyperkeratosis of the left heel with fissures.. Assessment: * Assessment: 1. M ild intermittent asthmatic bronchitis without complication - J45.20 (Primary) ?2. P inworm infection - B80 3 . C ontact dermatitis of foot - L25.9? 4. U rinary pain - R30.9 Plan: * Treatment: 2. C ontact dermatitis of foot Start Lac-Hydrin Five Lotion, 5 %, 1 application, Externally, Twice a day, 60 Gram, Refills 1. 3. U rinary pain L AB: P-Culture, Urine (Collection Date & Time - 03/17/2024 11:09 AM) N o Significant Growth Value Reference Range C ulture, Urine See Below - * S pecimen Source Urine - Void - * Sunita Nova 03/20/2024 12 :47:37 PM > , Patient informed of normal results. ?LAB: Urinalysis - Inhouse (Collection Date & Time - 03/17/2024)* Value Reference Range C olor/Clarity yellow/clearnEG * L euk Neg * N itrite Neg * U robili 3.2 * P rotein Neg * p H 7.0 * B lood Trace-Intact * S p. Gr. 1.020 * K etone Neg * B annie Neg * G roland Neg * Sunita Nova 03/17/2024 10 :51:11 AM > , Provider reviewed results while patient in office. * Procedure Codes: 9 [address] [place], [address] Urinalysis, no micro * Follow Up: 3 Months * Images: Billing Information: * Visit Code: 74850 Office Visit, Est Pt., Level 3. * Procedure Codes: [address] [place]. [address] Urinalysis, no micro. * Electronic signature of Coleman Soares MD on 04/28/2025 at 09:19 AM EST Sign off status: Pending * Provider: Coleman Soares M.D. Date: 05/17/2023 Generated for Roseanne chisholm/Cindy/eTransmitting on: 09:19 AM EST History and Physical Notes * HPI (History of Present Illness) Category Sub-Category Detail Notes Category Not es Cardiology Short of Breath Chest Pain Palpitations Examination Category Sub-Category Detail Notes Category Not es General Examination HEENT: unremarkable Heart: sinus bradycardia Lungs: clear to auscultatio n, no wheezes or rales Abdomen: obese, soft and nont brianna Extremities: no leg edema. Hyperk eratosis of the left heel with fissures. General Appearance: NAD Skin: normal, no rash Neurologic Exam: Intact, gait normal Neck: supple, no lymphaden opathy Oral cavity: no lesions, mucosa m oist and WNL, no erythema Peripheral pulses: normal Chest: normal shape and exp ansion
--- OUTSIDE RECORDS SUMMARY | 2024-06-16 11:15 | XMS_ITS ---
Author Organization [facility] Address [address] [facility] [address] [place] [id number] Care Team Providers Care Educational Assistant Name Role Phone Coleman Soares Primary Care Provider [phone] Allergies No Known Allergies Results Component Value Reference Range Notes P-Comprehensive Metabolic Pa nate (CMP) Reviewed date:06/18/2024 03:13:01 PM Interpretation:gluc 57 Performing Lab: Notes/Report: Test performed by [facility] [address] [place] [address] , [address], [place] [address] Gerardo Deal MD, Microwave Remote Sensing Scientist CLIA: [id number] Sodium 142 135-145 mmol/L Potassium 4.7 3.5-5.3 mmol/L Chloride 107 97-108 mmol/L CO2 26 22-32 mmol/L Glucose 57 65-99 mg/dL BUN 14 6-20 mg/dL Creatinine 0.83 0.50-1.00 mg/dL Calcium 8.7 8.6-10.4 mg/dL eGFR by Creatinine 89 >59 mL/min/1.73m2 Protein 6.6 6.0-8.3 g/dL Albumin 4.4 3.5-5.3 g/dL Alkaline Phosphatase 51 35-121 IU/L ALT (SGPT) 24 <5-47 IU/L AST (SGOT) 23 <5-40 IU/L Bilirubin, Total 0.4 <0.2-1.2 mg/dL A/G Ratio 2.0 1.1-2.5 REASON FOR VISIT 3 month f/u Medications Medication SIG (Take, Route, Frequency, Duration) Notes Start Date End Date Status Lac-Hydrin Five 5 % 1 application Externally Twice a day 03/17/2024 Active hydroCHLOROthiazide 12.5 MG TAKE 1 TABLE T BY MOUTH DAILY IN THE MORNING; Duration: 30 Active Temazepam 15 MG 1 capsule at bedtime as needed Orally Once a day 12/27/2023 Active Atenolol 50 MG TAKE 1 TABLET BY JEANETTE TH DAILY; Duration: 90 days Active Ventolin HFA 108 (90 Base) MCG/ACT INHALE 1 PUFF BY MOUTH EVERY 4 HOURS NEEDED; Duration: 33 Active Flonase Allergy Relief 50 MCG/ACT 1 [...] Once a day; Duration: 30 day(s) Active Symbicort 160-4.5 MCG/ACT as directed Inhalation Active Meloxicam 15 MG 1 tablet Orally Once a day; Duration: 30 day(s) 06/16/2024 Active Airsupra 90-80 MCG/ACT 2 puffs as needed Inhalation Six times a day Active Lac-Hydrin Five 5 % 1 application Externally Twice a day 06/16/2024 Active Problems Problem Type SNOMED Code ICD Code Onset Dates Problem Status W/U Status Risk Notes Problem Uncomplicated moderate persistent asthma ([id number]) Moderate persistent asthma without complication (J45.40) Active confirmed Problem Keratosis of plantar aspect of foot (Q82.8) Active confirmed Vital Signs Blood pressure systolic 124 mm Hg 06/16/19 25 Blood pressure diastolic 86 mm Hg 025 Heart Rate 54 /min 06/16/2024 Height 64.50 in 06/16/2024 Weight 186.8 lbs 06/16/2024 BMI 31.57 kg/m2 06/16/2024 Encounters Encounter Location Date Provider Diagnosis [facility] [address] [facility] [address] [place], [place] [phone] 06/16/2024 Coleman Soares Moderate persistent asthma without complication J45.40 ; Right lateral epicondylitis M77.11 ; Keratosis of plantar aspect of foot Q82.8 and Hypertension, unspecified type I10 Assessments Encounter Date Diagnosis (ICD Code) Assessment Notes Treatment Notes Treatment Clinical Notes Section Notes 06/16/2024 Moderate persistent asthma without complication (ICD-10 - J45.40) 06/16/2024 Right lateral epicondylitis (ICD-10 - M77.11) 06/16/2024 Keratosis of plantar aspect of foot (ICD-10 - Q82.8) 06/16/2024 Hypertension, unspecified type (ICD-10 - I10) Plan Of Treatment Medication Medication Name Sig Start Date Stop Date Notes Meloxicam 15 MG 1 tablet Orally Once a day; Duration: 30 day(s) 06/16/2024 Lac-Hydrin Five 5 % 1 application Externally Twice a day 0 06/16/2024 Next Appt Details Follow Up: 4 Months, Reason: Provider Name:[place]man [place] , 06/08/2025 10:30:00 AM, [address] [facility] 36 [facility], [address], [place], [place], [phone], Progress Notes * Shyla MALDONADODOB: [birth year] (45 yo F)Acc No.[id number]:06/16/2024 Progress Notes Patient: Shyla DONAHUE Provider: Coleman Soares M.D. :1980 A ge:44 Y S ex:Female Date:06/16/2024 Address:[address] [place] [address] [id number] Subjective: * Chief Complaints: * 1 . 3 month f/u. * HPI: C ardiology: The patient is here for a check up on Hypertension and Tachycardia. Pt states she is doing good and denies any new concerns. Pt states she is still having pain in the right arm. Pt states the tennis elbow brace has not helped. Pt states the Tylenol and Ibuprofen does not help either. Pt states the pain ia worse with picking up things. 44 year old female presents with c/o Palpitations. Denies : Chest Pain. D enies : Short of Breath. D enies : Dizziness. E NT/respiratory: See note Dr. Vásquez. Asthma with good results using Symbicort and rescue inhaler. * ROS: D ERMATOLOGY: no R mars. [...] Juarez 2018. * Hospitalization/Major Diagno stic Procedure: [facility] bed rest- child Jul- August 2009, [facility] ear pain 12/01/2020. * Family History: F [...] yes. Alcohol: no. * Medications: T aking Airsupra 90-80 MCG/ACT Aerosol 2 puffs as needed Inhalation Six times a day , Taking Symbicort 160-4.5 MCG/ACT Aerosol as directed Inhalation , Taking Omeprazole 40 MG Capsule Delayed Release 1 [...] each nostril once a day , Taking Temazepam 15 MG Capsule 1 capsule at bedtime as needed Orally Once a day , Taking hydroCHLOROthiazide 12.5 MG Tablet TAKE 1 TABLET BY MOUTH DAILY IN THE MORNING , Taking Lac-Hydrin Five 5 % Lotion 1 application Externally Twice a day , Taking Ventolin HFA 108 (90 Base) MCG/ACT Aerosol Solution INHALE 1 PUFF BY MOUTH EVERY 4 HOURS NEEDED , Taking Atenolol 50 MG Tablet TAKE 1 TABLET BY MOUTH DAILY , Medication List reviewed and reconciled with the patient * Allergies: N .K.D.A. Objective: * Vitals: W t:186.8, Temp:98.0, BP:124/86, HR:54, O2 Sat:99% on RA, Nurse:OBDULIA, Ht: 64.50, BMI:31.57. * Examination: G eneral Examination: General Appearance: N AD. H EENT: u nremarkable.?Oral cavity: n o lesions, mucosa moist and WNL, no erythema. N steff: s upple, no lymphadenopathy. C hest: n ormal shape and expansion. H eart: R SR. L ungs: c lear to auscultation, no wheezes or rales. A bdomen: obese, soft and nontender. N eurologic Exam: I ntact, gait normal. S kin: n ormal, no rash. P eripheral pulses: n ormal . E xtremities: n o leg edema. Assessment: * Assessment: 1. M oderate persistent asthma without complication - J45.40 (Primary) 2 . R ight lateral epicondylitis - M77.11 3 . K eratosis of plantar aspect of foot - Q82.8 4 . H ypertension, unspecified type - I10 Plan: * Treatment: 2. K eratosis of plantar aspect of foot Start Lac-Hydrin Five Lotion, 5 %, 1 application, Externally, Twice a day, 60 Gram, Refills 1. 3. H ypertension, unspecified type L AB: P-Comprehensive Metabolic Panel (CMP) (Collection Date & Time - 06/16/2024 03:15 PM) g roland 57 Value Reference Range A /G Ratio 2.0 1.1-2.5 - * A lbumin 4.4 3.5-5.3 - g/dL * A lkaline Phosphatase 51 35-121 - IU/L * A LT (SGPT) 24 <5-47 - IU/L * A ST (SGOT) 23 <5-40 - IU/L * B ilirubin, Total 0.4 <0.2-1.2 - mg/dL * B UN 14 6-20 - mg/dL * C alcium 8.7 8.6-10.4 - mg/dL * C hloride 107 97-108 - mmol/L * C O2 26 22-32 - mmol/L * C reatinine 0.83 0.50-1.00 - mg/dL * G lucose 57 L 65-99 - mg/dL * P otassium 4.7 3.5-5.3 - mmol/L * S odium 142 135-145 - mmol/L * P rotein 6.6 6.0-8.3 - g/dL * e GFR by Creatinine 89 >59 - mL/min/1.73m2 * Jany Rosales 06/18/2024 3:12: 54 PM >See phone encounter * Procedure Codes: 9 47[address] [place], [address] VENIPUNCT, ROUTINE*, 47687 SPECIMEN HANDLING, 3074F SYST BP LT 130 MM HG, 3079F DIAST BP 80-89 MM HG * Follow Up: 4 Months * Images: Billing Information: * Visit Code: 62125 Office Visit, Est Pt., Level 3. * Procedure Codes: [address] [place]. [address] VENIPUNCT, ROUTINE*. 24686 SPECIMEN HANDLING. 3074F SYST BP LT 130 MM HG. 3079F DIAST BP 80-89 MM HG. * Electronic signature of Coleman Soares MD on 04/28/2025 at 09:18 AM EST Sign off status: Pending * Provider: Coleman Soares M.D. Date: 0 06/16/2024 Generated for Roseanne chisholm/Cindy/eTransmitting on: 09:18 AM EST History and Physical Notes * HPI (History of Present Illness) Category Sub-Category Detail Notes Category Not es Cardiology Short of Breath Chest Pain Palpitations Dizziness Examination Category Sub-Category Detail Notes Category Not es General Examination HEENT: unremarkable Heart: RSR Lungs: clear to auscultatio n, no wheezes or rales Abdomen: obese, soft and nont brianna Extremities: no leg edema General Appearance: NAD Skin: normal, no rash Neurologic Exam: Intact, gait normal Neck: supple, no lymphaden opathy Oral cavity: no lesions, mucosa m oist and WNL, no erythema Peripheral pulses: normal Chest: normal shape and exp ansion
--- OUTSIDE RECORDS SUMMARY | 2024-10-10 05:15 | XMS_ITS ---
Author [facility] Address [address] [facility] [address] [place] [phone] Care Team Providers Care Horticultural Specialty Grower Inside Name Role Phone Coleman Soares Primary Care Provider Allergies No Known Allergies Results Component Value Reference Range Notes P-Basic Metabolic Panel (BMP ) Reviewed date:10/24/2024 02:26:56 PM Interpretation:Normal Performing Lab: Notes/Report: Test performed by [facility] , [address], [place] [address] Gerardo Deal MD, Innersole Maker CLIA: [id number] Sodium 141 135-145 mmol/L Potassium 3.8 3.5-5.3 mmol/L Chloride 106 97-108 mmol/L CO2 24 22-32 mmol/L Glucose 101 65-99 mg/dL BUN 13 6-20 mg/dL Creatinine 0.84 0.50-1.00 mg/dL Calcium 9.2 8.6-10.4 mg/dL eGFR by Creatinine 87 >59 mL/min/1.73m2 REASON FOR VISIT 4 month ckup Medications Medication SIG (Take, Route, Frequency, Duration) Notes Start Date End Date Status hydroCHLOROthiazide 12.5 MG 1 tablet in the morning Orally Once a day; Duration: 30 days Active Meloxicam 15 MG 1 tablet Orally Once a day; Duration: 30 day(s) 06/16/2024 Active Lac-Hydrin Five 5 % 1 application Externally Twice a day 06/16/2024 Active Atenolol 50 MG TAKE 1 TABLET BY DAILY; Duration: 90 Active Fexofenadine HCl 180 MG 1 tablet Swallow whole with water; do not take with fruit juices. Orally Once a day; Duration: 30 day(s) Active Ventolin HFA 108 (90 Base) MCG/ACT INHALE 1 PUFF BY MOUTH EVERY 4 HOURS NEEDED; Duration: 33 Active Lac-Hydrin Five 5 % 1 application Externally Twice a day 03/17/2024 Active Temazepam 15 MG 1 capsule at bedtime as needed Orally Once a day 12/27/2023 Active Flonase Allergy Relief 50 MCG/ACT 1 spray(s) in each nostril once a day; Duration: 30 day(s) 12/10/2020 Active Montelukast Sodium 10 MG 1 tablet Orally Once a day; Duration: 30 day(s) Active Omeprazole 40 MG 1 capsule 30 minutes before morning meal Orally Once a day; Duration: 30 day(s) Active Symbicort 160-4.5 MCG/ACT as directed Inhalation Active Vital Signs Blood pressure systolic 112 mm Hg 10/11/19 25 Blood pressure diastolic 80 mm Hg 025 Heart Rate 50 /min 10/10/2024 Height 64.50 in 10/10/2024 Weight 185.2 lbs 10/10/2024 BMI 31.3 kg/m2 10/10/2024 Encounters Encounter Location Date Provider Diagnosis [facility] [address] [facility] 36 [facility] [address] [place] [phone] 10/10/2024 Coleman Soares Paroxysmal tachycard ia I47.9 and Moderate persistent asthma without complication J45.40 Assessments Encounter Date Diagnosis (ICD Code) Assessment Notes Treatment Notes Treatment Clinical Notes Section Notes 10/10/2024 Paroxysmal tachycardia (ICD-10 - I47.9) 10/10/2024 Moderate persistent asthma without complication (ICD-10 - J45.40) Plan Of Treatment Medication Medication Name Sig Start Date Stop Date Notes Airsupra 90-80 MCG/ACT 2 puffs as needed Inhalation Six times a day Next Appt Details Follow Up: 4 Months, Reason: Provider Name:Coleman Park er, 06/08/2025 10:30:00 AM, [address] [facility] 36 [facility], [address], [place], [phone], Progress Notes * Niranjan MALDONADO: [birth year] (45 yo F)Acc No.[id number]:10/10/2024 Progress Notes Patient: Shyla DONAHUE Provider: Coleman Soares M.D. :1980 A ge:44 Y S ex:Female Date:10/10/2024 Address:[address] [place] [address] [id number] Subjective: * Chief Complaints: * 1 . 4 month ckup. * HPI: C ardiology: The pt is here for a check up on Hypertension and Hyperlipidemia. Pt states she went to the [facility] for strep in June and the night prior she felt like her heart was racing, had some pain in her neck and her BP was 164/102. Pt states it has been running good since that episode. Pt is no fasting. Denies : Chest Pain. D enies : Short of Breath. D enies : Dizziness. D enies : Palpitations. * ROS: D ERMATOLOGY: no R mars. [...] 2018. * Hospitalization/Major Diagno stic Procedure: [facility] bed rest- child Jul- August 2009, [facility] ear pain 12/01/2020. * Family History: F [...] needed Orally Once a day , Taking Lac-Hydrin Five 5 % Lotion 1 application Externally Twice a day , Taking Ventolin HFA 108 (90 Base) MCG/ACT Aerosol Solution INHALE 1 PUFF BY MOUTH EVERY 4 HOURS NEEDED , Taking Lac-Hydrin Five 5 % Lotion 1 application Externally Twice a day , Taking Meloxicam 15 MG Tablet 1 tablet Orally Once a day , Taking Atenolol 50 MG Tablet TAKE 1 TABLET BY MOUTH DAILY , Taking hydroCHLOROthiazide 12.5 MG Tablet 1 tablet in the morning Orally Once a day , Medication List reviewed and reconciled with the patient * Allergies: N .K.D.A. Objective: * Vitals: W t: 185.2, Temp: 98.4, BP: 112/80, HR: 50, O2 Sat: 99% on RA, Nurse: OBDULIA, Ht: 64.50, BMI:31.3. * Examination: G eneral Examination: General Appearance: N AD. H EENT: u nremarkable.?Oral cavity: n o lesions, mucosa moist and WNL, no erythema. N steff: s upple, no lymphadenopathy. C hest: n ormal shape and expansion. H eart: R SR, no ectopics. L ungs: c lear to auscultation, no wheezes or rales. A bdomen: obese, soft and nontender.?Neurologic Exam: I ntact, gait normal. S kin: n ormal, no rash. P eripheral pulses: n ormal . E xtremities: n o leg edema. Assessment: * Assessment: 1. P aroxysmal tachycardia - I47.9 (Primary) 2 . M oderate persistent asthma without complication - J45.40 Plan: * Treatment: Value Reference Range B UN 13 6-20 - mg/dL * C alcium 9.2 8.6-10.4 - mg/dL * C hloride 106 97-108 - mmol/L * C O2 24 22-32 - mmol/L * C reatinine 0.84 0.50-1.00 - mg/dL * G lucose 101 H 65-99 - mg/dL * P otassium 3.8 3.5-5.3 - mmol/L * S odium 141 135-145 - mmol/L * e GFR by Creatinine 87 >59 - mL/min/1.73m2 * Sunita Nova 10/24/2024 02 :26:41 PM EDT > Patient informed of normal results. 2.?Moderate persistent asthma without complication? Stop Airsupra Aerosol, 90-80 MCG/ACT, 2 puffs as needed, Inhalation, Six times a day.?? * Procedure Codes: 1 036F TOBACCO NON-USER, G8783 BP SCR PRFRM RCMDD DEFIND SCR INTVL, G8752 MOST RECENT SYSTOLIC BP < 140MM HG, G8754 MOST RECENT DIASTOLIC BP < 90MM HG * Follow Up: 4 Months * Images: Billing Information: * Visit Code: 40604 Office Visit, Est Pt., Level 3. * Procedure Codes: 1036F TOBACCO NON-USER. G8783 BP SCR PRFRM RCMDD DEFIND SCR INTVL. G8752 MOST RECENT SYSTOLIC BP < 140MM HG. G8754 MOST RECENT DIASTOLIC BP < 90MM HG. * Electronic signature of Coleman Soares MD on 04/28/2025 at 09:18 AM EST Sign off status: Pending * Provider: Coleman Soares M.D. Date: 0 10/10/2024 Generated for Roseanne chisholm/Cindy/Tramaineitting on: 1 09:18 AM EST History and Physical Notes * HPI (History of Present Illness) Category Sub-Category Detail Notes Category Not es Cardiology Short of Breath Chest Pain Palpitations Dizziness Examination Category Sub-Category Detail Notes Category Not es General Examination HEENT: unremarkable Heart: RSR, no ectopics Lungs: clear to auscultatio n, no wheezes or rales Abdomen: obese, soft and nont brianna Extremities: no leg edema General Appearance: NAD Skin: normal, no rash Neurologic Exam: Intact, gait normal Neck: supple, no lymphaden opathy Oral cavity: no lesions, mucosa m oist and WNL, no erythema Peripheral pulses: normal Chest: normal shape and exp ansion
--- OUTSIDE RECORDS SUMMARY | 2025-03-09 04:45 | XMS_ITS ---
[facility] Address [address] [place] [id number] Care Team Providers Care Entry Level Software Developer Name Role Phone Coleman Soares Primary Care Provider Allergies No Known Allergies Results Component Value Reference Range Notes Holter - 7 day Reviewed date:04/09/2025 09:20:10 AM Interpretation: Performing Lab: Notes/Report: REASON FOR VISIT 4 months Medications Medication SIG (Take, Route, Frequency, Duration) [...] EVERY 4 HOURS NEEDED; Duration: 33 Active Temazepam 15 MG 1 capsule at bedtime as needed Orally Once a day 12/27/2023 Active Flonase Allergy Relief 50 MCG/ACT 1 spray(s) in each nostril once a day; Duration: 30 day(s) 12/10/2020 Active Omeprazole 40 MG 1 capsule 30 minutes before morning meal Orally Once a day; Duration: 30 day(s) Active Symbicort 160-4.5 MCG/ACT as directed Inhalation Active hydroCHLOROthiazide 12.5 MG 1 tablet in the morning Orally Once a day; Duration: 30 days Active Meloxicam 15 MG 1 tablet Orally Once a day; Duration: 30 days Active Atenolol 50 MG TAKE 1 TABLET BY DAILY; Duration: 90 Active Lac-Hydrin Five 5 % 1 application Externally Twice a day 06/16/2024 Active Problems Problem Type SNOMED Code ICD Code Onset Dates Problem Status W/U Status Risk Notes Problem BMI 30+ - obesity (816358401) BMI 32.0-32.9,a dult (Z68.32) Active confirmed Vital Signs Blood pressure systolic 130 mm Hg 03/09/20 25 Blood pressure diastolic 90 mm Hg 025 Heart Rate 65 /min 03/09/2025 Height 64.50 in 03/09/2025 Weight 190.0 lbs 03/09/2025 BMI 32.11 kg/m2 03/09/2025 Encounters Encounter Location Date Provider Diagnosis [facility] [address] [place] [address] [address] [facility] [address] [place] [phone] 03/09/2025 Coleman Soares Hypertension, unspecified type I10 ; Moderate persistent asthma without complication J45.40 ; Palpitations R00.2 and BMI 32.0-32.9,adult Z68.32 Assessments Encounter Date Diagnosis (ICD Code) Assessment Notes Treatment Notes Treatment Clinical Notes Section Notes 03/09/2025 Hypertension, unspecified type (ICD-10 - I10) 03/09/2025 Moderate persistent asthma without complication (ICD-10 - J45.40) 03/09/2025 Palpitations (ICD-10 - R00.2) 03/09/2025 BMI 32.0-32.9,adult (ICD-10 - Z68.32) Plan Of Treatment Next Appt Details Follow Up: 3 Weeks, Reason: Provider Name:Coleman Park , 06/08/2025 10:30:00 AM, [address] [facility] [address] [facility], [address], [place], [id number], Progress Notes * Shyla MALDONADODOB: [birth year] (45 yo F)Acc No.[id number]:03/09/2025 Progress Notes Patient: Shyla DONAHUE Provider: Coleman Soares M.D. :1980 A ge:45 Y S ex:Female Date:03/09/2025 Address:[address] [place] [address] , [place], [id number] Subjective: * Chief Complaints: * 1 . 4 months. * HPI: C ardiology: The pt is here for a check up on Hypertension and Tachycardia. Pt states she is still having episodes of heart racing and shortness of breath. Pt states when she has these episodes she feel like a flap is fluttering in her throat. Pt denies any chest pain. Pt states she saw Cardiology and the Hctz was increased to 25 mg. She subsequently had swelling in her hands and face. Hctz was decreased by the patient back to the 12.5 mg and has continued at that dose. 45 year old female presents with c/o Short of Breath. c/o Palpitations f eels heart racing, flutters , occasionally. Denies : Chest Pain. D enies : Dizziness. K nee/Prakash: The pt c/o bilateral knee pain for years but about 2 months ago it started getting worse with going up and down steps. Pt states the pain is mostly behind the knee caps. c/o knee pain b ilateral pain. * ROS: C ONSTITUTIONAL: Positive for A [facility] physician seen since last visit? Yes, Change in medication since last visit? Yes, Are you taking antibiotics? No, Are you taking steroids? No. D ERMATOLOGY: no R mars. n o [...] Hospital bed rest- child Jul- August 2009, [facility] ear pain 12/01/2020. * Family History: F [...] yes. Alcohol: no. * Medications: T aking Symbicort 160-4.5 MCG/ACT Aerosol as directed Inhalation [...] needed Orally Once a day , Taking Ventolin HFA 108 (90 Base) MCG/ACT Aerosol Solution INHALE 1 PUFF BY MOUTH EVERY 4 HOURS NEEDED , Taking Lac- Hydrin Five 5 % Lotion 1 application Externally Twice a day , Taking Atenolol 50 MG Tablet TAKE 1 TABLET BY MOUTH DAILY , Taking Meloxicam 15 MG Tablet 1 tablet Orally Once a day , Taking hydroCHLOROthiazide 12.5 MG Tablet 1 tablet in the morning Orally Once a day , Medication List reviewed and reconciled with the patient * Allergies: N .K.D.A. Objective: * Vitals: W t: 190.0, Temp: 98.2, BP: 130/90, HR: 65, O2 Sat: 98% on RA, Nurse: OBDULIA, Ht: 64.50, Repeat BP: 130/84, BMI:32.11. * Examination: G eneral Examination: General Appearance: [...] o leg edema. Assessment: * Assessment: 1. H ypertension, unspecified type - I10 (Primary) 2 . M oderate persistent asthma without complication - J45.40 3 . P alpitations - R00.2 4 . B ND 32.0-32.9,adult - Z68.32 Plan: * Treatment: * Procedure Codes: 3 075F SYST BP GE 130 - 139MM HG, 3079F DIAST BP 80-89 MM HG * Follow Up: 3 Weeks * Images: Billing Information: * Visit Code: 36166 Office Visit, Est Pt., Level 3. * Procedure Codes: 3075F SYST BP GE 130 - 139MM HG. 3079F DIAST BP 80-89 MM HG. * Electronic signature of Coleman Soares MD on 04/28/2025 at 09:19 AM EST Sign off status: Pending * Provider: Coleman Soares M.D. Date: 05/09/2024 Generated for Ivettei ng/Cindy/eTransmitting on: 09:19 AM EST History and Physical Notes * HPI (History of Present Illness) Category Sub-Category Detail Notes Category Not es Cardiology Short of Breath Chest Pain Palpitations feels heart racing, flutters , occasionally Dizziness Knee/Prakash knee pain bilateral pain Examination Category Sub-Category Detail Notes Category Not [...]
--- OUTSIDE RECORDS SUMMARY | 2025-04-06 05:45 | XMS_ITS ---
Author Organization [facility] Address [address] [facility] [address] [place] [id number] Care Team Providers Care Health Science Instructor Name Role Phone Coleman Soares Primary Care Provider [phone] Allergies No Known Allergies Results Component Value Reference Range Notes P-Vitamin B12 Reviewed date:04/09/2025 11:28:07 AM Interpretation:Normal Performing Lab: Notes/Report: Test performed by [facility] [address] [place] [address] , [place] [address] Qing Eaton MD, PhD, [facility], Biotechnologist CLIA: [id number] Vitamin B12 391 434-8587 pg/mL P-TSH Reviewed date:04/09/2025 11:28:07 AM Interpretation:Normal Performing Lab: Notes/Report: Test performed by [facility] [address] [place] [address] , [place] [address] Qing Eaton MD, PhD, [facility], Biotechnologist CLIA: [id number] TSH 2.20 0.43-5.25 mU/L P-Vitamin D 1,25-Dihydroxy a nd 25-Hydroxy Reviewed date:04/09/2025 11:28:07 AM Interpretation:21.4, D-1 80.5 Performing Lab: Notes/Report: Test performed by [facility] [address] [place] [address] , [address], [place] [address] Qing Eaton MD, PhD, AP, Biotechnologist CLIA: [id number] Vitamin D 25-Hydroxy 21.4 30.0-100.0 ng/mL Interpretation of Vitamin D 25 OH: < 20 ng/mL - Deficiency 20 - 29 ng/mL - Insufficiency 30 - 100 ng/mL - Sufficiency > 100 ng/mL - Super-therapeutic- toxicity may occur above this level. Clinical correlation required. Vitamin D, 1, 25 Dihydroxy 80.5 19.9-79.3 pg/m L REASON FOR VISIT 3 weeks Medications Medication SIG (Take, Route, Frequency, Duration) Notes Start Date End Date Status Ventolin HFA 108 (90 Base) MCG/ACT INHALE 1 PUFF BY MOUTH EVERY 4 HOURS NEEDED; Duration: 33 Active Atenolol 50 MG TAKE 1 TABLET BY JEANETTE TH DAILY; Duration: 90 Active Lac-Hydrin Five 5 % 1 application Externally Twice a day 06/16/2024 Active Meloxicam 15 MG 1 tablet Orally Once a day; Duration: 30 days Active hydroCHLOROthiazide 12.5 MG 1 tablet in the morning Orally Once a day; Duration: 30 days Active Flonase Allergy Relief 50 MCG/ACT 1 spray(s) in each nostril once a day; Duration: 30 day(s) 12/10/2020 Active Fexofenadine HCl 180 MG 1 tablet Swallow whole with water; do not take with fruit juices. Orally Once a day; Duration: 30 day(s) Active Temazepam 15 MG 1 capsule at bedtime as needed Orally Once a day 12/27/2023 Active Montelukast Sodium 10 MG 1 tablet Orally Once a day; Duration: 30 day(s) Active Omeprazole 40 MG 1 capsule 30 minutes before morning meal Orally Once a day; Duration: 30 day(s) Active Symbicort 160-4.5 MCG/ACT as directed Inhalation Active Vital Signs Blood pressure systolic 132 mm Hg 04/06/20 25 Blood pressure diastolic 84 mm Hg 025 Heart Rate 68 /min 04/06/2025 Height 64.50 in 04/06/2025 Weight 188.0 lbs 04/06/2025 BMI 31.77 kg/m2 04/06/2025 Encounters Encounter Location Date Provider Diagnosis [facility] [address] [facility] [address] [place], [place] [id number] 04/06/2025 Coleman Soares Palpitations R00.2 a nd Dizziness R42 Assessments Encounter Date Diagnosis (ICD Code) Assessment Notes Treatment Notes Treatment Clinical Notes Section Notes 04/06/2025 Palpitations (ICD-10 - R00.2) 04/06/2025 Dizziness (ICD-10 - R42) Plan Of Treatment Pending Test Test Name Order Date CT Scan : Head, with contrast 04/06/2025 Cardiac Stress Test Exercise Routine 11/2024 Next Appt Details Follow Up: 2M, Reason: Provider Name:Coleman Park er, 06/08/2025 10:30:00 AM, [address], [address], [place], [place], [id number], Progress Notes * Shyla MALDONADODOB: [birth year] (45 yo F)Acc No.[id number]:04/06/2025 Progress Notes Patient: Shyla DONAHUE Provider: Coleman Soares M.D. :1980 A ge:45 Y S ex:Female Date:04/06/2025 Address:[address] [place] [address] , [place], [id number] Subjective: * Chief Complaints: * 1 . 3 weeks. * HPI: C ardiology: 45 year old female presents with c/o Blood Pressure Elevated?Pt states she is here for a follow up on BP. Pt states she had a Holter monitor several weeks ago and is here for results. Pt states she has been having some dizzy spells and roaring in her ears. Pt states she has noticed twitching in her left eye and lip. Pt states there was a time when the left side of her face felt like it was getting tight . Holter is reviewed. Less paulette 0.1% ectopy. One 10 beat run of SVT. * ROS: C ONSTITUTIONAL: Positive for A nother physician seen since last visit?N, Change in medication since last visit?N, Are you taking antibiotics?N, Are you taking steroids?N. D ERMATOLOGY: no R mars. n o [...] stic Procedure: [facility] bed rest- child Jul- August 2009, [facility] ear pain 12/01/2020. * Family History: F ather: alive. M other: alive. S iblings: alive. C hildren: alive. 3 brother(s) - healthy. 1 son(s) , 2 daughter(s) - healthy. . * Social History: C URRENT TOBACCO USE: No S moking Status: Patient does NOT smoke. [...] N .K.D.A. Objective: * Vitals: W t: 188.0, Temp: 98.2, BP: 132/84, HR: 68, Nurse: SARAH, Ht: 64.50, Repeat BP: 130/86, BMI:31.77. * Examination: G eneral Examination: General Appearance: N AD. H EENT: T M's WNL. O ral cavity: n o lesions, mucosa moist and WNL, no erythema. N steff: s upple, no lymphadenopathy. C hest: n ormal shape and expansion. H eart: R SR, no ectopics. L ungs: clear to auscultation, no wheezes or rales. A bdomen: obese, soft and nontender.?Neurologic Exam: I ntact, gait normal. S kin: n ormal, no rash. P eripheral pulses: n ormal . E xtremities: n o leg edema. Assessment: * Assessment: 1. P alpitations - R00.2 (Primary) 2 . D izziness - R42 Plan: * Treatment: Value Reference Range V itamin B12 761 523-8263 - pg/mL * Gloria Mcneil 04/09/2025 11 :27:59 AM EST > See phone encounter ?LAB: P-TSH (Collection Date & Time - 04/06/2025 11:10 AM)?Normal* Value Reference Range T SH 2.20 0.43-5.25 - mU/L * Gloria Mcneil 04/09/2025 11 :27:59 AM EST > See phone encounter ?LAB: P-Vitamin D 1,25-Dihydroxy and 25-Hydroxy (Collection Date & Time - 04/06/2025 11:10 AM)?21.4, D-1 80.5* Value Reference Range V itamin D 25-Hydroxy 21.4 L 30.0-100.0 - ng/mL * V itamin D, 1, 25 Dihydroxy 80.5 H 19.9-79.3 - pg /mL * Gloria Mcneil 04/09/2025 11 :27:59 AM EST > See phone encounter ?Imaging: Cardiac Stress Test Exercise Routine* chest discomfort/palpitation Katiuska Freeman 04/06/2025 12:43:06 PM EST > faxed to [facility] Scheduling 2.?Dizziness?Imaging: CT Scan : Head, with contrast* Katiuska Wilder 04/06/2025 12:4 3:15 PM EST > faxed to [facility] Scheduling * Procedure Codes: 3 075F SYST BP GE 130 - 139MM HG, 3079F DIAST BP 80-89 MM HG * Follow Up: 2 M * Images: Billing Information: * Visit Code: 34461 Office Visit, Est Pt., Level 3. * Procedure Codes: 3075F SYST BP GE 130 - 139MM HG. 3079F DIAST BP 80-89 MM HG. * Electronic signature of Coleman Soares MD on 04/28/2025 at 09:19 AM EST Sign off status: Pending * Provider: Coleman Soares M.D. Date: 06/07/2024 Generated for Ivettei kathrine/Cindy/eTransmitting on: 09:19 AM EST History and Physical Notes * HPI (History of Present Illness) Category Sub-Category Detail Notes Category Not es Cardiology Blood Pressure Elevated Pt state s she is here for a follow up on BP. Pt states she had a Holter monitor several weeks ago and is here for results. Pt states she has been having some dizzy spells and roaring in her ears. Pt states she has noticed twitching in her left eye and lip. Pt states there was a time when the left side of her face felt like it was getting tight Holter is reviewed. Less paulette 0.1% ectopy. One 10 beat run of SVT. Examination Category Sub-Category Detail Notes Category Not es General Examination HEENT: TM's WNL Heart: RSR, no ectopics Lungs: clear to [...]
--- NOTE | 2025-04-28 | CA_ITS ---
APPROVED REPORT Exam: Exercise Treadmill Technologist: Nithya Donnelly Ht: 5 ft 3 in Wt: 187 lbs BSA: 1.88 m2 Indications: SOB Medical History Medications: Ventolin HFA, Airsupra, Atenolol, Symbicort, Flonase, HCTZ, Meloxicam, Methocarbamol, Singulair, Omeprazole. Stress Test Details Test: Exercise stress testing was performed using a Suraj protocol. HR Resting HR: 59 bpm Max Heart Rate (APMHR): 175.330056 bpm Max HR Achieved: 145 bpm Target HR (85% APMHR): 148.815987 bpm % of APMHR: 82.86 Recovery HR: 69 bpm BP Resting BP: 137.0/81.0 mmHg Max BP: 180.0/90.0 mmHg Recovery BP: 136.0/71.0 mmHg ECG Resting ECG: NSR Clinical Highest Stage Achieved: III Stress ECG Conclusion 7 Min 12 Secs. Max HR: 145. % of PM: 82. Max BP: 180/90. Test stopped due to: SOA. Symptoms: (+) SOA. No CP. Arrhythmias/Ectopy: None. ST-T Changes: <1.5mm ST Segment changes. Conclusion: Non-diagnostic due to sub-target heart rate acheived. No chest pain or significant EKG changes. Electronically signed by : Suzanne Keys MD 04/28/2025 18:43:58
--- OUTSIDE RECORDS SUMMARY | 2025-04-28 09:18 | XMS_ITS | Encounter Summary ---
Author Organization [employer] ([place], [place], [place], [place], [place]) Address [address] [place] [address] Care Team Providers Care Printed Circuit Board Panels Deburrer Name Role Phone Victor Hugo Soares MD Primary Care Provider [phone] Encounter Details Date Type Department Care Team (Late st Contact Info) Description 09/14/2018 Transcribed Document [facility] [place] [facility] [address] ProviderPolly MD [address] [place] [id number] Social History Tobacco Use Types Packs/Day Years Used Date Smoking Tobacco: Never Assessed Comments Unknown Sex and Gender Information Value Date Recorded Sex Assigned at Not on file Legal Sex Female 6:24 PM CDT Gender Identity Not on file Sexual Orientation Not on file documented as of this encounter Miscellaneous Notes * Cerner Conversion Note - Historical ProviderMD - 09/14/2018 3:34 PM CDT senior inspector Form Entered On: 09/14/2018 15:35 EDT Performed On: 09/14/2018 15:34 EDT by JI PETERSON Rn-Utilization Review UM Additional Information UM Additional Comment : PT STAYED PAST ALLOTTED 2 DAYS BECAUSE OF HEMORRHAGE. DISCHARGE ORDERS TODAY. JI PETERSON Rn-Utilization Review - 09/14/2018 15:34 EDT Electronically signed by Corine Leblanc Conversion [employer] Spray Supervisor Cerner at 08/20/2022 4:42 PM CDT documented in this encounter Plan of Treatment Not on file documented as of this encounter Visit Diagnoses Not on filedocumented in this encounter Care Teams Printed Circuit Board Panels Deburrer Relationship Specialty Start Date End Date Victor Hugo Soares MD [address] [place] [address] PCP - General Family Medicine 06/09/22 documented as of this encounter
--- OUTSIDE RECORDS SUMMARY | 2025-04-28 09:18 | XMS_ITS | Encounter Summary ---
Author Organization [employer] ([place], [place], [place], [place], [place]) Address [address] [place] [address] Care Team Providers Care Iron Molder Helper Name Role Phone Victor Hugo Soares MD Primary Care Provider [phone] Encounter Details Date Type Department Care Team (Late st Contact Info) Description 09/14/2018 Transcribed Document [facility] [place] [address] ProviderPolly MD [address] [place] [id number] Social History Tobacco Use Types Packs/Day Years [...] 09/14/2018 10:52 EDT Electronically signed by Deana, [facility] Conversion Fish Trapper Cerner at 08/20/2022 4:37 PM CDT documented in this encounter Plan of Treatment Not on file documented as of this encounter Visit Diagnoses Not on filedocumented in this encounter Care Teams Iron Molder Helper Relationship Specialty Start Date End Date Victor Hugo Soares MD [address] [place] [address] PCP - General Family Medicine 06/09/22 documented as of this encounter
--- OUTSIDE RECORDS SUMMARY | 2025-04-28 09:18 | XMS_ITS | Encounter Summary ---
Author Organization [employer] ([place], [place], [place], [place], [place]) Address [address] [place] [address] Care Team Providers Care Caul Puller Name Role Phone Jodi Jones MD Primary Care Provider [phone] Encounter Details Date Type Department Care Team (Late st Contact Info) Description 09/14/2018 Transcribed Document [facility] [place] [address] ProviderPolly MD [address] [place] [id number] Social History Tobacco Use Types Packs/Day Years [...] on Record Primary Care Provider JODI JONES [facility] Discharge Diagnosis No Diagnosis on Record [...] Record Time Spent on Discharge 25 min documented in this encounter Plan of Treatment Not on file documented as of this encounter Visit Diagnoses Not on filedocumented in this encounter Care Teams Caul Puller Relationship Specialty Start Date End Date Jodi Jones MD [address] [place] [address] PCP - General Family Medicine 06/09/22 documented as of this encounter
--- OUTSIDE RECORDS SUMMARY | 2025-04-28 09:18 | XMS_ITS | Encounter Summary ---
Author Organization [employer] ([place], [place], [place], [place], [place]) Address [address] [place] [address] Care Team Providers Care Catalyst Concentration Operator Name Role Phone Victor Hugo Soares MD Primary Care Provider +1 -[phone] Encounter Details Date Type Department Care Team (Late st Contact Info) Description 09/14/2018 Transcribed Document [facility] [place] [address] ProviderPolly MD [address] [place] [address] [phone] Social History Tobacco Use Types Packs/Day Years [...] should be checked by a certified car hardware installer to make sure that it is [...] 02/11/2008 Document Revised: 09/18/2016 Document Reviewed: 03/20/2016 [employer] Interactive Patient Education ? 2018 Elsevier Inc. [...] smacking lips, cooing, sighing, or squeaking. ??? Rdat-iv-dbmar movements and sucking on fingers or hands. [...] able to be present during feedings. Your ux consultant can help you find a method [...] contact your health care provider or a ux consultant. Overall health care recommendations while ??? [...] provider before taking any medicines. These include mahq-blb-xhvssvy and prescription medicines as well as vitamins [...] and mothers. ??? Try to breastfeed your infant when he or she shows early signs [...] Talk with your health care provider or ux consultant if you have questions or you face problems as you breastfeed. This information is not intended to replace advice given to you by your health care provider. Make sure you discuss any questions you have with your health care provider. Document Released: 04/16/2006 Document Revised: 05/18/2017 Document Reviewed: 05/18/2017 ElseRedeem&Get Interactive Patient Education ? 2019 Adventi. Electronically signed by Corine Leblanc Conversion Global Climate Change Researcher Cerner at 08/20/2022 4:49 PM CDT documented in this encounter Plan of Treatment Not on file documented as of this encounter Visit Diagnoses Not on filedocumented in this encounter Care Teams Catalyst Concentration Operator Relationship Specialty Start Date End Date Victor Hugo Soares MD [address] [place] [address] PCP - General Family Medicine 06/09/22 documented as of this encounter
--- OUTSIDE RECORDS SUMMARY | 2025-04-28 09:18 | XMS_ITS | Encounter Summary ---
Author Organization [employer] ([place], [place], [place], [place], [place]) Address [address] [place] [address] Care Team Providers Care Machine Sole Leveler Name Role Phone Victor Hugo Soares MD Primary Care Provider +1 [phone] Encounter Details Date Type Department Care Team (Late st Contact Info) Description 09/14/2018 Transcribed Document [facility] [place] [facility] [place] [address] ProviderPolly MD [facility] [place], [place] [phone] Social History Tobacco Use Types Packs/Day Years [...] EDT Performed On: 09/14/2018 15:42 EDT by IJ PETERSON Rn-Utilization Review Primary Insurance Authorization Authorization and Policy Numbers : Insurance 1 Health Plan: PASSPORT Policy Number: [id number] Authorization Number: AUTO 2 Insurance Primary Name : Passport Authorization Status-Primary : Awaiting callback Authorization Number-Primary : auto 2 Number of Days Authorized-Primary : 2 Authorized Service Begin Date-Primary : 09/09/2018 EDT Authorized Service End Date-Primary : 09/10/2018 EDT Authorization Comments-Primary : Clinicals for continued stay faxed to [facility] Historical Authorization Comments-Primary : No Authorization Comments Found JI PETERSON Rn-Utilization Review - 09/14/2018 15:42 EDT Electronically signed by Deana [facility] Conversion Rn Enterostomal Cerner at 08/20/2022 4:46 PM CDT documented in this encounter Plan of Treatment Not on file documented as of this encounter Visit Diagnoses Not on filedocumented in this encounter Care Teams Machine Sole Leveler Relationship Specialty Start Date End Date Victor Hugo Soares MD [address] [place] [address] PCP - General Family Medicine 06/09/22 documented as of this encounter
--- OUTSIDE RECORDS SUMMARY | 2025-04-28 09:18 | XMS_ITS | Encounter Summary ---
Author Organization [employer] ([place], [place], [place], [place], [place]) Address [address] [place] [address] Care Team Providers Care Director Of Dementia Operations Name Role Phone Victor Hugo Soares MD Primary Care Provider +1 [phone] Encounter Details Date Type Department Care Team (Late st Contact Info) Description 09/14/2018 Transcribed Document [facility] [place] Family Medicine [facility] [place] [address] ProviderPolly MD [address] [place], [place] 14[address]51 Social History Tobacco Use Types Packs/Day Years Used Date Smoking Tobacco: Never Assessed Comments Unknown Sex and Gender Information Value Date Recorded Sex Assigned at Not on file Legal Sex Female 6:24 PM CDT Gender Identity Not on file Sexual Orientation Not on file documented as of this encounter Miscellaneous Notes * Cerner Conversion Note - Polly ProviderMD - 09/14/2018 10:52 AM CDT Stroke/Warfarin Instructions Entered On: 09/14/2018 10:52 EDT Performed On: 09/14/2018 10:52 EDT by SESAR ARREGUIN RN Stroke/Warfarin Instructions Stroke/TIA Discharge Ins : N/A Warfarin Discharge Ins : N/A SESAR ARREGUIN RN - 09/14/2018 10:52 EDT Electronically signed by Corine Leblanc Conversion Director Of Corporate Real Estate Cerner at 08/20/2022 4:39 PM CDT documented in this encounter Plan of Treatment Not on file documented as of this encounter Visit Diagnoses Not on filedocumented in this encounter Care Teams Director Of Dementia Operations Relationship Specialty Start Date End Date Victor Hugo Soares MD [address] [place] [address] PCP - General Family Medicine 06/09/22 documented as of this encounter
--- OUTSIDE RECORDS SUMMARY | 2025-04-28 09:18 | XMS_ITS | Encounter Summary ---
Author Organization [employer] ([place], [place], [place], [place], [place]) Address [address] [place] [address] Care Team Providers Care Vertical Roll Operator Name Role Phone Victor Hugo Soares MD Primary Care Provider +1 [phone] Encounter Details Date Type Department Care Team (Late st Contact Info) Description 09/14/2018 Transcribed Document [facility] [place] Family [place] [facility] [place] [address] ProviderPolly MD [address] [place] [phone] Social History Tobacco Use Types Packs/Day Years [...] 1. Status post vaginal delivery, rosales viable . 2. Cervical laceration with repair. 3. Status post blood transfusion. 4. hemolysis, elevated liver enzymes, and low platelets syndrome. Gerald Juarez D.O. Dict: 09/14/2018 09:28:39 Trans: 09/14/2018 10:04:40 Processed: 09/16/2018 14:31:51 [place] CC1: Gerald Juarez D.O. Electronically signed by Deana [facility] Conversion Demand Generation Manager Cerner at 08/20/2022 4:37 PM CDT documented in this encounter Plan of Treatment Not on file documented as of this encounter Visit Diagnoses Not on filedocumented in this encounter Care Teams Vertical Roll Operator Relationship Specialty Start Date End Date Victor Hugo Soares MD [address] [place] [address] PCP - General Family Medicine 06/09/22 documented as of this encounter
--- OUTSIDE RECORDS SUMMARY | 2025-04-28 09:18 | XMS_ITS | Encounter Summary ---
Author Organization [employer] ([place], [place], [place], [place], [place]) Address [address] [place] [address] Care Team Providers Care Peach Grower Name Role Phone Victor Hugo Soares MD Primary Care Provider +1 [phone] Encounter Details Date Type Department Care Team (Late st Contact Info) Description 09/10/2018 Transcribed Document [facility] [place] Family [facility] [place] [address] ProviderPolly MD [address] [place], [place] 147761 Social History Tobacco Use Types Packs/Day Years [...] Insurance 1 Health Plan: PASSPORT Policy Number: [id number] Authorization Number: Insurance Primary Name : Passport Authorized Service Begin Date-Primary : 09/09/2018 EDT Authorized Service End Date-Primary : 09/10/2018 EDT Historical Authorization Comments-Primary : No Authorization Comments Found JI PETERSON Rn-Utilization Review - 09/10/2018 16:07 EDT documented in this encounter Plan of Treatment Not on file documented as of this encounter Visit Diagnoses Not on filedocumented in this encounter Care Teams Peach Grower Relationship Specialty Start Date End Date Victor Hugo Soares MD [address] [place] [address] PCP - General Family Medicine 06/09/22 documented as of this encounter
--- NOTE | 2025-04-28 09:19 | CT_ITS ---
FINAL REPORT TECHNIQUE: Axial CT of the brain with contrast. Coronal reformatted images were obtained. This study was performed with techniques to keep radiation doses as low as reasonably achievable, (ALARA). Individualized dose reduction techniques using automated exposure control or adjustment of mA and/or kV according to the patient's size were employed. CLINICAL HISTORY: PALPATATIONS/STRESS/DIZZINESS FINDINGS: No precontrast imaging was provided. There is no mass effect, midline shift or hydrocephalus. There is no large hemorrhage. Subarachnoid hemorrhage cannot be entirely excluded. There are no enhancing lesions. Posterior fossa is without acute abnormality. Basilar cisterns are preserved. Soft tissues are without acute abnormality. IMPRESSION: No acute intracranial abnormality. No enhancing lesion. No precontrast imaging provided. Reviewed, Interpreted and Dictated by Claudine Ross MD Transcribed by Beba Lamas Authenticated and [facility]
--- OUTSIDE RECORDS SUMMARY | 2025-04-28 09:19 | XMS_ITS | Clinical Summary ---
Author Organization [employer] ([place], [place], [place], [place], [place]) Address [address] [place] [address] Care Team Providers Care Gas Appliance Installer Name Role Phone Victor Hugo Soares MD Primary Care Provider +1 [phone] Allergies Active Allergy Reactions Criticality Noted Date [...] Date Snores 06/12/2022 GERD (gastroesophageal reflux disease) Uterine leiomyoma 04/19/2019 Asthma Hypertension Kidney stone [...] 0 05/13/2023 Family and Community Support Answer Écsar e Recorded Help with Day to Day Activities Not on file 05/13/2023 Feeling Lonely or Isolated Not on file 05/13 Educational Attainment Answer Date Hao rded Speak language other than Kuwaiti at home Not on file 05/13/2023 Want [...] Health Maintenance Due Date Last Done Comments CT Colonography 1980 Colonoscopy 1980 Colorectal Cancer Screening 1980 FOBT/FIT 1980 Fit-DNA (Cologuard) 1980 Sigmoidoscopy 1980 Depression Screening (12+) 1992 HIV Screening 02/03/1995 Hepatitis C Screening 02/03/1998 Pneumococcal Vaccine: 0-49 Y ears (1 of 2 - PCV) 02/03/1999 Pap Smear 02/03/2001 Breast Cancer Screening 2020 Tobacco Cessation Counseling and Screening (12+) 06/12/2023 06/12/2022 COVID-19 VACCINE ( season) 2024 Influenza Vaccine (#1) 2024 Lipid Panel 02/03/2025 DTAP/TDAP/TD VACCINES (4 - T d or Tdap) 09/13/2028 09/13/2018, 02/05/2007, 07/05/1996 Medical Devices Implanted Type Area Hotel Night Auditor Device Identifier Shelf Expiration Date Model / Serial / Lot Sling Desara One [id number] - [id number] [17]2023-09-08 Implanted:Qty: 1 on 06/12/2022 by Gerald Juarez MD at [facility] IMPLANTS N/A: Vagina KEVIN MED 09/08/2023 [id number] / [id number] [17]09-07 / [id number] Insurance [facility] Care Teams Gas Appliance Installer Relationship Specialty Start Date End Date Victor Hugo Soares MD [address] [place] [address] PCP - General Family Medicine 06/09/22
--- OUTSIDE RECORDS SUMMARY | 2025-04-28 09:19 | XMS_ITS | Encounter Summary ---
Author Organization [employer] ([place], [place], [place], [place], [place]) Address [address] [place] [address] Care Team Providers Care Print Line Feeder Name Role Phone Jodi Jones MD Primary Care Provider +1 [phone] Encounter Details Date Type Department Care Team (Late st Contact Info) Description 09/14/2018 Transcribed Document [facility] [place] [address] ProviderPolly MD [address] [place] [address] [phone] Social History Tobacco Use Types Packs/Day Years [...] Cavazos MD - 09/14/2018 11:32 [place] [address] HARSH MALDONADO :1980 Visit Time:09/09/2018 Your Visit Summary Your Care Team Admitting Physician - TERRY MITCHELL DO-OBG Attending Physician - TERRY MITCHELL DO-OBG Primary Care Physician - JODI JONES MD-[facility] Referring Physician - TERRY MITCHELL DO-OBG [...] Call for follow up appointment Where: [address] [facility] [address] [address]- Business (1) Medications What How [...] should be checked by a certified car window air conditioner installer to make sure that it is [...] 02/11/2008 Document Revised: 09/18/2016 Document Reviewed: 03/20/2016 Else[employer] Interactive Patient Education ?? 2018 Macromill Inc. Choosing to breastfeed is one of [...] smacking lips, cooing, sighing, or squeaking. ??? Vfws-zu-metke movements and sucking on fingers or hands. [...] able to be present during feedings. Your windows consultant can help you find a method [...] contact your health care provider or a windows consultant. Overall health care recommendations while ??? [...] provider before taking any medicines. These include drff-jmy-mmwlwrt and prescription medicines as well as vitamins and herbal supplements. Some medicines that may be harmful to your baby can pass through breast milk. ??? It is possible to become while . If control is desired, ask your health care provider about options that will be safe while your baby. Where to find more information: [employer]: www.llli.org Contact a health care [...] Talk with your health care provider or windows consultant if you have questions or you face problems as you breastfeed. This information is not intended to replace advice given to you by your health care provider. Make sure you discuss any questions you have with your health care provider. Document Released: 04/16/2006 Document Revised: 05/18/2017 Document Reviewed: 05/18/2017 Mac[employer] Interactive Patient Education ?? 2019 [employer]ano. Emergency Awareness and Preventative Care STROKE is [...] Assistance with quitting is available by contacting 6-930-WWEH-NOW. This is a free resource providing counseling, [...] sure to sign up for the [facility] patient portal, which gives you 20/11 access to your medical information ??? including these discharge instructions ??? using your computer, smartphone, or tablet. Just go to [employer] to get started. Questions? Call . Test [...] range between ( 1.0 and 7.0 ) [place] #: 0.75 K/uL -- Normal range between ( 0.24 and 0.82 ) [place] #: 0.35 K/uL -- Normal range between ( 0.04 and 0.54 ) [place] %: 9.5 % -- Normal range between [...] was given the opportunity to ask questions. Patient/Mash Processing Operator Name: Patient/Mash Processing Operator Signature: Relationship to Patient: Clinician/Hospital Mash Processing Operator Signature: Date: documented in this encounter Plan of Treatment Not on file documented as of this encounter Visit Diagnoses Not on filedocumented in this encounter Care Teams Print Line Feeder Relationship Specialty Start Date End Date Jodi Jones MD [address] [place] [address] PCP - General Family Medicine 06/09/22 documented as of this encounter
--- OUTSIDE RECORDS SUMMARY | 2025-04-28 09:19 | XMS_ITS | Encounter Summary ---
Author Organization [employer] ([place], [place], [place], [place], [place]) Address [address] [place] [address] Care Team Providers Care Construction Sales Manager Name Role Phone Victor Hugo Soares MD Primary Care Provider +1 -[phone] Encounter Details Date Type Department Care Team (Late st Contact Info) Description 09/13/2018 Transcribed Document [facility] [place] Family [place] [facility] [place] [address] ProviderPolly MD [address] [place] [address] [phone] Social History Tobacco Use Types Packs/Day Years [...] on filedocumented in this encounter Care Teams Construction Sales Manager Relationship Specialty Start Date End Date Victor Hugo Soares MD [address] [place] [address] PCP - General Family Medicine 06/09/22 documented as of this encounter
--- OUTSIDE RECORDS SUMMARY | 2025-04-28 09:19 | XMS_ITS | Encounter Summary ---
Author Organization [employer] ([place], [place], [place], [place], [place]) Address [address] [place] [address] Care Team Providers Care Oceanology Teacher Name Role Phone Victor Hugo Soares MD Primary Care Provider +1 -[phone] Encounter Details Date Type Department Care Team (Late st Contact Info) Description 09/11/2018 Transcribed Document [facility] [place] [facility] [place] [address] ProviderPolly MD [address] [place] [phone] Social History Tobacco Use Types Packs/Day Years Used Date Smoking Tobacco: Never Assessed Comments Unknown Sex and Gender Information Value Date Recorded Sex Assigned at Not on file Legal Sex Female 6:24 PM CDT Gender Identity Not on file Sexual Orientation Not on file documented as of this encounter Miscellaneous Notes * Cerner Conversion Note - Polly ProviderMD - 09/11/2018 9:48 AM CDT UM Authorization Entered On: 09/11/2018 9:48 EDT Performed On: 09/11/2018 9:48 EDT by RACH VILLANUEVA RN-Utilization Review Primary Insurance Authorization Authorization and Policy Numbers : Insurance 1 Health Plan: PASSPORT Policy Number: [id number] Authorization Number: Insurance Primary Name : Passport Authorization Status-Primary : No precert required Authorization Number-Primary : auto 2 Number of Days Authorized-Primary : 2 Authorized Service Begin Date-Primary : 09/09/2018 EDT Authorized Service End Date-Primary : 09/10/2018 EDT Historical Authorization Comments-Primary : No Authorization Comments Found RACH VILLANUEVA RN-Utilization Review - 09/11/2018 9:48 EDT Electronically signed by Corine Leblanc Conversion Oracle Fusion Middleware Developer Cerner at 08/20/2022 4:52 PM CDT documented in this encounter Plan of Treatment Not on file documented as of this encounter Visit Diagnoses Not on filedocumented in this encounter Care Teams Oceanology Teacher Relationship Specialty Start Date End Date Victor Hugo Soares MD [address] [place] [address] PCP - General Family Medicine 06/09/22 documented as of this encounter
--- OUTSIDE RECORDS SUMMARY | 2025-04-28 09:19 | XMS_ITS | Encounter Summary ---
Author Organization [employer] ([place], [place], [place], [place], [place]) Address [address] [place] [address] Care Team Providers Care Biological Science Technician Name Role Phone Victor Hugo Soares MD Primary Care Provider +1 -[phone] Encounter Details Date Type Department Care Team (Late st Contact Info) Description 09/12/2018 Transcribed Document [facility] [place] Family Medicine [facility] [place] [address] ProviderPolly MD [address] [place] [address] [phone] Social History Tobacco Use Types Packs/Day Years [...] on filedocumented in this encounter Care Teams Biological Science Technician Relationship Specialty Start Date End Date Victor Hugo Soares MD [address] [place] [address] PCP - General Family Medicine 06/09/22 documented as of this encounter
--- OUTSIDE RECORDS SUMMARY | 2025-04-28 09:19 | XMS_ITS | Encounter Summary ---
Author Organization [employer] ([place], [place], [place], [place], [place]) Address [address] [place] [address] Care Team Providers Care Import Specialist Name Role Phone Victor Hugo Soares MD Primary Care Provider +1 -[phone] Encounter Details Date Type Department Care Team (Late st Contact Info) Description 09/11/2018 Transcribed Document [facility] [place] Family [place] [facility] [address] ProviderPolly MD [address] [place], [place] [phone] Social History Tobacco Use Types Packs/Day Years Used Date Smoking Tobacco: Never Assessed Comments Unknown Sex and Gender Information Value Date Recorded Sex Assigned at Not on file Legal Sex Female 6:24 PM CDT Gender Identity Not on file Sexual Orientation Not on file documented as of this encounter Miscellaneous Notes * Cerner Conversion Note - Polly ProviderMD - 09/11/2018 9:47 AM CDT UM Authorization Entered On: 09/11/2018 9:48 EDT Performed On: 09/11/2018 9:47 EDT by RACH VILLANUEVA RN-Utilization Review Primary Insurance Authorization Authorization and Policy Numbers : Insurance 1 Health Plan: PASSPORT Policy Number: [id number] Authorization Number: Insurance Primary Name : Passport [...] on filedocumented in this encounter Care Teams Import Specialist Relationship Specialty Start Date End Date Victor Hugo Soares MD [address] [place] [address] PCP - General Family Medicine 06/09/22 documented as of this encounter
--- OUTSIDE RECORDS SUMMARY | 2025-04-28 09:19 | XMS_ITS | Referral Summary ---
Author Organization [employer] ([place], [place], [place], [place], [place]) Address [address] [place] [address] Care Team Providers Care Eyelet Cutter Name Role Phone Victor Hugo Soares MD Primary Care Provider +1 -[phone] Allergies Active Allergy Reactions Criticality Noted Date [...] Date Hao rded Speak language other than Wallisian at home Not on file 05/13/2023 Want [...] on file Medical Devices Implanted Type Area Broke Beater Machine Operator Device Identifier Shelf Expiration Date Model / Serial / Lot Sling Laurie Meier [id number] - [id number] [17]2023-09-08 Implanted:Qty: 1 on 06/12/2022 by Gerald Juarez MD at [facility] IMPLANTS N/A: Vagina KEVIN MED 09/08/2023 [id number] / [id number] [17]09-07 / [id number] Insurance [facility] [facility] Care Teams Eyelet Cutter Relationship Specialty Start Date End Date Victor Hugo Soares MD [address] [place] [address] PCP - General Family Medicine 06/09/22
--- OUTSIDE RECORDS SUMMARY | 2025-04-28 09:19 | XMS_ITS | Encounter Summary ---
Author Organization [employer] ([place], [place], [place], [place], [place]) Address [address] [place] [address] Care Team Providers Care Peripatologist Name Role Phone Victor Hugo Soares MD Primary Care Provider +1 -[phone] Encounter Details Date Type Department Care Team (Late st Contact Info) Description 09/11/2018 Transcribed Document [facility] [place] [address] ProviderPolly MD [address] [place] [address] [phone] Social History Tobacco Use Types Packs/Day Years [...] on filedocumented in this encounter Care Teams Peripatologist Relationship Specialty Start Date End Date Victor Hugo Soares MD [address] [place] [address] PCP - General Family Medicine 06/09/22 documented as of this encounter
--- OUTSIDE RECORDS SUMMARY | 2025-04-28 09:19 | XMS_ITS | Encounter Summary ---
Author Organization [employer] ([place], [place], [place], [place], [place]) Address [address] [place] [address] Care Team Providers Care Paperhanger Apprentice Name Role Phone Victor Hugo Soares MD Primary Care Provider [phone] Encounter Details Date Type Department Care Team (Late st Contact Info) Description 09/09/2018 Transcribed Document [facility] [place] [facility] [place] [address] ProviderPolly MD [facility] [place] [address] Social History Tobacco Use Types [...] Source : Stated Height Entry Format : [place] Height, Feet : 5 ft(Converted to: 152 cm, 60 Inch) Clinical Height : 162.56 cm Height, Inches : 4 Inch(Converted to: 0 ft 4 Inch, 10.16 cm) Weight Source : Standing scale Weight Entry Format : [place] Weight, Pounds : 200 lb Clinical Dosing Weight : 90.91 kg Body Surface Area (BSA) : 1.96 m2 Body Mass Index : 34.4 kg/m2 (HI) [place] Body Weight (IBW) : 54.3 kg Tiera [...] 09/09/2018 00:30:30 EDT by Tiera Bright Rn) Alcohol: Alcohol Use History No. (Last Updated: 09/09/2018 00:30:30 EDT by Tiera Bright Rn) Substance Abuse: Drug Use Hx: No. Use in Last 12 Months: No. (Last Updated: 09/09/2018 00:30:30 EDT by Tiera Bright, David) Nutrition/Health: Regular, Caffeine intake amount: 1 serving daily. (Last Updated: 09/09/2018 00:30:30 EDT by Tiera Bright, David) Exercise: Exercise duration: 0. (Last Updated: 09/09/2018 00:30:30 EDT by Tiera Bright, David) Home/Environment: Lives with Children, Spouse. Living situation: [...] on filedocumented in this encounter Care Teams Paperhanger Apprentice Relationship Specialty Start Date End Date Victor Hugo Soares MD [address] [place] [address] PCP - General Family Medicine 06/09/22 documented as of this encounter
--- OUTSIDE RECORDS SUMMARY | 2025-04-28 09:19 | XMS_ITS | Encounter Summary ---
Author Organization [employer] ([place], [place], [place], [place], [place]) Address [address] [address] Care Team Providers Care Slot Operations Director Name Role Phone Victor Hugo Soares MD Primary Care Provider [phone] Encounter Details Date Type Department Care Team (Late st Contact Info) Description 09/09/2018 Transcribed Document [facility] [place] [address] ProviderPolly MD [address] [place] [id number] Social History Tobacco Use Types Packs/Day Years [...] CC1: Gerald Juarez D.O. Electronically signed by [facility], [facility] Conversion Bundle Shaker Cerner at 08/20/2022 4:48 PM CDT documented in this encounter Plan of Treatment Not on file documented as of this encounter Visit Diagnoses Not on filedocumented in this encounter Care Teams Slot Operations Director Relationship Specialty Start Date End Date Victor Hugo Soares MD [address] [place] [address] PCP - General Family Medicine 06/09/22 documented as of this encounter
--- OUTSIDE RECORDS SUMMARY | 2025-04-28 09:20 | XMS_ITS | Clinical Summary ---
Author Organization [facility] Address [address] [place] [address] Care Team Providers Care Surface Plate Inspector Name Role Phone Pcp, No Primary Care [...] 02/03/2001 [facility]-Cervical Cancer Screening 02/03/2010 [facility]-HPV/Cotest 02/03/2010 [id number] Vaccine ( season) 2024 [facility]-Influenza Vaccine (#1) 2024 CT Colonography 02/03/2025 Colonoscopy 02/03/2025 FIT-DNA 02/03/2025 FIT 02/03/2025 FOBT 02/03/2025 Sigmoidoscopy 02/03/2025 [facility]-Colorectal Cancer Screening 02/03/2025 [facility]-Zoster Vaccines (1 of 2) 02/03/2030 [facility]-DTaP,Tdap,and Td Vaccines (5 - Td or Tdap) 07/03/2033 07/04/2023, 09/13/2018, 02/05/2007, Additional history exists HPV Vaccines (No Doses Required) Completed [facility]-HIB Vaccines Aged Out No longer e [...] Insurance [employer] Care Teams Surface Plate Inspector Relationship Specialty Start Date End Date Pcp, [place] [address] PCP - General Family Medicine 11/12/23
--- OUTSIDE RECORDS SUMMARY | 2025-04-28 09:20 | XMS_ITS | Encounter Summary ---
Author Organization [employer] ([place], [place], [place], [place], [place]) Address [address] [place] [address] Care Team Providers Care Primer Expeditor And Drier Name Role Phone Victor Hugo Soares MD Primary Care Provider [phone] Encounter Details Date Type Department Care Team (Late st Contact Info) Description 09/20/2018 Transcribed Document [facility] [place] [address] ProviderPolly MD [facility] [place] [address] Social History Tobacco Use Types Packs/Day Years [...] on filedocumented in this encounter Care Teams Primer Expeditor And Drier Relationship Specialty Start Date End Date Victor Hugo Soares MD [address] [place] [address] PCP - General Family Medicine 06/09/22 documented as of this encounter
--- OUTSIDE RECORDS SUMMARY | 2025-04-28 09:20 | XMS_ITS | Patient Health Record ---
[facility] Organization [facility] Address [address] [facility] [address] [place] [id number] Care Team Providers Care Primer Charger Name Role Phone Coleman Soares Primary Care Provider Allergies No Known Allergies Results Component Value Reference Range Notes P-Comprehensive Metabolic Pa nate (CMP) Reviewed date:06/18/2024 03:13:01 PM Interpretation:gluc 57 Performing Lab: Notes/Report: Test performed by [facility] [address] [place] [address] , [address], [place] [address] Gerardo Deal MD, Manager Private CLIA: [id number] Sodium 142 135-145 mmol/L Potassium 4.7 3.5-5.3 [...] 0.4 <0.2-1.2 mg/dL A/G Ratio 2.0 1.1-2.5 P-Basic Metabolic Panel (BMP ) Reviewed date:10/24/2024 02:26:56 PM Interpretation:Normal Performing Lab: Notes/Report: Test performed by [facility] [address] [place] [address] , [address], [place] [address] Gerardo Deal MD, Manager Private CLIA: [id number] Sodium 141 135-145 mmol/L Potassium 3.8 3.5-5.3 mmol/L Chloride 106 97-108 mmol/L CO2 24 22-32 mmol/L Glucose 101 65-99 mg/dL BUN 13 6-20 mg/dL Creatinine 0.84 0.50-1.00 mg/dL Calcium 9.2 8.6-10.4 mg/dL eGFR by Creatinine 87 >59 mL/min/1.73m2 Holter - 7 day Reviewed date:04/09/2025 09:20:10 AM Interpretation: Performing Lab: Notes/Report: P-Vitamin D 1,25-Dihydroxy a nd 25-Hydroxy Reviewed date:04/09/2025 11:28:07 AM Interpretation:21.4, D-1 80.5 Performing Lab: Notes/Report: CLIA: [id number] Qing Eaton MD, PhD, AP, Manager Private [address] [place] [address] , [address], [place] [address] Test performed by [facility] Vitamin D 25-Hydroxy 21.4 30.0-100.0 ng/mL Interpretation of Vitamin D 25 OH: < 20 ng/mL - Deficiency 20 - 29 ng/mL - Insufficiency 30 - 100 ng/mL - Sufficiency > 100 ng/mL - Super-therapeutic- toxicity may occur above this level. Clinical correlation required. Vitamin D, 1, 25 Dihydroxy 80.5 19.9-79.3 pg/m L P-TSH Reviewed date:04/09/2025 11:28:07 AM Interpretation:Normal Performing Lab: Notes/Report: Test performed by [facility] [address] [place] [address] , [place] [address] Qing Eaton MD, PhD, FCAP, Manager Private CLIA: [id number] TSH 2.20 0.43-5.25 mU/L P-Vitamin B12 Reviewed date:04/09/2025 11:28:07 AM Interpretation:Normal Performing Lab: Notes/Report: Test performed by [facility] [address] [place] [address] , [address], [place] [address] Qing Eaton MD, PhD, [facility], Manager Private CLIA: [id number] Vitamin B12 745 948-1140 pg/mL Reason For Referral No Information Medications Medication SIG (Take, Route, Frequency, Duration) Notes Start Date End Date Status Flonase Allergy Relief 50 MCG/ACT 1 spray(s) in each nostril once a day; Duration: 30 day(s) 12/10/2020 Active Albuterol Sulfate HFA 108 (9 0 Base) MCG/ACT INHALE 1 PUFF BY MOUTH EVERY 4 HOURS NEEDED; Duration: 33 Active Fexofenadine HCl 180 MG 1 tablet [...] Once a day; Duration: 30 days Active Symbicort 160-4.5 MCG/ACT as directed Inhalation Active hydroCHLOROthiazide 12.5 MG 1 tablet in the morning Orally Once a day; Duration: 30 days Active Montelukast Sodium 10 MG 1 tablet Orally Once a day; Duration: 30 day(s) Active Omeprazole 40 MG 1 capsule 30 minutes before morning meal Orally Once a day; Duration: 30 day(s) Active Immunizations Vaccine Route Administration Date Status Comme nts DT, 7 YEARS OR OLDER Unknown 07/05/1996 Administered Tetanus Tdap-Adacel (over 7yrs) Unknown 02/05/2007 Admi nistered Tetanus Tdap-Adacel (over 7yrs) Unknown 09/13/2018 Admi nistered Tetanus Tdap-Adacel (over 7yrs) Unknown 07/04/2023 Admi nistered Problems Problem Type SNOMED Code ICD Code Onset Dates Problem Status W/U Status Risk Notes Problem Goiter (6296513) Goiter NOS (240.9) Active conf irmed Problem Insomnia (311876260) Insomnia (780.52) Active confirmed Problem Mixed anxiety and depressive disorder (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) Depression with anxiety (300.4) Active confirmed Problem BMI 30+ - obesity (823371821) BMI 32.0-32.9,adult (Z68.32) Active confirmed Problem Pain in left foot (477304123528032) Left foot pain (M79.672) Active confirmed Problem Primary insomnia (6478038) Primary insomnia (F51.01) Active confirmed Problem Chronic pain (74580978) Other chronic pain (G89.29) Active confirmed Problem Sciatica (80729143) Lumbago with sciatica, left side (M54.42) Active confirmed Problem Lateral epicondylitis (912080110) Lateral epicondylitis of left elbow (M77.12) Active confirmed Problem Uncomplicated moderate persistent asthma (108235106) Moderate persistent asthma without complication (J45.40) Active confirmed Problem Hyperlipidaemia (51136336) Hyperlipidemia, unspecified hyperlipidemia type (E78.5) Active confirmed Problem Dysphagia (60739339) Pharyngoesophageal dysphagia (R13.14) Active confirmed Problem Thyromegaly (8654738) Thyromegaly (E01.0) Active confirmed Problem Mild intermittent asthma (626179564) Mild intermittent asthmatic bronchitis without complication (J45.20) Active confirmed Problem Essential hypertension (52111165) Hypertension, unspecified type (I10) Active confirmed Problem Paroxysmal tachycardia (53574202) Paroxysmal tachycardia (I47.9) Active confirmed Problem Keratosis of primo ntar aspect of foot (Q82.8) Active confirmed Vital Signs Heart Rate 68 /min 04/06/2025 Blood pressure diastolic 84 mm Hg 04/06/2025 Height 64.50 in 04/06/2025 Blood pressure systolic 132 mm Hg 04/06/2025 Weight 188.0 lbs 04/06/2025 BMI 31.77 kg/m2 04/06/2025 Encounters Encounter Location Date Provider Diagnosis [facility] [address] [facility] [address] [place], [place] [id number] 06/16/2024 Coleman Soares Moderate persistent asthma without complication J45.40 ; Right lateral epicondylitis M77.11 ; Keratosis of plantar aspect of foot Q82.8 and Hypertension, unspecified type I10 [facility] [address] [facility] [address] [place], [place] [id number] 10/10/2024 Coleman Soares Paroxysmal tachycard ia I47.9 and Moderate persistent asthma without complication J45.40 [facility] [address] [place], [place] [id number] 03/09/2025 Coleman Soares Hypertension, unspecified type I10 ; Moderate persistent asthma without complication J45.40 ; Palpitations R00.2 and BMI 32.0-32.9,adult Z68.32 [facility] [address] [place], [place] [id number] 04/06/2025 Coleman Soares Palpitations R00.2 a nd Dizziness R42 [facility] [address] [place], [place] [id number] 06/18/2024 Coleman Soares [facility] [address] [place], [place] [id number] 10/21/2024 Coleman Soares [facility] [address] [place] [id number] 04/09/2025 Coleman Soares [facility] [address] [place], [place] [id number] 04/16/2025 Coleman Soares Assessments Encounter Date Diagnosis (ICD Code) Assessment Notes Treatment Notes Treatment Clinical Notes Section Notes 06/16/2024 Moderate persistent asthma without complication (ICD-10 - J45.40) 06/16/2024 Right lateral epicondylitis (ICD-10 - M77.11) 10/10/2024 Paroxysmal tachycardia (ICD-10 - I47.9) 03/09/2025 Moderate persistent asthma without complication (ICD-10 - J45.40) 03/09/2025 Hypertension, unspecified type (ICD-10 - I10) 04/06/2025 Dizziness (ICD-10 - R42) 04/06/2025 Palpitations (ICD-10 - R00.2) 03/09/2025 Palpitations (ICD-10 - R00.2) 06/16/2024 Keratosis of plantar aspect of foot (ICD-10 - Q82.8) 10/10/2024 Moderate persistent asthma without complication (ICD-10 - J45.40) 03/09/2025 BMI 32.0-32.9,adult (ICD-10 - Z68.32) 06/16/2024 Hypertension, unspecified type (ICD-10 - I10) Plan Of Treatment Pending Test Test Name Order Date CT Scan : Head, with contrast 04/06/2025 Cardiac Stress Test Exercise Routine 11/2024 Next Appt Details Provider Name:Coleman Asif Xavier er, 06/08/2025 10:30:00 AM, [address], [place], [place], [id number], Insurance Providers Payer Name Payer Address Payer Phone Subscriber Number Group Number Insured Name Patient Relationship to Insured Coverage Start Date Coverage End Date [employer] [facility] [address] [place], [place] [phone] [id number] Shyla Maldonado Self - patient is the insured Medical (General) History Surgical History Surgery Date(Month/Year) Laproscopic 2005 Tubal Ligation 2009 Leep Procedure - cancerous cells in cerv ix 2007 Cholecystectomy 09/2017 Tubal Plasty 2018 Ablastion, Tubal Ligation 2019 Tubal w/ Dr Juarez 2018 Hospitalization History Reason Date(Month/Year) [facility] [place] ear pain 12/01/2020 - Hospital bed rest- child Jul- August 2009
--- OUTSIDE RECORDS SUMMARY | 2025-04-28 09:20 | XMS_ITS | Encounter Summary ---
Author Organization [employer] ([place], [place], [place], [place], [place]) Address [address] [place] [address] Care Team Providers Care Change Analyst Name Role Phone Victor Hugo Soares MD Primary Care Provider [phone] Encounter Details Date Type Department Care Team (Late st Contact Info) Description 09/16/2018 Transcribed Document [facility] [place] [facility] [place] [address] ProviderPolly MD [facility] [place], [place] [address] Social History Tobacco Use Types Packs/Day Years Used Date Smoking Tobacco: Never Assessed Comments Unknown Sex and Gender Information Value Date Recorded Sex Assigned at Not on file Legal Sex Female 6:24 PM CDT Gender Identity Not on file Sexual Orientation Not on file documented as of this encounter Miscellaneous Notes * Cerner Conversion Note - Polly ProviderMD - 09/16/2018 12:52 PM CDT [facility] Authorization Entered On: 09/16/2018 12:53 EDT Performed On: 09/16/2018 12:52 EDT by RACH VILLANUEVA RN-Utilization Review Primary Insurance Authorization Authorization and Policy Numbers : Insurance 1 Health Plan: [employer] Policy Number: [id number] Authorization Number: [id number] 2 Insurance Primary Name : [facility] Authorization Status-Primary : Admit approved Authorization Number-Primary : [id number] Number of Days Authorized-Primary : 5 Authorized Service Begin Date-Primary : 09/09/2018 EDT Authorized Service End Date-Primary : 09/13/2018 EDT Historical Authorization Comments-Primary : Comment 1: Clinicals for continued stay faxed to [facility] (JI PETERSON Rn-Utilization Review 09/14/2018 15:42) RACH VILLANUEVA RN-Utilization Review - 09/16/2018 12:52 EDT documented in this encounter Plan of Treatment Not on file documented as of this encounter Visit Diagnoses Not on filedocumented in this encounter Care Teams Change Analyst Relationship Specialty Start Date End Date Victor Hugo Soares MD [address] [place] [address] PCP - General Family Medicine 06/09/22 documented as of this encounter
[2025-04-28 09:44] LABS: Blood Urea Nitrogen 11 mg/dl (7-17); Creatinine,Serum 0.90 mg/dl (0.52-1.04); Estimated Glomerular Filt Rate 68 ml/min (>60); GFR (African American) 82 ML/MIN (>60)
[2025-04-28] MEDS: SODIUM CHLORIDE 0.9% 10ML SYR (RAD ONLY) 10 ML IV (10:16)
[2025-04-28] MEDS: IOPAMIDOL-370 (76%);100ML BOTTLE 100 ML IV (10:16)
== END 2025-04-28 23:59 | disposition home or self-care (01) ==
LOC: RAD 09:14
PROVIDERS: PCP Family Medicine; Visit Provider Family Medicine
DX: R00.2 Palpitations (principal); R42 Dizziness and giddiness; R06.02 Shortness of breath
CPT/HCPCS: 36415; 70460; 82565; 84520; 93017; 93018; Q9967